=== PATIENT | female | born 1950 | race Caucasian/White ===

== ENCOUNTER 2019-03-16 07:32 | Observation (INO) | payer OTHER ==
--- OUTSIDE RECORDS SUMMARY | 2019-03-16 07:34 | XMS REPORT ---
:1950 [facility] Address [address] [place] [address] Dr. Mcfar[address]. [address] [place] [address] Care Team Providers Name Role Phone Unavailable Unavailable Unavailable Problems This patient has no known problems. Allergies, Adverse Reactions, Alerts This patient has no known allergies or adverse reactions. Medications This patient has no known medications.
[2019-03-16] MEDS ORDERED: NA CHLORIDE 0.9% 1,000 ML ONE (08:27)
[2019-03-16] MEDS ORDERED: FAMOTIDINE 20 MG/2 ML VIAL IV ONE (08:28)
[2019-03-16 09:05] LABS: Absolute Lymphocytes (CBC) 2.4 K/uL (0.7-4.9); Basophils % 0.6 % (0-1.3); Hematocrit 41.4 % (36.0-45.0); Lymphocytes % 20.9 % (15.3-44.8); MPV 8.5 fL (7.6-11.3); RBC Red Blood Cell Count 4.68 M/uL (3.86-4.86)
[2019-03-16 09:06] LABS: Protime INR 1.52
[2019-03-16] MEDS ORDERED: PIPER/TAZO/NS 3.375gm 3.375 GM/100 ML BAG ONE (09:06)
[2019-03-16 09:29] LABS: ALT/SGPT 24 U/L (12-78); AST/SGOT 19 U/L (15-37); Alkaline Phosphatase 97 U/L (45-117); BUN Blood Urea Nitrogen 9 mg/dL (7-18); Bicarbonate 28 mmol/L (21-32); Bilirubin Direct 0.2 mg/dL (0-0.2); Bilirubin Total 0.7 mg/dL (0.2-1.0); Glucose Level 143 mg/dL (74-106); Magnesium 2.1 mg/dL (1.8-2.4); NT PRO-BNP 556 pg/mL (<125); Potassium 3.9 mmol/L (3.5-5.1); Sodium Level 142 mmol/L (136-145); Troponin (Emerg Dept Use Only) < 0.02 ng/mL (0.0-0.045)
[2019-03-16 09:35] LABS: Urine Blood NEGATIVE (NEG); Urine Glucose NEGATIVE (NEG); Urine Protein NEGATIVE (NEG); Urine pH 6.5 (5.0-7.0)
--- NOTE | 2019-03-16 10:12 | RAD REPORT ---
EXAM DESCRIPTION: RAD - Chest Single View - 03/16/2019 8:57 am CLINICAL HISTORY: Cough, dyspnea, recent flu episode COMPARISON: May 2016 TECHNIQUE: AP portable chest image was obtained 0842 hour . FINDINGS: Right perihilar parenchymal opacification is present new from prior imaging. In the acute clinical setting this is most likely pneumonia. Progressive fibrosis is possible. Heart size is upper normal. Vasculature within normal limits. No measurable pleural effusion and no pneumothorax. No acute bony abnormality seen. No acute aortic findings suspected. IMPRESSION: Suspected right perihilar pneumonia. Follow-up imaging is needed to assure complete leslie ring.
--- NOTE | 2019-03-16 10:19 | RAD REPORT ---
EXAM DESCRIPTION: CT - Chest For Pe Angio - 03/16/2019 9:53 am CLINICAL HISTORY: Cough;Dyspnea COMPARISON: Chest Single View dated 03/16/2019 TECHNIQUE: Dynamically enhanced 3 mm thick images of the chest were obtained during administration o f approximately 150mL Isovue 370 IV contrast. Coronal and oblique MIP reconstruction images were gene rated and reviewed. Exam utilizes a protocol to evaluate the pulmonary arterial tree. All CT scans are performed using dose optimization technique as appropriate and may include automated exposure control or mA/KV adjustment according to patient size. FINDINGS: No pulmonary emboli are identified. The aorta as imaged shows no acute or suspicious finding. No pericardial thickening or effusion. Patchy airspace opacification is present in the anterior mid portion right upper lobe. More consolida juliet parenchyma is seen in the right upper lobe abutting the minor fissure. Patchy opacification is pr esent in the right infrahilar region extending into the right lower lobe. Mild bronchial wall thicken ing changes are present. No endobronchial lesion. Patient has granulomatous calcifications in the med iastinal and hilar regions. No pleural effusion or pleural thickening. No mediastinal or hilar suspicious masses. No chest wall masses or abnormal axillary lymphadenopathy. IMPRESSION: No pulmonary emboli identified. Anterior right midlung field pneumonia in the right upper lobe with patchy pneumonia changes in the p osterior inferior right lower lobe.
--- NOTE | 2019-03-16 10:46 | ER ---
Nurse's Notes [facility] Name: Nickolas Grimes Age: 69 yrs Sex: Female : 1950 Arrival Date: 03/16/2019 Time: 07:[address] Private MD: Mk Arango Diagnosis: Hemoptysis;Unspecified bacterial pneumonia;Atrial fibrillation and flutter-on eliquis, aspirin Presentation: 03/16 07:46 Presenting complaint: Patient states: recently got over flu a couple weeks ago, started iw having a cough 4-5 days ago, this morning started coughing up bright red blood and had rattling in her chest. Transition of care: patient was not received from another setting of care. Onset of symptoms was March 11, 2019. Risk Assessment: Do you want to hurt yourself or someone else? Patient reports no desire to harm self or others. Initial Sepsis Screen: Does the patient meet any 2 criteria? No. Patient's initial sepsis screen is negative. Does the patient have a suspected source of infection? Yes: Productive cough/pneumonia. Care prior to arrival: None. 07:46 Method Of Arrival: Ambulatory iw 07:46 Acuity: [place] 3 iw Historical: - Allergies: 07:50 No Known Allergies; iw - Home Meds: 07:50 Eliquis 5 mg oral tab 1 tab daily [Active]; aspirin 81 mg Oral TbEC 1 tab once daily iw [Active]; diltiazem HCl 60 mg Oral tab 1 tab 3 times per day [Active]; sotalol 120 mg Oral tab 1 tab 2 times per day [Active]; Albuterol Nebulizer [Active]; - PMHx: 07:50 Atrial Fib; Hypertension; iw - PSHx: 07:50 Cholecystectomy; Tonsillectomy; Adenoids; cardiac ablation; iw - Immunization history:: Adult Immunizations not up to date. - Social history:: Smoking status: Smoking status: Patient/guardian denies using tobacco. - Ebola Screening: : Patient negative for fever greater than or equal to 101.5 degrees Fahrenheit, and additional compatible Ebola Virus Disease symptoms Patient denies exposure to infectious person Patient denies travel to an Ebola-affected area in the 21 days before illness onset No symptoms or risks identified at this time. - Family history:: not pertinent. Screenin:35 Abuse screen: Denies threats or abuse. Denies injuries from another. Nutritional aj1 screening: No deficits noted. Tuberculosis screening: No symptoms or risk factors identified. 13:35 Fall Risk None identified. aj1 Assessment: 08:30 General: Appears in no apparent distress. uncomfortable, Behavior is calm, cooperative, jl7 appropriate for age. Pain: Denies pain. Neuro: Level of Consciousness is awake, alert, obeys commands, Oriented to person, place, time, situation. Cardiovascular: Heart tones S1 S2 present Patient's skin is warm and dry. Respiratory: Reports cough that is productive, Airway is patent Respiratory effort is even, unlabored, Respiratory pattern is regular, symmetrical, Breath sounds are clear bilaterally. Derm: Skin is pink, warm \T\ dry. 10:13 General: Appears in no apparent distress. uncomfortable, Behavior is calm, cooperative, aj1 appropriate for age. Pain: Denies pain. Neuro: Level of Consciousness is awake, alert, obeys commands, Oriented to person, place, time, situation. Cardiovascular: Heart tones S1 S2 present Patient's skin is warm and dry. Respiratory: Reports cough that is productive, with bloody sputum Airway is patent Respiratory effort is even, unlabored, Respiratory pattern is regular, symmetrical, Breath sounds with rhonchi bilaterally. GI: No signs and/or symptoms were reported involving the gastrointestinal system. : No signs and/or symptoms were reported regarding the genitourinary system. EENT: No signs and/or symptoms were reported regarding the EENT system. Derm: No signs and/or symptoms reported regarding the dermatologic system. Skin is pink, warm \T\ dry. normal. Musculoskeletal: No signs and/or symptoms reported regarding the musculoskeletal system. Circulation, motion, and sensation intact. 11:15 Reassessment: Patient appears in no apparent distress at this time. No changes from aj1 previously documented assessment. Patient and/or family updated on plan of care and expected duration. Pain level reassessed. Patient is alert, oriented x 3, equal unlabored respirations, skin warm/dry/pink. 11:20 Reassessment: Dr. Dalton at bedside. aj1 12:32 Reassessment: Patient and/or family updated on plan of care and expected duration. Pain aj1 level reassessed. General: Appears in no apparent distress. comfortable, Behavior is calm, cooperative, appropriate for age. Pain: Denies pain. Neuro: Level of Consciousness is awake, alert, obeys commands, Oriented to person, place, time, situation. Cardiovascular: Patient's skin is warm and dry. Cardiovascular: Rhythm is sinus rhythm. Respiratory: Airway is patent Respiratory effort is even, unlabored, Respiratory pattern is regular, symmetrical. Derm: Skin is pink, warm \T\ dry. normal. Musculoskeletal: Circulation, motion, and sensation intact. 12:36 Reassessment: Patient developed a rash rash to her right arm above IV site. aj1 Azithromycin was discontinued and Dr. Dalton was notified. Order received to change antibiotic to Levaquin 750 mg IV once daily. Give Benadryl 25 mg PO now. Vital Signs: 07:50 BP 140 / 90; Pulse 64; Resp 18 S; Temp 98.3; Pulse Ox 95% on R/A; Weight 85.28 kg; iw Height 5 ft. 8 in. (172.72 cm); Pain 0/10; 09:02 BP 138 / 64; Pulse 60; Resp 19; Temp 99.0(O); Pulse Ox 97% on R/A; mh5 10:13 BP 158 / 68; Pulse 64; Resp 15; Pulse Ox 98% on R/A; aj1 11:22 BP 153 / 69; Pulse 58; Resp 18; Pulse Ox 99% on R/A; aj1 12:33 BP 140 / 72; Pulse 64; Resp 14; Pulse Ox 98% on R/A; aj1 13:35 BP 149 / 71; Pulse 60; Resp 16; Pulse Ox 99% on R/A; aj1 07:50 Body Mass Index 28.59 (85.28 kg, 172.72 cm) ED Course: 07:35 Patient arrived in ED. as 07:35 Mk Arango MD is Private Physician. as 07:48 Triage completed. iw 07:50 Arm band placed on. iw 07:54 Pool Bowman RN is Primary Nurse. jl7 07:57 Lukas Ferrara MD is Attending Physician. marlee 08:30 Inserted saline lock: 22 gauge in right forearm, using aseptic technique. Blood jl7 collected. 08:30 Initial lab(s) drawn, by sd, sent to lab. First set of blood cultures drawn by sd. jl7 08:33 Radiology exam delayed due to lab results not completed at this time. (BUN/Creatinine). bq 08:57 XRAY Chest (1 view) In Process Unspecified. EDMS 09:04 Patient has correct armband on for positive identification. Placed in gown. Bed in low mh5 position. Call light in reach. Side rails up X 1. Adult w/ patient. photogrammetry airplane pilot on. Pulse ox on. NIBP on. 09:24 Urine collected: clean catch specimen, clear. jl7 09:53 CT completed. Patient tolerated procedure well. Patient moved back from CT. mw3 09:53 CT Chest For PE Angio In Process Unspecified. EDMS 09:54 Patient moved back from [address]. mw3 10:42 Jessie Dalton MD is Hospitalizing Provider. [facility] 13:35 No provider procedures requiring assistance completed. Patient admitted, IV remains in aj1 place. 13:36 Report given to FAWAD Briscoe on 4th floor. aj1 Administered Medications: Discontinued: Zithromax 500 mg IVPB once over 1 hrs; mix in 250 mL NS 08:42 Drug: NS 0.9% 1000 ml Route: IV; Rate: 125 ml/hr; Site: right forearm; jl7 13:37 Follow up: IV Status: Infusion continued upon admission; IV Intake: 725ml aj1 08:43 Drug: Pepcid 20 mg Route: IVP; Site: right forearm; jl7 13:36 Follow up: Response: No adverse reaction aj1 09:23 Drug: Zosyn 3.375 grams Route: IVPB; Infused Over: 60 mins; Site: right forearm; jl7 11:23 Follow up: IV Status: Completed infusion; IV Intake: 100ml aj1 12:16 Drug: Zithromax 500 mg Route: IVPB; Infused Over: 1 hrs; Site: right antecubital; aj1 12:51 Drug: Benadryl 25 mg Route: PO; aj1 13:37 Follow up: Response: No adverse reaction aj1 13:38 Not Given (Admitting nurse states that she will give this medication upstairs so aj1 patient can be monitored ): LevaQUIN 750 mg 150 ml IVPB once over 90 mins Intake: 11:23 IV: 100ml; Total: 100ml. aj1 13:37 IV: 725ml; Total: 825ml. aj1 Outcome: 10:45 Decision to Hospitalize by Provider. marlee 13:38 Admitted to Tele accompanied by tech, via wheelchair, with chart. aj1 13:38 Condition: stable 13:38 Discharge instructions given to patient, Instructed on the need for admit, Demonstrated understanding of instructions. 14:32 Patient left the ED. liliane Signatures: Dispatcher [employer] Zina Coates, FAWAD RN aj1 Lukas Ferrara MD MD cha Quilty, Betty bq Martinez, Amelia as Williams, Irene, RN RN iw Martinez, Maria [facility] Pool Bowman RN RN jl7 Sole Mercer mw3
--- NOTE | 2019-03-16 10:46 | EDPHYS ---
Physician Documentation [facility] Name: Nickolas Grimes Age: 69 yrs Sex: Female : 1950 Arrival Date: 03/16/2019 Time: 07:[address] Private MD: Mk Arango ED Physician Lukas Ferrara HPI: 03/16 08:22 This 69 yrs old Female presents to ER via Ambulatory with complaints of Cough.marlee 08:22 The patient or guardian reports cough. Onset: The symptoms/episode began/occurred 14 marlee day(s) ago. 08:23 Modifying factors: The symptoms are alleviated by nothing. the symptoms are aggravated marlee by nothing. Severity of symptoms: At their worst the symptoms were mild, in the emergency department the symptoms are unchanged. Associated signs and symptoms: The patient has no apparent associated signs or symptoms. Modifying factors: The symptoms are alleviated by nothing, the symptoms are aggravated by cold weather, exertion, talking. Severity of symptoms: At their worst the symptoms were mild moderate in the emergency department the symptoms are unchanged. Historical: - Allergies: 07:50 No Known Allergies; iw - Home Meds: 07:50 Eliquis 5 mg oral tab 1 tab daily [Active]; aspirin 81 mg Oral TbEC 1 tab once daily iw [Active]; diltiazem HCl 60 mg Oral tab 1 tab 3 times per day [Active]; sotalol 120 mg Oral tab 1 tab 2 times per day [Active]; Albuterol Nebulizer [Active]; - PMHx: 07:50 Atrial Fib; Hypertension; iw - PSHx: 07:50 Cholecystectomy; Tonsillectomy; Adenoids; cardiac ablation; iw - Immunization history:: Adult Immunizations not up to date. - Social history:: Smoking status: Smoking status: Patient/guardian denies using tobacco. - Ebola Screening: : Patient negative for fever greater than or equal to 101.5 degrees Fahrenheit, and additional compatible Ebola Virus Disease symptoms Patient denies exposure to infectious person Patient denies travel to an Ebola-affected area in the 21 days before illness onset No symptoms or risks identified at this time. - Family history:: not pertinent. ROS: 08:23 Constitutional: Negative for fever, chills, and weight loss, Eyes: Negative for injury, marlee pain, redness, and discharge, ENT: Negative for injury, pain, and discharge, Neck: Negative for injury, pain, and swelling, Cardiovascular: Negative for chest pain, palpitations, and edema, Abdomen/GI: Negative for abdominal pain, nausea, vomiting, diarrhea, and constipation, Back: Negative for injury and pain, : Negative for injury, bleeding, discharge, and swelling, MS/Extremity: Negative for injury and deformity, Skin: Negative for injury, rash, and discoloration, Neuro: Negative for headache, weakness, numbness, tingling, and seizure, Psych: Negative for depression, anxiety, suicide ideation, homicidal ideation, and hallucinations, Allergy/Immunology: Negative for hives, rash, and allergies, Endocrine: Negative for neck swelling, polydipsia, polyuria, polyphagia, and marked weight changes. 08:23 Respiratory: Positive for cough, bloody, on elquis, asa. Exam: 08:23 Constitutional: This is a well developed, well nourished patient who is awake, alert, marlee and in no acute distress. Head/Face: Normocephalic, atraumatic. Eyes: Pupils equal round and reactive to light, extra-ocular motions intact. Lids and lashes normal. Conjunctiva and sclera are non-icteric and not injected. Cornea within normal limits. Periorbital areas with no swelling, redness, or edema. ENT: Nares patent. No nasal discharge, no septal abnormalities noted. Tympanic membranes are normal and external auditory canals are clear. Oropharynx with no redness, swelling, or masses, exudates, or evidence of obstruction, uvula midline. Mucous membranes moist. Neck: Trachea midline, no thyromegaly or masses palpated, and no cervical lymphadenopathy. Supple, full range of motion without nuchal rigidity, or vertebral point tenderness. No Meningismus. Chest/axilla: Normal chest wall appearance and motion. Nontender with no deformity. No lesions are appreciated. Cardiovascular: Regular rate and rhythm with a normal S1 and S2. No gallops, murmurs, or rubs. Normal PMI, no JVD. No pulse deficits. Abdomen/GI: Soft, non-tender, with normal bowel sounds. No distension or tympany. No guarding or rebound. No evidence of tenderness throughout. Back: No spinal tenderness. No costovertebral tenderness. Full range of motion. Female : Normal external genitalia. Skin: Warm, dry with normal turgor. Normal color with no rashes, no lesions, and no evidence of cellulitis. MS/ Extremity: Pulses equal, no cyanosis. Neurovascular intact. Full, normal range of motion. Neuro: Awake and alert, GCS 15, oriented to person, place, time, and situation. Cranial nerves II-XII grossly intact. Motor strength 5/5 in all extremities. Sensory grossly intact. Cerebellar exam normal. Normal gait. Psych: Awake, alert, with orientation to person, place and time. Behavior, mood, and affect are within normal limits. 08:23 Respiratory: mild respiratory distress is noted, Respirations: normal, Breath sounds: rhonchi, that are mild, are scattered, Respiratory rate: 18 Vital Signs: 07:50 BP 140 / 90; Pulse 64; Resp 18 S; Temp 98.3; Pulse Ox 95% on R/A; Weight 85.28 kg; iw Height 5 ft. 8 in. (172.72 cm); Pain 0/10; 09:02 BP 138 / 64; Pulse 60; Resp 19; Temp 99.0(O); Pulse Ox 97% on R/A; mh5 10:13 BP 158 / 68; Pulse 64; Resp 15; Pulse Ox 98% on R/A; aj1 11:22 BP 153 / 69; Pulse 58; Resp 18; Pulse Ox 99% on R/A; aj1 12:33 BP 140 / 72; Pulse 64; Resp 14; Pulse Ox 98% on R/A; aj1 13:35 BP 149 / 71; Pulse 60; Resp 16; Pulse Ox 99% on R/A; aj1 07:50 Body Mass Index 28.59 (85.28 kg, 172.72 cm) iw MDM: 07:57 Patient medically screened. [facility] 08:25 Data reviewed: vital signs, nurses notes, lab test result(s), EKG, radiologic studies, [facility] CT scan, plain films. 03/16 08:22 Order name: Basic Metabolic Panel; Complete Time: 10:04 marlee 03/16 08:22 Order name: CBC with Diff; Complete Time: 09:23 [facility] 03/16 08:22 Order name: LFT's; Complete Time: 10:04 [facility] 03/16 08:22 Order name: Magnesium; Complete Time: 10:04 [facility] 03/16 08:22 Order name: NT PRO-BNP; Complete Time: 10:04 [facility] 03/16 08:22 Order name: PT-INR; Complete Time: 09:23 [facility] 03/16 08:22 Order name: Troponin (emerg Dept Use Only); Complete Time: 10:04 [facility] 03/16 08:22 Order name: XRAY Chest (1 view) [facility] 03/16 08:22 Order name: CT Chest For PE Angio [facility] 03/16 08:22 Order name: TSH; Complete Time: 10:04 [facility] 03/16 08:22 Order name: Blood Culture Adult (2) [facility] 03/16 09:23 Order name: Urine Culture [facility] 03/16 09:24 Order name: Urine Dipstick--Ancillary (enter results); Complete Time: 10:04 al 03/16 08:22 Order name: EKG; Complete Time: 08:24 [facility] 03/16 08:22 Order name: Cardiac monitoring; Complete Time: 09:02 [facility] 03/16 08:22 Order name: EKG - Nurse/Tech; Complete Time: 09:02 [facility] 03/16 08:22 Order name: IV Saline Lock; Complete Time: 08:42 [facility] 03/16 08:22 Order name: Labs collected and sent; Complete Time: 08:42 [facility] 03/16 08:22 Order name: O2 Per Protocol; Complete Time: 08:42 [facility] 03/16 08:22 Order name: O2 Sat Monitoring; Complete Time: 08:42 [facility] 03/16 08:38 Order name: Urine Dipstick-Ancillary (obtain specimen); Complete Time: 09:23 [facility] Administered Medications: Discontinued: Zithromax 500 mg IVPB once over 1 hrs; mix in 250 mL NS 08:42 Drug: NS 0.9% 1000 ml Route: IV; Rate: 125 ml/hr; Site: right forearm; jl7 13:37 Follow up: IV Status: Infusion continued upon admission; IV Intake: 725ml aj1 08:43 Drug: Pepcid 20 mg Route: IVP; Site: right forearm; jl7 13:36 Follow up: Response: No adverse reaction aj1 09:23 Drug: Zosyn 3.375 grams Route: IVPB; Infused Over: 60 mins; Site: right forearm; jl7 11:23 Follow up: IV Status: Completed infusion; IV Intake: 100ml aj1 12:16 Drug: Zithromax 500 mg Route: IVPB; Infused Over: 1 hrs; Site: right antecubital; aj1 12:51 Drug: Benadryl 25 mg Route: PO; aj1 13:37 Follow up: Response: No adverse reaction aj1 13:38 Not Given (Admitting nurse states that she will give this medication upstairs so aj1 patient can be monitored ): LevaQUIN 750 mg 150 ml IVPB once over 90 mins Disposition: 03/16/19 10:45 Hospitalization ordered by Jessie Dalton for Inpatient Admission. Preliminary diagnosis are Hemoptysis, Unspecified bacterial pneumonia, Atrial fibrillation and flutter - on eliquis, aspirin. - Bed requested for Telemetry/MedSurg (Inpatient). - Status is Inpatient Admission. iw - Condition is Fair. - Problem is new. - Symptoms have improved. UTI on Admission? No Signatures: Dispatcher [employer] EDMS Zina Maharaj RN RN aj1 Abbi Carlson RN RN dw Anderson, Corey, MD MD cha Williams, Irene, RN RN iw Leal, Jahala, RN RN jl7 Corrections: (The following items were deleted from the chart) 13:08 10:45 Hospitalization Ordered by Jessie Dalton MD for Inpatient Admission. Preliminary dw diagnosis is Hemoptysis; Unspecified bacterial pneumonia; Atrial fibrillation and flutter - on eliquis, aspirin. Bed requested for Telemetry/MedSurg (Inpatient). Status is Inpatient Admission. Condition is Fair. Problem is new. Symptoms have improved. UTI on Admission? No. marlee 14:32 13:08 03/16/2019 10:45 Hospitalization Ordered by Jessie Dalton MD for Inpatient iw Admission. Preliminary diagnosis is Hemoptysis; Unspecified bacterial pneumonia; Atrial fibrillation and flutter - on eliquis, aspirin. Bed requested for Telemetry/MedSurg (Inpatient). Status is Inpatient Admission. Condition is Fair. Problem is new. Symptoms have improved. UTI on Admission? No. dw
[2019-03-16] MEDS ORDERED: AZITHROMYCIN IV 500 MG in NA CHLORIDE 0.9% 250 ML IVPB ONE (12:00)
[2019-03-16] MEDS ORDERED: DIPHENHYDRAMINE 25 MG TAB/CAP ONE (12:45)
[2019-03-16] MEDS ORDERED: Levofloxacin 750mg IV 750 MG/150 ML BAG IV ONE (12:45)
[2019-03-16] MEDS ORDERED: ALBUTEROL 2.5 MG/3 ML NEB SOL NEB PRN (13:03)
[2019-03-16] MEDS ORDERED: ONDANSETRON 4 MG/2 ML VIAL IV PRN (13:03)
[2019-03-16] MEDS ORDERED: ACETAMINOPHEN 500 MG TAB PO PRN (13:03)
[2019-03-16] MEDS ORDERED: IPRATROPIUM BROM 0.5MG/2.5ML NEB PRN (13:03)
[2019-03-16 14:57] VITALS: BMI 27.8
[2019-03-16] MEDS: NA CHLORIDE 0.9% 1,000 ML IV SCH (15:22)
[2019-03-16] MEDS ORDERED: Levofloxacin 750mg IV 750 MG/150 ML BAG IV SCH (16:00)
[2019-03-16] MEDS: SOTALOL HCL 120 MG PO SCH (18:35)
[2019-03-16 20:37] VITALS: O2SAT 96
[2019-03-16] MEDS: DILTIAZEM HCL 60 MG PO SCH (21:00)
[2019-03-16] MEDS ORDERED: CEFTRIAXONE/SWI 1gm 1 GM/10 ML SYR IVP SCH (21:00)
[2019-03-16] MEDS ORDERED: POTASSIUM CL SA 10 MEQ TAB PO ONE (21:00)
--- NOTE | 2019-03-17 02:02 | HP ---
Date of Admission: 03/16/2019 Code Status: Full. Chief Complaint: Hemoptysis. Consultants: 1. Dr. Mcgrath with Pulmonology. 2. Dr. Peraza with Cardiology. 3. Primary care physician, Dr. Arango. History Of Present Illness: Patient is a 69-year-old female with past medical history of atrial fibrillation, on Eliquis, essential hypertension, who was in her usual state of health 1 month ago, had onset of flu, was on antiviral steroids, completed the course, but continued to have cough including seasonal allergies, which exacerbated her cough. The patient this morning had episode of yousif hemoptysis there, who came into the ER for further evaluation. She denies any trauma. She has been taking her Eliquis as recommended. She takes 5 mg daily along with an aspirin and in the evening. Patient follows with Dr. Rowland for her cardiology issues, has had an ablation and currently in sinus rhythm. Her symptoms are constant, moderate, progressively worsening. Therefore, came into the ER her workup revealed hemoglobin of 14, white count of 11.6, INR 1.52. Troponin was negative. CT scan of the chest showed no pulmonary emboli. Did show anterior right mid lung field pneumonia in the right upper lobe with patchy pneumonia changes in the posterior inferior right lower lobe. Patient was then referred for admission. When seen in the ER, she was awake, alert, oriented x3, in some mild distress. Past Medical History: Atrial fibrillation, on anticoagulation, hypertension. Past. Past Surgical History: Cholecystectomy, tonsillectomy, adenoidectomy, cardiac ablation. Allergies: NO KNOWN DRUG ALLERGIES. HOWEVER, IN THE ER, RECEIVED AZITHROMYCIN AND BROKE OUT IN THE RASH. INITIALLY, PATIENT DID NOT STATE ANY KNOWN DRUG ALLERGIES. Medications: List reviewed. Social History: Patient denies any tobacco use, alcohol use, or illicit drug use. Patient is . Currently independent in her activities of daily living. Family History: Atrial fibrillation, hypertension, both run in the family. Review of Systems: Ten-point system reviewed, negative except as per HPI. Physical Examination: Vital Signs: Temperature 98.3, heart rate 64, blood pressure 140/90, respirations 18, O2 95% on room air. General: Awake, alert, oriented x3. Elderly female, ill-appearing. HEENT: Normocephalic, atraumatic. PERRLA. EOMI. Moist mucous membranes. Oropharynx is some dry blood without poor dentition. Conjunctivae anicteric. Neck: Supple. No JVD. Trachea midline. CV: S1, S2. Regular rate and rhythm. Peripheral pulses present. Respiratory: Clear to auscultation bilaterally. Some diminished breath sounds at the right lower lobe. No wheezing or stridor. No use of accessory muscles. Gastrointestinal: Abdomen is soft, nontender, nondistended. Positive bowel sounds. No guarding or rigidity. Extremities: No clubbing, cyanosis. Patient has pedal edema. No calf tenderness. Neuro: Cranial nerves 2 through 12 intact grossly. No focal neurological deficit. Speech is normal. Skin: No rashes. Normal skin turgor. Laboratory Data: UA is negative. Sodium 142, potassium 3.9, chloride 107, CO2 of 28, BUN 9, creatinine 0.76, glucose 143, calcium 8.8, magnesium 2.1. Troponin less than 0.02. TSH 2.8. INR 1.52. WBC 11.6, H and H 14 and 41.4, platelets 224. CT angio chest shows anterior right mid lung field pneumonia in the right upper lobe with patchy pneumonia changes in the posterior inferior right lower lobe. No pulmonary emboli identified. Chest x-ray personally reviewed, suspected right perihilar pneumonia. Assessment And Plan: A 69-year-old female with: 1. Hemoptysis, likely secondary to Eliquis and persistent cough and pneumonia. Pulmonology has been consulted. Patient may need bronchoscopy if continues to worsen. We will hold Eliquis for now. 2. Right perihilar pneumonia. We will start on IV antibiotics. Patient had reaction to azithromycin. We will switch to Levaquin. We will obtain blood cultures and sputum cultures. 3. Atrial fibrillation, currently in sinus rhythm. Patient is on sotalol. We will resume home medications as appropriate. 4. Essential hypertension. We will resume home medications, stable. Plan: Admit patient to Med-Surg, place as inpatient. Length of stay greater than 2 midnights. JUAN Voice ID: [id number] MTDD
[2019-03-17] MEDS: NA CHLORIDE 0.9% 1,000 ML IV SCH (05:40)
[2019-03-17 05:54] LABS: Absolute Lymphocytes (CBC) 2.4 K/uL (0.7-4.9); Basophils % 0.6 % (0-1.3); Hematocrit 37.6 % (36.0-45.0); Lymphocytes % 30.3 % (15.3-44.8); MPV 8.1 fL (7.6-11.3); RBC Red Blood Cell Count 4.24 M/uL (3.86-4.86)
[2019-03-17] MEDS ORDERED: LEVOTHYROXINE SOD 0.075 MG TAB PO SCH (06:00)
[2019-03-17 06:13] LABS: Albumin 3.4 g/dL (3.4-5.0); Bilirubin Total 0.8 mg/dL (0.2-1.0); Potassium 4.5 mmol/L (3.5-5.1); Protein, Total 6.2 g/dL (6.4-8.2)
--- NOTE | 2019-03-17 07:44 | EKG ---
Test Date: 2019-03-16 Test Time: 08:54:58 Environmental Director: IZAIAH MEASUREMENT RESULTS: Intervals: Rate: 60 ID: [id number] QRSD: 102 QT: 374 QTc: 374 Bison: P: 35 ID: [id number] QRS: -44 T: 36 INTERPRETIVE STATEMENTS: Normal sinus rhythm Left axis deviation Incomplete right bundle branch block Nonspecific T wave abnormality Abnormal ECG Compared to ECG 05/05/2014 12:47:50 Left-axis deviation now present Incomplete right bundle-branch block now present Atrial flutter no longer present Ventricular premature complex(es) no longer present Right-axis deviation no longer present Prolonged QT interval no longer present T-wave abnormality still present Electronically Signed On 03-17-19 07:43:23 CREDIT AND LOAN COLLECTIONS SUPERVISOR by Silvio Ding
[2019-03-17 08:11] VITALS: TEMP 97
[2019-03-17] MEDS: DILTIAZEM HCL 60 MG PO SCH (08:53)
[2019-03-17] MEDS: MONTELUKAST 10 MG TAB PO SCH ×2 (08:53→08:57)
[2019-03-17] MEDS: SOTALOL HCL 120 MG PO SCH (08:54)
--- NOTE | 2019-03-17 08:57 | CON ---
Chief Complaint: Hemoptysis. History Of Present Illness: Mrs. Grimes has had paroxysmal atrial fib for couple of years. She is tr eated by the physicians at [facility] in [place]. She takes Eliquis 5 mg twice a day, sotalol 120 b.i.d. and diltiazem and aspirin. She had the flu in January and now has developed pneumonia with an infil trate in the right hilar area and she began to have hemoptysis. The hemoptysis is mostly resolved si nce Eliquis has been held about close to 24 hours. Outpatient Medications: Levothyroxine, sotalol, Singulair, fluticasone, diltiazem, apixaban, and asp irin. Allergies: SHE IS ALLERGIC TO AZITHROMYCIN. Social History: Uses no tobacco. Past Medical History: No history of myocardial infarction, stroke, vascular disease. No history of diabetes. Physical Examination: Vital Signs: 5 feet 8, 183 pounds. General: Alert, oriented, pleasant, not in distress. Lungs: Clear. Heart: Regular rate and rhythm. EKG normal. Abdomen: Soft. Extremities: Within normal limits. Distal pulses palpable. Impression: The patient has paroxysmal atrial fibrillation. Under fairly good control in sinus rhyt hm now. We should stop aspirin and Eliquis until her pneumonia is resolved. We will resume it probably after a week. BEULAH Voice ID: [id number] Report ID: [id number]
[2019-03-17] MEDS ORDERED: HOME MED 1 EA UNK (Fluticasone Propionate [Flonase Allergy Relief] 1 SPRAY) IH SCH (09:00)
[2019-03-17] MEDS ORDERED: AZITHROMYCIN IV 500 MG in NA CHLORIDE 0.9% 250 ML IVPB SCH (09:00)
--- NOTE | 2019-03-17 12:14 | P.CNS ---
Date of Consult: 03/17/19 Reason for Consult: Hemoptysis Chief Complaint: Hemoptysis and cough History of Present Illness: Patient is 69 years of age developed a cough in early January evaluated by physician was pretreated with a cough syrup and Keflex admission precipitated by acute onset of hemoptysis no risk factors for lung cancer no history of cancer no prior history of hemoptysis patient is never smoked this found to have a pneumonia in the right upper lobe patient is on Eliquis for atrial fibrillation Allergies azithromycin Allergy (Verified 03/16/19 13:00) Rash Home Medications: Apixaban [Eliquis] 5 mg PO BID 03/16/19 Aspirin 81 mg PO DAILY 03/16/19 Diltiazem HCl [Diltiazem 12Hr ER] 60 mg PO TID 03/16/19 Fluticasone Propionate [Flonase Allergy Relief] 1 spray IH DAILY 03/16/19 Levothyroxine [Synthroid*] 75 mcg PO [id number] 03/16/19 Montelukast Sodium [Singulair] 10 mg PO DAILY 03/16/19 Sotalol HCl [Sotalol] 120 mg PO BID 03/16/19 levoFLOXacin [Levaquin] 750 mg PO DAILY #5 tab 03/17/19 - Past Medical/Surgical History -: Hypertension -: Afib -: Tonisllectomy -: Chlecystectomy -: Adenoidectomy -: Cardiac ablation - Family History Mother Medical History: Heart disease Notes: afib Sister Medical History: Heart disease Notes: afib Father Medical History: Hypertension, Other (see notes) Notes: arthritis - Social History Alcohol use: No Caffeine use: No Place of Residence: Home Review of Systems 10-point ROS is otherwise unremarkable General: Weakness Respiratory: Cough, Hemoptysis Physical Examination Temp Pulse Resp BP Pulse Ox 97.0 F 65 16 162/69 H 97 03/17/19 08:00 03/17/19 08:00 03/17/19 08:00 03/17/19 08:00 03/17/19 08:00 General: Alert, Oriented x3 HEENT: Atraumatic Neck: Supple Respiratory: Clear to auscultation bilaterally, Expiratory wheezes Cardiovascular: No edema, Regular rate/rhythm, Normal S1 S2 Gastrointestinal: Normal bowel sounds, Soft and benign - Problems (1) Hemoptysis Current Visit: Yes Status: Acute Plan: Patient is 69 years of age admitted with acute onset of hemoptysis she had a preceding cough was treated with antibiotics and a cough syrup no prior history of pulmonary complaints he has a history of AFib on Eliquis patient was found to have a right upper lobe infiltrate no evidence of pulmonary emboli no evidence of active ongoing sepsis . CT scan reviewed patient can be discharged home on cefuroxime and doxycycline Levaquin would be relatively contraindicated. This patient is on sotalol the to for 7 days she has already had Keflex before blood cultures are so far negative fold the Eliquis for a week start patient on aspirin and then resume she is not in atrial fibrillation patient to follow with me in 2 weeks
[2019-03-17 12:31] VITALS: BP 144/65
[2019-03-17] MEDS ORDERED: Levofloxacin 750mg IV 750 MG/150 ML BAG IV SCH (14:00)
--- NOTE | 2019-03-18 04:15 | DS ---
Date of Discharge: 03/17/2019 Consultants: Dr. Mcgrath with Pulmonology, Dr. Ding with Cardiology. Procedures: None. Discharge Diagnoses: 1.Acute hemoptysis, likely secondary to pneumonia and Eliquis. 2.Right-sided pneumonia, perihilar. 3.Atrial fibrillation, paroxysmal, currently in sinus rhythm. 4.Essential hypertension, stable. Hospital Course: Patient is a 69-year-old female with past medical history of atrial fibrillation, o n Eliquis; hypertension, comes in with sudden onset of hemoptysis. Patient had been coughing for the past month after getting over the flu, which was treated with antivirals. Patient had a normal hemo globin, did have minimally elevated WBC count. Her INR was 1.52. Patient's Eliquis was held. CT sc an was done to rule out any specific cause of the hemoptysis. There was no PE found. Patient did levine ve anterior right mid lung field pneumonia in the right upper lobe with patchy pneumonia changes in t he posterior-inferior right lower lobe. She was started on IV antibiotics. Patient responded well. Her hemoptysis was slowing down, having minimal episode with teaspoon amount of bright red blood. P aga was seen by Cardiology, Dr. Ding, and recommended continuing to hold the Eliquis and aspirin for a minimum of 1 week. Patient normally follows up with a audio visual design engineer at [facility]. She is to follow up with her primary audio visual design engineer in 1 week and prior to resuming, the anticoagulation therapy. Bron choscopy was not indicated at this time. Dr. Mcgrath recommended outpatient followup in the next co uple of weeks. Patient understands that she needs to return to ER for worsening condition, including hemoptysis. Patient was then cleared for discharge. Her symptoms had improved. She was not short of breath, was not requiring any supplemental oxygen. There were no signs of sepsis. White blood ce ll count was normal. Blood cultures did not show any growth to date. Diet: Patient to continue with heart healthy diet. Activity: As tolerated. Followup: Follow up with primary care physician in 2-3 days. Return to ER for worsening condition. Physical Examination: General: Awake, alert, oriented x3. No acute distress. CV: S1, S2. Regular rate and rhythm. Respiratory: Moving air well bilaterally. Abdomen: Soft, nontender, nondistended. Positive bowel sounds. Extremities: No clubbing, cyanosis, or edema. Neurologic: Nonfocal. SA/MODL Voice ID: [id number] Report ID: [id number]
== END 2019-03-17 13:40 | disposition home or self-care (01) ==
LOC: ER 07:32 → ERHOLD 11:10 → INTOOBSV 11:10 → 4TH 13:34
PROVIDERS: ADMIT Family Medicine; ATTEND Family Medicine
DX: J18.9 Pneumonia, unspecified organism (principal); R04.2 Hemoptysis; I48.0 Paroxysmal atrial fibrillation; Z79.01 Long term (current) use of anticoagulants; I10 Essential (primary) hypertension
CPT/HCPCS: 96365; 96361; 93005; 87040 ×2; 87088; 87070; 85025 ×2; 80048; 36415; 83735; 87205; 85610; 80076; 84443; 81003; 84484; 80053; 83880; 71275; 71045; 94760 ×3; 96375; 99285; 96366; Q9967; J0456; J2543; J7030 ×4; G0378 ×3; 87086

== ENCOUNTER 2020-03-30 16:17 | Emergency (ER) | payer OTHER ==
--- OUTSIDE RECORDS SUMMARY | 2020-03-30 16:21 | XMS REPORT | Clinical Summary ---
:1950 Author Organization [facility] Address [address] [place] [address] Care Team Providers Name Role Phone Asked, Pcp Primary Care Provider Unavailable Allergies Active Allergy Reactions Severity Noted Date Comments Metformin Rash Low 05/19/2017 Medications Medication Sig Dispensed Refills Start Date End Date Status levothyroxine Take 75 mcg by 0 A ctive (SYNTHROID, LEVOXYL) mouth every 75 mcg tablet morning. diltiazem (CardIZEM) Take 60 mg by 0 Active 60 MG tablet mouth 4 (four) times a day. HR >60 sotalol (BETAPACE) 120 Take 120 mg by 0 Active MG tablet mouth 2 (two) times a day. omeprazole (PriLOSEC) Take 20 mg by 0 Active 20 MG capsule mouth daily. apixaban (ELIQUIS) 5 Take 5 mg by mouth 0 Active mg tablet 2 (two) times a day. metFORMIN (GLUCOPHAGE) Take 250 mg by 0 Active 500 mg tablet mouth daily with breakfast. Pt is allergic to generic metformin montelukast Take 10 mg by 0 Acti ve (SINGULAIR) 10 mg mouth nightly. tablet fluticasone (FLONASE) 2 sprays by Each 0 Active 50 mcg/actuation nasal Nare route daily. spray Active Problems Problem Noted Date Atrial fibrillation with RVR 05/19/2017 Surgical History Surgery Date Site/Laterality Comments CHOLECYSTECTOMY 04/02/2008 - 04/01/2009 Medical History Medical History Date Comments Hypertension Arrhythmia atrial fibrilation Anxiety Type 2 diabetes mellitus (HCC) Social History Tobacco Use Types Packs/Day Years Used Date Never Smoker Alcohol Use Drinks/Week oz/Week Comments No Sex Assigned at Date Recorded Not on file Last Filed Vital Signs Not on file Plan of Treatment Health Maintenance Due Date Last Done Comments COVID-19 VACCINE (#1) 1965 BREAST CANCER SCREENING 1999 COLONOSCOPY SCREENING 1999 SHINGLES VACCINES (#1) 1999 65+ PNEUMOCOCCAL VACCINE (1 of 1 - PPSV23) 2014 INFLUENZA VACCINE 11/01/2019 Results Not on fileafter 03/30/2019 Insurance Payer Benefit Plan / Subscriber ID Effective Dates Phone Addre ss Type Group MEDICARE MEDICARE PART A [id number] 2014-Present [place], [place] Medicare AND B COLONIAL [employer] [place] [id number] 2014-Present Commercial Advance Directives For more information, please contact: [phone] Type Date Recorded Patient Manager Pathology Explanati on Advance Directives, Living Will 05/19/2017 2:01 AM and Medical Power of Electromedical Service Engineer
--- OUTSIDE RECORDS SUMMARY | 2020-03-30 16:22 | XMS REPORT | Continuity of Care Document ---
:1950 Author Organization [facility] t Address [address] [place] [address] Care Team Providers Name Role Phone Asked, Pcp Primary Care Physician Unavailable Shelley DAWSON, A Attending Clinician Damir DAWSON Attending Clinician Doctor Unassigned, Name Attending Clinician Unavailable Parveen DAWSON Attending Clinician Problems Condition Condition Condition Status Onset Resolution Last Treating Co mments Source Name Details Category Date Date Treatment Clinician Date Atrial Atrial Disease Active Hydro fibrillati fibrillati 05-19 Wi thodi on with on with 00:00: st RVR RVR 00 Allergies, Adverse Reactions, Alerts Allergy Allergy Status Severity Reaction(s) Onset Inactive Treating Comm ents Source Name Type Date Date Clinician Metformi Propensi Active Rash [place] n n ty to 05-19 Methodi adverse 00:00: st reaction 00 s to drug Social History Social Habit Start Date Stop Date Quantity Comments Source Sex Assigned At [facility] ethodist Alcohol intake 2017-05-19 2017[facility]05-[facility] non-drinker of alcohol (finding) Smoking Status Start Date Stop Date Source Never smoker Hydro Methodis t Medications Ordered Filled Start Stop Current Ordering Indication Dosage Frequency Signature Comments Components Source Medication Medication Date Date Medication? Clinician (SIG) Name Name levothyroxi 2018-0 Yes 75ug QD Take 75 [address] ne 2-19 mcg by Methodi (SYNTHROID, 11:47: mouth st LEVOXYL) 75 51 every mcg tablet morning. diltiazem 2018-0 Yes 60mg Q.25D Take 60 mg [place] (CardIZEM) 2-19 by mouth 4 Met hodi 60 MG 11:47: (four) st tablet 51 times a day. HR >60 sotalol 2018-0 Yes 120mg Q.5D Take 120 [place] (BETAPACE) 2-19 mg by Methodi 120 MG 11:47: mouth 2 st tablet 51 (two) times a day. omeprazole 2018-0 Yes 20mg QD Take 20 mg [place] (PriLOSEC) 2-19 by mouth Metho di 20 MG 11:47: daily. st capsule 51 apixaban 2018-0 Yes 5mg Q.5D Take 5 mg [place] (ELIQUIS) 5 2-19 by mouth 2 Me thodi mg tablet 11:47: (two) st 51 times a day. metFORMIN 2018-0 Yes 250mg QD Take [address] (GLUCOPHAGE 2-19 mg by Methodi ) 500 mg 11:47: mouth st tablet 51 daily with breakfast. Pt is allergic to generic metformin montelukast 2018-0 Yes 10mg QD Take 10 mg Ernandez (SINGULAIR) 2-19 by mouth Meth zoya 10 mg 11:47: nightly. st tablet 51 fluticasone 2018-0 Yes 2{spray QD 2 sprays Awais (FLONASE) 2-19 } by Each Methodi 50 11:47: Nare route st mcg/actuati 51 daily. on nasal spray Procedures This patient has no known procedures. Plan of Care Planned Activity Planned Date Details Comments Source Future Scheduled 2019-11-01 INFLUENZA VACCINE [facility] 00:00:00 [code = INFLUENZA VACCINE] Future Scheduled 2014 65+ PNEUMOCOCCAL [facility] 00:00:00 VACCINE (1 of 1 - PPSV23) [code = 65+ PNEUMOCOCCAL VACCINE (1 of 1 - PPSV23)] Future Scheduled 1999 BREAST CANCER Ernandez [facility] 00:00:00 SCREENING [code = BREAST CANCER SCREENING] Future Scheduled 1999 COLONOSCOPY SCREENING [place] [facility] 00:00:00 [code = COLONOSCOPY SCREENING] Future Scheduled 1999 SHINGLES VACCINES (#1) H meli [facility] 00:00:00 [code = SHINGLES VACCINES (#1)] Future Scheduled 1965 COVID-19 VACCINE (#1) Ho sarika [facility] 00:00:00 [code = COVID-19 VACCINE (#1)] Encounters Start End Encounter Admission Attending Care Care Encounter Source Date/Time Date/Time Type Type Clinicians Facility Department ID 2020-03-17 2020[id number] 00:00:00 00:00:00 Shira Jane [id number] [place] [id number] Professio [phone] [address] 2020-02-16 2020-02-16 Refill Damir [facility] [id number] 00:00:00 00:00:00 Jf Jane [id number] [place] [id number] Professio [phone] nal [address] [place] [address] 2020-02-03 2020-02-03 Telephone Shelley [facility] [id number] 00:00:00 00:00:00 Shira Jane [id number] [place] [id number] Professio [id number] [address] 2020-01-29 2020-01-29 Orders Doctor JOHAN [id number] 00:00:00 00:00:00 Only Unassigned, ANDREA [id number] Benoit [facility] [id number] 2020-01-22 2020-01-22 Telephone Katlyn Saini [id number] 00:00:00 00:00:00 [place] [id number] [facility] [id number] Results This patient has no known results.
--- OUTSIDE RECORDS SUMMARY | 2020-03-30 16:22 | XMS REPORT | Summary of Care ---
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 MD Parveen Unavailable Reason for Visit Reason Comments New Patient Establish Care (Routine) Status Reason Specialty Diagnoses / Procedures Referred By Romain avelar To Contact Contact New Request Cardiology Diagnoses Chronic anticoagulation PAF (paroxysmal atrial fibrillation) Essential hypertension, benign WILKERSON (dyspnea on exertion) NSVT (nonsustained ventricular tachycardia) Rowland, Sendil Procedures Consult Cardiac Electrophysiology MD Makenna [address] [address] Encounter Details Date Type Department Care Team Description 01/13/2020 Office Visit [place] Mateo Saini MD Paroxysmal atrial Cardiology- [address] fibrillation (Primary [address] [place] [address], [address] [address] [place], [place] [phone] [address] [phone] Allergies Active Allergy Reactions Severity Noted Date Comments Azithromycin Itching 06/05/2019 Metformin Rash 04/18/2017 documented as of this encounter (statuses as of 01/13/2020) Medications Medication Sig Dispensed Refills Start Date End Date Status aspirin 81 mg chewable Take 81 mg by 0 Active tablet mouth daily. apixaban (ELIQUIS) 5 mg Take 1 tablet 180 tablet 2 09/11/2019 Active tabletIndications: by mouth 2 atrial arrhythmia (two) times daily. Indications: atrial arrhythmia, a type or abnormal heart beat atorvastatin 40 mg Take 1 tablet 90 tablet 3 09/25/2019 Active tabletIndications: Mixed by mouth at hyperlipidemia bedtime. sotalol 120 mg Take 1 tablet 120 tablet 2 10/14/2019 Active tabletIndications: by mouth 2 Essential hypertension, (two) times benign daily. montelukast 10 mg Take 1 tablet 90 tablet 1 10/14/2019 Active tabletIndications: Nasal by mouth at congestion, Bronchitis bedtime. fluticasone propionate Use 1 [place] in 16 g 2 10/14/2019 Active (FLONASE) 50 each nostril mcg/actuation nasal daily. sprayIndications: Nasal congestion, Bronchitis levothyroxine 75 mcg Take 1 tablet 90 tablet 1 10/20/2019 Active tabletIndications: Other by mouth every specified hypothyroidism morning. fluconazole 150 mg Take 1 tablet 4 tablet 0 01/05/2020 Active tabletIndications: Yeast by mouth every infection 72 (seventy-two) hours. Take 1 pill every 3 days for 2 weeks. omeprazole 20 mg Take 1 capsule 90 capsule 3 01/05/2020 Active capsuleIndications: by mouth daily. Gastroesophageal reflux disease, unspecified whether esophagitis present glipiZIDE 5 mg Take 0.5 90 tablet 3 01/05/2020 Acti ve tabletIndications: Type tablets by 2 diabetes mellitus mouth daily. without complication, without long-term current use of insulin folic Take by mouth. 0 Acti ve acid/multivit-min/lutein (CENTRUM SILVER ORAL) vitamin C with chioma hips Take 1,000 mg 0 Active (VITAMIN C) 1,000 mg by mouth daily. tablet documented as of this encounter (statuses as of 01/13/2020) Active Problems Problem Noted Date Productive cough 06/05/2019 Mold exposure 06/05/2019 Senile osteoporosis 06/05/2019 Essential hypertension, benign 02/08/2017 Chronic atrial fibrillation 02/08/2017 documented as of this encounter (statuses as of 01/13/2020) Resolved Problems Problem Noted Date Resolved Date Bronchitis 06/05/2019 10/23/2019 Need for influenza vaccination 06/05/2019 0 Need for 23-polyvalent pneumococcal polysaccharide vaccine 0 06/05/2019 10/23/2019 Medicare annual wellness visit, subsequent 06/05/2019 10/23/2019 Atrial fibrillation with rapid ventricular response 05/12/19 18 10/23/2019 documented as of this encounter (statuses as of 01/13/2020) Immunizations Name Administration Dates Next Due Influenza High Dose 06/11/2019 (Deferred: Vaccine Unavailable) Influenza High Dose Quad 01/05/2020 Pneumococcal Polysaccharide, PPSV23 06/11/2019 (Deferred: Va ccine (PNEUMOVAX) Unavailable) documented as of this encounter Social History Tobacco Use Types Packs/Day Years Used Date Never Smoker Smokeless Tobacco: Never Used Alcohol Use Drinks/Week oz/Week Comments No Sex Assigned at Date Recorded Not on file COVID-19 Exposure Response Date Recorded In the last month, have you been in contact with No / Unsure 01/13/2020 10:42 AM CDT someone who was confirmed or suspected to have Coronavirus / COVID-19? documented as of this encounter Last Filed Vital Signs Vital Sign Reading Time Taken Comments Blood Pressure 131/76 01/13/2020 10:46 AM CDT Pulse 61 01/13/2020 10:43 AM CDT Temperature - - Respiratory Rate 19 01/13/2020 10:43 AM CDT Oxygen Saturation 95% 01/13/2020 10:43 AM CDT Inhaled Oxygen Concentration - - Weight 83.7 kg (184 lb 8 oz) 01/13/2020 10:43 AM CDT Height 172.7 cm (5' 8") 01/13/2020 10:43 AM CDT Body Mass Index 28.05 01/13/2020 10:43 AM CDT documented in this encounter Progress Notes Mateo Saini MD - 01/13/2020 10:40 AM CDT Cardiac EP [facility] Note Reason for Evaluation / Chief Complaint: Afib Referring Provider: Dr. Rowland HPI: Nickolas Grimes is a 69 year old female with a history of Pafib, HTN, DM, on anti coagulation and rhythm control strategy with Sotalol, having increasing episodes of break through lasting 6 hours to aday, she wore an event monitor confirming recurrent atrial fibrillation with symptoms, no chest painor Syncope, has also had brief PVT on event monitor, last echo showed normal structures, has stress test scheduled this week. She had a atrial fibrillation ablation 5 years ago and had no recurrence for 2 yrs PMH: Past Medical History: Diagnosis Date Atrial fibrillation Atrial fibrillation with rapid ventricular response 05/12/2017 Chronic atrial fibrillation 02/08/2017 Essential hypertension, benign 02/08/2017 Social History: Social History Socioeconomic History Marital status: Spouse name: Not on file Number of children: Not on file Years of education: Not on file Highest education level: Not on file Occupational History Not on file Social Needs Financial resource strain: Not on file Food insecurity Worry: Not on file Inability: Not on file Transportation needs Medical: Not on file Non-medical: Not on file Tobacco Use Smoking status: Never Smoker Smokeless tobacco: Never Used Substance and Sexual Activity Alcohol use: No Drug use: No Sexual activity: Never Lifestyle Physical activity Days per week: Not on file Minutes per session: Not on file Stress: Not on file Relationships Social connections Talks on phone: Not on file Gets together: Not on file Attends druze service: Not on file Active member of club or organization: Not on file Attends meetings of clubs or organizations: Not on file Relationship status: Not on file Intimate partner violence Fear of current or ex partner: Not on file Emotionally abused: Not on file Physically abused: Not on file Forced sexual activity: Not on file Other Topics Concern Not on file Social History Narrative Not on file Family History: Family History Problem Relation Age of Onset Lung Cancer Mother Allergies: Allergies Allergen Reactions Azithromycin Itching Metformin Rash Medications: Current Outpatient Medications Medication Sig Dispense Refill fluconazole 150 mg tablet Take 1 tablet by mouth every 72 (seventy-two) hours. Take 1 pill every3 days for 2 weeks. 4 tablet 0 folic acid/multivit-min/lutein (CENTRUM SILVER ORAL) Take by mouth. glipiZIDE 5 mg tablet Take 0.5 tablets by mouth daily. 90 tablet 3 omeprazole 20 mg capsule Take 1 capsule by mouth daily. 90 capsule 3 vitamin C with chioma hips (VITAMIN C) 1,000 mg tablet Take 1,000 mg by mouth daily. levothyroxine 75 mcg tablet Take 1 tablet by mouth every morning. 90 tablet 1 fluticasone propionate (FLONASE) 50 mcg/actuation nasal spray Use 1 [place] in each nostril daily.16 g 2 montelukast 10 mg tablet Take 1 tablet by mouth at bedtime. 90 tablet 1 sotalol 120 mg tablet Take 1 tablet by mouth 2 (two) times daily. 120 tablet 2 atorvastatin 40 mg tablet Take 1 tablet by mouth at bedtime. 90 tablet 3 apixaban (ELIQUIS) 5 mg tablet Take 1 tablet by mouth 2 (two) times daily. Indications: atrial arrhythmia, a type or abnormal heart beat 180 tablet 2 aspirin 81 mg chewable tablet Take 81 mg by mouth daily. No current facility-administered medications for this visit. Review of Systems: General: fatigue during episodes Eyes: denies complaint Ears/Nose/Mouth/Throat: denies complaint Cardiovascular: as per hpi Respiratory: denies complaint Musculoskeletal: denies complaint Skin: denies complaint Neurologic: denies complaint Psychiatric: denies complaint Endocrine: diabetes Hematologic: denies complaint Allergy/Immunology: denies complaint Physical Exam: Vitals: Vitals: 01/13/20 1043 01/13/20 1046 BP: 138/75 131/76 BP Location: Left arm Patient Position: Sitting BP CUFF SIZE: Adult Large Pulse: 61 Resp: 19 SpO2: 95% Weight: 184 lb 8 oz (83.7 kg) Height: 5' 8" (1.727 m) General: well developed and well nourished female. No acute distress. Eyes: noicterus Ears/Nose/Mouth: Clear Neck: no thyroid megaly or lymphadenopathy Heart: regular rate and regular rhythm; no rubs or gallops, no murmur. Lungs: clear to auscultation Extremities: Normal bilateral Musculoskeletal: full range of motion. Ambulates without limitation. Neurologic: alert and oriented x 4; without gross abnormalities. Psychiatric: pleasant with no SI or HI. LABS / DATA: CBC WBC (10*3/L) Date Value 08/08/2019 7.46 RBC (10*6/L) Date Value 08/08/2019 4.87 PLT (10*3/L) Date Value 08/08/2019 219 HGB (g/dL) Date Value 08/08/2019 14.8 HCT (%) Date Value 08/08/2019 45.6 (H) CMP NA (mmol/L) Date Value 08/08/2019 143 K (mmol/L) Date Value 08/08/2019 4.3 CALCIUM (mg/dL) Date Value 08/08/2019 10.1 CL (mmol/L) Date Value 08/08/2019 103 BUN (mg/dL) Date Value 08/08/2019 16 CREATININE (mg/dL) Date Value 08/08/2019 0.75 GLUCOSE (mg/dL) Date Value 08/08/2019 121 (H) CO2 TOTAL (mmol/L) Date Value 08/08/2019 33 (H) ALBUMIN (g/dL) Date Value 08/08/2019 4.4 T PROTEIN (g/dL) Date Value 08/08/2019 6.5 TOTAL BILI (mg/dL) Date Value 08/08/2019 0.7 BILI UNCON (mg/dL) Date Value 10/03/2016 0.2 BILI CONJ (mg/dL) Date Value 10/03/2016 0.0 ALT(SGPT) (U/L) Date Value 05/18/2017 24 ALTv (U/L) Date Value 08/08/2019 17 AST(SGOT) (U/L) Date Value 08/08/2019 25 ALK PHOS (U/L) Date Value 08/08/2019 66 TSH: There are no current results on file for these tests and/or test for 1 year. BNP NT-proBNP (pg/mL) Date Value 03/08/2018 331 (H) Troponins There are no current results on file for these tests and/or test for 1 year. Impression: 69 year ols female with Pafib, symptomatic despite being on Sotalol Recommendation(s): 1. We went over the options available for rhythm control 2. Would recommend a re do PVI with possible ablation of reconnection and other triggers, keeping inmind the favorable response to first ablation, risks and benefits explained in detail 3. Continue management of DM and HTN 4. Life style changes 5. Er warnings given Thank you for allowing us to participate in the care of your patient. Please feel free to contact us for any questions or if we can be of further assistance. Mateo Saini MD 01/13/2020 11:08 AM documented in this encounter Plan of Treatment Date Type Specialty Care Team Description 01/15/2020 Appointment Echocardiograph Pc, Adc Echo-Vascular Elena m 1 - 01/15/2020 Appointment Radiology Shanelle Rowland MD [address] [facility] [address] [place] [address] [place] [address] [phone] 01/15/2020 Appointment Radiology Shanelle Rowland MD [address] [facility] [address] [place] [address] [place] [phone] 01/15/2020 Appointment Radiology Shanelle Rowland MD [address] [facility] [address] [place] [address] [place] [address] [phone] 01/15/2020 Appointment Radiology Shanelle Rowland MD [address] [facility] [address] [place] [address] [place] [address] [phone] 03/05/2020 Office Visit Cardiology Shanelle Rowland MD [address] [facility] [address] [place] [address] [place] [address] [phone] 03/08/2020 Office Visit Internal Medicine Prudence Rsoa MD [address] [place] [address] 15 [phone] 07/05/2020 Office Visit Internal Medicine Prudence Rosa MD [address] [place] [address] 15 [phone] 07/05/2020 Office Visit Internal Medicine Prudence Rosa MD [address] [place] [address] 15 [phone] Health Maintenance Due Date Last Done Comments HEPATITIS C (HCV) SCREEN 1950 EYE EXAM 1960 URINE MICROALBUMIN 1959 DTaP,Tdap,and Td Vaccines (1 - 02/22/1968 Tdap) Breast Cancer Screening 1989 (MAMMOGRAM) COLON CANCER SCREENING ANNUAL 1999 FIT/FOBT COLON CANCER SCREENING FIT DNA 1999 EVERY 3 YEARS COLON CANCER SCREENING 1999 SIGMOIDOSCOPY EVERY 5 YEARS COLONOSCOPY 1999 Colorectal Cancer Screening 1999 Zoster Recombinant Vaccine 1999 (SHINGRIX) (1 of 2) Medicare Wellness Visit 2014 Osteoporosis Screening 2014 PNEUMOCOCCAL VACCINES 65+ (1 of 1 2014 - PPSV23) HgA1C 02/08/2020 08/08/2019 Depression Screening 06/04/2020 06/05/2019 CREATININE (SERUM) 08/07/2020 08/08/2019, 03/08/2018, 05/18/2017, Additional history exists LDL-C 08/07/2020 08/08/2019 FOOT EXAM 01/04/2021 01/05/2020, 01/05/2020 INFLUENZA VACCINE Completed 01/05/2020 documented as of this encounter Results Not on filedocumented in this encounter Visit Diagnoses Diagnosis Paroxysmal atrial fibrillation - Primary Atrial fibrillation documented in this encounter Insurance Payer Benefit Plan / Subscriber ID Effective Dates Phone Addre ss Type Group [employer] [place] [employer] [place] [id number] 2019-Prese Medicare Adv PLUS PLUS CHOICE nt HMO/POS (Work) [id number] documented as of this encounter
--- OUTSIDE RECORDS SUMMARY | 2020-03-30 16:22 | XMS REPORT | Summary of Care ---
:1950 Author Organization [facility] - Health Address [address] [place] [address] Care Team Providers Name Role Phone Jf Reich MD Primary Care Provider Shira Rosa MD Insurance Hmo [phone] Lorenzo Rosa MD Primary Care Provider Encounter Details Date Type Department Care Team Description 09/16/2019 Orders Only [facility] Doctor Unassigned, No [address] [facility] [place] [address] [place] [address] Allergies Active Allergy Reactions Severity Noted Date Comments Azithromycin Itching 06/05/2019 Metformin Rash 04/18/2017 documented as of this encounter (statuses as of 01/01/2020) Medications Medication Sig Dispensed Refills Start Date End Date Status aspirin 81 mg Take 81 mg by 0 Ac tive chewable tablet mouth daily. apixaban (ELIQUIS) 5 Take 1 tablet by 180 tablet 2 09/11/2019 Active mg tabletIndications: mouth 2 (two) atrial arrhythmia times daily. Indications: atrial arrhythmia, a type or abnormal heart beat documented as of this encounter (statuses as of 01/01/2020) Active Problems Problem Noted Date Productive cough 06/05/2019 Mold exposure 06/05/2019 Senile osteoporosis 06/05/2019 Essential hypertension, benign 02/08/2017 Chronic atrial fibrillation 02/08/2017 documented as of this encounter (statuses as of 01/01/2020) Resolved Problems Problem Noted Date Resolved Date Bronchitis 06/05/2019 10/23/2019 Need for influenza vaccination 06/05/2019 0 Need for 23-polyvalent pneumococcal polysaccharide vaccine 0 06/05/2019 10/23/2019 Medicare annual wellness visit, subsequent 06/05/2019 10/23/2019 Atrial fibrillation with rapid ventricular response 05/12/19 18 10/23/2019 documented as of this encounter (statuses as of 01/01/2020) Immunizations Name Administration Dates Next Due Influenza High Dose 06/11/2019 (Deferred: Vaccine Unavailable) Pneumococcal Polysaccharide, PPSV23 06/11/2019 (Deferred: Va ccine (PNEUMOVAX) Unavailable) documented as of this encounter Social History Tobacco Use Types Packs/Day Years Used Date Never Smoker Smokeless Tobacco: Never Used Alcohol Use Drinks/Week oz/Week Comments No Sex Assigned at Date Recorded Not on file COVID-19 Exposure Response Date Recorded In the last month, have you been in contact with No / Unsure 10/21/2019 2:10 PM CDT someone who was confirmed or suspected to have Coronavirus / COVID-19? documented as of this encounter Last Filed Vital Signs Not on filedocumented in this encounter Plan of Treatment Date Type Specialty Care Team Description 01/05/2020 Office Visit Internal Medicine Prudence Rosa MD [address] [place] [address] 15 01/13/2020 Office Visit Cardiology Mateo Saini MD [address] [place] [address] [phone] 01/15/2020 Appointment Echocardiograph Pc, Adc Echo-Vascular Elena m 1 - 01/15/2020 Appointment Radiology Shanelle Rowland MD [facility] [address] [facility] [address] [place] [address] [place] [address] [phone] 01/15/2020 Appointment Radiology Shanelle Rowland MD [address] [facility] [address] [place] [address] [place] [address] [phone] 01/15/2020 Appointment Radiology Shanelle Rowland MD [address] [place], [place] [phone] 01/15/2020 Appointment Radiology Shanelle Rowland MD [address] [facility] [address] [place] [place], [place] [phone] 03/05/2020 Office Visit Cardiology Shanelle Rowland MD [address] [facility] [address] [place] [address] [place] [phone] 03/08/2020 Office Visit Internal Medicine Prudence Rosa MD [address] [phone] Health Maintenance Due Date Last Done Comments HEPATITIS C (HCV) SCREEN 1950 EYE EXAM 1959 URINE MICROALBUMIN 1959 FOOT EXAM 1967 DTaP,Tdap,and Td Vaccines (1 - 02/22/1968 Tdap) [...] 65+ (1 of 1 2014 - PPSV23) INFLUENZA VACCINE (#1) 2019 HgA1C 02/08/2020 08/08/2019 Depression Screening 06/04/2020 06/05/2019 CREATININE (SERUM) 08/07/2020 08/08/2019, 03/08/2018, 05/18/2017, Additional history exists LDL-C 08/07/2020 08/08/2019 documented as of this encounter Procedures Procedure Name Priority Date/Time Associated Diagnosis Comme nts EXTERNAL PROVIDER - ADC Routine 09/16/2019 12:01 AM CARDIOLOGY CDT documented in this encounter Results Not on filedocumented in this encounter Insurance Payer Benefit Plan / Subscriber ID Effective Dates Phone Addre ss Type Group NICOLE GRIFFITH [id number] 2019-Prese Medicare Adv PLUS PLUS CHOICE nt HMO/POS documented as of this encounter
--- OUTSIDE RECORDS SUMMARY | 2020-03-30 16:22 | XMS REPORT | Summary of Care ---
:1950 Author Organization [facility] Address [address] [place] [address] Care Team Providers Name Role Phone Shira Rosa MD Insurance Hmo [phone] Lorenzo Rosa MD Primary Care Provider Makenna Rowland MD Psychiatry Adult Physician MD Parveen Unavailable Reason for Visit Reason Comments New Patient Establish Care (Routine) Status Reason Specialty Diagnoses / Procedures Referred By Romain avelar To Contact Contact New Request Cardiology Diagnoses Chronic anticoagulation PAF (paroxysmal atrial fibrillation) Essential hypertension, benign WILKERSON (dyspnea on exertion) NSVT (nonsustained ventricular tachycardia) Rowland, Sendil Procedures Consult Cardiac Electrophysiology MD Makenna [address] [address] Encounter Details Date Type Department Care Team Description 01/13/2020 Office Visit [facility] Mateo Saini MD Paroxysmal atrial Cardiology- [address] fibrillation (Primary [address] [place] [address], [address] [address] [place], [place] [phone] [address] [phone] Allergies Active Allergy Reactions Severity Noted Date [...] congestion, Bronchitis bedtime. fluticasone propionate Use 1 [place] in 16 g 2 10/14/2019 Active (FLONASE) [...] file Gets together: Not on file Attends uatsdin service: Not on file Active member of [...] (FLONASE) 50 mcg/actuation nasal spray Use 1 [place] in each nostril daily.16 g 2 montelukast [...] Appointment Radiology Shanelle Rowland MD [address] [facility] [address] [place] [address] [place] [address] [phone] 01/15/2020 Appointment Radiology Shanelle Rowland MD [address] [facility] [address] [place] [address] [place] [address] [phone] 01/15/2020 Appointment Radiology Shanelle Rowland MD [address] [facility] [address] [place] [address] [place] [address] [phone] 01/15/2020 Appointment Radiology Shanelle Rowland MD [address] [facility] [address] [place] [address] [place] [address] [phone] 03/05/2020 Office Visit Cardiology Shanelle Rowland MD [address] [facility] [address] [place] [address] [place] [address] [phone] 03/08/2020 Office Visit Internal Medicine Prudence Rosa MD [address] [place] [address] 15 [phone] 07/05/2020 Office Visit Internal Medicine Prudence Rosa MD [address] [place] [address] 15 [phone] 07/05/2020 Office Visit Internal Medicine Prudence Rosa MD [address] [place] [address] 15 [phone] Health Maintenance Due Date Last Done Comments [...] ss Type Group [employer] [place] [place] [id number] 2019-Prese Medicare Adv PLUS PLUS CHOICE nt HMO/POS (Work) [id number] documented as of this encounter
--- OUTSIDE RECORDS SUMMARY | 2020-03-30 16:23 | XMS REPORT | Summary of Care ---
:1950 Author Organization [address] [address] Care Team Providers Name Role Phone Shira Rosa MD Insurance Hmo [phone] Lorenzo Rosa MD Primary Care Provider Makenna Rowland MD Battery Assembler Plastic MD Parveen Unavailable Reason for Visit Reason Comments Procedure EPS+/-ablation Encounter Details Date Type Department Care Team Description 01/22/2020 Telephone [facility] Mateo Saini MD Procedure Electrophysiology [address] (EPS+/-ablation) [facility]. [facility] [address] [place] [address], [address] [place] [address] [phone] Allergies Active Allergy Reactions Severity Noted Date Comments Azithromycin Itching 06/05/2019 Metformin Rash 04/18/2017 documented as of this encounter (statuses as of 01/22/2020) Medications Medication Sig Dispensed Refills Start Date [...] congestion, Bronchitis bedtime. fluticasone propionate Use 1 [place] in 16 g 2 10/14/2019 Active (FLONASE) [...] as of this encounter (statuses as of 01/22/2020) Active Problems Problem Noted Date Productive cough 06/05/2019 Mold exposure 06/05/2019 Senile osteoporosis 06/05/2019 Essential hypertension, benign 02/08/2017 Chronic atrial fibrillation 02/08/2017 documented as of this encounter (statuses as of 01/22/2020) Resolved Problems Problem Noted Date Resolved Date Bronchitis 06/05/2019 10/23/2019 Need for influenza vaccination 06/05/2019 0 Need for 23-polyvalent pneumococcal polysaccharide vaccine 0 06/05/2019 10/23/2019 Medicare annual wellness visit, subsequent 06/05/2019 10/23/2019 Atrial fibrillation with rapid ventricular response 05/12/19 18 10/23/2019 documented as of this encounter (statuses as of 01/22/2020) Immunizations Name Administration Dates Next Due Influenza High Dose 06/11/2019 (Deferred: Vaccine Unavailable) Influenza High Dose Quad 01/05/2020 Pneumococcal Polysaccharide, PPSV23 06/11/2019 (Deferred: [facility] (PNEUMOVAX) Unavailable) documented as of this encounter Social History Tobacco Use Types Packs/Day Years Used Date Never Smoker Smokeless Tobacco: Never Used Alcohol Use Drinks/Week oz/Week Comments No Sex Assigned at Date Recorded Not on file COVID-19 Exposure Response Date Recorded In the last month, have you been in contact with No / Unsure 01/15/2020 8:36 AM CDT someone who was confirmed or suspected to have Coronavirus / COVID-19? documented as of this encounter Last Filed Vital Signs Not on filedocumented in this encounter Miscellaneous Notes Telephone Encounter - Chiquita Locke - 01/22/2020 10:16 AM CDTA call was placed to schedule an EPS+/-ablation with Dr. Saini for 03/03/20. Patient stated that she's still undecided regarding having the procedure. documented in this encounter Plan of Treatment Date Type Specialty Care Team Description 03/05/2020 Office Visit Cardiology Shanelle Rowland MD [facility] [address] [place] [address] [phone] 03/08/2020 Office Visit Internal Medicine Prudence Rosa MD [address] [address] [phone] 07/05/2020 Office Visit Internal Medicine Prudence Rosa MD [address] [address] 15 [phone] 07/05/2020 Office Visit Internal Medicine Prudence Rosa MD [address] [place] [address] 15 [phone] Health Maintenance Due Date Last Done Comments [...] Phone Addre ss Type Group NICOLE GRIFFITH [id number] 2019-Prese Medicare Adv PLUS PLUS CHOICE nt HMO/POS documented as of this encounter
--- OUTSIDE RECORDS SUMMARY | 2020-03-30 16:23 | XMS REPORT | Summary of Care ---
:1950 Author Organization [facility] Address [address] [place] [address] Care Team Providers Name Role Phone Shira Rosa MD Insurance Hmo [phone] Lorenzo Rosa MD Primary Care Provider Makenna Rowland MD Material Stress Tester MD Parveen Unavailable Reason for Referral (Routine) Status Reason Specialty Diagnoses / Referred By Referred To Procedures Contact Contact New Request Cardiology Diagnoses Paroxysmal atrial fibrillation Alee Cruz MD Procedures TRANSESOPHAGEAL ECHO [address] [place] [address] MRI/CAT Scan (Routine) Status Reason Specialty Diagnoses / Referred By Referred To Procedures Contact Contact New Request Diagnostic Diagnoses Paroxysmal atrial fibrillation Alee Cruz MD Radiology Procedures CT HEART W CONTRAST STRUCTURES ONLY (NON CORONARY) [address] [place] [address] (Routine) Status Reason Specialty Diagnoses / Referred By Contact Refe rred To Procedures Contact New Request Diagnoses Paroxysmal atrial fibrillation Alee Cruz MD Procedures Electrophysiology Lab Request for Service (Electrophysiology Use Only) [address] [place] [address] Phone: Reason for Visit Reason Comments New Patient Establish Care (Routine) Status Reason Specialty Diagnoses / Procedures Referred By Romain avelar To Contact Contact New Request Cardiology Diagnoses Chronic anticoagulation PAF (paroxysmal atrial fibrillation) Essential hypertension, benign WILKERSON (dyspnea on exertion) NSVT (nonsustained ventricular tachycardia) Rowland, Sendil Procedures Consult Cardiac Electrophysiology MD Makenna [address] [place] [address] Encounter Details Date Type Department Care Team Description 01/13/2020 Office Visit [facility] Alee Cruz MD Paroxysmal atrial Cardiology- [address] (Primary [address] [facility], [address] [address] [place], [place] [phone] [address] [phone] Allergies Active Allergy Reactions Severity Noted Date [...] congestion, Bronchitis bedtime. fluticasone propionate Use 1 [place] in 16 g 2 10/14/2019 Active (FLONASE) [...] CDT documented in this encounter Progress Notes Alee Cruz MD - 01/13/2020 10:40 AM CDT Cardiac [...] file Gets together: Not on file Attends alevism service: Not on file Active member of [...] (FLONASE) 50 mcg/actuation nasal spray Use 1 [place] in each nostril daily.16 g 2 montelukast [...] if we can be of further assistance. Alee Cruz MD 01/13/2020 11:08 AM documented in this encounter Miscellaneous Notes Addendum Note - Alee Cruz MD - 01/13/2020 10:40 AM CDT Addended by: ALEE CRUZ MD on: 01/13/2020 11:23 AM Modules accepted: Orders documented in this encounter Plan of Treatment Date Type Specialty Care Team Description 01/15/2020 Appointment Echocardiograph Pc, [facility] Echo-Vascular Elena m 1 - 01/15/2020 Appointment Radiology Shanelle Rowland MD [address] [facility] [place] [address] [place] [phone] 01/15/2020 Appointment Radiology Shanelle Rowland MD [address] [facility] [phone] 01/15/2020 Appointment Shanelle Rausch MD [address] [facility] [place] [phone] 01/15/2020 Appointment Shanelle Rausch., MD [address] [facility] [address] [address] [place] [address] [place] [phone] 03/05/2020 Office Visit Cardiology Shanelle Rowland MD [address] [facility] [address] [place] [address] [place] [phone] 03/08/2020 Office Visit Internal Medicine Prudence Rosa MD [address] [place] [phone] 07/05/2020 Office Visit Internal Medicine Prudence Rosa MD [address] [place] [phone] 07/05/2020 Office Visit Internal Medicine Prudence Rosa MD [address] [place] [phone] Name Type Priority Associated Diagnoses Order S chedule CT HEART W CONTRAST IMAGING Routine Paroxysmal atrial Exp ected: STRUCTURES ONLY (NON fibrillation 020, Expires: CORONARY) 01/12/2021 Health Maintenance Due Date Last Done Comments [...] Dates Phone Addre ss Type Group [employer] numberFireTEJ GRIFFITH [id number] 2019-Prese Medicare Adv PLUS PLUS CHOICE nt HMO/POS (Work) [id number] documented as of this encounter
--- OUTSIDE RECORDS SUMMARY | 2020-03-30 16:23 | XMS REPORT | Summary of Care ---
:1950 Author Organization [facility] Address [address] [place] [address] Care Team Providers Name Role Phone Shira Rosa MD Insurance Hmo [phone] Lorenzo Rosa MD Primary Care Provider Makenna Rowland MD Trash Hauler MD Parveen Unavailable Reason for Visit Auth/Cert Status Reason Specialty Diagnoses / Procedures Referred By Devin guardado Referred To Contact Radiology [facility] Nuclear Medicine [address] [place] [phone] Phone: Fax: Encounter Details Date Type Department Care Team Description 01/15/2020 Hospital Encounter [facility] Shanelle Rowland, Vidhi Costa Nuclear MD Medicine [address] [facility] [address] facundo [place] [address] [place] [address] [place], [place] [phone] [address] Allergies Active Allergy Reactions Severity Noted Date Comments Azithromycin Itching 06/05/2019 Metformin Rash 04/18/2017 documented as of this encounter (statuses as of 01/16/2020) Medications Medication Sig Dispensed Refills Start Date [...] congestion, Bronchitis bedtime. fluticasone propionate Use 1 [place] in 16 g 2 10/14/2019 Active (FLONASE) [...] as of this encounter (statuses as of 01/16/2020) Active Problems Problem Noted Date Productive cough 06/05/2019 Mold exposure 06/05/2019 Senile osteoporosis 06/05/2019 Essential hypertension, benign 02/08/2017 Chronic atrial fibrillation 02/08/2017 documented as of this encounter (statuses as of 01/16/2020) Resolved Problems Problem Noted Date Resolved Date Bronchitis 06/05/2019 10/23/2019 Need for influenza vaccination 06/05/2019 0 Need for 23-polyvalent pneumococcal polysaccharide vaccine 0 06/05/2019 10/23/2019 Medicare annual wellness visit, subsequent 06/05/2019 10/23/2019 Atrial fibrillation with rapid ventricular response 05/12/19 18 10/23/2019 documented as of this encounter (statuses as of 01/16/2020) Immunizations Name Administration Dates Next Due Influenza High Dose 06/11/2019 (Deferred: Vaccine Unavailable) Influenza High Dose Quad 01/05/2020 Pneumococcal Polysaccharide, PPSV23 06/11/2019 ([facility]) documented as of this encounter [...] 03/05/2020 Office Visit Cardiology Shanelle Rowland MD [address] [place] [address] [phone] 03/08/2020 Office Visit Internal Medicine Prudence Rosa MD [address] [place] [phone] 07/05/2020 Office Visit Internal Medicine Prudence Rosa MD [address] [place] [phone] 07/05/2020 Office Visit Internal Medicine Prudence Rosa MD [address] [place] [address] 15 [phone] Health Maintenance Due Date Last Done Comments [...] Completed 01/05/2020 documented as of this encounter Procedures Procedure Name Priority Date/Time Associated Diagnosis Comme nts NM MYOCARDIUM Routine 01/15/2020 12:17 Chronic Results fo r this PERFUSION STRESS AND PM CDT anticoagula tion procedure are in REST PAF (paroxysmal the results atrial fibrillat ion) section. Essential hypertension, be nign WILKERSON (dyspnea on exertion) NSVT (nonsustained ventricular tachycardia) documented in this encounter Results Not on filedocumented in this encounter Administered Medications Medication Order MAR Action Action Date Dose Rate Site tc 99m-tetrofosmin Given 01/15/2020 8:57 AM 16.1 millicuries (MYOVIEW) injection 16.1 CDT millicurie 16.1 millicurie, Intravenous, ONCE, 1 dose, Maida 01/15/20 at 0900, Routine documented in this encounter Insurance Payer Benefit Plan / Subscriber ID Effective Dates Phone Addre ss Type Group [employer]IS GRIFFITH [id number] 2019-Prese Medicare Adv PLUS PLUS CHOICE nt HMO/POS documented as of this encounter
--- OUTSIDE RECORDS SUMMARY | 2020-03-30 16:23 | XMS REPORT | Summary of Care ---
:1950 Author Organization [facility] Address [address] [place] [address] Care Team Providers Name Role Phone Shira Rosa MD Insurance Hmo [phone] Lorenzo Rosa MD Primary Care Provider Makenna Rowland MD Curriculum Development Coordinator MD Parveen Unavailable Reason for Referral (STANISLAW) Status Reason Specialty Diagnoses / Referred By Referred To Procedures Contact Contact Authorized Patient is Ophthalmology Diagnoses Red eye Geri Rosa Esther Established with Procedures CONSULT/REFERRAL OPHTHALMOLOGY [address] Provider [address] [place] [address] [address] Phone: [place], [place] [phone] Fax: Reason for Visit Reason Comments Follow-up Encounter Details Date Type Department Care Team Description 01/05/2020 Office Visit [facility] Shelley Yeast infection (Primary Dx); Pediatric and Adult Shira Ventura MD Red eye; Primary Care- [address] [place] [address] D r Gastroesophageal reflux disease, unspeci fied whether esophagitis present; [place] [address] Type 2 diabetes mellitus without complic ation, without long-term current use of insulin; [address] [place] [address] 7 [address] Chronic atrial fibrillation; Drive, [address] SOB (shortness of breath); [place], [place] Chest bethany n, unspecified type; [address] Anxiety; [phone] Change in nail appearance; Healthcare main tenance; Routine adult h lt maintenance Allergies Active Allergy Reactions Severity Noted Date Comments Azithromycin Itching 06/05/2019 Metformin Rash 04/18/2017 documented as of this encounter (statuses as of 01/25/2020) Medications Medication Sig Dispensed Refills Start End Date Status Date aspirin 81 mg Take 81 mg 0 Activ e chewable tablet by mouth daily. apixaban (ELIQUIS) 5 Take 1 180 tablet 2 Active mg tabletIndications: tablet by 0 atrial arrhythmia mouth 2 (two) times daily. Indications: atrial arrhythmia, a type or abnormal heart beat atorvastatin 40 mg Take 1 90 tablet 3 A ctive tabletIndications: tablet by 0 Mixed hyperlipidemia mouth at bedtime. sotalol 120 mg Take 1 120 tablet 2 Acti ve tabletIndications: tablet by 0 Essential mouth 2 hypertension, benign (two) times daily. montelukast 10 mg Take 1 90 tablet 1 Ac tive tabletIndications: tablet by 0 Nasal congestion, mouth at Bronchitis bedtime. fluticasone Use 1 [place] 16 g 2 Active propionate (FLONASE) in each 0 50 mcg/actuation nostril nasal daily. sprayIndications: Nasal congestion, Bronchitis levothyroxine 75 mcg Take 1 90 tablet 1 Active tabletIndications: tablet by 0 Other specified mouth every hypothyroidism morning. fluconazole 150 mg Take 1 4 tablet 0 A ctive tabletIndications: tablet by 0 Yeast infection mouth every 72 (seventy-two ) hours. Take 1 pill every 3 days for 2 weeks. omeprazole 20 mg Take 1 90 capsule 3 Ac tive capsuleIndications: capsule by 0 Gastroesophageal mouth daily. reflux disease, unspecified whether esophagitis present glipiZIDE 5 mg Take 0.5 90 tablet 3 Activ e tabletIndications: tablets by 0 Type 2 diabetes mouth daily. mellitus without complication, without long-term current use of insulin folic Take by 0 Active acid/multivit-min/lut mouth. ein (CENTRUM SILVER ORAL) vitamin C with chioma Take 1,000 0 Active hips (VITAMIN C) mg by mouth 1,000 mg tablet daily. glipiZIDE 5 mg Take 0.5 30 tablet 3 01/05/20 Disco ntinued tabletIndications: tablets by 0 20 (Reorder) Type 2 diabetes mouth daily. mellitus without complication, without long-term current use of insulin documented as of this encounter (statuses as of 01/25/2020) Active Problems Problem Noted Date Productive cough 06/05/2019 Mold exposure 06/05/2019 Senile osteoporosis 06/05/2019 Essential hypertension, benign 02/08/2017 Chronic atrial fibrillation 02/08/2017 documented as of this encounter (statuses as of 01/25/2020) Resolved Problems Problem Noted Date Resolved Date Bronchitis 06/05/2019 10/23/2019 Need for influenza vaccination 06/05/2019 0 Need for 23-polyvalent pneumococcal polysaccharide vaccine 0 06/05/2019 10/23/2019 Medicare annual wellness visit, subsequent 06/05/2019 10/23/2019 Atrial fibrillation with rapid ventricular response 05/12/19 18 10/23/2019 documented as of this encounter (statuses as of 01/25/2020) Immunizations Name Administration Dates Next Due Influenza [...] Sign Reading Time Taken Comments Blood Pressure 134/82 01/05/2020 2:11 PM CDT Pulse 67 01/05/2020 1:01 PM CDT Temperature 36.7 C (98.1 F) 01/05/2020 1:01 PM CDT Respiratory Rate 18 01/05/2020 1:01 PM CDT Oxygen Saturation 95% 01/05/2020 1:01 PM CDT Inhaled Oxygen Concentration - - Weight 84.3 kg (185 lb 12.8 oz) 01/05/2020 1:01 PM CDT Height - - Body Mass Index 28.25 10/21/2019 2:25 PM CDT documented in this encounter Patient Instructions Patient InstructionsAnika Jones - 01/05/2020 1:00 PM CDTAdd in more vegetables and fruits. Limit starchy vegetables to 1 serving a day total. Take in no more than 4 servings a fruit a day and at least 5 servings of vegetables a day. stevia and inulin are ok to eat. https://www.heart.org/en/healthy-living/healthy-eating/add-color/vblyve-swo-bmjf ddqkoo-kidmtoq-apgzz Plant based diet/Anti-inflammatory diet information/plant based recipes https://www.Weave/ http://[facility]/ Search Google or [employer] and multiple articles/sites will pop up -Common pitfalls of a plant based diet -Plant based on a budget documented in this encounter Progress Notes Shira Rosa MD - 01/05/2020 1:00 PM CDT DOS: 01/05/2020 CC: Follow up of chronic conditions HPI: Nickolas Grimes is a 69 year old female with history including has a past medical history of Atrial fibrillation, Atrial fibrillation with rapid ventricular response (05/12/2017), Chronic atrial fibrillation (02/08/2017), and Essential hypertension, benign (02/08/2017). who is being seen today for follow up of chronic conditions. Patient states she's still having issues with yeast infections. She reports white discharge, itching, and burning. Denies bleeding or spotting. She states she didn't have issues with yeast infections until after she was taken off the Glucophage. Patient has diabetes. Fasting sugars run 120s-130s and evening sugars run under 200. She does not check sugars every day. Patient reports eye matting and redness. She would like referral to eye doctor. Patient states she gets a lot of anxiety. Patient states she has shortness of breath and chest pain only when she has atrial fibrillation. She follows with cardiology. Health Maintenance Patient is due for foot exam, will do today in clinic. Patient is due for medicare wellness visit, will get this scheduled. Medications reviewed in EPIC, past medical history and social history and allergies reviewed. Review of Systems Eyes: + eye problem Respiratory: Positive for shortness of breath. Cardiovascular: Positive for chest pain. Genitourinary: Positive for vaginal discharge. Negative for vaginal bleeding. PE: Blood pressure 134/82, pulse 67, temperature 36.7 C (98.1 F), temperature source Oral, resp. rate 18, weight 185 lb 12.8 oz (84.3 kg), SpO2 95 %. Physical Exam Vitals signs reviewed. Constitutional: Appearance: Normal appearance. She is well-developed. HENT: Head: Normocephalic and atraumatic. Nose: Nose normal. Eyes: General: Lids are normal. No scleral icterus. Right eye: No discharge. Left eye: No discharge. Comments: Eyelids normal. Cardiovascular: Rate and Rhythm: Normal rate and regular rhythm. Heart sounds: Normal heart sounds. No murmur. No friction rub. No gallop. Pulmonary: Effort: Pulmonary effort is normal. No respiratory distress. Breath sounds: Normal breath sounds. No wheezing or rales. Abdominal: Comments: GI system: Soft. No distension, bowel sounds are normal. There is no tenderness. Musculoskeletal: Feet: Feet: Left foot: Skin integrity: Callus present. Skin: General: Skin is warm and dry. Findings: No rash. Comments: She has pale nail beds Neurological: Mental Status: She is alert and oriented to person, place, and time. Psychiatric: Speech: Speech normal. Behavior: Behavior normal. Sensory exam of the foot is normal. Monofilament exam with sensation Right: 5/5, Left: 5/5. Lesions absent Ulcers Absent Peripheral pulses present 2+. Results: No new labs Education & Visit Time: this visit involved counseling and coordination of care that comprised more than 50% of the visit time. I spent at least 25 mintues total time with the patient. Of that time, at least 1 minute was spent on exam, and at least 24 minutes was spent obtaining history and counseling the patient regarding risks and benefits of treatment, treatment options and prevention. A/P: Breva Grimes is a 69 year old female with history including has a past medical history of Atrial fibrillation, Atrial fibrillation with rapid ventricular response (05/12/2017), Chronic atrial fibrillation (02/08/2017), and Essential hypertension, benign (02/08/2017). who is being seen today for chronic medical conditions. Yeast infection (primary encounter diagnosis) Comment: still having issues. Plan: START fluconazole 150 mg tablet. Work on diet. Red eye Comment: referral sent. Plan: CONSULT/REFERRAL OPHTHALMOLOGY Gastroesophageal reflux disease, unspecified whether esophagitis present Comment: patient requesting omeprazole. Plan: omeprazole 20 mg capsule. Discussed with patient to work on diet. Type 2 diabetes mellitus without complication, without long-term current use of insulin Comment: Fasting sugars run 120s-130s and evening sugars run under 200. Needs refill. Plan: glipiZIDE 5 mg tablet, GLYCOSYLATED HEMOGLOBIN (A1C). Work on diet. Chronic atrial fibrillation SOB (shortness of breath) Chest pain, unspecified type Comment: patient reports symptoms only when she has atrial fibrillation. Plan: monitor. Continue following with cardiology. Anxiety Comment: patient reports anxiety. Plan: Work on diet, will address at next visit. Change in nail appearance Comment: on exam she has pale nail beds. Plan: patient will work on diet as discussed in clinic. Healthcare maintenance Comment: patient is due for flu vaccine. Plan: FLU VACC([id number]),65+ YRS,IM,HIGH DOSE QUAD Routine adult health maintenance Comment: patient is due for routine labs. Plan: THYROID STIMULATING HORMONE, FREE T4, FREE T3 Return in about 6 months (around 07/05/2020) for Chronic medical conditions, Medicare wellness exam. Plan of care, desired health behaviors, goals,& medication discussed with patient and educational resources and self management tools provided as appropriate. Patient/family/guardian voices understanding. Patient verbalized understanding & agrees to plan of care. Barriers to care: none Ability to manage care: good Scribe's Attestation Anika Fleming , am scribing for, and in the presence of, Shira Rosa MD who performed the services described here-in. Anika Jones, January 05, 2020, 1:18 PM Physician's Attestation Shira Fleming MD, personally performed the services described in this documentation , asscribed by, Anika Jones in my presence and it is both accurate and complete. Shira Rosa MD January 25, 2020, 1:24 PM documented in this encounter Plan of Treatment Date Type Specialty Care Team Description 03/05/2020 Office Visit Cardiology Shanelle Rowland MD [address] [place] [address] [phone] 03/08/2020 Office Visit Internal Medicine Prudence Rosa MD [address] [place] [address] 15 07/05/2020 Office Visit Internal Medicine Prudence Rosa MD [address] [place] [address] 15 07/05/2020 Office Visit Internal Medicine Prudence Rosa MD [address] [place] [address] 15 [phone] Name Type Priority Associated Diagnoses Order S chedule THYROID STIMULATING LAB Routine Routine adult health Ordered: 01/05/2020 HORMONE maintenance FREE T4 LAB Routine Routine adult health Ordered : 01/05/2020 maintenance FREE T3 LAB Routine Routine adult health Ordered : 01/05/2020 maintenance GLYCOSYLATED HEMOGLOBIN LAB Routine Type 2 diabetes m ellitus Ordered: 01/05/2020 (A1C) without complication, without long-term current use of insulin Health Maintenance Due Date Last Done Comments [...] Name Priority Date/Time Associated Diagnosis Comme nts FLU Routine 01/05/2020 1:14 PM Healthcare maintenanc e VACC(),65+ CDT YRS,IM,HIGH DOSE QUAD documented in this encounter Results Not on filedocumented in this encounter Visit Diagnoses Diagnosis Yeast infection - Primary Other and unspecified mycoses Red eye Redness or discharge of eye Gastroesophageal reflux disease, unspeci fied whether esophagitis present Type 2 diabetes mellitus without complic ation, without long-term current use of insulin Chronic atrial fibrillation Atrial fibrillation SOB (shortness of breath) Shortness of breath Chest pain, unspecified type Anxiety Anxiety state, unspecified Change in nail appearance Healthcare maintenance Routine general medical examination at a health care facility Routine adult health maintenance Routine general medical examination at a health care facility documented in this encounter Insurance Payer Benefit Plan / Subscriber ID Effective Dates Phone Addre ss Type Group [employer] [place] [employer] [place] [id number] 2019-Prese Medicare Adv PLUS PLUS CHOICE nt HMO/POS (Work) [id number] documented as of this encounter
--- OUTSIDE RECORDS SUMMARY | 2020-03-30 16:23 | XMS REPORT | Summary of Care ---
:1950 Author Organization [facility] Address [address] [place] [address] Care Team Providers Name Role Phone Shira Rosa MD Insurance Hmo [phone] Lorenzo Rosa MD Primary Care Provider Makenna Rowland MD Sheet Manager MD Parveen Unavailable Reason for Visit Auth/Cert Status Reason Specialty Diagnoses / Procedures Referred By Devin guardado Referred To Contact Radiology [facility] Nuclear Medicine [address] [place] [phone] Phone: Fax: Encounter Details Date Type Department Care Team Description 01/15/2020 Hospital Encounter [facility] Shanelle Rowland, Vidhi Costa Nuclear MD Medicine [address] [facility] [address] [place] [address] [place], [place] [phone] Allergies Active Allergy Reactions Severity Noted [...] congestion, Bronchitis bedtime. fluticasone propionate Use 1 [place] in 16 g 2 10/14/2019 Active (FLONASE) [...] Signs Not on filedocumented in this encounter Procedure Notes Vamsi Us RN - 01/15/2020 9:00 AM WANGrico Grimes is a 69 year old female received to Nuclear Medicine for Stress Test. Pt is AAOx3 and isin NAD. Pt identified using Name & . Pt endorses being NPO since 01/14/2020. Indication for this Stress Test is AFIB. Last caffeine intake @ 01/14/2020 0800 NM Tech monitoring is Jonelle/Ivanna Supervising physician Kashif obtained consent at 1049 Time out completed 1049 Lexiscan 0.4mg/5mL injected at 1051, followed by 5mL NS flush. Pre Stress Test vitals are: BP 170/86 HR 62 Resp 18 O2 sat 95. Injection vitals are: BP 157/70 HR 77 Resp 18 O2 sat 100 Recovery vitals are: BP 163/72 HR 74 Resp 18 O2 sat 99 Patient tolerated procedure without difficulty. No apparent distress. documented in this encounter Plan of Treatment Date Type Specialty Care Team Description 03/05/2020 Office Visit Cardiology Shanelle Rowland MD [address] [place] [address] [phone] 03/08/2020 Office Visit Internal Medicine Prudence Rosa MD [address] [place] [address] 15 [phone] 07/05/2020 Office Visit Internal Medicine Prudence Rosa MD [address] [place] [address] 15 [phone] 07/05/2020 Office Visit Internal Medicine Prudence Rosa MD [address] [place] [address] 15 [phone] Health Maintenance Due Date Last Done Comments [...] MAR Action Action Date Dose Rate Site Regadenoson (LEXISCAN) injection Given 01/15/2020 10:51 AM CDT 0.4 mg PRN, Starting Maida 01/15/20 at 1051, Until Maida 01/15/20 at 1051, Routine tc 99m-tetrofosmin (MYOVIEW) Given 01/15/2020 10:53 AM CDT 45 mi llicuries injection 45 millicurie 45 millicurie, Intravenous, ONCE, 1 dose, Maida 01/15/20 at 1100, Routine documented in this encounter Insurance Payer Benefit Plan / Subscriber ID Effective Dates Phone Addre ss Type Group [facility] [id number] 2019-Prese Medicare Adv PLUS PLUS CHOICE nt HMO/POS documented as of this encounter
--- OUTSIDE RECORDS SUMMARY | 2020-03-30 16:23 | XMS REPORT | Summary of Care ---
:1950 Author Organization [facility] Address [address] [place] [address] Care Team Providers Name Role Phone Shira Rosa MD Insurance Hmo [phone] Lorenzo Rosa MD Primary Care Provider Makenna Rowland MD Exhaust Equipment Operator MD Parveen Unavailable Reason for Referral Radiology Services (Routine) Status Reason Specialty Diagnoses / Procedures Referred By Romain kahnerred To Contact Contact Closed Diagnostic Diagnoses Chronic anticoagulation PAF (paroxysmal atrial fibrillation) Essential hypertension, benign WILKERSON (dyspnea on exertion) NSVT (nonsustained ventricular tachycardia) CHRONIC ANTICOAGUALTION Shanelle Rowland Radiology Procedures NM MYOCARDIUM PERFUSION STRESS AND REST CHG MYOCARDIAL SPECT MULTIPLE STUDIES MD Makenna [address] [place] [phone] Reason for Visit Auth/Cert Status Reason Specialty Diagnoses / Procedures Referred By Devin guardado Referred To Contact Radiology [facility] Nuclear Medicine [address] [place] [phone] Phone: Fax: Encounter Details Date Type Department Care Team Description 01/15/2020 Hospital Encounter [facility] Shanelle Rowland Arrived [place] Nuclear MD Medicine [address] [place] [address] Dr [address] [place] [address] [place], [place] [phone] Allergies Active Allergy Reactions Severity Noted [...] congestion, Bronchitis bedtime. fluticasone propionate Use 1 [place] in 16 g 2 10/14/2019 Active (FLONASE) [...] Cardiology Shanelle Rowland MD [address] [place] [phone] 03/08/2020 Office Visit Internal Medicine Prudence Rosa MD [address] 77 15 07/05/2020 Office Visit Internal Medicine Prudence Rosa MD [address] 77 15 [phone] 07/05/2020 Office Visit Internal Medicine Prudence Rosa MD 146 [facility] [address] [place], [place] [address] [phone] Health Maintenance Due Date Last Done Comments [...] ventricular tachycardia) documented in this encounter Results NM MYOCARDIUM PERFUSION STRESS AND REST (01/15/2020 12:17 PM CDT) Specimen Impressions Performed At 1. The patient's electrocardiogram is nonischemic. PACS/VR/DOSE 2. The patient's clinical response is asymptomatic for angina. 3. Overall left ventricular systolic f unction is normal. 4. SPECT imaging reveals small size, mild degree fix ed defect in apical wall segments. 5. No reversible defect noted. I was present for the stress portion of the study. Narrative Performed At [facility] PACS/VR/DOSE Nuclear Lexiscan Stress Test Report PROCEDURE: After obtaining witnessed informed consent, patient un derwent a Regadenoson nuclear stress test using a one-day protocol. The rosmery ent was administered 0.4 mg. Regadenoson over 10 seconds intr avenously. Myocardial perfusion SPECT imaging was performed at rest after the intraven ous injection of 16.1 mCi of Technetium 99m Tetrofosmin. Durin g the stress portion of the test 45.0 mCi of Technetium 99m Tetrofosmin w as injected intravenously at 10 seconds after the Regadenoson infusion a t peak pharmacologic effect. The stress gated SPECT study was acquired. B oth stress and rest images were acquired with patient being supine. Images were proces sed according to ASNC guidelines. Short, horizontal long, long axis slices, raw data cines, polar plot, and wall motion analysis were revi ewed. FINDINGS: * During the Regadenoson administratio n, no symptoms were noted. * Please refer ECG report for full det ails. * The overall technical quality of the study is good. * Raw cine data reveals no significant abnormality. * SPECT imaging reveals small size, mi ld degree reduced uptake of radiopharmaceutical agents apical wall segments in bot h stress images and rest images. * Rest of the SPECT imaging reveals normal uptake of radiopharmaceutical agents in all of wall segments in both s tress and rest images. * Post-stress LV end-diastolic volume is 81 ml and L V end-systolic volume is 23 ml. * The left ventricle ejection fraction is calculated to be 72 % at stress and 66% at rest. * Regional wall motion analysis of the left ventricl e reveals is normal. * TID: 0.92 Procedure Note [facility], Radiant Results Inft User - 2019 8:24 PM CDT [facility] Nuclear Lexiscan Stress Test Report PROCEDURE: After obtaining witnessed informed conse nt, patient underwent a Regadenoson nuclear stress test using a one-day prot ocol. The patient was administered 0.4 mg. Regadenoson over 10 seconds intr avenously. Myocardial perfusion SPECT imaging was performed at rest afte r the intravenous injection of 16.1 mCi of Technetium 99m Tetrofosmin. Durin g the stress portion of the test 45.0 mCi of Technetium 99m Tetrofosmin w as injected intravenously at 10 seconds after the Regadenoson infusion a t peak pharmacologic effect. The stress gated SPECT study was acquired. B oth stress and rest images were acquired with patient being supine. Imag es were processed according to ASNC guidelines. Short, horizontal long, long axis slices, raw data cines, polar plot, and wall motion analysis were revi ewed. FINDINGS: * During the Regadenoson administration , no symptoms were noted. * Please refer ECG report for full deta ils. * The overall technical quality of the study is good. * Raw cine data reveals no significant abnormality. * SPECT imaging reveals small size, mil d degree reduced uptake of radiopharmaceutical agents apical wall s egments in both stress images and rest images. * Rest of the SPECT imaging reveals nor mal uptake of radiopharmaceutical agents in all of wall segments in both s tress and rest images. * Post-stress LV end-diastolic volume i s 81 ml and LV end-systolic volume is 23 ml. * The left ventricle ejection fraction is calculated to be 72 % at stress and 66% at rest. * Regional wall motion analysis of the left ventricle reveals is normal. * TID: 0.92 IMPRESSION 1. The patient's electrocardiogram is n onischemic. 2. The patient's clinical response is a symptomatic for angina. 3. Overall left ventricular systolic fu nction is normal. 4. SPECT imaging reveals small size, mi ld degree fixed defect in apical wall segments. 5. No reversible defect noted. I was present for the stress portion of the study. Performing Organization Address City/State/Zipcode Phone Number PACS/VR/DOSE documented in this encounter Visit Diagnoses Diagnosis Chronic anticoagulation Encounter for long-term (current) use of anticoagulants PAF (paroxysmal atrial fibrillation) Atrial fibrillation Essential hypertension, benign WILKERSON (dyspnea on exertion) Other dyspnea and respiratory abnormalit y NSVT (nonsustained ventricular tachycard ia) Paroxysmal ventricular tachycardia documented in this encounter Insurance Payer Benefit Plan / Subscriber ID Effective Dates Phone Addre ss Type Group NICOLE GRIFFITH [employer]FFITH [id number] 2019-Prese Medicare Adv PLUS PLUS CHOICE nt HMO/POS (Work) [id number] documented as of this encounter
--- OUTSIDE RECORDS SUMMARY | 2020-03-30 16:23 | XMS REPORT | Summary of Care ---
:1950 Author Organization [facility] - [facility] Address [address] [place] [address] Care Team Providers Name Role Phone Shira Rosa MD Insurance Hmo [phone] Lorenzo Rosa MD Primary Care Provider Makenna Rowland MD Brewmaster MD Parveen Unavailable Reason for Visit Auth/Cert Status Reason Specialty Diagnoses / Procedures Referred By Devin guardado Referred To Contact Radiology [facility] Nuclear Medicine [address] [place] [address] Phone: Fax: Encounter Details Date Type Department Care Team Description 01/15/2020 Hospital Encounter [facility] Shanelle Rowland, Vidhi Costa Nuclear MD Medicine [address] [facility] [address] facundo [place] [address] [place] [address] [place], [place] [phone] [address] Allergies Active Allergy Reactions Severity Noted [...] congestion, Bronchitis bedtime. fluticasone propionate Use 1 [place] in 16 g 2 10/14/2019 Active (FLONASE) [...] 01/05/2020 Pneumococcal Polysaccharide, PPSV23 06/11/2019 (Def[facility]: [facility] ([facility] Unavailable) documented as of this [...] Team Description 03/05/2020 Office Visit Cardiology Shanelle Rolwand MD [address] [place] [address] [phone] 03/08/2020 Office Visit Internal Medicine Prudence Rosa MD [address] [place] [address] 77 15 [phone] 07/05/2020 Office Visit Internal Medicine Prudence Rosa MD [address] [place] [address] 77 15 [phone] 07/05/2020 Office Visit Internal Medicine Prudence Rosa MD [address] [place] [address] 15 [phone] Health Maintenance Due Date Last Done Comments [...] portion of the study. Narrative Performed At [facility]DOSE Nuclear Lexiscan Stress Test Report PROCEDURE: [...] is normal. * TID: 0.92 Procedure Note [facility], Radiant Results Inft User - 2019 8:[address] [facility] [facility] PROCEDURE: After obtaining witnessed [...] Phone Number PACS/VR/DOSE documented in this encounter Insurance Payer Benefit Plan / Subscriber ID Effective Dates Phone Addre ss Type Group WELLC[employer] GLADIS WELLTEJ GRIFFITH [id number] 2019-Prese Medicare Adv PLUS PLUS CHOICE nt HMO/POS (Work) [id number] documented as of this encounter
--- OUTSIDE RECORDS SUMMARY | 2020-03-30 16:24 | XMS REPORT | Summary of Care ---
:1950 Author Organization [facility] - Health Address [address] [place] [address] Care Team Providers Name Role Phone Shira Rosa MD Insurance Hmo [phone] Lorenzo Rosa MD Primary Care Provider Makenna Rowland MD Automotive Refinisher MD Parveen Unavailable Encounter Details Date Type Department Care Team Description 01/08/2020 Orders Only [facility] Doctor Unassigned, No 301 [facility] [place] [facility] [place] [address] 301 [place] [address] Allergies Active Allergy Reactions Severity Noted Date Comments Azithromycin Itching 06/05/2019 Metformin Rash 04/18/2017 documented as of this encounter (statuses as of 01/29/2020) Medications Medication Sig Dispensed Refills Start Date [...] congestion, Bronchitis bedtime. fluticasone propionate Use 1 [place] in 16 g 2 10/14/2019 Active (FLONASE) [...] as of this encounter (statuses as of 01/29/2020) Active Problems Problem Noted Date Productive cough 06/05/2019 Mold exposure 06/05/2019 Senile osteoporosis 06/05/2019 Essential hypertension, benign 02/08/2017 Chronic atrial fibrillation 02/08/2017 documented as of this encounter (statuses as of 01/29/2020) Resolved Problems Problem Noted Date Resolved Date Bronchitis 06/05/2019 10/23/2019 Need for influenza vaccination 06/05/2019 0 Need for 23-polyvalent pneumococcal polysaccharide vaccine 0 06/05/2019 10/23/2019 Medicare annual wellness visit, subsequent 06/05/2019 10/23/2019 Atrial fibrillation with rapid ventricular response 05/12/19 18 10/23/2019 documented as of this encounter (statuses as of 01/29/2020) Immunizations Name Administration Dates Next Due Influenza [...] Cardiology Shanelle Rowland MD [address] 77 [phone] 03/08/2020 Office Visit Internal Medicine Prudence Rosa MD [address] 77 15 07/05/2020 Office Visit Internal Medicine Prudence Rosa MD [address] 77 15 07/05/2020 Office Visit Internal Medicine Prudence Rosa MD [address] 77 15 Health Maintenance Due Date Last Done [...] Name Priority Date/Time Associated Diagnosis Comme nts INSURANCE CORRESPONDENCE Routine 01/08/2020 12:01 AM CDT documented in this encounter Results Not on filedocumented in this encounter Insurance Payer Benefit Plan / Subscriber ID Effective Dates Phone Addre ss Type Group [employer] GLADIS GRIFFITH [id number] 2019-Prese Medicare Adv PLUS PLUS CHOICE nt HMO/POS documented as of this encounter
--- OUTSIDE RECORDS SUMMARY | 2020-03-30 16:24 | XMS REPORT | Summary of Care ---
:1950 Author Organization [facility] - Health Address [address] [place] [address] Care Team Providers Name Role Phone Shira Rosa MD Insurance Hmo [phone] Lorenzo Rosa MD Primary Care Provider Makenna Rowland MD Quality Assurance Technician MD Parveen Unavailable Encounter Details Date Type Department Care Team Description 01/29/2020 Orders Only [facility] Doctor Unassigned, No 301 [facility] [place] [address] 301 [place] [address] Allergies Active Allergy Reactions Severity Noted Date Comments Azithromycin Itching 06/05/2019 Metformin Rash 04/18/2017 documented as of this encounter (statuses as of 02/12/2020) Medications Medication Sig Dispensed Refills Start Date [...] congestion, Bronchitis bedtime. fluticasone propionate Use 1 [place] in 16 g 2 10/14/2019 Active (FLONASE) [...] as of this encounter (statuses as of 02/12/2020) Active Problems Problem Noted Date Productive cough 06/05/2019 Mold exposure 06/05/2019 Senile osteoporosis 06/05/2019 Essential hypertension, benign 02/08/2017 Chronic atrial fibrillation 02/08/2017 documented as of this encounter (statuses as of 02/12/2020) Resolved Problems Problem Noted Date Resolved Date Bronchitis 06/05/2019 10/23/2019 Need for influenza vaccination 06/05/2019 0 Need for 23-polyvalent pneumococcal polysaccharide vaccine 0 06/05/2019 10/23/2019 Medicare annual wellness visit, subsequent 06/05/2019 10/23/2019 Atrial fibrillation with rapid ventricular response 05/12/19 18 10/23/2019 documented as of this encounter (statuses as of 02/12/2020) Immunizations Name Administration Dates Next Due Influenza [...] Cardiology Shanelle Rowland MD [address] 77 [phone] 03/08/2020 Office Visit Internal Medicine Prudence Rosa MD [address] 77 15 07/05/2020 Office Visit Internal Medicine Prudence Rosa MD [address] 77 15 07/05/2020 Office Visit Internal Medicine Prudence Rosa MD [address] 77 15 Health Maintenance Due Date [...] Name Priority Date/Time Associated Diagnosis Comme nts AUTHORIZATION FOR RELEASE Routine 01/29/2020 12:01 AM OF PHI CDT documented in this encounter Results Not on filedocumented in this encounter Insurance Payer Benefit Plan / Subscriber ID Effective Dates Phone Addre ss Type Group NICOLE GRIFFITH [id number] 2019-Prese Medicare Adv PLUS PLUS CHOICE nt HMO/POS documented as of this encounter
--- OUTSIDE RECORDS SUMMARY | 2020-03-30 16:24 | XMS REPORT | Summary of Care ---
:1950 Author Organization [facility] - Health Address [address] [place] [address] Care Team Providers Name Role Phone Shira Rosa MD Insurance Hmo [phone] Lorenzo Rosa MD Primary Care Provider Makenna Rowland MD Auto Painter MD Parveen Unavailable Reason for Visit Reason Comments Medical Records Encounter Details Date Type Department Care Team Description 02/03/2020 Telephone [facility] Pediatric and Lily Rosa, Medical Records Adult Primary Care- MD Jane [address] [facility] [address] [place] [address] [address] [place] [address] [place] [address] [phone] Allergies Active Allergy Reactions Severity Noted Date Comments Azithromycin Itching 06/05/2019 Metformin Rash 04/18/2017 documented as of this encounter (statuses as of 02/03/2020) Medications Medication Sig Dispensed Refills Start Date End Date Status aspirin 81 mg chewable Take 81 mg by 0 Active tablet mouth daily. apixaban (ELIQUIS) 5 mg Take 1 tablet 180 tablet 2 09/11/2019 Active tabletIndications: atrial by mouth 2 arrhythmia (two) times daily. Indications: atrial arrhythmia, [...] congestion, Bronchitis bedtime. fluticasone propionate Use 1 [place] 16 g 2 10/14/2019 Active (FLONASE) 50 mcg/actuation in each nasal sprayIndications: nostril Nasal congestion, daily. Bronchitis levothyroxine 75 mcg Take 1 tablet 90 tablet 1 10/20/2019 Active tabletIndications: Other by mouth specified hypothyroidism every morning. fluconazole 150 mg Take 1 tablet 4 tablet 0 01/05/2020 Active tabletIndications: Yeast by mouth infection every 72 (seventy-two) hours. Take 1 pill every 3 days for 2 weeks. omeprazole 20 mg Take 1 90 capsule 3 01/05/2020 A ctive capsuleIndications: capsule by Gastroesophageal reflux mouth daily. disease, unspecified whether esophagitis present glipiZIDE 5 mg Take 0.5 90 tablet 3 01/05/2020 Acti ve tabletIndications: Type 2 tablets by diabetes mellitus without mouth daily. complication, without long-term current use of insulin folic Take by 0 Active acid/multivit-min/lutein mouth. (CENTRUM SILVER ORAL) vitamin C with chioma hips Take 1,000 mg 0 Active (VITAMIN C) 1,000 mg tablet by mouth daily. diltiazem 60 mg tablet Take 60 mg by 0 Active mouth 3 (three) times daily. carboxymethylcellulose Patient takes 0 02/03/2020 Active sodium ophthalmic per pharmacy dropsIndications: Red eye documented as of this encounter (statuses as of 02/03/2020) Active Problems Problem Noted Date Productive cough 06/05/2019 Mold exposure 06/05/2019 Senile osteoporosis 06/05/2019 Essential hypertension, benign 02/08/2017 Chronic atrial fibrillation 02/08/2017 documented as of this encounter (statuses as of 02/03/2020) Resolved Problems Problem Noted Date Resolved Date Bronchitis 06/05/2019 10/23/2019 Need for influenza vaccination 06/05/2019 0 Need for 23-polyvalent pneumococcal polysaccharide vaccine 0 06/05/2019 10/23/2019 Medicare annual wellness visit, subsequent 06/05/2019 10/23/2019 Atrial fibrillation with rapid ventricular response 05/12/19 18 10/23/2019 documented as of this encounter (statuses as of 02/03/2020) Immunizations Name Administration Dates Next Due Influenza High Dose 06/11/2019 (Deferred: Vaccine Unavailable) Influenza High Dose Quad 01/05/2020 Pneumococcal Polysaccharide, PPSV23 06/11/2019 ([facility]: [facility] Unavailable) documented as of this [...] this encounter Miscellaneous Notes Telephone Encounter - Shira Rosa MD - 02/03/2020 12:53 PM MODELING DIRECTOR Received paperwork from pharmacy. Updated medication list in EPIC. documented in this encounter Plan of Treatment Date Type Specialty Care Team Description 03/05/2020 Office Visit Cardiology Shanelle Rowland MD [address] [place] [address] [phone] 03/08/2020 Office Visit Internal Medicine Prudence Rosa MD [address] 77 15 [phone] 07/05/2020 Office Visit Internal Medicine Prudence Rosa MD [address] 77 15 [phone] 07/05/2020 Office Visit Internal Medicine Prudence Rosa MD [address] 77 15 [phone] Health Maintenance Due Date Last Done Comments [...] filedocumented in this encounter Visit Diagnoses Diagnosis Red eye - Primary Redness or discharge of eye documented in this encounter Insurance Payer Benefit Plan / Subscriber ID Effective Dates Phone Addre ss Type Group WELL[employer] GLADIS BALTAZARTEJ GLADIS [id number] 2019-Prese Medicare Adv PLUS PLUS CHOICE nt HMO/POS documented as of this encounter
--- OUTSIDE RECORDS SUMMARY | 2020-03-30 16:24 | XMS REPORT | Summary of Care ---
:1950 Author Organization [address] [address] Care Team Providers Name Role Phone Shira Rosa MD Insurance Hmo [phone] Lorenzo Rosa MD Primary Care Provider Makenna Rowland MD Reel Tender MD Parveen Unavailable Reason for Visit Reason Comments Procedure EPS+/-ablation Encounter Details Date Type Department Care Team Description 01/22/2020 Telephone [facility] Mateo Saini MD Procedure Electrophysiology [address] (EPS+/-ablation) [facility] [address] [place] [address], [address] [place] [address] [phone] Allergies Active Allergy Reactions Severity Noted Date [...] congestion, Bronchitis bedtime. fluticasone propionate Use 1 [place] in 16 g 2 10/14/2019 Active (FLONASE) [...] Quad 01/05/2020 Pneumococcal Polysaccharide, PPSV23 06/11/2019 (Deferred: [facility] (PNEUMOVAX) Unavailable) documented as of this [...] 03/05/2020 Office Visit Cardiology Shanelle Rowland MD [facility] [address] [place] [address] 15-[address] [phone] 03/08/2020 Office Visit Internal Medicine Prudence Rosa MD [address] 77 15 [phone] 07/05/2020 Office Visit Internal Medicine Prudence Rosa MD [address] 77 15 [phone] 07/05/2020 Office Visit Internal Medicine Prudence Rosa MD [address] [place] [address] 15 [phone] Health Maintenance Due Date Last Done Comments [...] Phone Addre ss Type Group NICOLE GRIFFITH [id number] 2019-Prese Medicare Adv PLUS PLUS CHOICE nt HMO/POS documented as of this encounter
--- OUTSIDE RECORDS SUMMARY | 2020-03-30 16:24 | XMS REPORT | Summary of Care ---
:1950 Author Organization [facility] Address [address] [place] [address] Care Team Providers Name Role Phone Shira Rosa MD Insurance Hmo [phone] Lorenzo Rosa MD Primary Care Provider Makenna Rowland MD Judo Instructor MD Parveen Unavailable Reason for Referral (STANISLAW) Status Reason Specialty Diagnoses / Referred By Referred To Procedures Contact Contact Authorized Patient is Ophthalmology Diagnoses Red eye Geri Rosa Esther Established with Procedures CONSULT/REFERRAL OPHTHALMOLOGY [address] Provider [address] [place] [address] [address] Phone: [place], [place] [phone] [address] Fax: Reason for Visit Reason Comments Follow-up Encounter Details Date Type Department Care Team Description 01/05/2020 Office Visit [facility] Shelley Yeast infection (Primary Dx); Pediatric and Adult Shira Ventura MD Red eye; Primary Care- [address] [place] [address] D r Gastroesophageal reflux disease, unspeci fied whether esophagitis present; [place] [address] Type 2 diabetes mellitus without complic ation, without long-term current use of insulin; [address] [place] [address] Chronic atrial fibrillation; Drive, [address] SOB (shortness of breath); [place], [place] Chest bethany n, unspecified type; [address] Anxiety; [phone] Change in nail appearance; Healthcare main tenance; [...] mouth at Bronchitis bedtime. fluticasone Use 1 [place] 16 g 2 Active propionate (FLONASE) in [...] stevia and inulin are ok to eat. https://www.heart.org/en/healthy-living/healthy-eating/add-color/sdqioq-zhs-kzai prsbxf-fuydzvy-bbyey Plant based diet/Anti-inflammatory diet information/plant based recipes https://www.Perkle/ http://Profyle/ Search Google or Trustribe and multiple articles/sites will pop up -Common [...] is due for flu vaccine. Plan: FLU VACC(3397-0792),65+ YRS,IM,HIGH DOSE QUAD Routine adult health maintenance [...] 03/05/2020 Office Visit Cardiology Shanelle Rowland MD [address] [place] [phone] 03/08/2020 Office Visit Internal Medicine Prudence Rosa MD [address] [place] [address] 15 07/05/2020 Office Visit Internal Medicine Prudence Rosa MD [address] [place] [address] 15 07/05/2020 Office Visit Internal Medicine Prudence Rosa MD [address] [place] [address] 15 [phone] Name Type Priority Associated Diagnoses Order S [...] ss Type Group [employer] [place] WE[employer]ARE [place] [id number] 2019-Prese Medicare Adv PLUS PLUS CHOICE nt HMO/POS (Work) [id number] documented as of this encounter
--- OUTSIDE RECORDS SUMMARY | 2020-03-30 16:25 | XMS REPORT | Summary of Care ---
:1950 Author Organization [facility] - [facility] Address [address] [place] [address] Care Team Providers Name Role Phone Shira Toney MD Insurance Hmo [phone] Lorenzo Toney MD Primary Care Provider Makenna Rowland MD Refractory Repairer MD Parveen Unavailable Reason for Visit Reason Comments Refill Request Encounter Details Date Type Department Care Team Description 02/16/2020 Refill [facility] Pediatric and Edkjk Jf hood MD Refill Request Adult Primary Care- [address] [facility] [address] Jane [facility] 205 146 [place] [address] [address] [place] [address] [phone] Allergies Active Allergy Reactions Severity Noted Date Comments Azithromycin Itching 06/05/2019 Metformin Rash 04/18/2017 documented as of this encounter (statuses as of 02/16/2020) Medications Medication Sig Dispensed Refills Start End Status Date Date aspirin 81 mg chewable Take 81 mg 0 Active tablet by mouth daily. apixaban (ELIQUIS) 5 mg Take 1 180 tablet 2 09/11/19 Active tabletIndications: atrial tablet by 20 arrhythmia mouth 2 (two) times daily. Indications : atrial arrhythmia, a type or abnormal heart beat atorvastatin 40 mg Take 1 90 tablet 3 09/25/19 A ctive tabletIndications: Mixed tablet by 20 hyperlipidemia mouth at bedtime. montelukast 10 mg Take 1 90 tablet 1 10/14/19 Ac tive tabletIndications: Nasal tablet by 20 congestion, Bronchitis mouth at bedtime. fluticasone propionate Use 1 [place] 16 g 2 10/14/19 Active (FLONASE) 50 in each 20 mcg/actuation nasal nostril sprayIndications: Nasal daily. congestion, Bronchitis levothyroxine 75 mcg Take 1 90 tablet 1 10/20/19 Active tabletIndications: Other tablet by 20 specified hypothyroidism mouth every morning. fluconazole 150 mg Take 1 4 tablet 0 01/05/20 A ctive tabletIndications: Yeast tablet by 20 infection mouth every 72 (seventy-tw o) hours. Take 1 pill every 3 days for 2 weeks. omeprazole 20 mg Take 1 90 capsule 3 01/05/20 Ac tive capsuleIndications: capsule by 20 Gastroesophageal reflux mouth disease, unspecified daily. 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 long-term current use of insulin folic Take by 0 Active acid/multivit-min/lutein mouth. (CENTRUM SILVER ORAL) vitamin C with chioma hips Take 1,000 0 Active (VITAMIN C) 1,000 mg mg by mouth tablet daily. diltiazem 60 mg tablet Take 60 mg 0 Active by mouth 3 (three) times daily. carboxymethylcellulose Patient 0 02/03/20 Active sodium ophthalmic takes per 20 dropsIndications: Red eye pharmacy sotaloL 120 mg Take 1 180 tablet 0 02/16/20 Acti ve tabletIndications: tablet by 20 Essential hypertension, mouth 2 benign (two) times daily. sotalol 120 mg Take 1 120 tablet 2 10/14/19 Disc ontinued tabletIndications: tablet by 20 020 ( Reorder) Essential hypertension, mouth 2 benign (two) times daily. documented as of this encounter (statuses as of 02/16/2020) Active Problems Problem Noted Date Productive cough 06/05/2019 Mold exposure 06/05/2019 Senile osteoporosis 06/05/2019 Essential hypertension, benign 02/08/2017 Chronic atrial fibrillation 02/08/2017 documented as of this encounter (statuses as of 02/16/2020) Resolved Problems Problem Noted Date Resolved Date Bronchitis 06/05/2019 10/23/2019 Need for influenza vaccination 06/05/2019 0 Need for 23-polyvalent pneumococcal polysaccharide vaccine 0 06/05/2019 10/23/2019 Medicare annual wellness visit, subsequent 06/05/2019 10/23/2019 Atrial fibrillation with rapid ventricular response 05/12/19 18 10/23/2019 documented as of this encounter (statuses as of 02/16/2020) Immunizations Name Administration Dates Next Due Influenza High Dose 06/11/2019 (Deferred: Vaccine Unavailable) Influenza High Dose Quad 01/05/2020 Pneumococcal Polysaccharide, PPSV23 06/11/2019 (Deferred: [facility] (PNEUMOVAX) Unavailable) documented as of this encounter Social History Tobacco Use Types Packs/Day Years Used Date Never Smoker Smokeless Tobacco: Never Used Alcohol Use Drinks/Week oz/Week Comments No Sex Assigned at Date Recorded Not on file documented as of this encounter Last Filed Vital Signs Not on filedocumented in this encounter Miscellaneous Notes Telephone Encounter - Oumou Bender LVN - 02/16/2020 2:23 PM CST Requested Prescriptions Signed Prescriptions Disp Refills sotaloL 120 mg tablet 180 tablet 0 Sig: Take 1 tablet by mouth 2 (two) times daily. Authorizing Provider: SHIRA TONEY Ordering User: OUMOU BENDER Refills sent to the pharmacy. Oumou Bender LVN 02/16/2020 2:25 PM ESALE BUYER documented in this encounter Plan of Treatment Date Type Specialty Care Team Description 03/05/2020 Office Visit Cardiology Shanelle Rowland MD [address] [place] [address] [place] [address] 07/05/2020 Office Visit Internal Medicine Prudence Toney MD [address] [facility] [address] [place] [address] [place] [address] 15 [phone] 07/05/2020 Office Visit Internal Medicine Prudence Toney MD [address] [facility] 103 [place], [place] [address] [phone] Health Maintenance Due Date Last Done Comments [...] filedocumented in this encounter Visit Diagnoses Diagnosis Essential hypertension, benign documented in this encounter Insurance Payer Benefit Plan / Subscriber ID Effective Dates Phone Addre ss Type Group [employer] [place] [employer] [place] [id number] 2019-Prese Medicare Adv PLUS PLUS CHOICE nt HMO/POS documented as of this encounter
--- OUTSIDE RECORDS SUMMARY | 2020-03-30 16:25 | XMS REPORT | Summary of Care ---
:1950 Author Organization [facility] - Health Address [address] [place] [id number] Care Team Providers Name Role Phone Shira Rosa MD Insurance Hmo [phone] Lorenzo Rosa MD Primary Care Provider Makenna Rowland MD [employer] Examiner MD Parveen Unavailable Reason for Visit Reason Comments Refill Request Encounter Details Date Type Department Care Team Description 03/17/2020 Refill [facility] Pediatric and Lily Rosa, Refill Request Adult Primary Care- MD Jane [address] [facility] [address] [address] [address] [place] [address] [place] [address] [phone] Allergies Active Allergy Reactions Severity Noted Date Comments Azithromycin Itching 06/05/2019 Metformin Rash 04/18/2017 documented as of this encounter (statuses as of 03/21/2020) Medications Medication Sig Dispensed Refills Start End [...] by 20 congestion, Bronchitis mouth at bedtime. levothyroxine 75 mcg Take 1 90 tablet [...] hypertension, mouth 2 benign (two) times daily. fluticasone propionate Use 1 [place] 16 g 2 03/21/20 Active (FLONASE) 50 in each 20 mcg/actuation nasal nostril sprayIndications: Nasal daily. congestion, Bronchitis fluticasone propionate Use 1 [place] 16 g 2 10/14/19 Discontinued (FLONASE) 50 in each 20 (Reorde r) mcg/actuation nasal nostril sprayIndications: Nasal daily. congestion, Bronchitis documented as of this encounter (statuses as of 03/21/2020) Active Problems Problem Noted Date Productive cough 06/05/2019 Mold exposure 06/05/2019 Senile osteoporosis 06/05/2019 Essential hypertension, benign 02/08/2017 Chronic atrial fibrillation 02/08/2017 documented as of this encounter (statuses as of 03/21/2020) Resolved Problems Problem Noted Date Resolved Date Bronchitis 06/05/2019 10/23/2019 Need for influenza vaccination 06/05/2019 0 Need for 23-polyvalent pneumococcal polysaccharide vaccine 0 06/05/2019 10/23/2019 Medicare annual wellness visit, subsequent 06/05/2019 10/23/2019 Atrial fibrillation with rapid ventricular response 05/12/19 18 10/23/2019 documented as of this encounter (statuses as of 03/21/2020) Immunizations Name Administration Dates Next Due Influenza [...] Treatment Date Type Specialty Care Team Description 03/30/2020 Laboratory Only Cardiology Pc, Adc Echo Room 1 - 07/05/2020 Office Visit Internal Medicine Prudence Rosa MD [address] [place] [address] 15 [phone] 07/05/2020 Office Visit Internal Medicine Prudence Rosa MD [address] [place] [address] 77 [phone] Health Maintenance Due Date Last Done Comments [...] filedocumented in this encounter Visit Diagnoses Diagnosis Nasal congestion Other diseases of nasal cavity and sinus es Bronchitis Bronchitis, not specified as acute or ch ronic documented in this encounter Insurance Payer Benefit Plan / Subscriber ID Effective Dates Phone Addre ss Type Group [facility] [id number] 2019-Prese Medicare Adv PLUS PLUS CHOICE nt HMO/POS documented as of this encounter
--- NOTE | 2020-03-30 17:33 | RAD REPORT ---
EXAM DESCRIPTION: Nena Single View03/30/2020 4:50 pm CLINICAL HISTORY: Cough COMPARISON: 2019 FINDINGS: The lungs appear clear of acute infiltrate. The heart is mildly to moderately enlarged IMPRESSION: No acute abnormalities displayed
--- NOTE | 2020-03-30 17:57 | ER ---
Nurse's Notes [facility] Name: Nickolas Grimes Age: 70 yrs Sex: Female : 1950 Arrival Date: 03/30/2020 Time: 16:20 Bed 8 Private MD: Diagnosis: Acute pharyngitis;Acute bronchitis Presentation: 03/30 16:26 Chief complaint: Patient states: Awoke today with hoarse voice and slight cough. No ll1 fever. Coronavirus screen: Client denies travel out of the [place] in the last 14 days. cough unrelated to allergies, sore throat, Client presents with at least one sign or symptom that may indicate coronavirus-19. Standard/surgical mask placed on the client. Ebola Screen: Patient denies travel to an Ebola-affected area in the 21 days before illness onset. Initial Sepsis Screen: Does the patient meet any 2 criteria? No. Patient's initial sepsis screen is negative. Does the patient have a suspected source of infection? Yes: Productive cough/pneumonia. Risk Assessment: Do you want to hurt yourself or someone else? Patient reports no desire to harm self or others. Onset of symptoms was March 30, 2020. 16:26 Method Of Arrival: Ambulatory ll1 16:26 Acuity: [place] 4 ll1 Historical: - Allergies: 16:27 Azithromycin; ll1 - PMHx: 16:27 Atrial Fib; Hypertension; ll1 - PSHx: 16:27 Cholecystectomy; Tonsillectomy; Adenoids; cardiac ablation; ll1 - Immunization history:: Flu vaccine is up to date. - Social history:: Smoking status: Patient denies any tobacco usage or history of. Screenin:10 Abuse screen: Denies threats or abuse. Denies injuries from another. Nutritional ss screening: No deficits noted. Tuberculosis screening: Never had TB. Fall Risk None identified. Assessment: 17:00 General: Appears in no apparent distress. comfortable, Behavior is calm, cooperative, ss Denies fever. Pain: Denies pain. Neuro: Level of Consciousness is awake, alert, Oriented to person, place, time, situation. Neuro: Gait is steady. Respiratory: Airway is patent Respiratory effort is even, unlabored, Respiratory pattern is regular, symmetrical, Breath sounds are clear bilaterally. Respiratory: Reports slight cough Denies shortness of breath. GI: Abdomen is non-distended, Patient currently denies abdominal pain, diarrhea, nausea, vomiting. EENT: Throat is clear Reports sore throat since this morning. . Derm: Skin is intact, is healthy with good turgor, Skin is dry, Skin is pink, warm \T\ dry. normal. Vital Signs: 16:26 BP 170 / 78; Pulse 71; Resp 17; Temp 98.7; Pulse Ox 98% on R/A; Weight 83.46 kg; Height ll1 5 ft. 8 in. (172.72 cm); Pain 0/10; 16:26 Body Mass Index 27.98 (83.46 kg, 172.72 cm) ll1 ED Course: 16:20 Patient arrived in ED. ag5 16:27 Triage completed. 1 16:27 Fitz Bacon PA is PHCP. [facility] 16:27 Arm band placed on Patient placed in an exam room, on a stretcher. 1 16:28 Jay Sanchez MD is Attending Physician. [facility] 16:50 Chest Single View XRAY In Process Unspecified. EDKS 17:10 Marilynn Baxter, FAWAD is Primary Nurse. 17:10 Patient has correct armband on for positive identification. Bed in low position. Call ss light in reach. 18:28 No provider procedures requiring assistance completed. Patient did not have IV access ss during this emergency room visit. Administered Medications: No medications were administered Outcome: 17:57 Discharge ordered by . [facility] 18:28 Discharged to home ambulatory. 18:28 Condition: good 18:28 Discharge instructions given to patient, Instructed on discharge instructions, follow up and referral plans. medication usage, Demonstrated understanding of instructions, follow-up care, medications, Prescriptions given X 2. 18:28 Patient left the ED. Addendum: 04/01/2020 17:12 Addendum: COVID-19 Result: Negative result given to RN to notify pt. Notified pt of i w negative COVID 19 swab results. Pt advised that even with a negative test result they should remain in isolation until symptom free for 3 days without medication. Pt also advised to return to the ED for worsening symptoms. Signatures: Dispatcher [employer] EDMS Fitz Bacon PA PA jmm Williams, Irene, RN RN Marilynn Baxter RN RN Jaleel Varner ag5 Corine Holden, RN RN ll1
--- NOTE | 2020-03-30 17:57 | EDPHYS ---
Physician Documentation [facility] Name: Nickolas Grimes Age: 70 yrs Sex: Female : 1950 Arrival Date: 03/30/2020 Time: 16:20 Bed 8 Private MD: ED Physician Jay Sanchez HPI: 03/30 16:53 This 70 yrs old Female presents to ER via Ambulatory with complaints of Sore jmm Throat, Cough. 16:53 The patient presents with sore throat. Onset: The symptoms/episode began/occurred jmm gradually. Modifying factors: The symptoms are alleviated by nothing, the symptoms are aggravated by nothing. Associated signs and symptoms: Pertinent positives: cough, Pertinent negatives chest pain, diarrhea, earache, shortness of breath. This is a 70 year old female with a history of atrial fibrillation, htn that presents to the ED with complaints of sore throat and productive cough beginning this morning. Denies fever, vomiting. diarrhea. . Historical: - Allergies: 16:27 Azithromycin; ll1 - PMHx: 16:27 Atrial Fib; Hypertension; ll1 - PSHx: 16:27 Cholecystectomy; Tonsillectomy; Adenoids; cardiac ablation; ll1 - Immunization history:: Flu vaccine is up to date. - Social history:: Smoking status: Patient denies any tobacco usage or history of. ROS: 16:53 Constitutional: Negative for fever, chills, and weight loss. jmm 16:53 ENT: Positive for sore throat. 16:53 Respiratory: Positive for cough. 16:53 All other systems are negative. Exam: 16:53 Constitutional: This is a well developed, well nourished patient who is awake, alert, jmm and in no acute distress. Head/Face: atraumatic. Eyes: EOMI, no conjunctival erythema appreciated 16:53 Neck: Trachea midline, Supple Chest/axilla: Normal chest wall appearance and motion. Cardiovascular: Regular rate and rhythm. No edema appreciated Abdomen/GI: Non distended, soft Back: Normal ROM 16:53 Skin: General appearance color normal MS/ Extremity: Moves all extremities, no obvious deformities appreciated, no edema noted to the lower extremities Neuro: Awake and alert, normal gait Psych: Behavior is normal, Mood is normal, Patient is cooperative and pleasant 16:53 ENT: Posterior pharynx: erythema, that is mild. 16:53 Respiratory: the patient does not display signs of respiratory distress, Respirations: normal, Breath sounds: wheezing: is scattered. Vital Signs: 16:26 BP 170 / 78; Pulse 71; Resp 17; Temp 98.7; Pulse Ox 98% on R/A; Weight 83.46 kg; Height ll1 5 ft. 8 in. (172.72 cm); Pain 0/10; 16:26 Body Mass Index 27.98 (83.46 kg, 172.72 cm) ll1 MDM: 16:35 Patient medically screened. [facility] 17:54 Data reviewed: vital signs, nurses notes. Counseling: I had a detailed discussion with [facility] the patient and/or guardian regarding: the historical points, exam findings, and any diagnostic results supporting the discharge/admit diagnosis, lab results, radiology results, the need for outpatient follow up, to return to the emergency department if symptoms worsen or persist or if there are any questions or concerns that arise at home. ED course: Patient is alert and non toxic in appearance in the ED. No signs of resp distress appreciated. Patient is advised to follow up with pcp and otherwise given strict return precautions. Patient understood and agrees with the plan of care. . 03/30 16:33 Order name: Flu [facility] 03/30 16:33 Order name: Strep [facility] 03/30 16:33 Order name: Chest Single View XRAY; Complete Time: 17:42 [facility] 03/30 16:33 Order name: COVID-19 [facility] Administered Medications: No medications were administered Disposition: 03/30/20 17:57 Discharged to Home. Impression: Acute pharyngitis, Acute bronchitis. - Condition is Stable. - Discharge Instructions: Acute Bronchitis, Adult, Pharyngitis. - Prescriptions for cefdinir 300 mg Oral capsule - take 1 capsule by ORAL route every 12 hours for 10 days; 20 capsule. Albuterol Sulfate 90 mcg/actuation - inhale 1-2 puff by INHALATION route every 4-6 hours; 1 Inhaler. - Medication Reconciliation Form, Thank You Letter, Antibiotic Education, Prescription Opioid Use form. - Follow up: Private Physician; When: 2 - 3 days; Reason: Recheck today's complaints, Continuance of care, Re-evaluation by your physician. Addendum: 04/05/2020 19:43 Co-signature as Attending Physician, Jay Sanchez MD. r n Signatures: Dispatcher [employer] EDMS Fitz Bacon PA PA jmm Nieto, Roman, MD MD rn Smirch, Shelby, RN RN Corine Gayle RN RN ll1 Corrections: (The following items were deleted from the chart) 03/30 18:28 17:57 03/30/2020 17:57 Discharged to Home. Impression: Acute pharyngitis; Acute ss bronchitis. Condition is Stable. Forms are Medication Reconciliation Form, Thank You Letter, Antibiotic Education, Prescription Opioid Use. Follow up: Private Physician; When: 2 - 3 days; Reason: Recheck today's complaints, Continuance of care, Re-evaluation by your physician. renato
[2020-03-30 18:37] VITALS: BP 170/78; TEMP 98.7; O2SAT 98
== END 2020-03-30 18:28 | disposition home or self-care (01) ==
LOC: ER 16:17
DX: J20.9 Acute bronchitis, unspecified (principal); Z20.828 Contact with and (suspected) exposure to other viral communicable diseases; I10 Essential (primary) hypertension; I48.91 Unspecified atrial fibrillation; Z88.1 Allergy status to other antibiotic agents
CPT/HCPCS: 71045; 87070; 87081; 87804; 99283; U0002

== ENCOUNTER 2021-05-27 11:15 | Emergency (ER) | payer MEDICARE, OTHER ==
--- OUTSIDE RECORDS SUMMARY | 2021-05-27 11:26 | XMS REPORT | Continuity of Care Document ---
:1950 Author Organization [facility] t Address [address] [place] [place] [address] Care Team Providers Name Role Phone Kolton Avina Primary Care Physician Lorenzo Rosa MD Attending Clinician Opal DAWSON, K.H. Attending Clinician Amanda REESE Attending Clinician Juno DAWSON, S Attending Clinician Lorenzo ROSA Attending Clinician Unavailable Singer MENDEZ Attending Clinician Doctor Unassigned, Name Attending Clinician Unavailable NANCY Attending Clinician Unavailable Maverick DAWSON Attending Clinician OPAL, K.H. Attending Clinician Unavailable Nancy DAWSON Attending Clinician Javier DAWSON Attending Clinician Heidi DAWSON R Attending Clinician MAVERICK Attending Clinician Unavailable SEE ARMAS Attending Clinician Unavailable 2, Lab Attending Clinician Unavailable See Armas MD Attending Clinician [id number]_AH Attending Clinician Unavailable Ige-[place]_J_AH Admitting Clinician Unavailable Payers Payer Name Policy Type Policy Number Effective Date Expiration Date S [facility] [place]IC[place] [id number] 2020 HMO GENERIC 00:00:00 [employer] [place] [id number] 2019 PLUS CHOICE 00:00:00 MEDICARE PART A [id number] 2014 \\T\\ B 00:00:00 DANIELLE LANGFORD [id number] 2014 00:00:00 [place] - [id number] 2019 [place] 00:00:00 (MEDICARE REPLACEMENT/ADVANT AGE - HMO) Problems Condition Condition Condition Status Onset Resolution Last Treating Co mments Source Name Details Category Date Date Treatment Clinician Date Bronchitis Bronchitis Disease Active 2020-0 U nivers 3-05 ity of 00:00: [place] 00 Medical Branch 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 cough 3-05 ity of 00:00: [place] 00 Medical Branch Mold Mold Disease Active 2019- Univers exposure exposure 3-05 ity of 00:00: [place] 00 Medical Branch Need for Need for Disease Active 2019- Unive rs influenza influenza 3-05 [place] Need for Need for Disease Active 2019- Unive rs 23-polyval 23-polyval 3-05 it y of ent ent 00:00: [place] pneumococc pneumococc 00 Me dical al al Branch polysaccha polysaccha ride ride vaccine vaccine Senile Senile Disease Active 2020-0 Univers osteoporos osteoporos 3-05 it y of is is 00:00: [place] 00 Medical Branch Medicare Medicare Disease Active 2020-0 Unive rs annual annual 3-05 ity of wellness wellness 00:00: [place] visit, visit, 00 Medical subsequent subsequent Br anch Atrial Atrial Disease Active Univers fibrillati fibrillati 2-10 it y of on with on with 00:00: [place] rapid rapid 00 Medical ventricula ventricula Br anch r response r response Essential Essential Disease Active 2016-04 Uni vers hypertensi hypertensi 1-09 it y of on, benign [place], benign [place] Chronic Chronic Disease Active 2016-04 [facility] atrial atrial 1-09 ity of fibrillati fibrillati [place] 00 [facility] Allergies, Adverse Reactions, Alerts Allergy Allergy Status Severity Reaction(s) Onset Inactive Treating Comm ents Source Name Type Date Date Clinician AZITHROM DRUG Active ITCHING 2019-0 Univers YCIN INGREDI 3-05 ity of 00:00: [place] 00 Medical Branch Azithrom Propensi Active Itching 2019-0 Unive rs ycin ty to 3-05 ity of adverse 00:00: [place] reaction 00 Medical s Branch METFORMI DRUG Active Rash 2017-0 Univers N INGREDI 1-17 ity of 00:00: [place] 00 Medical Branch Metformi Propensi Active Rash 2017-0 Univer s n ty to 17 ity of adverse 00:00: [place] reaction 00 Medical s Branch Social History Social Habit Start Date Stop Date Quantity Comments Source Exposure to Not sure [facility] SARS-CoV-2 [facility] (event) [place] Alcohol intake 2020-07-20 2020-07-20 Current University of 00:00:00 00:00:00 non-drinker of [facility] alcohol [place] (finding) Tobacco use and 2017-01-09 2017-01-09 Never used Universit y of exposure 00:00:00 00:00:00 [facility] Sex [birth year] Universit y of 00:00:00 00:00:00 [facility] Smoking Status Start Date Stop Date Source Never smoker [facility] Medications Ordered Filled Start Stop Current Ordering Indication Dosage Frequency Signature Comments Components Source Medication Medication Date Date Medication? Clinician (SIG) Name Name diltiazem 2020-04- No 60mg Take 60 mg U nivers 60 mg 2-06 12-06 by mouth 3 ity of tablet 08:32: 00:00 (three) [place] 05 :00 times Medical daily. Branch DILTIAZEM 2020-04 Yes TAKE 1 Univer s 60 mg 2-06 TABLET BY ity of tablet 00:00: MOUTH [place] 00 EVERY 8 Medical HOURS FOR Branch 90 DAYS DILTIAZEM 2020-04 Yes TAKE 1 Univer s 60 mg 2-06 TABLET BY ity of tablet 00:00: MOUTH [place] 00 EVERY 8 Medical HOURS FOR Branch 90 DAYS DILTIAZEM 2020-04 Yes TAKE 1 Univer s 60 mg 2-06 TABLET BY ity of tablet 00:00: MOUTH [place] 00 EVERY 8 Medical HOURS FOR Branch 90 DAYS DILTIAZEM 2020-04 Yes TAKE 1 Univer s 60 mg 2-06 TABLET BY ity of tablet 00:00: MOUTH [place] [id number] EVERY 8 Medical HOURS FOR Branch 90 DAYS GLIPIZIDE 5 2020-04 Yes [id number] Take 1/2 Univers mg tablet -26 (one-half) ity of 00:00: tablet by [place] 00 mouth once Medical daily Branch GLIPIZIDE 5 2020-04 Yes [id number] Take 1/2 Univers mg tablet -26 (one-half) ity of 00:00: tablet by [place] 00 mouth once Medical daily Branch GLIPIZIDE 5 2020-04 Yes [id number] Take 1/2 Univers mg tablet -26 (one-half) ity of 00:00: tablet by [place] 00 mouth once Medical daily Branch GLIPIZIDE 5 2020-04 Yes [id number] Take 1/2 Univers mg tablet -26 (one-half) ity of 00:00: tablet by [place] 00 mouth once Medical daily Branch GLIPIZIDE 5 2020-04 Yes [id number] Take 1/2 Univers mg tablet -26 (one-half) ity of 00:00: tablet by [place] 00 mouth once Medical daily Branch OMEPRAZOLE 2020-04 Yes [id number] Take 1 Univers 20 mg 1-09 capsule by ity of capsule 00:00: [place] 00 daily [place] OMEPRAZOLE 2020-04 Yes [id number] Take 1 [facility] 20 mg 1-09 capsule by ity of capsule 00:00: mouth [place] 00 daily [place] OMEPRAZOLE 2020-04 Yes [id number] Take 1 [facility] 20 mg 1-09 capsule by ity of capsule 00:00: mouth [place] 00 daily [place] [facility] OMEPRAZOLE 2020-04 Yes [id number] Take 1 [facility] 20 mg 1-09 capsule by ity of capsule 00:00: mouth [place] 00 daily [place] [facility] OMEPRAZOLE 2020-04 Yes [id number] Take 1 [facility] 20 mg 1-09 capsule by ity of capsule 00:00: mouth [place] 00 daily [place] OMEPRAZOLE 2020-04 Yes [id number] Take 1 [facility] 20 mg 1-09 capsule by [place]y of capsule 00:00: mouth [place] 00 daily [place] [facility] OMEPRAZOLE 2020-04 Yes [id number] Take 1 [facility] 20 mg 1-09 capsule by [place]y of capsule 00:00: mouth [place] 00 daily [place] OMEPRAZOLE 2020-04 Yes [id number] Take 1 [facility] 20 mg 1-09 capsule by ity of capsule 00:00: mouth [place] 00 daily [place] Branch GLIPIZIDE 5 2020-04 Yes [id number] Take 1/2 Univers mg tablet 0-07 (one-half) ity of 00:00: tablet by [place] 00 mouth once Medical daily Branch GLIPIZIDE 5 2020-04 Yes [id number] Take 1/2 Univers mg tablet 0-07 (one-half) ity of 00:00: tablet by [place] 00 mouth once Medical daily Branch GLIPIZIDE 5 2020-04 Yes [id number] Take 1/2 Univers mg tablet 0-07 (one-half) ity of 00:00: tablet by [place] 00 mouth once Medical daily Branch GLIPIZIDE 5 2020-04 Yes [id number] Take 1/2 Univers mg tablet 0-07 (one-half) ity of 00:00: tablet by [place] 00 mouth once Medical daily Branch GLIPIZIDE 5 2020-04- No [id number] Take 1/2 Univers mg tablet 0-07 - (one-half) ity of 00:00: 00:00 tablet by [place] 00 :00 mouth once Medical daily Branch fluconazole 2020-0 2020- No 150mg Take 150 Univers 150 mg 8-06 08-06 mg by ity of tablet 17:37: 00:00 mouth [place] :[place] now. Medical Branch fluconazole 0 2020- No 150mg Take 150 Univers 150 mg 8- 08-06 mg by ity of tablet 17:37: 00:00 mouth [place] :00 now. Medical Branch SOTALOL 120 2020-0 Yes [id number] Take 1 U nivers mg tablet 8-06 tablet by ity o f 00:00: mouth twice Medical daily Branch SOTALOL 120 2020-0 Yes [id number] Take 1 U nivers mg tablet 8-06 tablet by ity o f 00:00: mouth twice Medical daily Branch SOTALOL 120 2020-0 Yes [id number] Take 1 U nivers mg tablet 8-06 tablet by ity o f 00:00: mouth twice Medical daily Branch SOTALOL 120 2020-0 Yes [id number] Take 1 U nivers mg tablet 8-06 tablet by ity o f 00:00: mouth [place] 00 twice Medical daily Branch SOTALOL 120 2020-0 Yes [id number] Take 1 U nivers mg tablet 8-06 tablet by ity o f 00:00: mouth [place] 00 twice Medical daily Branch SOTALOL 120 2020-0 Yes [id number] Take 1 U nivers mg tablet 8-06 tablet by ity o f 00:00: mouth [place] 00 twice Medical daily Branch SOTALOL 120 2020-0 Yes [id number] Take 1 U nivers mg tablet 8-06 tablet by ity o f 00:00: mouth [place] 00 twice Medical daily Branch SOTALOL 120 2020-0 Yes [id number] Take 1 U nivers mg tablet 8-06 tablet by ity o f 00:00: mouth [place] 00 twice Medical daily Branch SOTALOL 120 2020-0 Yes [id number] Take 1 U nivers mg tablet 8-06 tablet by ity o f 00:00: mouth [place] 00 twice Medical daily Branch SOTALOL 120 2020-0 Yes [id number] Take 1 U nivers mg tablet 8-06 tablet by ity o f 00:00: mouth [place] 00 twice Medical daily Branch SOTALOL 120 2020-0 Yes [id number] Take 1 U nivers mg tablet 8-06 tablet by ity o f 00:00: mouth [place] 00 twice Medical daily Branch EUTHYROX 75 2020-0 Yes [id number] TAKE 1 Univers mcg tablet 7-22 TABLET BY ity of 00:00: MOUTH ONCE 00 DAILY IN [facility] THE [place] MORNING MONTELUKAST 2020-0 Yes [id number] 10mg TAKE 1 Univers 10 mg 7-22 TABLET BY ity of tablet 00:00: MOUTH AT [place] BEDTIME Medical Branch EUTHYROX 75 2020-0 Yes [id number] TAKE 1 Univers mcg tablet 7-22 TABLET BY ity of 00:00: MOUTH ONCE 00 DAILY IN Medical THE [place] MORNING MONTELUKAST 2020-0 Yes [id number] 10mg TAKE 1 Univers 10 mg 7-22 TABLET BY ity of tablet 00:00: MOUTH AT [place] 00 BEDTIME Medical Branch EUTHYROX 75 2020-0 Yes [id number] TAKE 1 Univers mcg tablet 7-22 TABLET BY ity of 00:00: MOUTH ONCE [place] 00 DAILY IN [facility] MORNING MONTELUKAST 0 Yes [id number] 10mg TAKE 1 Univers 10 mg 7-22 TABLET BY ity of tablet 00:00: [facility]TH AT [place] [facility] Branch EUTHYROX 75 2020-0 Yes [id number] TAKE 1 Univers mcg tablet 7-22 TABLET BY ity of 00:00: MOUTH ONCE [place] 00 DAILY IN [facility] MORNING MONTELUKAST 0 Yes [id number] 10mg TAKE 1 Univers 10 mg 7-22 TABLET BY ity of tablet 00:00: MOUTH AT [place] [facility] Branch EUTHYROX 75 2020-0 Yes [id number] TAKE 1 Univers mcg tablet 7-22 TABLET BY ity of 00:00: MOUTH ONCE DAILY IN [facility] MORNING MONTELUKAST Yes [id number] 10mg TAKE 1 Univers 10 mg 7-22 TABLET BY ity of tablet 00:00: MOUTH AT [place] [facility] Branch EUTHYROX 75 0 Yes [id number] TAKE 1 Univers mcg tablet 7-22 TABLET BY ity of 00:00: MOUTH ONCE DAILY IN [facility] MORNING MONTELUKAST Yes [id number] 10mg TAKE 1 Univers 10 mg 7-22 TABLET BY ity of tablet 00:00: MOUTH AT [place] [facility] EUTHYROX 75 2020-0 Yes [id number] TAKE 1 Univers mcg tablet 7-22 TABLET BY ity of 00:00: MOUTH ONCE 00 DAILY IN [facility] MORNING MONTELUKAST 2020-0 Yes [id number] 10mg TAKE 1 Univers 10 mg 7-22 TABLET BY ity of tablet 00:00: MOUTH AT [place] [facility] Branch EUTHYROX 75 2020-0 Yes [id number] TAKE 1 Univers mcg tablet 7-22 TABLET BY ity of 00:00: MOUTH ONCE [place] 00 DAILY IN [facility] MORNING MONTELUKAST 2020-0 Yes [id number] 10mg TAKE 1 Univers 10 mg 7-22 TABLET BY ity of tablet 00:00: MOUTH AT [place] [facility] Branch EUTHYROX 75 2020-0 Yes [id number] TAKE 1 Univers mcg tablet 7-22 TABLET BY ity of 00:00: MOUTH ONCE [place] 00 DAILY IN [facility] MORNING MONTELUKAST 2020- Yes [id number] 10mg TAKE 1 Univers 10 mg 7-22 TABLET BY ity of tablet 00:00: MOUTH AT [place] [facility] EUTHYROX 75 2020-0 Yes [id number] TAKE 1 Univers mcg tablet 7-22 TABLET BY ity of 00:00: MOUTH ONCE DAILY IN [facility] THE [place] MORNING MONTELUKAST 0 Yes [id number] 10mg TAKE 1 Univers 10 mg 7-22 TABLET BY ity of tablet 00:00: MOUTH AT [place] [facility] Branch EUTHYROX 75 2020-0 Yes [id number] TAKE 1 Univers mcg tablet 7-22 TABLET BY ity of 00:00: MOUTH ONCE DAILY IN [facility] MORNING MONTELUKAST Yes [id number] 10mg TAKE 1 Univers 10 mg 7-22 TABLET BY ity of tablet 00:00: MOUTH AT [place] [facility] EUTHYROX 75 2020-0 Yes [id number] TAKE 1 Univers mcg tablet 7-22 TABLET BY ity of 00:00: MOUTH ONCE DAILY IN [facility] MORNING MONTELUKAST Yes [id number] 10mg TAKE 1 Univers 10 mg 7-22 TABLET BY ity of tablet 00:00: MOUTH AT [place] [facility] EUTHYROX 75 0 Yes [id number] TAKE 1 Univers mcg tablet 7-22 TABLET BY ity of 00:00: MOUTH ONCE DAILY IN [facility] MORNING MONTELUKAST Yes [id number] 10mg TAKE 1 Univers 10 mg 7-22 TABLET BY ity of tablet 00:00: MOUTH AT [place] [facility] Branch ELIQUIS 5 2020-0 Yes Take 1 Univer s mg tablet 7-06 tablet by ity o f 00:00: mouth twice Medical daily Branch ELIQUIS 5 2020-0 Yes Take 1 Univer s mg tablet 7-06 tablet by ity o f 00:00: mouth twice Medical daily Branch ELIQUIS 5 2020-0 Yes Take 1 Univer s mg tablet 7-06 tablet by ity o f 00:00: mouth twice Medical daily Branch ELIQUIS 5 2020-0 Yes Take 1 Univer s mg tablet 7-06 tablet by ity o f 00:00: mouth twice Medical daily Branch ELIQUIS 5 2020-0 Yes Take 1 Univer s mg tablet 7-06 tablet by ity o f 00:00: mouth [place] 00 twice Medical daily Branch ELIQUIS 5 0 Yes Take 1 Univer s mg tablet 7-06 tablet by ity o f 00:00: mouth [place] 00 twice Medical daily Branch ELIQUIS 5 0 Yes Take 1 Univer s mg tablet 7-06 tablet by ity o f 00:00: mouth [place] 00 twice Medical daily Branch ELIQUIS 5 Yes Take 1 Univer s mg tablet 7-06 tablet by ity o f 00:00: mouth [place] 00 twice Medical daily Branch ELIQUIS 5 0 Yes Take 1 Univer s mg tablet 7-06 tablet by ity o f 00:00: mouth [place] 00 twice Medical daily Branch ELIQUIS 5 Yes Take 1 Univer s mg tablet 7-06 tablet by ity o f 00:00: mouth [place] 00 twice Medical daily Branch ELIQUIS 5 Yes Take 1 Univer s mg tablet 7-06 tablet by ity o f 00:00: mouth [place] 00 twice Medical daily Branch ELIQUIS 5 Yes Take 1 Univer s mg tablet 7-06 tablet by ity o f 00:00: mouth [place] 00 twice Medical daily Branch ELIQUIS 5 0 Yes Take 1 Univer s mg tablet 7-06 tablet by ity o f 00:00: mouth [place] 00 twice Medical daily Branch ELIQUIS 5 2020-0 Yes Take 1 Univer s mg tablet 7-06 tablet by ity o f 00:00: mouth [place] 00 twice Medical daily Branch ELIQUIS 5 0 Yes Take 1 Univer s mg tablet 7-06 tablet by ity o f 00:00: mouth [place] 00 twice Medical daily Branch ELIQUIS 5 0 Yes Take 1 Univer s mg tablet 7-06 tablet by ity o f 00:00: mouth [place] 00 twice Medical daily Branch apixaban Yes [id number] 5mg Take 1 Univers (ELIQUIS) 5 5-21 tablet by ity of mg tablet 00:00: mouth 2 [place] 00 (two) Medical times Branch daily. Appointmen t needed for further refills. Please contact office. Indication s: atrial fibrillati on apixaban 2020-0 2020- No 1358 5mg Take 1 Univer s (ELIQUIS) 5 5-21 07-06 tablet by it y of mg tablet 00:00: 00:00 mouth 2 [place] :[place] (two) Medical times Branch daily. Appointmen t needed for further refills. Please contact office. Indication s: atrial fibrillati on diltiazem 2020-0 Yes 60mg Take 60 mg Un lali 60 mg 4-19 by mouth 3 ity of tablet 07:20: (three) [place] 22 times Medical daily. Branch fluconazole 1-0 Yes 150mg Take 150 U nivers 150 mg 4-19 mg by ity of tablet 07:20: mouth once [place] 22 now. Medical Branch diltiazem 1-0 Yes 60mg Take 60 mg Un lali 60 mg 4-19 by mouth 3 ity of tablet 07:20: (three) [place] 22 times Medical daily. Branch fluconazole 1-0 Yes 150mg Take 150 U nivers 150 mg 4-19 mg by ity of tablet 07:20: mouth once [place] 22 now. Medical Branch diltiazem 1-0 Yes 60mg Take 60 mg Un lali 60 mg 4-19 by mouth 3 ity of tablet 07:20: (three) [place] 22 times Medical daily. Branch fluconazole 1-0 Yes 150mg Take 150 U nivers 150 mg 4-19 mg by ity of tablet 07:20: mouth once [place] 22 now. Medical Branch diltiazem 1-0 Yes 60mg Take 60 mg Un lali 60 mg 4-19 by mouth 3 ity of tablet 07:20: (three) [place] 22 times Medical daily. Branch fluconazole 1-0 Yes 150mg Take 150 U nivers 150 mg 4-19 mg by ity of tablet 07:20: mouth once [place] 22 now. Medical Branch diltiazem 1-0 Yes 60mg Take 60 mg Un lali 60 mg 4-19 by mouth 3 ity of tablet 07:20: (three) [place] 22 times Medical daily. Branch diltiazem 2021-0 Yes 60mg Take 60 mg Un lali 60 mg 4-19 by mouth 3 ity of tablet 07:20: (three) [place] 22 times Medical daily. Branch fluconazole 2021-0 Yes 150mg Take 150 U nivers 150 mg 4-19 mg by ity of tablet 07:20: mouth once [place] 22 now. Medical Branch diltiazem 2021-0 Yes 60mg Take 60 mg Un lali 60 mg 4-19 by mouth 3 ity of tablet 07:20: (three) [place] 22 times Medical daily. Branch fluconazole 2021-0 Yes 150mg Take 150 U nivers 150 mg 4-19 mg by ity of tablet 07:20: mouth once [place] 22 now. Medical Branch diltiazem 2021-0 Yes 60mg Take 60 mg Un lali 60 mg 4-19 by mouth 3 ity of tablet 07:20: (three) [place] 22 times Medical daily. Branch fluconazole 2021-0 Yes 150mg Take 150 U nivers 150 mg 4-19 mg by ity of tablet 07:20: mouth once [place] 22 now. Medical Branch diltiazem 2021-0 Yes 60mg Take 60 mg Un lali 60 mg 4-19 by mouth 3 ity of tablet 07:20: (three) [place] 22 times Medical daily. Branch diltiazem 2021-0 Yes 60mg Take 60 mg Un lali 60 mg 4-19 by mouth 3 ity of tablet 07:20: (three) [place] 22 times Medical daily. Branch aspirin 81 1-0 1- No 81mg Take 81 mg Univers mg chewable 4-19 04-19 by mouth ity of tablet 07:18: 00:00 daily. [place] 12 :00 Medical Branch diltiazem 2021-0 Yes 60mg Take 60 mg Un lali 60 mg 4-19 by mouth 3 ity of tablet 02:20: (three) [place] 22 times Medical daily. Branch diltiazem 2021-0 Yes 60mg Take 60 mg Un lali 60 mg 4-19 by mouth 3 ity of tablet 02:20: (three) [place] 22 times Medical daily. Branch diltiazem 2021-0 Yes 60mg Take 60 mg Un lali 60 mg 4-19 by mouth 3 ity of tablet 02:20: (three) [place] 22 times Medical daily. Branch diltiazem 2021-0 Yes 60mg Take 60 mg Un lali 60 mg 4-19 by mouth 3 ity of tablet 02:20: (three) [place] 22 times Medical daily. Branch diltiazem 2021-0 Yes 60mg Take 60 mg Un lali 60 mg 4-19 by mouth 3 ity of tablet 02:20: (three) [place] 22 times Medical daily. Branch MONTELUKAST Yes [id number] 10mg TAKE 1 Univers 10 mg 4-07 TABLET BY ity of tablet 00:00: MOUTH AT [place] 00 BEDTIME Medical Branch SOTALOL 120 Yes [id number] Take 1 U nivers mg tablet 4-07 tablet by ity o f 00:00: mouth [place] 00 twice Medical daily Branch LEVOTHYROXI Yes [id number] TAKE 1 Univers NE 75 mcg 4-07 TABLET BY ity o f tablet 00:00: MOUTH ONCE [place] 00 DAILY IN Medical THE [place] MORNING MONTELUKAST Yes [id number] 10mg TAKE 1 Univers 10 mg 4-07 TABLET BY ity of tablet 00:00: MOUTH AT [place] 00 BEDTIME Medical Branch SOTALOL 120 Yes [id number] Take 1 U nivers mg tablet 4-07 tablet by ity o f 00:00: mouth [place] 00 twice Medical daily Branch LEVOTHYROXI Yes [id number] TAKE 1 Univers NE 75 mcg 4-07 TABLET BY ity o f tablet 00:00: MOUTH ONCE [place] 00 DAILY IN [facility] THE [place] MORNING MONTELUKAST Yes [id number] 10mg TAKE 1 Univers 10 mg 4-07 TABLET BY ity of tablet 00:00: MOUTH AT [place] 00 BEDTIME Medical Branch SOTALOL 120 Yes [id number] Take 1 U nivers mg tablet 4-07 tablet by ity o f 00:00: mouth [place] 00 twice Medical daily Branch LEVOTHYROXI Yes [id number] TAKE 1 Univers NE 75 mcg 4-07 TABLET BY ity o f tablet 00:00: MOUTH ONCE [place] 00 DAILY IN [facility] THE [place] MORNING MONTELUKAST Yes [id number] 10mg TAKE 1 Univers 10 mg 4-07 TABLET BY ity of tablet 00:00: MOUTH AT [place] 00 BEDTIME Medical Branch SOTALOL 120 Yes [id number] Take 1 U nivers mg tablet 4-07 tablet by ity o f 00:00: mouth [place] 00 twice Medical daily Branch LEVOTHYROXI Yes [id number] TAKE 1 Univers NE 75 mcg 4-07 TABLET BY ity o f tablet 00:00: MOUTH ONCE [place] 00 DAILY IN Medical THE [place] MORNING MONTELUKAST Yes [id number] 10mg TAKE 1 [facility] 10 mg 4-07 TABLET BY ity of tablet 00:00: MOUTH AT [place] 00 BEDTIME Medical Branch SOTALOL 120 0 Yes [id number] Take 1 U nivers mg tablet 4-07 tablet by ity o f 00:00: mouth [place] 00 twice Medical daily Branch LEVOTHYROXI Yes [id number] TAKE 1 Univers NE 75 mcg 4-07 TABLET BY ity o f tablet 00:00: MOUTH ONCE [place] 00 DAILY IN Medical THE [place] MORNING MONTELUKAST Yes [id number] 10mg TAKE 1 [facility] 10 mg 4-07 TABLET BY ity of tablet 00:00: MOUTH AT [place] 00 BEDTIME Medical Branch SOTALOL 120 0 Yes [id number] Take 1 U nivers mg tablet 4-07 tablet by ity o f 00:00: mouth [place] 00 twice Medical daily Branch LEVOTHYROXI Yes [id number] TAKE 1 Univers NE 75 mcg 4-07 TABLET BY ity o f tablet 00:00: MOUTH ONCE [place] 00 DAILY IN [facility] MORNING SOTALOL 120 2020-0 Yes [id number] Take 1 U nivers mg tablet 4-07 tablet by ity o f 00:00: mouth [place] 00 twice Medical daily Branch SOTALOL 120 0 Yes [id number] Take 1 U nivers mg tablet 4-07 tablet by ity o f 00:00: mouth [place] 00 twice Medical daily Branch SOTALOL 120 2020-0 2020- No [id number] Take 1 Univers mg tablet 07-07- tablet by ity of 00:00: 00:00 mouth [place] 00 :00 twice Medical daily Branch SOTALOL 120 2020-0 2020- No [id number] Take 1 Univers mg tablet -10 07- tablet by ity of 00:00: 00:00 mouth [place] 00 :00 twice Medical daily Branch MONTELUKAST 2020-0 2020- No [id number] 10mg TAKE 1 Univers 10 mg 4-10 06- TABLET BY ity of tablet 00:00: 00:00 MOUTH AT [place] 00 :00 BEDTIME Medical [place] LEVOTHYROXI 2020-0 2021- No [id number] TAKE 1 Univers NE 75 mcg -10 06- TABLET BY ity of tablet 00:00: 00:00 MOUTH ONCE [place] 00 :00 DAILY IN [facility] MORNING MONTELUKAST 2020-0 2020- No [id number] 10mg TAKE 1 Univers 10 mg 07-07 TABLET BY ity of tablet 00:00: 00:00 MOUTH AT [place] 00 :00 BEDTIME [facility] Branch LEVOTHYROXI 2020-0 1- No [id number] TAKE 1 Univers NE 75 mcg 07-07 TABLET BY ity of tablet 00:00: 00:00 MOUTH ONCE [place] 00 :00 DAILY IN [facility] MORNING ELIQUIS 5 2020-0 Yes Take 1 Univer s mg tablet 2-22 tablet by ity o f 00:00: mouth [place] 00 twice Medical daily Branch ELIQUIS 5 2020-0 Yes Take 1 Univer s mg tablet 2-22 tablet by ity o f 00:00: mouth [place] 00 twice Medical daily Branch ELIQUIS 5 2020-0 Yes Take 1 Univer s mg tablet 2-22 tablet by ity o f 00:00: mouth 00 twice Medical daily Branch ELIQUIS 5 2020-0 Yes Take 1 Univer s mg tablet 2-22 tablet by ity o f 00:00: mouth [place] 00 twice Medical daily Branch ELIQUIS 5 2020-0 2020- No Take 1 Unive rs mg tablet 2-21 08-21 tablet by ity of 00:00: 00:00 mouth [place] 00 :00 twice Medical daily Branch LEVOTHYROXI 2020-0 Yes [id number] TAKE 1 Univers NE 75 mcg 1-15 TABLET BY ity o f tablet 00:00: MOUTH ONCE 00 DAILY IN [facility] MORNING MONTELUKAST 2020-0 Yes [id number] 10mg TAKE 1 Univers 10 mg 1-15 TABLET BY ity of tablet 00:00: MOUTH AT [place] 00 BEDTIME Medical Branch LEVOTHYROXI 2020-0 Yes [id number] TAKE 1 [facility] [place] 75 mcg 1-15 TABLET BY ity o f tablet 00:00: MOUTH ONCE 00 DAILY IN [facility] MORNING MONTELUKAST 2020-0 Yes [id number] 10mg TAKE 1 Univers 10 mg 1-15 TABLET BY ity of tablet 00:00: MOUTH AT [place] 00 BEDTIME [facility] Branch LEVOTHYROXI 2020-0 Yes [id number] TAKE 1 [facility] [place] 75 mcg 1-15 TABLET BY ity o f tablet 00:00: MOUTH ONCE [place] 00 DAILY IN [facility] MORNING MONTELUKAST Yes [id number] 10mg TAKE 1 Univers 10 mg 1-15 TABLET BY ity of tablet 00:00: MOUTH AT [place] 00 BEDTIME [facility] Branch LEVOTHYROXI 0 Yes [id number] TAKE 1 [facility] [place] 75 mcg 1-15 TABLET BY ity o f tablet 00:00: MOUTH ONCE [place] 00 DAILY IN [facility] [facility] MORNING MONTELUKAST 0 Yes [id number] 10mg TAKE 1 [facility] 10 mg 1-15 TABLET BY ity of tablet 00:00: MOUTH AT [place] 00 BEDTIME [facility] Branch MONTELUKAST 0 2020- No [id number] 10mg TAKE 1 Univers 10 mg 1-15 04-07 TABLET BY ity of tablet 00:00: 00:00 MOUTH AT [place] 00 :00 BEDTIME [facility] Branch LEVOTHYROXI 2020- No [id number] TAKE 1 Univers [place] 75 mcg 1-15 04-07 TABLET BY ity of tablet 00:00: 00:[place] M[place]TH [place] 00 :[place] DAILY IN [facility] THE [place] MORNING fluticasone 2020- Yes [id number] 1{spray Use 1 Univers propionate 2-20 } [place] in ity o f (FLONASE) 00:00: each [place] 50 00 nostril Medical mcg/actuati daily. Branch on nasal spray fluticasone 2020- Yes [id number] 1{spray Use 1 [facility] propionate 2-20 } [place] in ity o f (FLONASE) 00:00: each [place] 50 00 nostril Medical mcg/actuati daily. Branch on nasal spray fluticasone 2020- Yes [id number] 1{spray Use 1 [facility] propionate 2-20 } [place] in ity o f (FLONASE) 00:00: each [place] 50 00 nostril Medical mcg/actuati daily. Branch on nasal spray fluticasone 2020- Yes [id number] 1{spray Use 1 [facility] propionate 2-20 } [place] in ity o f (FLONASE) 00:00: each [place] 50 00 nostril Medical mcg/actuati daily. Branch on nasal spray fluticasone 2020- Yes [id number] 1{spray Use 1 [facility] propionate 2-20 } [place] in ity o f (FLONASE) 00:00: each [place] 50 00 nostril Medical mcg/actuati daily. Branch on nasal spray fluticasone 2020- Yes [id number] 1{spray Use 1 [facility] propionate 2-20 } [place] in ity o f (FLONASE) 00:00: each [place] 50 00 nostril Medical mcg/actuati daily. Branch on nasal spray fluticasone 2020- Yes [id number] 1{spray Use 1 [facility] propionate 2-20 } [place] in ity o f (FLONASE) 00:00: each [place] 50 00 nostril Medical mcg/actuati daily. Branch on nasal spray fluticasone 2020- Yes [id number] 1{spray Use 1 [facility] propionate 2-20 } [place] in ity o f (FLONASE) 00:00: each [place] 50 00 nostril Medical mcg/actuati daily. Branch on nasal spray fluticasone 2020- Yes [id number] 1{spray Use 1 [facility] propionate 2-20 } [place] in ity o f (FLONASE) 00:00: each [place] 50 00 nostril Medical mcg/actuati daily. Branch on nasal spray fluticasone 2020- Yes [id number] 1{spray Use 1 [facility] propionate 2-20 } [place] in ity o f (FLONASE) 00:00: each [place] 50 00 nostril Medical mcg/actuati daily. Branch on nasal spray fluticasone 2020- Yes [id number] 1{spray Use 1 [facility] propionate 2-20 } [place] in ity o f (FLONASE) 00:00: each [place] 50 00 nostril Medical mcg/actuati daily. Branch on nasal spray fluticasone 2020- Yes [id number] 1{spray Use 1 [facility] propionate 2-20 } [place] in ity o f (FLONASE) 00:00: each [place] 50 00 nostril Medical mcg/actuati daily. Branch on nasal spray fluticasone 2020- Yes [id number] 1{spray Use 1 [facility] propionate 2-20 } [place] in ity o f (FLONASE) 00:00: each [place] 50 00 nostril Medical mcg/actuati daily. Branch on nasal spray fluticasone 2020- Yes [id number] 1{spray Use 1 [facility] propionate 2-20 } [place] in ity o f (FLONASE) 00:00: each [place] 50 00 nostril Medical mcg/actuati daily. Branch on nasal spray fluticasone 2020- Yes [id number] 1{spray Use 1 [facility] propionate 2-20 } [place] in ity o f (FLONASE) 00:00: each [place] 50 00 nostril Medical mcg/actuati daily. Branch on nasal spray fluticasone 2020- Yes [id number] 1{spray Use 1 [facility] propionate 2-20 } [place] in ity o f (FLONASE) 00:00: each [place] 50 00 nostril Medical mcg/actuati daily. Branch on nasal spray fluticasone 2020- Yes [id number] 1{spray Use 1 [facility] propionate 2-20 } [place] in ity o f (FLONASE) 00:00: each [place] 50 00 nostril Medical mcg/actuati daily. Branch on nasal spray fluticasone 2020- Yes [id number] 1{spray Use 1 [facility] propionate 2-20 } [place] in ity o f (FLONASE) 00:00: each [place] 50 00 nostril Medical mcg/actuati daily. Branch on nasal spray fluticasone 2020- Yes [id number] 1{spray Use 1 [facility] propionate 2-20 } [place] in ity o f (FLONASE) 00:00: each [place] 50 00 nostril Medical mcg/actuati daily. Branch on nasal spray fluticasone 2020- Yes [id number] 1{spray Use 1 [facility] propionate 2-20 } [place] in ity o f (FLONASE) 00:00: each [place] 50 00 nostril Medical mcg/actuati daily. Branch on nasal spray fluticasone 2020- Yes [id number] 1{spray Use 1 [facility] propionate 2-20 } [place] in ity o f (FLONASE) 00:00: each [place] 50 00 nostril Medical mcg/actuati daily. Branch on nasal spray fluticasone 2020- Yes [id number] 1{spray Use 1 [facility] propionate 2-20 } [place] in ity o f (FLONASE) 00:00: each [place] 50 00 nostril Medical mcg/actuati daily. Branch on nasal spray fluticasone 2020- Yes [id number] 1{spray Use 1 [facility] propionate 2-20 } [place] in ity o f (FLONASE) 00:00: each [place] 50 00 nostril Medical mcg/actuati daily. Branch on nasal spray fluticasone 2020-1 Yes [id number] 1{spray Use 1 [facility] propionate 2-20 } [place] in ity o f (FLONASE) 00:00: each [place] 50 00 nostril Medical mcg/actuati daily. Branch on nasal spray fluticasone 2019-04 Yes [id number] 1{spray Use 1 [facility] propionate 2-20 } [place] in ity o f (FLONASE) 00:00: each [place] 50 00 nostril Medical mcg/actuati daily. Branch on nasal spray sotaloL 120 2019-04 Yes [id number] 120mg Take 1 Univers mg tablet 1-16 tablet by ity o f 00:00: mouth 2 00 (two) Medical times Branch daily. sotaloL 120 2019-04 Yes [id number] 120mg Take 1 Univers mg tablet 1-16 tablet by ity o f 00:00: mouth 2 [place] (two) Medical times Branch daily. sotaloL 120 2019-04 Yes [id number] 120mg Take 1 Univers mg tablet 1-16 tablet by ity o f 00:00: mouth 2 [place] (two) Medical times Branch daily. sotaloL 120 2019-04 Yes [id number] 120mg Take 1 [facility] mg tablet 1-16 tablet by ity o f 00:00: mouth 2 [place] (two) Medical times Branch daily. sotaloL 120 2019-04 Yes [id number] 120mg Take 1 Univers mg tablet 1-16 tablet by ity o f 00:00: mouth 2 [place] (two) Medical times Branch daily. sotaloL 120 2019-04 Yes [id number] 120mg Take 1 [facility] mg tablet 1-16 tablet by ity o f 00:00: mouth 2 [place] (two) Medical times Branch daily. sotaloL 120 2019-04- No [id number] 120mg Take 1 Univers mg tablet 1-16 04-07 tablet by ity of 00:00: 00:00 mouth 2 [place] 00 :00 (two) Medical times Branch daily. diltiazem 2019-04 Yes 60mg Take 60 mg Un lali 60 mg 1-03 by mouth 3 ity of tablet 18:54: (three) [place] 55 times Medical daily. Branch diltiazem 2019-04 Yes 60mg Take 60 mg Un [place] 60 mg -03 by mouth 3 ity of tablet 18:54: (three) [place] 55 times Medical daily. Branch diltiazem 2020-1 Yes 60mg Take 60 mg Un [place] 60 mg 1-03 by mouth 3 ity of tablet 18:54: (three) [place] 55 times Medical daily. Branch diltiazem 2020-1 Yes 60mg Take 60 mg Un [place] 60 mg 1-03 by mouth 3 ity of tablet 18:54: (three) [place] 55 times Medical daily. Branch diltiazem 2020-1 Yes 60mg Take 60 mg Un [place] 60 mg 1-03 by mouth 3 ity of tablet 18:54: (three) [place] 55 times Medical daily. Branch diltiazem 2020-1 Yes 60mg Take 60 mg Un [place] 60 mg 1-03 by mouth 3 ity of tablet 18:54: (three) [place] 55 times Medical daily. Branch diltiazem 2020-1 Yes 60mg Take 60 mg Un [place] 60 mg 1-03 by mouth 3 ity of tablet 18:54: (three) [place] 55 times Medical daily. Branch diltiazem 2020-1 Yes 60mg Take 60 mg Un lali 60 mg 1-03 by mouth 3 ity of tablet 18:54: (three) [place] 55 times Medical daily. Branch carboxymeth 2020-1 Yes [id number] Patient Univers ylcellulose 1-03 takes per ity of sodium 00:00: pharmacy [place] ophthalmic Medical drops Branch carboxymeth 2020-1 Yes [id number] Patient Univers ylcellulose 1-03 takes per ity of sodium 00:00: pharmacy [place] ophthalmic Medical drops Branch carboxymeth 2020-1 Yes [id number] Patient Univers ylcellulose 1-03 takes per ity of sodium 00:00: pharmacy [place] ophthalmic 00 Medical drops Branch carboxymeth 2020-1 Yes [id number] Patient Univers ylcellulose 1-03 takes per ity of sodium 00:00: pharmacy [place] ophthalmic Medical drops Branch carboxymeth 2020-1 Yes [id number] Patient Univers ylcellulose 1-03 takes per ity of sodium 00:00: pharmacy [place] ophthalmic Medical drops Branch carboxymeth 2020-1 Yes [id number] Patient Univers ylcellulose 1-03 takes per ity of sodium 00:00: pharmacy [place] ophthalmic Medical drops Branch carboxymeth 2020-1 Yes [id number] Patient Univers ylcellulose 1-03 takes per ity of sodium 00:00: pharmacy [place] ophthalmic Medical drops Branch carboxymeth 2020-1 Yes [id number] Patient Univers ylcellulose 1-03 takes per ity of sodium 00:00: pharmacy [place] ophthalmic 00 Medical drops Branch carboxymeth 2019-04- No [id number] Patient Univers ylcellulose 1-03 04-19 takes per it y of sodium 00:00: 00:00 pharmacy [place] ophthalmic 00 :00 Medical drops Branch tc 2019-04- No 45mCi 45 Univers 99m-tetrofo 0-15 10-15 [facility] 16:00: 15:53 , [place] ([facility]) 00 :00 Intravenou Medi judah injection s, ONCE, 1 Bran ch 45 dose, [place] millicurie 01/15/20 at 1100, Routine Regadenoson 2019-04- No PRN, Unive rs (LEXISCAN) 0-15 10-15 Starting ity of injection 15:51: 15:51 [place] 51 :51 01/15/20 Medical at 1051, Branch Until [place] 01/15/20 at 1051, Routine tc 2019-04- No 16.1mCi 16.1 Univers 99m-tetrofo 0-15 10-15 millicurie i ty of smin 14:00: 13:57 , [place] ([facility]) 00 :00 Intravenou Medi judah injection s, ONCE, 1 Bran ch 16.1 dose, [place] millicurie 01/15/20 at 0900, Routine aspirin 81 2019-04 Yes 81mg Take 81 mg U nivers mg chewable 0-13 by mouth ity of tablet 15:43: daily. [address] folic 2019-04 Yes Take by Univers acid/multiv 0-13 mouth. ity of it-min/lute 15:43: [place] in ([address] ORAL) vitamin C 2019-04 Yes 1000mg Take 1,000 Univers with chioma 0-13 mg by ity of hips 15:43: mouth [place] (VITAMIN C) 54 daily. Medica l 1,000 mg Branch tablet aspirin 81 2019-04 Yes 81mg Take 81 mg U nivers mg chewable 0-13 by mouth ity of tablet 15:43: daily. [address] folic 2019-04 Yes Take by Univers acid/multiv 0-13 mouth. ity of it-min/lute 15:43: [place] in ([address] ORAL) vitamin C 2020-1 Yes 1000mg Take 1,000 Univers with chioma 0-13 mg by ity of hips 15:43: mouth [place] (VITAMIN C) 54 daily. Medica l 1,000 mg Branch tablet aspirin 81 2020-1 Yes 81mg Take 81 mg U nivers mg chewable 0-13 by mouth ity of tablet 15:43: daily. [place] [address] Medical Branch folic 2020- Yes Take by Univers acid/multiv 0-13 mouth. ity of it-min/lute 15:43: [place] in ([place] [address] Medical DEXTER Branch ORAL) vitamin C 2020- Yes 1000mg Take 1,000 Univers with chioma 0-13 mg by ity of hips 15:43: mouth [place] (VITAMIN C) 54 daily. Medica l 1,000 mg Branch tablet aspirin 81 2020-1 Yes 81mg Take 81 mg U nivers mg chewable 0-13 by mouth ity of tablet 15:43: daily. [place] [address] Medical Branch folic 2020- Yes Take by Univers acid/multiv 0-13 mouth. ity of it-min/lute 15:43: [place] in ([place] [address] Medical DEXTER Branch ORAL) vitamin C 2020- Yes 1000mg Take 1,000 Univers with chioma 0-13 mg by ity of hips 15:43: mouth [place] (VITAMIN C) 54 daily. Medica l 1,000 mg Branch tablet folic 2020- Yes Take by Univers acid/multiv 0-13 mouth. ity of it-min/lute 15:43: [place] in ([address] Branch ORAL) vitamin C 2020- Yes 1000mg Take 1,000 Univers with chioma 0-13 mg by ity of hips 15:43: mouth [place] (VITAMIN C) 54 daily. Medica l 1,000 mg Branch tablet folic 2020- Yes Take by Univers acid/multiv 0-13 mouth. ity of it-min/lute 15:43: [place] in ([address] Branch ORAL) vitamin C 2020- Yes 1000mg Take 1,000 Univers with chioma 0-13 mg by ity of hips 15:43: mouth [place] (VITAMIN C) 54 daily. Medica l 1,000 mg Branch tablet folic 2020-1 Yes Take by Univers acid/multiv 0-13 mouth. ity of it-min/lute 15:43: [place] in ([address] Branch ORAL) vitamin C 2020- Yes 1000mg Take 1,000 Univers with chioma 0-13 mg by ity of hips 15:43: mouth [place] (VITAMIN C) 54 daily. Medica l 1,000 mg Branch tablet folic 2020-1 Yes Take by Univers acid/multiv 0-13 mouth. ity of it-min/lute 15:43: [place] in ([facility] 54 Medical SILVER Branch ORAL) vitamin C 2020-1 Yes 1000mg Take 1,000 Univers with chioma 0-13 mg by ity of hips 15:43: mouth [place] (VITAMIN C) 54 daily. Medica l 1,000 mg Branch tablet folic 2020-1 Yes Take by Univers acid/multiv 0-13 mouth. ity of it-min/lute 15:43: [place] in ([facility] 54 Medical SILVER Branch ORAL) vitamin C 2020-1 Yes 1000mg Take 1,000 Univers with chioma 0-13 mg by ity of hips 15:43: mouth [place] (VITAMIN C) 54 daily. Medica l 1,000 mg Branch tablet folic 2020-1 Yes Take by Univers acid/multiv 0-13 mouth. ity of it-min/lute 15:43: [place] in ([facility] 54 Medical SILVER Branch ORAL) vitamin C 2020-1 Yes 1000mg Take 1,000 Univers with chioma 0-13 mg by ity of hips 15:43: mouth [place] (VITAMIN C) 54 daily. Medica l 1,000 mg Branch tablet folic 2020-1 Yes Take by Univers acid/multiv 0-13 mouth. ity of it-min/lute 15:43: [place] in ([facility] 54 Medical SILVER Branch ORAL) vitamin C 2020-1 Yes 1000mg Take 1,000 Univers with chioma 0-13 mg by ity of hips 15:43: mouth [place] (VITAMIN C) 54 daily. Medica l 1,000 mg Branch tablet folic 2020-1 Yes Take by Univers acid/multiv 0-13 mouth. ity of it-min/lute 15:43: [place] in ([facility] 54 Medical SILVER Branch ORAL) vitamin C 2020-1 Yes 1000mg Take 1,000 Univers with chioma 0-13 mg by ity of hips 15:43: mouth [place] (VITAMIN C) 54 daily. Medica l 1,000 mg Branch tablet folic 2020-1 Yes Take by Univers acid/multiv 0-13 mouth. ity of it-min/lute 15:43: [place] in ([facility] 54 Medical SILVER Branch ORAL) vitamin C 2020-1 Yes 1000mg Take 1,000 Univers with chioma 0-13 mg by ity of hips 15:43: mouth [place] (VITAMIN C) 54 daily. Medica l 1,000 mg Branch tablet folic 2019- Yes Take by Univers acid/multiv 0-13 mouth. ity of it-min/lute 15:43: [place] in ([place] [address] Medical SILVER Branch ORAL) vitamin C 2020- Yes 1000mg Take 1,000 Univers with chioma 0-13 mg by ity of hips 15:43: mouth [place] (VITAMIN C) 54 daily. Medica l 1,000 mg Branch tablet aspirin 81 2020- Yes 81mg Take 81 mg U nivers mg chewable 0-13 by mouth ity of tablet 15:43: daily. [place] [address] Medical Branch folic 2019- Yes Take by Univers acid/multiv 0-13 mouth. ity of it-min/lute 15:43: [place] in ([place] [address] Medical SILVER Branch ORAL) vitamin C 2019- Yes 1000mg Take 1,000 Univers with chioma 0-13 mg by ity of hips 15:43: mouth [place] (VITAMIN C) 54 daily. Medica l 1,000 mg Branch tablet aspirin 81 2019- Yes 81mg Take 81 mg U nivers mg chewable 0-13 by mouth ity of tablet 15:43: daily. [place] [address] Medical Branch folic 2019- Yes Take by Univers acid/multiv 0-13 mouth. ity of it-min/lute 15:43: [place] in ([place] [address] Medical SILVER Branch ORAL) vitamin C 2020- Yes 1000mg Take 1,000 Univers with chioma 0-13 mg by ity of hips 15:43: mouth [place] (VITAMIN C) 54 daily. Medica l 1,000 mg Branch tablet aspirin 81 2020- Yes 81mg Take 81 mg U nivers mg chewable 0-13 by mouth ity of tablet 15:43: daily. [place] [address] Medical Branch folic 2020- Yes Take by Univers acid/multiv 0-13 mouth. ity of it-min/lute 15:43: [place] in ([facility] 54 Medical SILVER Branch ORAL) vitamin C 2020- Yes 1000mg Take 1,000 Univers with chioma 0-13 mg by ity of hips 15:43: mouth [place] (VITAMIN C) 54 daily. Medica l 1,000 mg Branch tablet aspirin 81 2020-1 Yes 81mg Take 81 mg U nivers mg chewable 0-13 by mouth ity of tablet 15:43: daily. [place] [address] Medical Branch folic 2019- Yes Take by Univers acid/multiv 0-13 mouth. ity of it-min/lute 15:43: [place] in ([place] [address] Medical SILVER Branch ORAL) vitamin C 2020 Yes 1000mg Take 1,000 Univers with chioma 0-13 mg by ity of hips 15:43: mouth [place] (VITAMIN C) 54 daily. Medica l 1,000 mg Branch tablet aspirin 81 2019-04 Yes 81mg Take 81 mg U nivers mg chewable 0-13 by mouth ity of tablet 15:43: daily. [place] [address] Medical Branch folic 2019- Yes Take by Univers acid/multiv 0-13 mouth. ity of it-min/lute 15:43: [place] in ([place] [address] Medical SILVER Branch ORAL) vitamin C 2019-04 Yes 1000mg Take 1,000 Univers with chioma 0-13 mg by ity of hips 15:43: mouth [place] (VITAMIN C) 54 daily. Medica l 1,000 mg Branch tablet aspirin 81 2019-04 Yes 81mg Take 81 mg U nivers mg chewable 0-13 by mouth ity of tablet 15:43: daily. [place] [address] Medical Branch folic 2019- Yes Take by Univers acid/multiv 0-13 mouth. ity of it-min/lute 15:43: [place] in ([place] [address] Medical SILVER Branch ORAL) vitamin C 2019- Yes 1000mg Take 1,000 Univers with chioma 0-13 mg by ity of hips 15:43: mouth [place] (VITAMIN C) 54 daily. Medica l 1,000 mg Branch tablet aspirin 81 2019- Yes 81mg Take 81 mg U nivers mg chewable 0-13 by mouth ity of tablet 15:43: daily. [place] [address] Medical Branch folic 2020- Yes Take by Univers acid/multiv 0-13 mouth. ity of it-min/lute 15:43: [place] in ([place] [address] Medical SILVER Branch ORAL) vitamin C 2020- Yes 1000mg Take 1,000 Univers with chioma 0-13 mg by ity of hips 15:43: mouth [place] (VITAMIN C) 54 daily. Medica l 1,000 mg Branch tablet aspirin 81 2020- Yes 81mg Take 81 mg U nivers mg chewable 0-13 by mouth ity of tablet 15:43: daily. [place] [address] Medical Branch folic 2020- Yes Take by Univers acid/multiv 0-13 mouth. ity of it-min/lute 15:43: [place] in ([place] [address] Medical SILVER Branch ORAL) vitamin C 2020- Yes 1000mg Take 1,000 Univers with chioma 0-13 mg by ity of hips 15:43: mouth [place] (VITAMIN C) 54 daily. Medica l 1,000 mg Branch tablet aspirin 81 2020- Yes 81mg Take 81 mg U nivers mg chewable 0-13 by mouth ity of tablet 15:43: daily. [place] [address] Medical Branch folic 2019- Yes Take by Univers acid/multiv 0-13 mouth. ity of it-min/lute 15:43: [place] in ([place] [address] Medical DEXTER Branch ORAL) vitamin C 2020- Yes 1000mg Take 1,000 Univers with chioma 0-13 mg by ity of hips 15:43: mouth [place] (VITAMIN C) 54 daily. Medica l 1,000 mg Branch tablet aspirin 81 2019- Yes 81mg Take 81 mg U nivers mg chewable 0-13 by mouth ity of tablet 15:43: daily. [place] [address] Medical Branch folic 2019- Yes Take by Univers acid/multiv 0-13 mouth. ity of it-min/lute 15:43: [place] in ([place] [address] Medical DEXTER Branch ORAL) vitamin C 2020- Yes 1000mg Take 1,000 Univers with chioma 0-13 mg by ity of hips 15:43: mouth [place] (VITAMIN C) 54 daily. Medica l 1,000 mg Branch tablet aspirin 81 2020- Yes 81mg Take 81 mg U nivers mg chewable 0-13 by mouth ity of tablet 15:43: daily. [place] [address] Medical Branch folic 2020- Yes Take by Univers acid/multiv 0-13 mouth. ity of it-min/lute 15:43: [place] in ([place] [address] Medical DEXTER Branch ORAL) vitamin C 2020- Yes 1000mg Take 1,000 Univers with chioma 0-13 mg by ity of hips 15:43: mouth [place] (VITAMIN C) 54 daily. Medica l 1,000 mg Branch tablet aspirin 81 2020- Yes 81mg Take 81 mg U nivers mg chewable 0-13 by mouth ity of tablet 15:43: daily. [place] [address] Medical Branch folic 2020- Yes Take by Univers acid/multiv 0-13 mouth. ity of it-min/lute 15:43: [place] in ([place] [address] Medical SILVER Branch ORAL) vitamin C 2020- Yes 1000mg Take 1,000 Univers with chioma 0-13 mg by ity of hips 15:43: mouth [place] (VITAMIN C) 54 daily. Medica l 1,000 mg Branch tablet aspirin 81 2020- Yes 81mg Take 81 mg U nivers mg chewable 0-13 by mouth ity of tablet 15:43: daily. [place] [address] Medical Branch folic 2019- Yes Take by Univers acid/multiv 0-13 mouth. ity of it-min/lute 15:43: [place] in ([place] [address] Medical SILVER Branch ORAL) vitamin C 2020- Yes 1000mg Take 1,000 Univers with chioma 0-13 mg by ity of hips 15:43: mouth [place] (VITAMIN C) 54 daily. Medica l 1,000 mg Branch tablet aspirin 81 2019- Yes 81mg Take 81 mg U nivers mg chewable 0-13 by mouth ity of tablet 15:43: daily. [place] [address] Medical Branch folic 2019- Yes Take by Univers acid/multiv 0-13 mouth. ity of it-min/lute 15:43: [place] in ([place] [address] Medical SILVER Branch ORAL) vitamin C 2020- Yes 1000mg Take 1,000 Univers with chioma 0-13 mg by ity of hips 15:43: mouth [place] (VITAMIN C) 54 daily. Medica l 1,000 mg Branch tablet aspirin 81 2020- Yes 81mg Take 81 mg U nivers mg chewable 0-13 by mouth ity of tablet 15:43: daily. [place] [address] Medical Branch folic 2020- Yes Take by Univers acid/multiv 0-13 mouth. ity of it-min/lute 15:43: [place] in ([place] [address] Medical SILVER Branch ORAL) vitamin C 2020- Yes 1000mg Take 1,000 Univers with chioma 0-13 mg by ity of hips 15:43: mouth [place] (VITAMIN C) 54 daily. Medica l 1,000 mg Branch tablet aspirin 81 2020- Yes 81mg Take 81 mg U nivers mg chewable 0-13 by mouth ity of tablet 15:43: daily. [place] [address] Medical Branch folic 2020- Yes Take by Univers acid/multiv 0-13 mouth. ity of it-min/lute 15:43: [place] in ([place] [address] Medical SILVER Branch ORAL) vitamin C 2020- Yes 1000mg Take 1,000 Univers with chioma 0-13 mg by ity of hips 15:43: mouth [place] (VITAMIN C) 54 daily. Medica l 1,000 mg Branch tablet aspirin 81 2020-1 Yes 81mg Take 81 mg U nivers mg chewable 0-13 by mouth ity of tablet 15:43: daily. [place] [address] Medical Branch folic 2020- Yes Take by Univers acid/multiv 0-13 mouth. ity of it-min/lute 15:43: [place] in ([place] [address] Medical SILVER Branch ORAL) vitamin C 2020- Yes 1000mg Take 1,000 Univers with chioma 0-13 mg by ity of hips 15:43: mouth [place] (VITAMIN C) 54 daily. Medica l 1,000 mg Branch tablet folic 2020- Yes Take by Univers acid/multiv 0-13 mouth. ity of it-min/lute 10:43: [place] in ([place] [address] Medical SILVER Branch ORAL) vitamin C 2020- Yes 1000mg Take 1,000 Univers with chioma 0-13 mg by ity of hips 10:43: mouth [place] (VITAMIN C) 54 daily. Medica l 1,000 mg Branch tablet folic 2020- Yes Take by Univers acid/multiv 0-13 mouth. ity of it-min/lute 10:43: [place] in ([place] [address] Medical SILVER Branch ORAL) vitamin C 2020- Yes 1000mg Take 1,000 Univers with chioma 0-13 mg by ity of hips 10:43: mouth [place] (VITAMIN C) 54 daily. Medica l 1,000 mg Branch tablet folic 2020- Yes Take by Univers acid/multiv 0-13 mouth. ity of it-min/lute 10:43: [place] in ([place] [address] Medical SILVER Branch ORAL) vitamin C 2020- Yes 1000mg Take 1,000 Univers with chioma 0-13 mg by ity of hips 10:43: mouth [place] (VITAMIN C) 54 daily. Medica l 1,000 mg Branch tablet folic 2020-1 Yes Take by Univers acid/multiv 0-13 mouth. ity of it-min/lute 10:43: [place] in ([place] [address] Medical SILVER Branch ORAL) vitamin C 2020- Yes 1000mg Take 1,000 Univers with chioma 0-13 mg by ity of hips 10:43: mouth [place] (VITAMIN C) 54 daily. Medica l 1,000 mg Branch tablet folic 2020- Yes Take by Univers acid/multiv 0-13 mouth. ity of it-min/lute 10:43: [place] in ([address] ORAL) vitamin C 2020- Yes 1000mg Take 1,000 Univers with chioma 0-13 mg by ity of hips 10:43: mouth [place] (VITAMIN C) 54 daily. Medica l 1,000 mg Branch tablet folic 2020- Yes Take by Univers acid/multiv 0-13 mouth. ity of it-min/lute 10:43: [place] in ([facility] 54 [facility] ORAL) vitamin C 2020- Yes 1000mg Take 1,000 Univers with chioma 0-13 mg by ity of hips 10:43: mouth [place] (VITAMIN C) 54 daily. Medica l 1,000 mg Branch tablet folic 2020- Yes Take by Univers acid/multiv 0-13 mouth. ity of it-min/lute 10:43: [place] in ([address] Branch ORAL) vitamin C 2020- Yes 1000mg Take 1,000 Univers with chioma 0-13 mg by ity of hips 10:43: mouth [place] (VITAMIN C) 54 daily. Medica l 1,000 mg Branch tablet folic 2020- Yes Take by Univers acid/multiv 0-13 mouth. ity of it-min/lute 10:43: [place] in ([address] ORAL) vitamin C 2020- Yes 1000mg Take 1,000 Univers with chioma 0-13 mg by ity of hips 10:43: mouth [place] (VITAMIN C) 54 daily. Medica l 1,000 mg Branch tablet folic 2020- Yes Take by Univers acid/multiv 0-13 mouth. ity of it-min/lute 10:43: [place] in ([facility] 54 [facility] Branch ORAL) vitamin C 2020- Yes 1000mg Take 1,000 [facility] with chioma 0-13 mg by ity of hips 10:43: mouth [place] (VITAMIN C) 54 daily. Medica l 1,000 mg Branch tablet fluconazole 2020-1 Yes [id number] 150mg Take 1 [facility] 150 mg 0-05 tablet by ity of tablet 00:00: mouth [place] 00 every 72 Medical ([facility] Branch wo) hours. Take 1 pill every 3 days for 2 weeks. omeprazole 2020- Yes [id number] 20mg Take 1 [facility] 20 mg 0-05 capsule by ity of capsule 00:00: mouth [place] 00 daily. Medical Branch glipiZIDE 5 2019-04 Yes [id number] 2.5mg Take 0.5 [facility] mg tablet 0-05 tablets by ity of 00:00: mouth [place] 00 daily. Medical Branch fluconazole 2020- Yes [id number] 150mg Take 1 [facility] 150 mg 0-05 tablet by ity of tablet 00:00: mouth [place] 00 every 72 Medical ([facility] wo) hours. Take 1 pill every 3 days for 2 weeks. omeprazole 2019-04 Yes [id number] 20mg Take 1 [facility] 20 mg 0-05 capsule by ity of capsule 00:00: mouth [place] 00 daily. Medical Branch glipiZIDE 5 2019-04 Yes [id number] 2.5mg Take 0.5 [facility] mg tablet 0-05 tablets by ity of 00:00: mouth [place] 00 daily. Medical Branch fluconazole 2019- Yes [id number] 150mg Take 1 [facility] 150 mg 0-05 tablet by ity of tablet 00:00: mouth [place] 00 every 72 Medical ([facility] wo) hours. Take 1 pill every 3 days for 2 weeks. omeprazole 2019-04 Yes [id number] 20mg Take 1 [facility] 20 mg 0-05 capsule by ity of capsule 00:00: mouth [place] 00 daily. Medical Branch glipiZIDE 5 2019-04 Yes [id number] 2.5mg Take 0.5 [facility] mg tablet 0-05 tablets by ity of 00:00: mouth [place] 00 daily. Medical Branch omeprazole 2019- Yes [id number] 20mg Take 1 [facility] 20 mg 0-05 capsule by ity of capsule 00:00: mouth [place] 00 daily. Medical Branch glipiZIDE 5 2019-04 Yes [id number] 2.5mg Take 0.5 [facility] mg tablet 0-05 tablets by ity of 00:00: mouth [place] 00 daily. Medical Branch omeprazole 2019-04 Yes [id number] 20mg Take 1 [facility] 20 mg 0-05 capsule by ity of capsule 00:00: mouth [place] 00 daily. Medical Branch glipiZIDE 5 2019-04 Yes [id number] 2.5mg Take 0.5 [facility] mg tablet 0-05 tablets by ity of 00:00: mouth [place] 00 daily. Medical Branch omeprazole 2020- Yes [id number] 20mg Take 1 [facility] 20 mg 0-05 capsule by ity of capsule 00:00: mouth [place] 00 daily. Medical Branch glipiZIDE 5 2019- Yes [id number] 2.5mg Take 0.5 [facility] mg tablet 0-05 tablets by ity of 00:00: mouth [place] 00 daily. Medical Branch omeprazole 2019-04 Yes [id number] 20mg Take 1 [facility] 20 mg 0-05 capsule by ity of capsule 00:00: mouth [place] 00 daily. Medical Branch glipiZIDE 5 2019-04 Yes [id number] 2.5mg Take 0.5 [facility] mg tablet 0-05 tablets by ity of 00:00: mouth [place] 00 daily. Medical Branch omeprazole 2019-04 Yes [id number] 20mg Take 1 [facility] 20 mg 0-05 capsule by ity of capsule 00:00: mouth [place] 00 daily. Medical Branch glipiZIDE 5 2019-04 Yes [id number] 2.5mg Take 0.5 [facility] mg tablet 0-05 tablets by ity of 00:00: mouth [place] 00 daily. Medical Branch omeprazole 2019-04 Yes [id number] 20mg Take 1 [facility] 20 mg 0-05 capsule by ity of capsule 00:00: mouth [place] 00 daily. Medical Branch glipiZIDE 5 2019-04 Yes [id number] 2.5mg Take 0.5 [facility] mg tablet 0-05 tablets by ity of 00:00: mouth [place] 00 daily. Medical Branch omeprazole 2020- Yes [id number] 20mg Take 1 [facility] 20 mg 0-05 capsule by ity of capsule 00:00: mouth [place] 00 daily. Medical Branch glipiZIDE 5 2019-04 Yes [id number] 2.5mg Take 0.5 [facility] mg tablet 0-05 tablets by ity of 00:00: mouth [place] 00 daily. Medical Branch omeprazole 2020- Yes [id number] 20mg Take 1 [facility] 20 mg 0-05 capsule by ity of capsule 00:00: mouth [place] 00 daily. Medical Branch glipiZIDE 5 2019-04 Yes [id number] 2.5mg Take 0.5 [facility] mg tablet 0-05 tablets by ity of 00:00: mouth [place] 00 daily. Medical Branch omeprazole 2020- Yes [id number] 20mg Take 1 [facility] 20 mg 0-05 capsule by ity of capsule 00:00: mouth [place] 00 daily. Medical Branch glipiZIDE 5 2019-04 Yes [id number] 2.5mg Take 0.5 [facility] mg tablet 0-05 tablets by ity of 00:00: mouth [place] 00 daily. Medical Branch omeprazole 2019- Yes [id number] 20mg Take 1 [facility] 20 mg 0-05 capsule by ity of capsule 00:00: mouth [place] 00 daily. Medical Branch glipiZIDE 5 2019-04 Yes [id number] 2.5mg Take 0.5 [facility] mg tablet 0-05 tablets by ity of 00:00: mouth [place] 00 daily. Medical Branch omeprazole 2019-04 Yes [id number] 20mg Take 1 [facility] 20 mg 0-05 capsule by ity of capsule 00:00: mouth [place] 00 daily. Medical Branch glipiZIDE 5 2019-04 Yes [id number] 2.5mg Take 0.5 [facility] mg tablet 0-05 tablets by ity of 00:00: mouth [place] 00 daily. Medical Branch omeprazole 2019-04 Yes [id number] 20mg Take 1 [facility] 20 mg 0-05 capsule by ity of capsule 00:00: mouth [place] 00 daily. Medical Branch fluconazole 2019- Yes [id number] 150mg Take 1 [facility] 150 mg 0-05 tablet by ity of tablet 00:00: mouth [place] 00 every 72 Medical ([facility] Branch wo) hours. Take 1 pill every 3 days for 2 weeks. omeprazole 2019- Yes [id number] 20mg Take 1 [facility] 20 mg 0-05 capsule by ity of capsule 00:00: mouth [place] 00 daily. Medical Branch glipiZIDE 5 2019-04 Yes [id number] 2.5mg Take 0.5 [facility] mg tablet 0-05 tablets by ity of 00:00: mouth [place] 00 daily. Medical Branch fluconazole 2020- Yes [id number] 150mg Take 1 [facility] 150 mg 0-05 tablet by ity of tablet 00:00: mouth [place] 00 every 72 Medical ([facility] Branch wo) hours. Take 1 pill every 3 days for 2 weeks. omeprazole 2019- Yes [id number] 20mg Take 1 [facility] 20 mg 0-05 capsule by ity of capsule 00:00: mouth [place] 00 daily. Medical Branch glipiZIDE 5 2019-04 Yes [id number] 2.5mg Take 0.5 [facility] mg tablet 0-05 tablets by ity of 00:00: mouth [place] 00 daily. Medical Branch fluconazole 2020- Yes [id number] 150mg Take 1 [facility] 150 mg 0-05 tablet by ity of tablet 00:00: mouth [place] 00 every 72 Medical ([facility] wo) hours. Take 1 pill every 3 days for 2 weeks. omeprazole 2019- Yes [id number] 20mg Take 1 [facility] 20 mg 0-05 capsule by ity of capsule 00:00: mouth [place] 00 daily. Medical Branch glipiZIDE 5 2019-04 Yes [id number] 2.5mg Take 0.5 [facility] mg tablet 0-05 tablets by ity of 00:00: mouth [place] 00 daily. Medical Branch fluconazole 2019- Yes [id number] 150mg Take 1 [facility] 150 mg 0-05 tablet by ity of tablet 00:00: mouth [place] 00 every 72 Medical ([facility] wo) hours. Take 1 pill every 3 days for 2 weeks. omeprazole 2019-04 Yes [id number] 20mg Take 1 [facility] 20 mg 0-05 capsule by ity of capsule 00:00: mouth [place] 00 daily. Medical Branch glipiZIDE 5 2019-04 Yes [id number] 2.5mg Take 0.5 [facility] mg tablet 0-05 tablets by ity of 00:00: mouth [place] 00 daily. Medical Branch fluconazole 2019- Yes [id number] 150mg Take 1 [facility] 150 mg 0-05 tablet by ity of tablet 00:00: mouth [place] 00 every 72 Medical ([facility] wo) hours. Take 1 pill every 3 days for 2 weeks. omeprazole 2019- Yes [id number] 20mg Take 1 [facility] 20 mg 0-05 capsule by ity of capsule 00:00: mouth [place] 00 daily. Medical Branch glipiZIDE 5 2019- Yes [id number] 2.5mg Take 0.5 [facility] mg tablet 0-05 tablets by ity of 00:00: mouth [place] 00 daily. Medical Branch fluconazole 2019- Yes [id number] 150mg Take 1 [facility] 150 mg 0-05 tablet by ity of tablet 00:00: mouth [place] 00 every 72 Medical ([facility] wo) hours. Take 1 pill every 3 days for 2 weeks. omeprazole 2019- Yes [id number] 20mg Take 1 [facility] 20 mg 0-05 capsule by ity of capsule 00:00: mouth [place] 00 daily. Medical Branch glipiZIDE 5 2019- Yes [id number] 2.5mg Take 0.5 [facility] mg tablet 0-05 tablets by ity of 00:00: mouth [place] 00 daily. Medical Branch fluconazole 2020- Yes [id number] 150mg Take 1 [facility] 150 mg 0-05 tablet by ity of tablet 00:00: mouth [place] 00 every 72 Medical ([facility]) hours. Take 1 pill every 3 days for 2 weeks. omeprazole 2020- Yes [id number] 20mg Take 1 [facility] 20 mg 0-05 capsule by ity of capsule 00:00: mouth [place] 00 daily. Medical Branch glipiZIDE 5 2019-04 Yes [id number] 2.5mg Take 0.5 [facility] mg tablet 0-05 tablets by ity of 00:00: mouth [place] 00 daily. Medical Branch fluconazole 2019- Yes [id number] 150mg Take 1 [facility] 150 mg 0-05 tablet by ity of tablet 00:00: mouth [place] 00 every 72 Medical ([facility] wo) hours. Take 1 pill every 3 days for 2 weeks. omeprazole 2019- Yes [id number] 20mg Take 1 [facility] 20 mg 0-05 capsule by ity of capsule 00:00: mouth [place] 00 daily. Medical Branch glipiZIDE 5 2019-04 Yes [id number] 2.5mg Take 0.5 [facility] mg tablet 0-05 tablets by ity of 00:00: mouth [place] 00 daily. Medical Branch fluconazole 2019- Yes [id number] 150mg Take 1 [facility] 150 mg 0-05 tablet by ity of tablet 00:00: mouth [place] 00 every 72 Medical ([facility] wo) hours. Take 1 pill every 3 days for 2 weeks. omeprazole 2020- Yes [id number] 20mg Take 1 [facility] 20 mg 0-05 capsule by ity of capsule 00:00: mouth [place] 00 daily. Medical Branch glipiZIDE 5 2019- Yes [id number] 2.5mg Take 0.5 [facility] mg tablet 0-05 tablets by ity of 00:00: mouth [place] 00 daily. Medical Branch fluconazole 2019- Yes [id number] 150mg Take 1 [facility] 150 mg 0-05 tablet by ity of tablet 00:00: mouth [place] 00 every 72 Medical ([facility] Branch wo) hours. Take 1 pill every 3 days for 2 weeks. omeprazole 2020- Yes [id number] 20mg Take 1 [facility] 20 mg 0-05 capsule by ity of capsule 00:00: mouth [place] 00 daily. Medical Branch glipiZIDE 5 2019- Yes [id number] 2.5mg Take 0.5 [facility] mg tablet 0-05 tablets by ity of 00:00: mouth [place] 00 daily. Medical Branch fluconazole 2019- Yes [id number] 150mg Take 1 [facility] 150 mg 0-05 tablet by ity of tablet 00:00: mouth [place] 00 every 72 Medical ([facility] wo) hours. Take 1 pill every 3 days for 2 weeks. omeprazole 2019- Yes [id number] 20mg Take 1 [facility] 20 mg 0-05 capsule by ity of capsule 00:00: mouth [place] 00 daily. Medical Branch glipiZIDE 5 2019-04 Yes [id number] 2.5mg Take 0.5 [facility] mg tablet 0-05 tablets by ity of 00:00: mouth [place] 00 daily. Medical Branch fluconazole 2019- Yes [id number] 150mg Take 1 [facility] 150 mg 0-05 tablet by ity of tablet 00:00: mouth [place] 00 every 72 Medical ([facility] wo) hours. Take 1 pill every 3 days for 2 weeks. omeprazole 2019- Yes [id number] 20mg Take 1 [facility] 20 mg 0-05 capsule by ity of capsule 00:00: mouth [place] 00 daily. Medical Branch glipiZIDE 5 2019- Yes [id number] 2.5mg Take 0.5 [facility] mg tablet 0-05 tablets by ity of 00:00: mouth [place] 00 daily. Medical Branch fluconazole 2020- Yes [id number] 150mg Take 1 [facility] 150 mg 0-05 tablet by ity of tablet 00:00: mouth [place] 00 every 72 Medical ([facility] wo) hours. Take 1 pill every 3 days for 2 weeks. omeprazole 2019- Yes [id number] 20mg Take 1 [facility] 20 mg 0-05 capsule by ity of capsule 00:00: mouth [place] 00 daily. Medical Branch glipiZIDE 5 2019- Yes [id number] 2.5mg Take 0.5 [facility] mg tablet 0-05 tablets by ity of 00:00: mouth [place] 00 daily. Medical Branch fluconazole 2020- Yes [id number] 150mg Take 1 [facility] 150 mg 0-05 tablet by ity of tablet 00:00: mouth [place] 00 every 72 Medical ([facility] wo) hours. Take 1 pill every 3 days for 2 weeks. omeprazole 2019- Yes [id number] 20mg Take 1 [facility] 20 mg 0-05 capsule by ity of capsule 00:00: mouth [place] 00 daily. Medical Branch glipiZIDE 5 2019-04 Yes [id number] 2.5mg Take 0.5 [facility] mg tablet 0-05 tablets by ity of 00:00: mouth [place] 00 daily. Medical Branch fluconazole 2019- Yes [id number] 150mg Take 1 [facility] 150 mg 0-05 tablet by ity of tablet 00:00: mouth [place] 00 every 72 Medical ([facility] wo) hours. Take 1 pill every 3 days for 2 weeks. omeprazole 2019- Yes [id number] 20mg Take 1 [facility] 20 mg 0-05 capsule by ity of capsule 00:00: mouth [place] 00 daily. Medical Branch glipiZIDE 5 2019-04 Yes [id number] 2.5mg Take 0.5 [facility] mg tablet 0-05 tablets by ity of 00:00: mouth [place] 00 daily. Medical Branch fluconazole 2019- Yes [id number] 150mg Take 1 [facility] 150 mg 0-05 tablet by ity of tablet 00:00: mouth [place] 00 every 72 Medical ([facility] wo) hours. Take 1 pill every 3 days for 2 weeks. omeprazole 2019- Yes [id number] 20mg Take 1 [facility] 20 mg 0-05 capsule by ity of capsule 00:00: mouth [place] 00 daily. Medical Branch glipiZIDE 5 2019-04 Yes [id number] 2.5mg Take 0.5 [facility] mg tablet 0-05 tablets by ity of 00:00: mouth [place] 00 daily. Medical Branch fluconazole 2020- Yes [id number] 150mg Take 1 [facility] 150 mg 0-05 tablet by ity of tablet 00:00: mouth [place] 00 every 72 Medical ([facility] wo) hours. Take 1 pill every 3 days for 2 weeks. omeprazole 2019- Yes [id number] 20mg Take 1 [facility] 20 mg 0-05 capsule by ity of capsule 00:00: mouth [place] 00 daily. Medical Branch glipiZIDE 5 2019- Yes [id number] 2.5mg Take 0.5 [facility] mg tablet 0-05 tablets by ity of 00:00: mouth [place] 00 daily. [facility] Branch omeprazole 2019-04- No [id number] 20mg Take 1 Univers 20 mg 0-05 11-09 capsule by ity of capsule 00:00: 00:00 mouth [place] 00 :[address] [facility] glipiZIDE 5 2019-04- No [id number] 2.5mg Take 0.5 Univers mg tablet 0-05 10-07 tablets by ity of 00:00: 00:00 mouth [place] 00 :00 daily. [facility] Branch fluconazole 2019-04- No [id number] 150mg Take 1 [facility] 150 mg 0-05 04-07 tablet by ity of tablet 00:00: 00:00 mouth [place] 00 :00 every 72 Medical ([facility] Branch wo) hours. Take 1 pill every 3 days for 2 weeks. aspirin 81 2020-0 Yes 81mg Take 81 mg U nivers mg chewable 7-21 by mouth ity of tablet 19:14: daily. [address] aspirin 81 2020-0 Yes 81mg Take 81 mg U nivers mg chewable 7-21 by mouth ity of tablet 19:14: daily. [address] aspirin 81 2020-0 Yes 81mg Take 81 mg U nivers mg chewable 7-21 by mouth ity of tablet 19:14: daily. [address] aspirin 81 2020-0 Yes 81mg Take 81 mg U nivers mg chewable 7-21 by mouth ity of tablet 19:14: daily. [address] aspirin 81 2020-0 Yes 81mg Take 81 mg U nivers mg chewable 7-21 by mouth ity of tablet 19:14: daily. [address] aspirin 81 2020-0 Yes 81mg Take 81 mg U nivers mg chewable 7-21 by mouth ity of tablet 19:14: daily. [address] aspirin 81 2020-0 Yes 81mg Take 81 mg U nivers mg chewable 7-21 by mouth ity of tablet 19:14: daily. [address] aspirin 81 2020-0 Yes 81mg Take 81 mg U nivers mg chewable 7-21 by mouth ity of tablet 19:14: daily. [address] aspirin 81 2020-0 Yes 81mg Take 81 mg U nivers mg chewable 7-21 by mouth ity of tablet 19:14: daily. [place] [address] Medical Branch aspirin 81 2020-0 Yes 81mg Take 81 mg U nivers mg chewable 7-21 by mouth ity of tablet 19:14: daily. [place] [address] Medical Branch aspirin 81 2020-0 Yes 81mg Take 81 mg U nivers mg chewable 7-21 by mouth ity of tablet 19:14: daily. [place] [address] Medical Branch aspirin 81 2020-0 Yes 81mg Take 81 mg U nivers mg chewable 7-21 by mouth ity of tablet 19:14: daily. [place] [address] Medical Branch glipiZIDE 5 2020-0 Yes [id number] 2.5mg Take 0.5 [facility] mg tablet 7-21 tablets by ity of 00:00: mouth [place] 00 daily. Medical Branch glipiZIDE 5 2020-0 Yes [id number] 2.5mg Take 0.5 [facility] mg tablet 7-21 tablets by ity of 00:00: mouth [place] 00 daily. Medical Branch glipiZIDE 5 2020-0 Yes [id number] 2.5mg Take 0.5 [facility] mg tablet 7-21 tablets by ity of 00:00: mouth [place] 00 daily. Medical Branch glipiZIDE 5 2020-0 Yes [id number] 2.5mg Take 0.5 [facility] mg tablet 7-21 tablets by ity of 00:00: mouth [place] 00 daily. Medical Branch glipiZIDE 5 2020-0 Yes [id number] 2.5mg Take 0.5 [facility] mg tablet 7-21 tablets by ity of 00:00: mouth [place] 00 daily. Medical Branch glipiZIDE 5 2020-0 Yes [id number] 2.5mg Take 0.5 [facility] mg tablet 7-21 tablets by ity of 00:00: mouth [place] 00 daily. Medical Branch glipiZIDE 5 2020-0 Yes [id number] 2.5mg Take 0.5 [facility] mg tablet 7-21 tablets by ity of 00:00: mouth [place] 00 daily. Medical Branch glipiZIDE 5 2020-0 Yes [id number] 2.5mg Take 0.5 [facility] mg tablet 7-21 tablets by ity of 00:00: mouth [place] 00 daily. Medical Branch glipiZIDE 5 2020-0 Yes [id number] 2.5mg Take 0.5 [facility] mg tablet 7-21 tablets by ity of 00:00: mouth [place] 00 daily. Medical Branch glipiZIDE 5 2019-0 2020- No [id number] 2.5mg Take 0.5 [facility] mg tablet -20 01-05 tablets by ity of 00:00: 00:00 mouth [place] 00 :00 daily. Medical Branch glipiZIDE 5 2019-0 2020- No [id number] 2.5mg Take 0.5 [facility] mg tablet - 10-05 tablets by ity of 00:00: 00:00 mouth [place] 00 :00 daily. Medical Branch fluconazole 2019-0 2020- No [id number] 150mg Take 1 [facility] 150 mg 7-20 10-22 tablet by ity of tablet 00:00: 04:59 mouth [place] 00 :00 now for 1 Medical dose. Then Branch take a 2nd dose if needed 72 hours later for yeast infection. fluconazole 2019-0 2019- No [id number] 150mg Take 1 [facility] 150 mg -20 10-22 tablet by ity of tablet 00:00: 04:59 mouth [place] 00 :00 now for 1 Medical dose. Then Branch take a 2nd dose if needed 72 hours later for yeast infection. levothyroxi 2020-0 2020- No 75ug Take 75 Un lali ne 75 mcg 7-20 07-20 mcg by ity of tablet 13:38: 00:00 mouth [place] 13 :00 every Medical morning. Branch levothyroxi 2020-0 2020- No 75ug Take 75 Un [place]ali ne 75 mcg 7-20 07-20 mcg by ity of tablet 13:38: 00:00 mouth [place] 13 :00 every Medical morning. Branch levothyroxi 2020-0 Yes [id number] 75ug Take 1 [facility] ne 75 mcg 7-20 tablet by ity o f tablet 00:00: mouth [place] 00 every Medical morning. Branch levothyroxi 2020-0 Yes [id number] 75ug Take 1 [facility] ne 75 mcg 7-20 tablet by ity o f tablet 00:00: mouth [place] 00 every Medical morning. Branch levothyroxi 2020-0 Yes [id number] 75ug Take 1 [facility] ne 75 mcg 7-20 tablet by ity o f tablet 00:00: mouth [place] 00 every Medical morning. Branch levothyroxi 2020-0 Yes [id number] 75ug Take 1 [facility] ne 75 mcg 7-20 tablet by ity o f tablet 00:00: mouth [place] 00 every Medical morning. Branch levothyroxi 2020-0 Yes [id number] 75ug Take 1 [facility] ne 75 mcg 7-20 tablet by ity o f tablet 00:00: mouth [place] 00 every Medical morning. Branch levothyroxi 2020-0 Yes [id number] 75ug Take 1 [facility] ne 75 mcg 7-20 tablet by ity o f tablet 00:00: mouth [place] 00 every Medical morning. Branch levothyroxi 2020-0 Yes [id number] 75ug Take 1 [facility] ne 75 mcg 7-20 tablet by ity o f tablet 00:00: mouth [place] 00 every Medical morning. Branch levothyroxi 2020-0 Yes [id number] 75ug Take 1 [facility] ne 75 mcg 7-20 tablet by ity o f tablet 00:00: mouth [place] 00 every Medical morning. Branch levothyroxi 2020-0 Yes [id number] 75ug Take 1 [facility] ne 75 mcg 7-20 tablet by ity o f tablet 00:00: mouth [place] 00 every Medical morning. Branch levothyroxi 2020-0 Yes [id number] 75ug Take 1 [facility] ne 75 mcg 7-20 tablet by ity o f tablet 00:00: mouth [place] 00 every Medical morning. Branch levothyroxi 2020-0 Yes [id number] 75ug Take 1 [facility] ne 75 mcg 7-20 tablet by ity o f tablet 00:00: mouth [place] 00 every Medical morning. Branch levothyroxi 2020-0 Yes [id number] 75ug Take 1 [facility] ne 75 mcg 7-20 tablet by ity o f tablet 00:00: mouth [place] 00 every Medical morning. Branch levothyroxi 2020-0 Yes [id number] 75ug Take 1 [facility] ne 75 mcg 7-20 tablet by ity o f tablet 00:00: mouth [place] 00 every Medical morning. Branch levothyroxi 2020-0 Yes [id number] 75ug Take 1 [facility] ne 75 mcg 7-20 tablet by ity o f tablet 00:00: mouth [place] 00 every Medical morning. Branch levothyroxi 2020-0 Yes [id number] 75ug Take 1 [facility] ne 75 mcg 7-20 tablet by ity o f tablet 00:00: mouth [place] 00 every Medical morning. Branch levothyroxi 2020-0 Yes [id number] 75ug Take 1 [facility] ne 75 mcg 7-20 tablet by ity o f tablet 00:00: mouth [place] 00 every Medical morning. Branch levothyroxi 2020-0 Yes [id number] 75ug Take 1 [facility] ne 75 mcg 7-20 tablet by ity o f tablet 00:00: mouth [place] 00 every Medical morning. Branch levothyroxi 2020-0 Yes [id number] 75ug Take 1 [facility] ne 75 mcg 7-20 tablet by ity o f tablet 00:00: mouth [place] 00 every Medical morning. Branch levothyroxi 2020-0 Yes [id number] 75ug Take 1 [facility] ne 75 mcg 7-20 tablet by ity o f tablet 00:00: mouth [place] 00 every Medical morning. Branch levothyroxi 2020-0 Yes [id number] 75ug Take 1 [facility] ne 75 mcg 7-20 tablet by ity o f tablet 00:00: mouth [place] 00 every Medical morning. Branch levothyroxi 2020-0 Yes [id number] 75ug Take 1 [facility] ne 75 mcg 7-20 tablet by ity o f tablet 00:00: mouth [place] 00 every Medical morning. Branch levothyroxi 2020-0 Yes [id number] 75ug Take 1 [facility] ne 75 mcg 7-20 tablet by ity o f tablet 00:00: mouth [place] 00 every Medical morning. Branch levothyroxi 2020-0 Yes [id number] 75ug Take 1 [facility] ne 75 mcg 7-20 tablet by ity o f tablet 00:00: mouth [place] 00 every Medical morning. Branch levothyroxi 2020-0 Yes [id number] 75ug Take 1 [facility] ne 75 mcg 7-20 tablet by ity o f tablet 00:00: mouth [place] 00 every Medical morning. Branch levothyroxi 2020-0 Yes [id number] 75ug Take 1 [facility] ne 75 mcg 7-20 tablet by ity o f tablet 00:00: mouth [place] 00 every Medical morning. Branch levothyroxi 2020-0 Yes [id number] 75ug Take 1 [facility] ne 75 mcg 7-20 tablet by ity o f tablet 00:00: mouth [place] 00 every Medical morning. Branch levothyroxi 2020-0 2020- No [id number] 75ug Take 1 [facility] ne 75 mcg 7-20 01-15 tablet by ity of tablet 00:00: 00:00 mouth [place] 00 :00 every Medical morning. [place] sotalol 120 2019-0 2019- No [id number] 120mg Take 120 Univers mg tablet 714 07-14 mg by ity of 13:42: 00:00 mouth 2 [place] 34 :00 (two) Medical times Branch daily. sotalol 120 2020-0 2020- No [id number] 120mg Take 120 Univers mg tablet 7-14 07-14 mg by ity of 13:42: 00:00 mouth 2 [place] 34 :00 (two) Medical times Branch daily. fluticasone 2020-0 2020- No 1{spray Use 1 U nivers (FLONASE) - 07-08 } [place] in ity o f 50 13:42: 00:00 each [place] mcg/actuati 34 :00 nostril Medic al on nasal daily. Branch spray fluticasone 2020-0 2020- No 1{spray Use 1 U nivers (FLONASE) - 07-08 } [place] in ity o f 50 13:42: 00:00 each [place] mcg/actuati 34 :00 nostril Medic al on nasal daily. Branch spray montelukast 2020-0 Yes [id number] 10mg Take 1 [facility] 10 mg 7-14 tablet by ity of tablet 00:00: mouth at [place] 00 bedtime. Medical Branch fluticasone 2020-0 Yes [id number] 1{spray Use 1 [facility] propionate 7-14 } [place] in ity o f (FLONASE) 00:00: each [place] 50 00 nostril Medical mcg/actuati daily. Branch on nasal spray sotalol 120 2020-0 Yes [id number] 120mg Take 1 [facility] mg tablet 7-14 tablet by ity o f 00:00: mouth 2 [place] 00 (two) Medical times Branch daily. montelukast 2020-0 Yes [id number] 10mg Take 1 [facility] 10 mg 7-14 tablet by ity of tablet 00:00: mouth at [place] 00 bedtime. Medical Branch fluticasone 2020-0 Yes [id number] 1{spray Use 1 [facility] propionate 7-14 } [place] in ity o f (FLONASE) 00:00: each [place] 50 00 nostril Medical mcg/actuati daily. Branch on nasal spray sotalol 120 2020-0 Yes [id number] 120mg Take 1 [facility] mg tablet 7-14 tablet by ity o f 00:00: mouth 2 [place] 00 (two) Medical times Branch daily. montelukast 2020-0 Yes [id number] 10mg Take 1 [facility] 10 mg 7-14 tablet by ity of tablet 00:00: mouth at [place] 00 bedtime. Medical Branch fluticasone 2020-0 Yes [id number] 1{spray Use 1 [facility] propionate 7-14 } [place] in ity o f (FLONASE) 00:00: each [place] 50 00 nostril Medical mcg/actuati daily. Branch on nasal spray sotalol 120 2020-0 Yes [id number] 120mg Take 1 [facility] mg tablet 7-14 tablet by ity o f 00:00: mouth 2 [place] [address] (two) Medical times Branch daily. montelukast 2020-0 Yes [id number] 10mg Take 1 [facility] 10 mg 7-14 tablet by ity of tablet 00:00: mouth at [place] 00 bedtime. Medical Branch fluticasone 2020-0 Yes [id number] 1{spray Use 1 [facility] propionate 7-14 } [place] in ity o f (FLONASE) 00:00: each [place] 50 00 nostril Medical mcg/actuati daily. Branch on nasal spray sotalol 120 2020-0 Yes [id number] 120mg Take 1 [facility] mg tablet 7-14 tablet by ity o f 00:00: mouth 2 [place] [address] (two) Medical times Branch daily. montelukast 2020-0 Yes [id number] 10mg Take 1 [facility] 10 mg 7-14 tablet by [facility] tablet 00:00: mouth at [place] [address] bedtime. [facility] fluticasone 2020-0 Yes [id number] 1{spray Use 1 [facility] propionate 7-14 } [place] in ity o f (FLONASE) 00:00: each [place] 50 00 nostril Medical mcg/actuati daily. Branch on nasal spray sotalol 120 2020-0 Yes [id number] 120mg Take 1 [facility] mg tablet 7-14 tablet by ity o f 00:00: mouth 2 [place] [address] (two) Medical times Branch daily. montelukast 2020-0 Yes [id number] 10mg Take 1 [facility] 10 mg 7-14 tablet by [facility] of tablet 00:00: mouth at [place] 00 bedtime. [facility] fluticasone 2020-0 Yes [id number] 1{spray Use 1 [facility] propionate 7-14 } [place] in [facility]y o f (FLONASE) 00:00: each [place] 50 00 nostril Medical mcg/actuati daily. Branch on nasal spray sotalol 120 2020-0 Yes [id number] 120mg Take 1 [facility] mg tablet 7-14 tablet by it[facility] o f 00:00: mouth 2 [place] (two) Medical times Branch daily. montelukast 2020-0 Yes [id number] 10mg Take 1 [facility] 10 mg 7-14 tablet by [facility] of tablet 00:00: mouth at [place] 00 bedtime. [facility] fluticasone 2020-0 Yes [id number] 1{spray Use 1 [facility] propionate 7-14 } [place] in [facility]y o f (FLONASE) 00:00: each [place] [address] 00 nostril Medical mcg/actuati daily. Branch on nasal spray sotalol 120 2020-0 Yes [id number] 120mg Take 1 [facility] mg tablet 7-14 tablet by ity o f 00:00: mouth 2 [place] (two) Medical times Branch daily. montelukast 2020-0 Yes [id number] 10mg Take 1 [facility] 10 mg 7-14 tablet by [facility] of tablet 00:00: mouth at [place] [address] bedtime. [facility] fluticasone 2020-0 Yes [id number] 1{spray Use 1 [facility] propionate 7-14 } [place] in ity o f (FLONASE) 00:00: each [place] [address] 00 nostril Medical mcg/actuati daily. Branch on nasal spray sotalol 120 2020-0 Yes [id number] 120mg Take 1 [facility] mg tablet 7-14 tablet by ity o f 00:00: mouth 2 [place] [address] (two) Medical times Branch daily. montelukast 2020-0 Yes [id number] 10mg Take 1 [facility] 10 mg 7-14 tablet by [facility] of tablet 00:00: mouth at [place] 00 bedtime. [facility] fluticasone 2020-0 Yes [id number] 1{spray Use 1 [facility] propionate 7-14 } [place] in ity o f (FLONASE) 00:00: each [place] 50 00 nostril Medical mcg/actuati daily. Branch on nasal spray sotalol 120 2020-0 Yes [id number] 120mg Take 1 [facility] mg tablet 7-14 tablet by ity o f 00:00: mouth 2 [place] [address] (two) Medical times Branch daily. montelukast 2020-0 Yes [id number] 10mg Take 1 [facility] 10 mg 7-14 tablet by [facility] of tablet 00:00: mouth at [place] [address] bedtime. Medical [facility] fluticasone 2020-0 Yes [id number] 1{spray Use 1 [facility] propionate 7-14 } [place] in [facility]y o f (FLONASE) 00:00: each [place] 50 00 nostril Medical mcg/actuati daily. Branch on nasal spray sotalol 120 2020-0 Yes [id number] 120mg Take 1 [facility] mg tablet 7-14 tablet by it[facility] o f 00:00: mouth 2 [place] (two) Medical times Branch daily. montelukast 2020-0 Yes [id number] 10mg Take 1 [facility] 10 mg 7-14 tablet by [facility] of tablet 00:00: mouth at [place] 00 bedtime. [facility] fluticasone 2020-0 Yes [id number] 1{spray Use 1 [facility] propionate 7-14 } [place] in [facility]y o f (FLONASE) 00:00: each [place] 50 00 nostril Medical mcg/actuati daily. Branch on nasal spray sotalol 120 2020-0 Yes [id number] 120mg Take 1 [facility] mg tablet 7-14 tablet by ity o f 00:00: mouth 2 [place] (two) Medical times Branch daily. montelukast 2020-0 Yes [id number] 10mg Take 1 [facility] 10 mg 7-14 tablet by [facility] of tablet 00:00: mouth at [place] 00 bedtime. [facility] fluticasone 2020-0 Yes [id number] 1{spray Use 1 [facility] propionate 7-14 } [place] in [facility]y o f (FLONASE) 00:00: each [place] 50 00 nostril Medical mcg/actuati daily. Branch on nasal spray sotalol 120 2020-0 Yes [id number] 120mg Take 1 [facility] mg tablet 7-14 tablet by ity o f 00:00: mouth 2 [place] (two) Medical times Branch daily. montelukast 2020-0 Yes [id number] 10mg Take 1 [facility] 10 mg 7-14 tablet by [facility] of tablet 00:00: mouth at [place] 00 bedtime. [facility] fluticasone 2020-0 Yes [id number] 1{spray Use 1 [facility] propionate 7-14 } [place] in [facility]y o f (FLONASE) 00:00: each [place] 50 00 nostril Medical mcg/actuati daily. Branch on nasal spray sotalol 120 2020-0 Yes [id number] 120mg Take 1 [facility] mg tablet 7-14 tablet by ity o f 00:00: mouth 2 [place] [address] (two) Medical times Branch daily. montelukast 2020-0 Yes [id number] 10mg Take 1 [facility] 10 mg 7-14 tablet by [facility] of tablet 00:00: mouth at [place] 00 bedtime. [facility] fluticasone 2020-0 Yes [id number] 1{spray Use 1 [facility] propionate 7-14 } [place] in [facility]y o f (FLONASE) 00:00: each [place] 50 00 nostril Medical mcg/actuati daily. Branch on nasal spray sotalol 120 2020-0 Yes [id number] 120mg Take 1 [facility] mg tablet 7-14 tablet by ity o f 00:00: mouth 2 [place] (two) Medical times Branch daily. montelukast 2020-0 Yes [id number] 10mg Take 1 [facility] 10 mg 7-14 tablet by [facility] of tablet 00:00: mouth at [place] 00 bedtime. [facility] fluticasone 2020-0 Yes [id number] 1{spray Use 1 [facility] propionate 7-14 } [place] in ity o f (FLONASE) 00:00: each [place] [address] 00 nostril Medical mcg/actuati daily. Branch on nasal spray sotalol 120 2020-0 Yes [id number] 120mg Take 1 [facility] mg tablet 7-14 tablet by ity o f 00:00: mouth 2 [place] [address] (two) Medical times Branch daily. montelukast 2020-0 Yes [id number] 10mg Take 1 [facility] 10 mg 7-14 tablet by [facility] of tablet 00:00: mouth at [place] 00 bedtime. [facility] fluticasone 2020-0 Yes [id number] 1{spray Use 1 [facility] propionate 7-14 } [place] in [facility]y o f (FLONASE) 00:00: each [place] [address] 00 nostril Medical mcg/actuati daily. Branch on nasal spray sotalol 120 2020-0 Yes [id number] 120mg Take 1 [facility] mg tablet 7-14 tablet by ity o f 00:00: mouth 2 [place] [address] (two) Medical times Branch daily. montelukast 2020-0 Yes [id number] 10mg Take 1 [facility] 10 mg 7-14 tablet by [facility] of tablet 00:00: mouth at [place] 00 bedtime. [facility] fluticasone 2020-0 Yes [id number] 1{spray Use 1 [facility] propionate 7-14 } [place] in [facility]y o f (FLONASE) 00:00: each [place] 50 00 nostril Medical mcg/actuati daily. Branch on nasal spray sotalol 120 2020-0 Yes [id number] 120mg Take 1 [facility] mg tablet 7-14 tablet by ity o f 00:00: mouth 2 [place] (two) Medical times Branch daily. montelukast 2020-0 Yes [id number] 10mg Take 1 [facility] 10 mg 7-14 tablet by [facility] of tablet 00:00: mouth at [place] 00 bedtime. [facility] fluticasone 2020-0 Yes [id number] 1{spray Use 1 [facility] propionate 7-14 } [place] in [facility]y o f (FLONASE) 00:00: each [place] 50 00 nostril Medical mcg/actuati daily. Branch on nasal spray sotalol 120 2020-0 Yes [id number] 120mg Take 1 [facility] mg tablet 7-14 tablet by ity o f 00:00: mouth 2 [place] (two) Medical times Branch daily. montelukast 2020-0 Yes [id number] 10mg Take 1 [facility] 10 mg 7-14 tablet by [facility] of tablet 00:00: mouth at [place] 00 bedtime. [facility] fluticasone 2020-0 Yes [id number] 1{spray Use 1 [facility] propionate 7-14 } [place] in [facility]y o f (FLONASE) 00:00: each [place] 50 00 nostril Medical mcg/actuati daily. Branch on nasal spray sotalol 120 2020-0 Yes [id number] 120mg Take 1 [facility] mg tablet 7-14 tablet by ity o f 00:00: mouth 2 [place] (two) Medical times Branch daily. montelukast 2020-0 Yes [id number] 10mg Take 1 [facility] 10 mg 7-14 tablet by [facility] of tablet 00:00: mouth at [place] 00 bedtime. [facility] fluticasone 2020-0 Yes [id number] 1{spray Use 1 [facility] propionate 7-14 } [place] in [facility]y o f (FLONASE) 00:00: each [place] 50 00 nostril Medical mcg/actuati daily. Branch on nasal spray sotalol 120 2020-0 Yes [id number] 120mg Take 1 [facility] mg tablet 7-14 tablet by ity o f 00:00: mouth 2 [place] [address] (two) Medical times Branch daily. montelukast 2020-0 Yes [id number] 10mg Take 1 [facility] 10 mg 7-14 tablet by [facility] of tablet 00:00: mouth at [place] 00 bedtime. [facility] fluticasone 2020-0 Yes [id number] 1{spray Use 1 [facility] propionate 7-14 } [place] in ity o f (FLONASE) 00:00: each [place] 50 00 nostril Medical mcg/actuati daily. Branch on nasal spray sotalol 120 2020-0 Yes [id number] 120mg Take 1 [facility] mg tablet 7-14 tablet by ity o f 00:00: mouth 2 [place] [address] (two) Medical times Branch daily. montelukast 2020-0 Yes [id number] 10mg Take 1 [facility] 10 mg 7-14 tablet by [facility] of tablet 00:00: mouth at [place] 00 bedtime. [facility] fluticasone 2020-0 Yes [id number] 1{spray Use 1 [facility] propionate 7-14 } [place] in [facility]y o f (FLONASE) 00:00: each [place] 50 00 nostril Medical mcg/actuati daily. Branch on nasal spray montelukast 2020-0 Yes [id number] 10mg Take 1 [facility] 10 mg 7-14 tablet by [facility] of tablet 00:00: mouth at [place] 00 bedtime. [facility] fluticasone 2020-0 Yes [id number] 1{spray Use 1 [facility] propionate 7-14 } [place] in ity o f (FLONASE) 00:00: each [place] 50 00 nostril Medical mcg/actuati daily. Branch on nasal spray montelukast 2020-0 Yes [id number] 10mg Take 1 [facility] 10 mg 7-14 tablet by [facility] of tablet 00:00: mouth at [place] 00 bedtime. [facility] fluticasone 2020-0 No [id number] 1{spray Use 1 [facility] propionate 7-14 } [place] in ity o f (FLONASE) 00:00: each [place] 50 00 nostril Medical mcg/actuati daily. Branch on nasal spray sotalol 120 2020-0 Yes [id number] 120mg Take 1 [facility] mg tablet 7-14 tablet by ity o f 00:00: mouth 2 [place] [address] (two) Medical times Branch daily. montelukast 2020-0 Yes [id number] 10mg Take 1 [facility] 10 mg 7-14 tablet by [facility] of tablet 00:00: mouth at [place] 00 bedtime. [facility] fluticasone 2020-0 Yes [id number] 1{spray Use 1 [facility] propionate 7-14 } [place] in ity o f (FLONASE) 00:00: each [place] 50 00 nostril Medical mcg/actuati daily. Branch on nasal spray sotalol 120 2020-0 Yes [id number] 120mg Take 1 [facility] mg tablet 7-14 tablet by ity o f 00:00: mouth 2 [place] (two) Medical times Branch daily. montelukast 2020-0 Yes [id number] 10mg Take 1 [facility] 10 mg 7-14 tablet by ity of tablet 00:00: mouth at [place] [address] bedtime. Medical [facility] fluticasone 2020-0 Yes [id number] 1{spray Use 1 [facility] propionate 7-14 } [place] in ity o f (FLONASE) 00:00: each [place] 50 00 nostril Medical mcg/actuati daily. Branch on nasal spray sotalol 120 2020-0 Yes [id number] 120mg Take 1 [facility] mg tablet 7-14 tablet by ity o f 00:00: mouth 2 [place] [address] (two) Medical times Branch daily. montelukast 2020-0 Yes [id number] 10mg Take 1 [facility] 10 mg 7-14 tablet by it[facility] of tablet 00:00: mouth at [place] [address] bedtime. Medical Branch fluticasone 2020-0 Yes [id number] 1{spray Use 1 [facility] propionate 7-14 } [place] in ity o f (FLONASE) 00:00: each [place] [address] 00 nostril Medical mcg/actuati daily. Branch on nasal spray sotalol 120 2020-0 Yes [id number] 120mg Take 1 [facility] mg tablet 7-14 tablet by ity o f 00:00: mouth 2 [place] [address] (two) Medical times Branch daily. montelukast 2020-0 Yes [id number] 10mg Take 1 [facility] 10 mg 7-14 tablet by [facility] of tablet 00:00: mouth at [place] [address] bedtime. Medical [facility] fluticasone 2020-0 Yes [id number] 1{spray Use 1 [facility] propionate 7-14 } [place] in ity o f (FLONASE) 00:00: each [place] 50 00 nostril Medical mcg/actuati daily. Branch on nasal spray sotalol 120 2020-0 Yes [id number] 120mg Take 1 [facility] mg tablet 7-14 tablet by ity o f 00:00: mouth 2 [place] [address] (two) Medical times Branch daily. montelukast 2020-0 Yes [id number] 10mg Take 1 [facility] 10 mg 7-14 tablet by it[facility] of tablet 00:00: mouth at [place] 00 bedtime. [facility] fluticasone 2019- Yes [id number] 1{spray Use 1 [facility] propionate 7-14 } [place] in ity o f (FLONASE) 00:00: each [place] 50 00 nostril Medical mcg/actuati daily. Branch on nasal spray sotalol 120 Yes [id number] 120mg Take 1 [facility] mg tablet 7-14 tablet by ity o f 00:00: mouth 2 [place] 00 (two) Medical times Branch daily. montelukast 2020- No [id number] 10mg Take 1 [facility] 10 mg 7-14 01-15 tablet by it[facility] of tablet 00:00: 00:00 mouth at [place] 00 :00 bedtime. [facility] sotalol 120 2019- No [id number] 120mg Take 1 [facility] mg tablet 7-14 11-16 tablet by ity of 00:00: 00:00 mouth 2 [place] 00 :00 (two) Medical times Branch daily. atorvastati Yes [id number] 40mg Take 1 [facility] n 40 mg 6-25 tablet by ity of tablet 00:00: mouth at [place] 00 bedtime. [facility] atorvastati Yes [id number] 40mg Take 1 [facility] n 40 mg 6-25 tablet by ity of tablet 00:00: mouth at [place] [address] bedtime. Medical [facility] atorvastati 2019- Yes [id number] 40mg Take 1 [facility] n 40 mg 6-25 tablet by ity of tablet 00:00: mouth at [place] 00 bedtime. [facility] atorvastati 2019-0 Yes [id number] 40mg Take 1 [facility] n 40 mg 6-25 tablet by ity of tablet 00:00: mouth at [place] 00 bedtime. [facility] atorvastati 2019-0 Yes [id number] 40mg Take 1 [facility] n 40 mg 6-25 tablet by ity of tablet 00:00: mouth at [place] 00 bedtime. [facility] atorvastati 2019- Yes [id number] 40mg Take 1 [facility] n 40 mg 6-25 tablet by ity of tablet 00:00: mouth at [place] 00 bedtime. [facility] atorvastati 2019- Yes [id number] 40mg Take 1 [facility] n 40 mg 6-25 tablet by ity of tablet 00:00: mouth at [place] 00 bedtime. [facility] atorvastati 2020-0 Yes [id number] 40mg Take 1 [facility] n 40 mg 6-25 tablet by ity of tablet 00:00: mouth at [place] bedtime. [facility] atorvastati 2020-0 Yes [id number] 40mg Take 1 [facility] n 40 mg 6-25 tablet by ity of tablet 00:00: mouth at [place] bedtime. [facility] atorvastati 2020-0 Yes [id number] 40mg Take 1 [facility] n 40 mg 6-25 tablet by ity of tablet 00:00: mouth at [place] bedtime. [facility] atorvastati 2020-0 Yes [id number] 40mg Take 1 [facility] n 40 mg 6-25 tablet by ity of tablet 00:00: mouth at [place] bedtime. [facility] atorvastati 2019-0 Yes [id number] 40mg Take 1 [facility] n 40 mg 6-25 tablet by ity of tablet 00:00: mouth at [place] bedtime. [facility] atorvastati 2020-0 Yes [id number] 40mg Take 1 [facility] n 40 mg 6-25 tablet by ity of tablet 00:00: mouth at [place] bedtime. [facility] atorvastati 2020-0 Yes [id number] 40mg Take 1 [facility] n 40 mg 6-25 tablet by ity of tablet 00:00: mouth at [place] bedtime. [facility] atorvastati 2019-0 Yes [id number] 40mg Take 1 [facility] n 40 mg 6-25 tablet by ity of tablet 00:00: mouth at [place] [address] bedtime. Medical Branch atorvastati 2020-0 Yes [id number] 40mg Take 1 [facility] n 40 mg 6-25 tablet by ity of tablet 00:00: mouth at [place] [address] bedtime. Medical [facility] atorvastati 2020-0 Yes [id number] 40mg Take 1 [facility] n 40 mg 6-25 tablet by ity of tablet 00:00: mouth at [place] [address] bedtime. Medical Branch atorvastati 2020-0 Yes [id number] 40mg Take 1 [facility] n 40 mg 6-25 tablet by ity of tablet 00:00: mouth at [place] [address] bedtime. Medical Branch atorvastati 2020-0 Yes [id number] 40mg Take 1 [facility] n 40 mg 6-25 tablet by ity of tablet 00:00: mouth at [place] [address] bedtime. Medical Branch atorvastati 2020-0 Yes [id number] 40mg Take 1 [facility] n 40 mg 6-25 tablet by ity of tablet 00:00: mouth at [place] [address] bedtime. Medical Branch atorvastati 2020-0 Yes [id number] 40mg Take 1 [facility] n 40 mg 6-25 tablet by ity of tablet 00:00: mouth at [place] [address] bedtime. Medical Branch atorvastati 2020-0 Yes [id number] 40mg Take 1 [facility] n 40 mg 6-25 tablet by ity of tablet 00:00: mouth at [place] [address] bedtime. Medical [facility] atorvastati 2020-0 Yes [id number] 40mg Take 1 [facility] n 40 mg 6-25 tablet by ity of tablet 00:00: mouth at [place] [address] bedtime. Medical Branch atorvastati 2019-0 Yes [id number] 40mg Take 1 [facility] n 40 mg 6-25 tablet by ity of tablet 00:00: mouth at [place] [address] bedtime. Medical Branch atorvastati 2019-0 Yes [id number] 40mg Take 1 [facility] n 40 mg 6-25 tablet by ity of tablet 00:00: mouth at [place] [address] bedtime. Medical Branch atorvastati 2019-0 Yes [id number] 40mg Take 1 [facility] n 40 mg 6-25 tablet by ity of tablet 00:00: mouth at [place] [address] bedtime. Medical Branch atorvastati 2019-0 Yes [id number] 40mg Take 1 [facility] n 40 mg 6-25 tablet by ity of tablet 00:00: mouth at [place] [address] bedtime. Medical Branch atorvastati 2020-0 Yes [id number] 40mg Take 1 [facility] n 40 mg 6-25 tablet by ity of tablet 00:00: mouth at [place] [address] bedtime. Medical Branch atorvastati 2020-0 Yes [id number] 40mg Take 1 [facility] n 40 mg 6-25 tablet by ity of tablet 00:00: mouth at [place] [address] bedtime. Medical Branch atorvastati 2020-0 Yes [id number] 40mg Take 1 [facility] n 40 mg 6-25 tablet by ity of tablet 00:00: mouth at [place] [address] bedtime. Medical Branch atorvastati 2020-0 Yes [id number] 40mg Take 1 [facility] n 40 mg 6-25 tablet by ity of tablet 00:00: mouth at [place] [address] bedtime. Medical [facility] atorvastati 2020-0 Yes [id number] 40mg Take 1 [facility] n 40 mg 6-25 tablet by ity of tablet 00:00: mouth at [place] [address] bedtime. Medical Branch atorvastati 2019-0 Yes [id number] 40mg Take 1 [facility] n 40 mg 6-25 tablet by ity of tablet 00:00: mouth at [place] [address] bedtime. Medical Branch atorvastati 2019-0 Yes [id number] 40mg Take 1 [facility] n 40 mg 6-25 tablet by ity of tablet 00:00: mouth at [place] [address] bedtime. Medical Branch atorvastati 2019-0 Yes [id number] 40mg Take 1 [facility] n 40 mg 6-25 tablet by ity of tablet 00:00: mouth at [place] [address] bedtime. Medical Branch atorvastati 2019-0 Yes [id number] 40mg Take 1 [facility] n 40 mg 6-25 tablet by ity of tablet 00:00: mouth at [place] [address] bedtime. Medical Branch atorvastati 2019-0 Yes [id number] 40mg Take 1 [facility] n 40 mg 6-25 tablet by ity of tablet 00:00: mouth at [place] [address] bedtime. Medical Branch atorvastati 2019-0 Yes [id number] 40mg Take 1 [facility] n 40 mg 6-25 tablet by ity of tablet 00:00: mouth at [place] [address] bedtime. Medical Branch atorvastati 2019-0 Yes [id number] 40mg Take 1 [facility] n 40 mg 6-25 tablet by ity of tablet 00:00: mouth at [place] [address] bedtime. Medical Branch atorvastati 2019-0 Yes [id number] 40mg Take 1 [facility] n 40 mg 6-25 tablet by ity of tablet 00:00: mouth at [place] [address] bedtime. Medical Branch atorvastati 2020-0 Yes [id number] 40mg Take 1 [facility] n 40 mg 6-25 tablet by ity of tablet 00:00: mouth at [place] [address] bedtime. Medical Branch atorvastati 2019-0 2020- No [id number] 40mg Take 1 [facility] n 40 mg 6-25 04-19 tablet by [facility] of tablet 00:00: 00:00 mouth at [place] 00 :00 bedtime. [facility] apixaban 2019-0 2020- No 5mg Take 5 mg [facility] (ELIQUIS) 09-10 by mouth 2 [facility]y of 2.5 mg 15:46: 00:00 (two) [place] tablet 23 :00 times Medical daily. Branch apixaban 2020-0 2020- No 5mg Take 5 mg [facility] (ELIQUIS) 09-10 by mouth 2 [facility] of 2.5 mg 15:46: 00:00 (two) [place] tablet 23 :00 times Medical daily. Branch apixaban 2020-0 2020- No 5mg Take 5 mg [facility] (ELIQUIS) 09-10 by mouth 2 [facility] of 2.5 mg 15:46: 00:00 (two) [place] tablet 23 :00 times Medical daily. Branch apixaban 2020-0 2020- No 5mg Take 5 mg [facility] (ELIQUIS) 09-10 by mouth 2 ity of 2.5 mg 15:46: 00:00 (two) [place] tablet 23 :00 times Medical daily. Branch apixaban 2020-0 Yes [id number] 5mg Take 1 [facility] (ELIQUIS) 5 6-11 tablet by ity of mg tablet 00:00: mouth 2 (two) Medical times Branch daily. Indication s: atrial arrhythmia , a type or abnormal heart beat apixaban 2020-0 Yes [id number] 5mg Take 1 [facility] (ELIQUIS) 5 6-11 tablet by ity of mg tablet 00:00: mouth 2 (two) Medical times Branch daily. Indication s: atrial arrhythmia , a type or abnormal heart beat apixaban 2020-0 Yes [id number] 5mg Take 1 [facility] (ELIQUIS) 5 6-11 tablet by ity of mg tablet 00:00: mouth 2 (two) Medical times Branch daily. Indication s: atrial arrhythmia , a type or abnormal heart beat apixaban 2020-0 Yes [id number] 5mg Take 1 [facility] (ELIQUIS) 5 6-11 tablet by ity of mg tablet 00:00: mouth 2 (two) Medical times Branch daily. Indication s: atrial arrhythmia , a type or abnormal heart beat apixaban 2020-0 Yes [id number] 5mg Take 1 [facility] (ELIQUIS) 5 6-11 tablet by ity of mg tablet 00:00: mouth 2 (two) Medical times Branch daily. Indication s: atrial arrhythmia , a type or abnormal heart beat apixaban 2020-0 Yes [id number] 5mg Take 1 [facility] (ELIQUIS) 5 6-11 tablet by ity of mg tablet 00:00: mouth (two) Medical times Branch daily. Indication s: atrial arrhythmia , a type or abnormal heart beat apixaban 2020-0 Yes [id number] 5mg Take 1 [facility] (ELIQUIS) 5 6-11 tablet by ity of mg tablet 00:00: mouth (two) Medical times Branch daily. Indication s: atrial arrhythmia , a type or abnormal heart beat apixaban 2020-0 Yes [id number] 5mg Take 1 [facility] (ELIQUIS) 5 6-11 tablet by ity of mg tablet 00:00: mouth (two) Medical times Branch daily. Indication s: atrial arrhythmia , a type or abnormal heart beat apixaban 2020-0 Yes [id number] 5mg Take 1 [facility] (ELIQUIS) 5 6-11 tablet by ity of mg tablet 00:00: mouth (two) Medical times Branch daily. Indication s: atrial arrhythmia , a type or abnormal heart beat apixaban 2020-0 Yes [id number] 5mg Take 1 [facility] (ELIQUIS) 5 6-11 tablet by ity of mg tablet 00:00: mouth (two) Medical times Branch daily. Indication s: atrial arrhythmia , a type or abnormal heart beat apixaban 2020-0 Yes [id number] 5mg Take 1 [facility] (ELIQUIS) 5 6-11 tablet by ity of mg tablet 00:00: mouth (two) Medical times Branch daily. Indication s: atrial arrhythmia , a type or abnormal heart beat apixaban 2020-0 Yes [id number] 5mg Take 1 [facility] (ELIQUIS) 5 6-11 tablet by ity of mg tablet 00:00: mouth (two) Medical times Branch daily. Indication s: atrial arrhythmia , a type or abnormal heart beat apixaban 2020-0 Yes [id number] 5mg Take 1 [facility] (ELIQUIS) 5 6-11 tablet by ity of mg tablet 00:00: mouth 2 (two) Medical times Branch daily. Indication s: atrial arrhythmia , a type or abnormal heart beat apixaban 2020-0 Yes [id number] 5mg Take 1 [facility] (ELIQUIS) 5 6-11 tablet by ity of mg tablet 00:00: mouth (two) Medical times Branch daily. Indication s: atrial arrhythmia , a type or abnormal heart beat apixaban 2020-0 Yes [id number] 5mg Take 1 [facility] (ELIQUIS) 5 6-11 tablet by ity of mg tablet 00:00: mouth (two) Medical times Branch daily. Indication s: atrial arrhythmia , a type or abnormal heart beat apixaban 2020-0 Yes [id number] 5mg Take 1 [facility] (ELIQUIS) 5 6-11 tablet by ity of mg tablet 00:00: mouth (two) Medical times Branch daily. Indication s: atrial arrhythmia , a type or abnormal heart beat apixaban 2020-0 Yes [id number] 5mg Take 1 [facility] (ELIQUIS) 5 6-11 tablet by ity of mg tablet 00:00: mouth (two) Medical times Branch daily. Indication s: atrial arrhythmia , a type or abnormal heart beat apixaban 2020-0 Yes [id number] 5mg Take 1 [facility] (ELIQUIS) 5 6-11 tablet by ity of mg tablet 00:00: mouth () Medical times Branch daily. Indication s: atrial arrhythmia , a type or abnormal heart beat apixaban 2020-0 Yes [id number] 5mg Take 1 [facility] (ELIQUIS) 5 6-11 tablet by ity of mg tablet 00:00: mouth () Medical times Branch daily. Indication s: atrial arrhythmia , a type or abnormal heart beat apixaban 2020-0 Yes [id number] 5mg Take 1 [facility] (ELIQUIS) 5 6-11 tablet by ity of mg tablet 00:00: mouth () Medical times Branch daily. Indication s: atrial arrhythmia , a type or abnormal heart beat apixaban 2020-0 Yes [id number] 5mg Take 1 [facility] (ELIQUIS) 5 6-11 tablet by ity of mg tablet 00:00: mouth (two) Medical times Branch daily. Indication s: atrial arrhythmia , a type or abnormal heart beat apixaban 2020-0 Yes [id number] 5mg Take 1 [facility] (ELIQUIS) 5 6-11 tablet by ity of mg tablet 00:00: mouth (two) Medical times Branch daily. Indication s: atrial arrhythmia , a type or abnormal heart beat apixaban 2020-0 Yes [id number] 5mg Take 1 [facility] (ELIQUIS) 5 6-11 tablet by ity of mg tablet 00:00: mouth 2 (two) Medical times Branch daily. Indication s: atrial arrhythmia , a type or abnormal heart beat apixaban 2020-0 Yes [id number] 5mg Take 1 [facility] (ELIQUIS) 5 6-11 tablet by ity of mg tablet 00:00: mouth 2 (two) Medical times Branch daily. Indication s: atrial arrhythmia , a type or abnormal heart beat apixaban 2020-0 Yes [id number] 5mg Take 1 [facility] (ELIQUIS) 5 6-11 tablet by ity of mg tablet 00:00: mouth (two) Medical times Branch daily. Indication s: atrial arrhythmia , a type or abnormal heart beat apixaban 2020-0 Yes [id number] 5mg Take 1 [facility] (ELIQUIS) 5 6-11 tablet by [facility] of mg tablet 00:00: mouth (two) Medical times Branch daily. Indication s: atrial arrhythmia , a type or abnormal heart beat apixaban 2020-0 Yes 4206 5mg Take 1 [facility] (ELIQUIS) 5 6-11 tablet by it[facility] of mg tablet 00:00: mouth (two) Medical times Branch daily. Indication s: atrial arrhythmia , a type or abnormal heart beat apixaban 2020-0 Yes 4206 5mg Take 1 [facility] (ELIQUIS) 5 6-11 tablet by ity of mg tablet 00:00: mouth (two) Medical times Branch daily. Indication s: atrial arrhythmia , a type or abnormal heart beat apixaban 2020-0 Yes 4206 5mg Take 1 [facility] (ELIQUIS) 5 6-11 tablet by it[facility] of mg tablet 00:00: mouth (two) Medical times Branch daily. Indication s: atrial arrhythmia , a type or abnormal heart beat apixaban 2020-0 Yes 4206 5mg Take 1 [facility] (ELIQUIS) 5 6-11 tablet by ity of mg tablet 00:00: mouth 2 (two) Medical times Branch daily. Indication s: atrial arrhythmia , a type or abnormal heart beat apixaban 2020-0 Yes 4206 5mg Take 1 [facility] (ELIQUIS) 5 6-11 tablet by ity of mg tablet 00:00: mouth 2 (two) Medical times Branch daily. Indication s: atrial arrhythmia , a type or abnormal heart beat apixaban 2020-0 Yes 4206 5mg Take 1 [facility] (ELIQUIS) 5 6-11 tablet by ity of mg tablet 00:00: mouth () Medical times Branch daily. Indication s: atrial arrhythmia , a type or abnormal heart beat apixaban 2020-0 Yes 4206 5mg Take 1 [facility] (ELIQUIS) 5 6-11 tablet by ity of mg tablet 00:00: mouth (two) Medical times Branch daily. Indication s: atrial arrhythmia , a type or abnormal heart beat apixaban 2020-0 Yes 4206 5mg Take 1 [facility] (ELIQUIS) 5 6-11 tablet by ity of mg tablet 00:00: mouth () Medical times Branch daily. Indication s: atrial arrhythmia , a type or abnormal heart beat apixaban 2020-0 Yes 4206 5mg Take 1 [facility] (ELIQUIS) 5 6-11 tablet by ity of mg tablet 00:00: mouth (two) Medical times Branch daily. Indication s: atrial arrhythmia , a type or abnormal heart beat apixaban 2020-0 Yes 4206 5mg Take 1 [facility] (ELIQUIS) 5 6-11 tablet by ity of mg tablet 00:00: mouth () Medical times Branch daily. Indication s: atrial arrhythmia , a type or abnormal heart beat apixaban 2020-0 Yes 4206 5mg Take 1 [facility] (ELIQUIS) 5 6-11 tablet by ity of mg tablet 00:00: mouth () Medical times Branch daily. Indication s: atrial arrhythmia , a type or abnormal heart beat apixaban 2020-0 Yes 4206 5mg Take 1 [facility] (ELIQUIS) 5 6-11 tablet by ity of mg tablet 00:00: mouth (two) Medical times Branch daily. Indication s: atrial arrhythmia , a type or abnormal heart beat apixaban 2020-0 Yes 4206 5mg Take 1 [facility] (ELIQUIS) 5 6-11 tablet by ity of mg tablet 00:00: mouth (two) Medical times Branch daily. Indication s: atrial arrhythmia , a type or abnormal heart beat apixaban 2020-0 Yes 4206 5mg Take 1 [facility] (ELIQUIS) 5 6-11 tablet by ity of mg tablet 00:00: mouth 2 (two) Medical times Branch daily. Indication s: atrial arrhythmia , a type or abnormal heart beat apixaban 2020-0 Yes 4206 5mg Take 1 [facility] (ELIQUIS) 5 6-11 tablet by ity of mg tablet 00:00: mouth 2 [place] 00 (two) Medical times Branch daily. Indication s: atrial arrhythmia , a type or abnormal heart beat apixaban 2020-0 1- No 4206 5mg Take 1 [facility] (ELIQUIS) 5 6-11 -22 tablet by it y [facility] mg tablet 00:00: 00:[place] mouth 2 [place] :[place] (two) Medical times Branch daily. Indication s: atrial arrhythmia , a type or abnormal heart beat aspirin 81 2020-0 Yes 81mg Take 81 mg [facility] mg chewable 6-04 by mouth ity of tablet 14:17: daily. [address] aspirin 81 2020-0 Yes 81mg Take 81 mg [facility] mg chewable 6-04 by mouth ity of tablet 14:17: daily. [address] Branch aspirin 81 2020-0 Yes 81mg Take 81 mg [facility] mg chewable 6-04 by mouth ity of tablet 14:17: daily. [address] aspirin 81 2020-0 Yes 81mg Take 81 mg [facility] mg chewable 6-04 by mouth ity of tablet 14:17: daily. [address] aspirin 81 2020-0 Yes 81mg Take 81 mg [facility] mg chewable 6-04 by mouth ity of tablet 14:17: daily. [address] aspirin 81 2020-0 Yes 81mg Take 81 mg [facility] mg chewable 6-04 by mouth ity of tablet 14:17: daily. [address] aspirin 81 2020-0 Yes 81mg Take 81 mg [facility] mg chewable 6-04 by mouth ity of tablet 14:17: daily. [address] Branch aspirin 81 2020-0 Yes 81mg Take 81 mg [facility] mg chewable 6-04 by mouth ity of tablet 14:17: daily. [address] aspirin 81 2020-0 Yes 81mg Take 81 mg [facility] mg chewable 6-04 by mouth ity of tablet 14:17: daily. [address] aspirin 81 2020-0 Yes 81mg Take 81 mg [facility] mg chewable 6-04 by mouth ity of tablet 14:17: daily. [address] Branch aspirin 81 2020-0 Yes 81mg Take 81 mg [facility] mg chewable 6-04 by mouth ity of tablet 14:17: daily. [address] Branch aspirin 81 2020-0 Yes 81mg Take 81 mg [facility] mg chewable 6-04 by mouth ity of tablet 14:17: daily. [address] Branch aspirin 81 2020-0 Yes 81mg Take 81 mg [facility] mg chewable 6-04 by mouth ity of tablet 14:17: daily. [address] Branch aspirin 81 2020-0 Yes 81mg Take 81 mg [facility] mg chewable 6-04 by mouth ity of tablet 14:17: daily. [address] Branch aspirin 81 2020-0 Yes 81mg Take 81 mg [facility] mg chewable 6-04 by mouth ity of tablet 14:17: daily. [address] aspirin 81 2020-0 Yes 81mg Take 81 mg [facility] mg chewable 6-04 by mouth ity of tablet 14:17: daily. [address] Branch aspirin 81 2020-0 Yes 81mg Take 81 mg [facility] mg chewable 6-04 by mouth ity of tablet 14:17: daily. [address] Branch apixaban 2020-0 Yes 5mg Take 5 mg [facility] (ELIQUIS) 6-04 by mouth 2 ity of 2.5 mg 14:17: (two) [place] tablet 28 times Medical daily. Branch apixaban 2020-0 Yes 5mg Take 5 mg [facility] (ELIQUIS) 6-04 by mouth 2 ity of 2.5 mg 14:17: (two) [place] tablet 28 times Medical daily. Branch apixaban 2020-0 Yes 5mg Take 5 mg [facility] (ELIQUIS) 6-04 by mouth 2 ity of 2.5 mg 14:17: (two) [place] tablet 28 times Medical daily. Branch sotalol 120 2020-0 Yes [id number] 120mg Take 120 [facility] mg tablet 6-04 mg by ity of 14:17: mouth 2 [place] (two) Medical times [place] daily. sotalol 120 2020-0 Yes [id number] 120mg Take 120 [facility] mg tablet 6-04 mg by ity of 14:17: mouth 2 [place] 27 (two) Medical times Branch daily. sotalol 120 2020-0 Yes [id number] 120mg Take 120 [facility] mg tablet 6-04 mg by ity of 14:17: mouth 2 [place] [address] ([facility]) Medical times Branch daily. sotalol 120 2020-0 Yes [id number] 120mg Take 120 [facility] mg tablet 6-04 mg by ity of 14:17: mouth 2 [place] [address] ([facility]) Medical times Branch daily. sotalol 120 2020-0 Yes [id number] 120mg Take 120 [facility] mg tablet 6-04 mg by ity of 14:17: mouth 2 [place] [address] ([facility]) Medical times Branch daily. sotalol 120 2020-0 Yes [id number] 120mg Take 120 [facility] mg tablet 6-04 mg by ity of 14:17: mouth 2 [place] [address] ([facility]) Medical times Branch daily. sotalol 120 2020-0 Yes [id number] 120mg Take 120 [facility] mg tablet 6-04 mg by ity of 14:17: mouth [address] [place] [address] ([facility]) Medical times Branch daily. sotalol 120 2020-0 Yes [id number] 120mg Take 120 [facility] mg tablet 6-04 mg by ity of 14:17: mouth [address] [place] [address] ([facility]) Medical times Branch daily. sotalol 120 2020-0 Yes [id number] 120mg Take 120 [facility] mg tablet 6-04 mg by ity of 14:17: mouth [address] [place] [address] ([facility]) Medical times Branch daily. sotalol 120 2020-0 Yes [id number] 120mg Take 120 [facility] mg tablet 6-04 mg by ity of 14:17: mouth [address] [place] [address] ([facility]) Medical times Branch daily. sotalol 120 2020-0 Yes [id number] 120mg Take 120 [facility] mg tablet 6-04 mg by ity of 14:17: mouth [address] [place] [address] ([facility]) Medical times Branch daily. sotalol 120 2020-0 Yes [id number] 120mg Take 120 [facility] mg tablet 6-04 mg by ity of 14:17: mouth 2 [place] [address] ([facility]) Medical times Branch daily. sotalol 120 2020-0 Yes [id number] 120mg Take 120 [facility] mg tablet 6-04 mg by ity of 14:17: mouth 2 [place] [address] ([facility]) Medical times Branch daily. diltiazem 2019-0 2020- No [id number] 60mg Take 1 [facility] 60 mg 6-04 09-03 tablet by ity of tablet 00:00: 04:59 mouth [place] 00 :00 every 8 Medical (eight) Branch hours for 90 days. diltiazem 2020-0 2020- No [id number] 60mg Take 1 [facility] 60 mg 6-04 09-03 tablet by ity of tablet 00:00: 04:59 mouth [place] 00 :00 every 8 Medical (eight) Branch hours for 90 days. diltiazem 2020-0 2020- No [id number] 60mg Take 1 [facility] 60 mg 6- 09-03 tablet by ity of tablet 00:00: 04:59 mouth [place] 00 :00 every 8 Medical (eight) Branch hours for 90 days. diltiazem 2020-0 2020- No [id number] 60mg Take 1 [facility] 60 mg 6-07 09-03 tablet by ity of tablet 00:00: 04:59 mouth [place] 00 :00 every 8 Medical (eight) Branch hours for 90 days. diltiazem 2020-0 2020- No [id number] 60mg Take 1 [facility] 60 mg 6-07 09-03 tablet by ity of tablet 00:00: 04:59 mouth [place] 00 :00 every 8 Medical (eight) Branch hours for 90 days. diltiazem 2020-0 2020- No [id number] 60mg Take 1 [facility] 60 mg 6- 09-03 tablet by ity of tablet 00:00: 04:59 mouth [place] 00 :00 every 8 Medical (eight) Branch hours for 90 days. diltiazem 2020-0 2020- No [id number] 60mg Take 1 [facility] 60 mg 6- 09-03 tablet by ity of tablet 00:00: 04:59 mouth [place] 00 :00 every 8 Medical (eight) Branch hours for 90 days. diltiazem 2020-0 2020- No [id number] 60mg Take 1 [facility] 60 mg 6-04 09-03 tablet by ity of tablet 00:00: 04:59 mouth [place] 00 :00 every 8 Medical (eight) Branch hours for 90 days. diltiazem 2020-0 2020- No [id number] 60mg Take 1 [facility] 60 mg 6-04 09-03 tablet by ity of tablet 00:00: 04:59 mouth [place] 00 :00 every 8 Medical (eight) Branch hours for 90 days. diltiazem 2020-0 2020- No [id number] 60mg Take 1 [facility] 60 mg 6-04 09-03 tablet by ity of tablet 00:00: 04:59 mouth [place] 00 :00 every 8 Medical (eight) Branch hours for 90 days. diltiazem 2020-0 2020- No [id number] 60mg Take 1 [facility] 60 mg 6-04 09-03 tablet by ity of tablet 00:00: 04:59 mouth [place] 00 :00 every 8 Medical (eight) Branch hours for 90 days. diltiazem 2020-0 2020- No [id number] 60mg Take 1 [facility] 60 mg 6-04 09-03 tablet by ity of tablet 00:00: 04:59 mouth [place] 00 :00 every 8 Medical (eight) Branch hours for 90 days. diltiazem 2020-0 2020- No [id number] 60mg Take 1 [facility] 60 mg 6-04 -03 tablet by ity of tablet 00:00: 04:59 mouth [place] 00 :00 every 8 Medical (eight) Branch hours for 90 days. diltiazem 2020-0 2020- No [id number] 60mg Take 1 [facility] 60 mg 6-04 09-03 tablet by ity of tablet 00:00: 04:59 mouth [place] 00 :00 every 8 Medical (eight) Branch hours for 90 days. diltiazem 2020-0 2020- No [id number] 60mg Take 1 [facility] 60 mg 6-04 09-03 tablet by ity of tablet 00:00: 04:59 mouth [place] 00 :00 every 8 Medical (eight) Branch hours for 90 days. diltiazem 2020-0 2020- No [id number] 60mg Take 1 [facility] 60 mg 6-04 09-03 tablet by ity of tablet 00:00: 04:59 mouth [place] 00 :00 every 8 Medical (eight) Branch hours for 90 days. diltiazem 2020-0 2020- No [id number] 60mg Take 1 [facility] 60 mg 6-04 09-03 tablet by ity of tablet 00:00: 04:59 mouth [place] 00 :00 every 8 Medical (eight) Branch hours for 90 days. diltiazem 2020-0 2020- No [id number] 60mg Take 1 [facility] 60 mg 6-04 09-03 tablet by ity of tablet 00:00: 04:59 mouth [place] 00 :00 every 8 Medical (eight) Branch hours for 90 days. diltiazem 2020-0 2020- No [id number] 60mg Take 1 [facility] 60 mg 6-07 09-03 tablet by ity of tablet 00:00: 04:59 mouth [place] 00 :00 every 8 Medical (eight) Branch hours for 90 days. diltiazem 2020-0 2020- No [id number] 60mg Take 1 [facility] 60 mg 6-07 09-03 tablet by ity of tablet 00:00: 04:59 mouth [place] 00 :00 every 8 Medical (eight) Branch hours for 90 days. diltiazem 2020-0 2020- No [id number] 60mg Take 1 [facility] 60 mg 6-07 09-03 tablet by ity of tablet 00:00: 04:59 mouth [place] 00 :00 every 8 Medical (eight) Branch hours for 90 days. diltiazem 2019-0 2020- No [id number] 60mg Take 1 [facility] 60 mg 6-07 09-03 tablet by ity of tablet 00:00: 04:59 mouth [place] 00 :00 every 8 Medical (eight) Branch hours for 90 days. diltiazem 2019-0 2020- No [id number] 60mg Take 1 [facility] 60 mg 6-07 09-03 tablet by ity of tablet 00:00: 04:59 mouth [place] 00 :00 every 8 Medical (eight) Branch hours for 90 days. diltiazem 2019-0 2020- No [id number] 60mg Take 1 [facility] 60 mg 6-07 09-03 tablet by ity of tablet 00:00: 04:59 mouth [place] 00 :00 every 8 Medical (eight) Branch hours for 90 days. diltiazem 2020-0 2020- No [id number] 60mg Take 1 [facility] 60 mg 6-07 09-03 tablet by ity of tablet 00:00: 04:59 mouth [place] 00 :00 every 8 Medical (eight) Branch hours for 90 days. fluconazole 2020-0 2020- No [id number] 150mg Take 1 [facility] (DIFLUCAN) 5-20 05-21 tablet by ity of 150 mg 00:00: 04:59 mouth [place] tablet 00 :00 now for 1 Medical dose. Branch diltiazem 2020-0 Yes [id number] 60mg Take 1 [facility] vers 60 mg 5-19 tablet by ity of tablet 00:00: mouth [place] 00 every 8 Medical (eight) Branch hours. diltiazem 2020-0 Yes [id number] 60mg Take 1 [facility] vers 60 mg 5-19 tablet by ity of tablet 00:00: mouth [place] 00 every 8 Medical (eight) Branch hours. diltiazem 2020-0 2020- No [id number] 60mg Take 1 [facility] 60 mg 5-19 06-04 tablet by ity of tablet 00:00: 00:00 mouth [place] 00 :00 every 8 Medical (eight) Branch hours. diltiazem 2020-0 2020- No [id number] 60mg Take 1 [facility] 60 mg 5-19 06-04 tablet by ity of tablet 00:00: 00:00 mouth [place] 00 :00 every 8 Medical (eight) Branch hours. diltiazem 2020-0 2020- No [id number] 60mg Take 1 [facility] 60 mg 5-19 06-04 tablet by ity of tablet 00:00: 00:00 mouth [place] 00 :00 every 8 Medical (eight) Branch hours. diltiazem 2020-0 2020- No [id number] 60mg Take 1 [facility] 60 mg 5-19 06-04 tablet by ity of tablet 00:00: 00:00 mouth [place] 00 :00 every 8 Medical (eight) Branch hours. apixaban 2020-0 Yes 5mg Take 5 mg [facility] ers (ELIQUIS) 5-04 by mouth 2 ity of 2.5 mg 15:51: (two) [place] tablet 06 times Medical daily. Branch apixaban 2020-0 Yes 5mg Take 5 mg [facility] (ELIQUIS) 5-04 by mouth 2 ity of 2.5 mg 15:51: (two) [place] tablet 06 times Medical daily. Branch apixaban 2020-0 Yes 5mg Take 5 mg [facility] (ELIQUIS) 5-04 by mouth 2 ity of 2.5 mg 15:51: (two) [place] tablet 06 times Medical daily. Branch apixaban 2020-0 Yes 5mg Take 5 mg [facility] (ELIQUIS) 5-04 by mouth 2 ity of 2.5 mg 15:51: (two) [place] tablet 06 times Medical daily. Branch apixaban 2020-0 Yes 5mg Take 5 mg [facility] (ELIQUIS) 5-04 by mouth 2 ity of 2.5 mg 15:51: (two) [place] tablet 06 times Medical daily. Branch apixaban 2020-0 Yes 5mg Take 5 mg [facility] (ELIQUIS) 5-04 by mouth 2 ity of 2.5 mg 15:51: (two) [place] tablet 06 times Medical daily. Branch fluconazole 2020-0 2020- No [id number] 150mg Take 1 [facility] (DIFLUCAN) 4-13 04-14 tablet by ity of 150 mg 00:00: 04:59 mouth once [place] tablet 00 :00 now for 1 Medical dose. Branch levothyroxi 2020-0 Yes 75ug Take 75 [facility] vers ne 75 mcg 3-05 mcg by ity of tablet 17:40: mouth [place] 47 every Medical morning. Branch apixaban 2020-0 Yes 5mg Take 5 mg [facility] ers (ELIQUIS) 3-05 by mouth 2 ity of 2.5 mg 17:40: (two) [place] tablet 47 times Medical daily. Branch fluticasone 2020-0 Yes 1{spray Use 1 Un [facility] (FLONASE) 3-05 } [place] in ity of 50 17:40: each [place] mcg/actuati 47 nostril Medic al on nasal daily. Branch spray sotalol 120 2020-0 Yes [id number] 120mg Take 120 [facility] mg tablet 3-05 mg by ity of 17:40: mouth 2 [place] 47 (two) Medical times Branch daily. levothyroxi 2020-0 Yes 75ug Take 75 [facility] vers ne 75 mcg 3-05 mcg by ity of tablet 17:40: mouth [place] 47 every Medical morning. Branch apixaban 2020-0 Yes 5mg Take 5 mg [facility] ers (ELIQUIS) 3-05 by mouth 2 ity of 2.5 mg 17:40: (two) [place] tablet 47 times Medical daily. Branch fluticasone 2020-0 Yes 1{spray Use 1 [facility] (FLONASE) 3-05 } [place] in ity of 50 17:40: each [place] mcg/actuati 47 nostril Medic al on nasal daily. Branch spray sotalol 120 2020-0 Yes [id number] 120mg Take 120 [facility] mg tablet 3-05 mg by ity of 17:40: mouth 2 [place] 47 (two) Medical times Branch daily. levothyroxi 2020-0 Yes 75ug Take 75 [facility] vers ne 75 mcg 3-05 mcg by ity of tablet 17:40: mouth [place] 47 every Medical morning. Branch apixaban 2020-0 Yes 5mg Take 5 mg [facility] ers (ELIQUIS) 3-05 by mouth 2 ity of 2.5 mg 17:40: (two) [place] tablet 47 times Medical daily. Branch fluticasone 2020-0 Yes 1{spray Use 1 [facility] (FLONASE) 3-05 } [place] in ity of 50 17:40: each [place] mcg/actuati 47 nostril Medic al on nasal daily. Branch spray sotalol 120 2020-0 Yes [id number] 120mg Take 120 [facility] mg tablet 3-05 mg by ity of 17:40: mouth 2 [place] 47 (two) Medical times Branch daily. levothyroxi 2020-0 Yes 75ug Take 75 [facility] vers ne 75 mcg 3-05 mcg by ity of tablet 17:40: mouth [place] 47 every Medical morning. Branch fluticasone 2020-0 Yes 1{spray Use 1 [facility] (FLONASE) 3-05 } [place] in ity of 50 17:40: each [place] mcg/actuati 47 nostril Medic al on nasal daily. Branch spray sotalol 120 2020-0 Yes [id number] 120mg Take 120 [facility] mg tablet 3-05 mg by ity of 17:40: mouth 2 [place] 47 (two) Medical times Branch daily. levothyroxi 2020-0 Yes 75ug Take 75 [facility] vers ne 75 mcg 3-05 mcg by ity of tablet 17:40: mouth [place] 47 every Medical morning. Branch fluticasone 2020-0 Yes 1{spray Use 1 [facility] (FLONASE) 3-05 } [place] in ity of 50 17:40: each [place] mcg/actuati 47 nostril Medic al on nasal daily. Branch spray sotalol 120 2020-0 Yes [id number] 120mg Take 120 [facility] mg tablet 3-05 mg by ity of 17:40: mouth 2 [place] 47 (two) Medical times Branch daily. levothyroxi 2020-0 Yes 75ug Take 75 [facility] vers ne 75 mcg 3-05 mcg by ity of tablet 17:40: mouth [place] 47 every Medical morning. Branch fluticasone 2020-0 Yes 1{spray Use 1 [facility] (FLONASE) 3-05 } [place] in ity of 50 17:40: each [place] mcg/actuati 47 nostril Medic al on nasal daily. Branch spray sotalol 120 2020-0 Yes [id number] 120mg Take 120 [facility] mg tablet 3-05 mg by ity of 17:40: mouth 2 [place] 47 (two) Medical times Branch daily. levothyroxi 2020-0 Yes 75ug Take 75 [facility] vers ne 75 mcg 3-05 mcg by ity of tablet 17:40: mouth [place] [address] every Medical morning. Branch fluticasone 2020-0 Yes 1{spray Use 1 [facility] (FLONASE) 3-05 } [place] in ity of 50 17:40: each [place] mcg/actuati 47 nostril Medic al on nasal daily. Branch spray sotalol 120 2020-0 Yes [id number] 120mg Take 120 [facility] mg tablet 3-05 mg by ity of 17:40: mouth 2 [place] [address] (two) Medical times Branch daily. levothyroxi 2020-0 Yes 75ug Take 75 [facility] vers ne 75 mcg 3-05 mcg by ity of tablet 17:40: mouth [place] [address] every Medical morning. Branch fluticasone 2020-0 Yes 1{spray Use 1 [facility] (FLONASE) 3-05 } [place] in ity of 50 17:40: each [place] mcg/actuati 47 nostril Medic al on nasal daily. Branch spray sotalol 120 2020-0 Yes [id number] 120mg Take 120 [facility] mg tablet 3-05 mg by ity of 17:40: mouth 2 [place] [address] (two) Medical times Branch daily. levothyroxi 2020-0 Yes 75ug Take 75 [facility] vers ne 75 mcg 3-05 mcg by ity of tablet 17:40: mouth [place] [address] every Medical morning. Branch fluticasone 2020-0 Yes 1{spray Use 1 [facility] (FLONASE) 3-05 } [place] in ity of 50 17:40: each [place] mcg/actuati 47 nostril Medic al on nasal daily. Branch spray sotalol 120 2020-0 Yes [id number] 120mg Take 120 [facility] mg tablet 3-05 mg by ity of 17:40: mouth 2 [place] 47 (two) Medical times Branch daily. levothyroxi 2020-0 Yes 75ug Take 75 [facility] vers ne 75 mcg 3-05 mcg by ity of tablet 17:40: mouth [place] [address] every Medical morning. Branch fluticasone 2020-0 Yes 1{spray Use 1 [facility] (FLONASE) 3-05 } [place] in ity of 50 17:40: each [place] mcg/actuati 47 nostril Medic al on nasal daily. Branch spray levothyroxi 2020-0 Yes 75ug Take 75 [facility] vers ne 75 mcg 3-05 mcg by ity of tablet 17:40: mouth [place] 47 every Medical morning. Branch fluticasone 2020-0 Yes 1{spray Use 1 [facility] (FLONASE) 3-05 } [place] in ity of 50 17:40: each [place] mcg/actuati 47 nostril Medic al on nasal daily. Branch spray levothyroxi 2020-0 Yes 75ug Take 75 [facility] vers ne 75 mcg 3-05 mcg by ity of tablet 17:40: mouth [place] 47 every Medical morning. Branch fluticasone 2020-0 Yes 1{spray Use 1 [facility] (FLONASE) 3-05 } [place] in ity of 50 17:40: each [place] mcg/actuati 47 nostril Medic al on nasal daily. Branch spray levothyroxi 2020-0 Yes 75ug Take 75 [facility] vers ne 75 mcg 3-05 mcg by ity of tablet 17:40: mouth [place] 47 every Medical morning. Branch fluticasone 2020-0 Yes 1{spray Use 1 [facility] (FLONASE) 3-05 } [place] in ity of 50 17:40: each [place] mcg/actuati 47 nostril Medic al on nasal daily. Branch spray levothyroxi 2020-0 Yes 75ug Take 75 [facility] vers ne 75 mcg 3-05 mcg by ity of tablet 17:40: mouth [place] 47 every Medical morning. Branch fluticasone 2020-0 Yes 1{spray Use 1 [facility] (FLONASE) 3-05 } [place] in ity of 50 17:40: each [place] mcg/actuati 47 nostril Medic al on nasal daily. Branch spray levothyroxi 2020-0 Yes 75ug Take 75 [facility] vers ne 75 mcg 3-05 mcg by ity of tablet 17:40: mouth [place] 47 every Medical morning. Branch fluticasone 2020-0 Yes 1{spray Use 1 [facility] (FLONASE) 3-05 } [place] in ity of 50 17:40: each [place] mcg/actuati 47 nostril Medic al on nasal daily. Branch spray levothyroxi 2020-0 Yes 75ug Take 75 [facility] vers ne 75 mcg 3-05 mcg by ity of tablet 17:40: mouth [place] 47 every Medical morning. Branch fluticasone 2020-0 Yes 1{spray Use 1 [facility] (FLONASE) 3-05 } [place] in ity of 50 17:40: each [place] mcg/actuati 47 nostril Medic al on nasal daily. Branch spray levothyroxi 2020-0 Yes 75ug Take 75 [facility] vers ne 75 mcg 3-05 mcg by ity of tablet 17:40: mouth [place] 47 every Medical morning. Branch fluticasone 2020-0 Yes 1{spray Use 1 [facility] (FLONASE) 3-05 } [place] in ity of 50 17:40: each [place] mcg/actuati 47 nostril Medic al on nasal daily. Branch spray levothyroxi 2020-0 Yes 75ug Take 75 [facility] vers ne 75 mcg 3-05 mcg by ity of tablet 17:40: mouth [place] 47 every Medical morning. Branch fluticasone 2020-0 Yes 1{spray Use 1 [facility] (FLONASE) 3-05 } [place] in ity of 50 17:40: each [place] mcg/actuati 47 nostril Medic al on nasal daily. Branch spray levothyroxi 2020-0 Yes 75ug Take 75 [facility] vers ne 75 mcg 3-05 mcg by ity of tablet 17:40: mouth [place] 47 every Medical morning. Branch fluticasone 2020-0 Yes 1{spray Use 1 [facility] (FLONASE) 3-05 } [place] in ity of 50 17:40: each [place] mcg/actuati 47 nostril Medic al on nasal daily. Branch spray levothyroxi 2020-0 Yes 75ug Take 75 [facility] vers ne 75 mcg 3-05 mcg by ity of tablet 17:40: mouth [place] 47 every Medical morning. Branch fluticasone 2020-0 Yes 1{spray Use 1 [facility] (FLONASE) 3-05 } [place] in ity of 50 17:40: each [place] mcg/actuati 47 nostril Medic al on nasal daily. Branch spray levothyroxi 2020-0 Yes 75ug Take 75 [facility] vers ne 75 mcg 3-05 mcg by ity of tablet 17:40: mouth [place] 47 every Medical morning. Branch fluticasone 2020-0 Yes 1{spray Use 1 [facility] (FLONASE) 3-05 } [place] in ity of 50 17:40: each [place] mcg/actuati 47 nostril Medic al on nasal daily. Branch spray levothyroxi 2020-0 Yes 75ug Take 75 [facility] vers ne 75 mcg 3-05 mcg by ity of tablet 17:40: mouth [place] 47 every Medical morning. Branch fluticasone 2020-0 Yes 1{spray Use 1 [facility] (FLONASE) 3-05 } [place] in ity of 50 17:40: each [place] mcg/actuati 47 nostril Medic al on nasal daily. Branch spray levothyroxi 2020-0 Yes 75ug Take 75 [facility] vers ne 75 mcg 3-05 mcg by ity of tablet 17:40: mouth [place] 47 every Medical morning. Branch levothyroxi 2020-0 Yes 75ug Take 75 [facility] vers ne 75 mcg 3-05 mcg by ity of tablet 17:40: mouth [place] 47 every Medical morning. Branch levothyroxi 2020-0 Yes 75ug Take 75 [facility] vers ne 75 mcg 3-05 mcg by ity of tablet 17:40: mouth [place] 47 every Medical morning. Branch levothyroxi 2020-0 Yes 75ug Take 75 [facility] vers ne 75 mcg 3-05 mcg by ity of tablet 17:40: mouth [place] 47 every Medical morning. Branch apixaban 2020-0 Yes 5mg Take 5 mg [facility] ers (ELIQUIS) 3-05 by mouth 2 ity of 2.5 mg 17:40: (two) [place] tablet 47 times Medical daily. Branch fluticasone 2020-0 Yes 1{spray Use 1 [facility] (FLONASE) 3-05 } [place] in ity of 50 17:40: each [place] mcg/actuati 47 nostril Medic al on nasal daily. Branch spray sotalol 120 2020-0 Yes [id number] 120mg Take 120 [facility] mg tablet 3-05 mg by ity of 17:40: mouth 2 [place] 47 (two) Medical times Branch daily. levothyroxi 2020-0 Yes 75ug Take 75 Uni vers ne 75 mcg 3-05 mcg by ity of tablet 17:40: mouth [place] 47 every Medical morning. Branch apixaban 2020-0 Yes 5mg Take 5 mg Univ ers (ELIQUIS) 3-05 by mouth 2 ity of 2.5 mg 17:40: (two) [place] tablet 47 times Medical daily. Branch fluticasone 2020-0 Yes 1{spray Use 1 Un lail (FLONASE) 3-05 } [place] in ity of 50 17:40: each [place] mcg/actuati 47 nostril Medic al on nasal daily. Branch spray sotalol 120 2020-0 Yes [id number] 120mg Take 120 [facility] mg tablet 3-05 mg by ity of 17:40: mouth 2 [place] [id number] (two) Medical times [place] daily. levothyroxi 2020-0 Yes 75ug Take 75 Uni vers ne 75 mcg 3-05 mcg by ity of tablet 17:40: mouth [place] [id number] every Medical morning. Branch apixaban 2020-0 Yes 5mg Take 5 mg Univ ers (ELIQUIS) 3-05 by mouth 2 ity of 2.5 mg 17:40: (two) [place] tablet 47 times Medical daily. Branch fluticasone 2020-0 Yes 1{spray Use 1 Un lali (FLONASE) 3-05 } [place] in ity of 50 17:40: each [place] mcg/actuati 47 nostril Medic al on nasal daily. Branch spray sotalol 120 2020-0 Yes [id number] 120mg Take 120 [facility] mg tablet 3-05 mg by ity of 17:40: mouth 2 [place] [id number] (two) Medical times [place] daily. aspirin 81 2020-0 Yes 81mg Take 81 mg U nivers mg chewable 3-05 by mouth ity of tablet 17:40: daily. [address] aspirin 81 2020-0 Yes 81mg Take 81 mg U nivers mg chewable 3-05 by mouth ity of tablet 17:40: daily. [address] aspirin 81 2020-0 Yes 81mg Take 81 mg U nivers mg chewable 3-05 by mouth ity of tablet 17:40: daily. [address] aspirin 81 2020-0 Yes 81mg Take 81 mg U nivers mg chewable 3-05 by mouth ity of tablet 17:40: daily. [address] aspirin 81 2020-0 Yes 81mg Take 81 mg U nivers mg chewable 3-05 by mouth ity of tablet 17:40: daily. [address] aspirin 81 2020-0 Yes 81mg Take 81 mg U nivers mg chewable 3-05 by mouth ity of tablet 17:40: daily. [address] Branch aspirin 81 2020-0 Yes 81mg Take 81 mg U nivers mg chewable 3-05 by mouth ity of tablet 17:40: daily. [address] Branch aspirin 81 2020-0 Yes 81mg Take 81 mg U nivers mg chewable 3-05 by mouth ity of tablet 17:40: daily. [address] Branch aspirin 81 2020-0 Yes 81mg Take 81 mg U nivers mg chewable 3-05 by mouth ity of tablet 17:40: daily. [address] Branch aspirin 81 2020-0 Yes 81mg Take 81 mg U nivers mg chewable 3-05 by mouth ity of tablet 17:40: daily. [address] aspirin 81 2020-0 Yes 81mg Take 81 mg U nivers mg chewable 3-05 by mouth ity of tablet 17:40: daily. [address] aspirin 81 2020-0 Yes 81mg Take 81 mg U nivers mg chewable 3-05 by mouth ity of tablet 17:40: daily. [address] doxycycline 2020-0 Yes [id number] 100mg Take 1 [facility] hyclate 100 3-05 tablet by ity of mg tablet 00:00: mouth 2 [place] (two) Medical times Branch daily. bromphenira 2020-0 Yes [id number] 10mL Take 10 mL [facility] mine-pseudo 3-05 by mouth 4 it y of ephedrine-D 00:00: (four[place] (BROMFED 00 times Medical DM) 2-30-10 daily as Bran ch mg/5 mL needed syrup (Bronchiti s). ipratropium 2020-0 Yes [id number] .5mg Inhale 2.5 Univers 0.02 % 3-05 mL every 4 ity of nebulizer 00:00: (four) [place] solution 00 hours as Medical needed for Branch Wheezing or Shortness of Breath. albuterol 2020-0 Yes [id number] 2.5mg Inhale 3 Univers 2.5 mg /3 3-05 mL every 4 ity of mL (0.083 00:00: (four) [place] %) 00 hours as Medical nebulizer needed for Bran ch solution Wheezing or Shortness of Breath. albuterol 2020-0 Yes [id number] 2{puff} Inhale 2 [facility] (VENTOLIN 3-05 Puffs ity of HFA) 90 00:00: every 6 [place] mcg/actuati 00 (six) Medical on inhaler hours as Branc h needed for Wheezing or Shortness of Breath. doxycycline 2020-0 Yes [id number] 100mg Take 1 [facility] hyclate 100 3-05 tablet by ity of mg tablet 00:00: mouth 2 [place] 00 (two) Medical times Branch daily. bromphenira 2020-0 Yes [id number] 10mL Take 10 mL [facility] mine-pseudo 3-05 by mouth 4 it y of ephedrine-D 00:00: (four[place] (BROMFED 00 times Medical DM) 2-30-10 daily as Bran ch mg/5 mL needed syrup (Bronchiti s). ipratropium 2020-0 Yes [id number] .5mg Inhale 2.5 Univers 0.02 % 3-05 mL every 4 ity of nebulizer 00:00: (four) [place] solution 00 hours as Medical needed for Branch Wheezing or Shortness of Breath. albuterol 2020-0 Yes [id number] 2.5mg Inhale 3 Univers 2.5 mg /3 3-05 mL every 4 ity of mL (0.083 00:00: (four) [place] %) 00 hours as Medical nebulizer needed for Bran ch solution Wheezing or Shortness of Breath. albuterol 2020-0 Yes [id number] 2{puff} Inhale 2 [facility] (VENTOLIN 3-05 Puffs ity of HFA) 90 00:00: every 6 [place] mcg/actuati 00 (six) Medical on inhaler hours as Branc h needed for Wheezing or Shortness of Breath. doxycycline 2020-0 Yes [id number] 100mg Take 1 [facility] hyclate 100 3-05 tablet by ity of mg tablet 00:00: mouth 2 [place] 00 (two) Medical times Branch daily. bromphenira 2020-0 Yes [id number] 10mL Take 10 mL [facility] mine-pseudo 3-05 by mouth 4 it y of ephedrine-D 00:00: (four[place] (BROMFED 00 times Medical DM) 2-30-10 daily as Bran ch mg/5 mL needed syrup (Bronchiti s). ipratropium 2020-0 Yes [id number] .5mg Inhale 2.5 [facility] 0.02 % 3-05 mL every 4 ity of nebulizer 00:00: (four) [place] solution 00 hours as Medical needed for Branch Wheezing or Shortness of Breath. albuterol 2020-0 Yes [id number] 2.5mg Inhale 3 Univers 2.5 mg /3 3-05 mL every 4 ity of mL (0.083 00:00: (four) [place] %) 00 hours as Medical nebulizer needed for Bran ch solution Wheezing or Shortness of Breath. albuterol 2020-0 Yes [id number] 2{puff} Inhale 2 [facility] (VENTOLIN 3-05 Puffs ity of HFA) 90 00:00: every 6 [place] mcg/actuati 00 (six) Medical on inhaler hours as Branc h needed for Wheezing or Shortness of Breath. doxycycline 2020-0 Yes [id number] 100mg Take 1 [facility] hyclate 100 3-05 tablet by ity of mg tablet 00:00: mouth 2 [place] (two) Medical times Branch daily. bromphenira 2020-0 Yes [id number] 10mL Take 10 mL [facility] mine-pseudo 3-05 by mouth 4 it y of ephedrine-D 00:00: (four[place] (BROMFED 00 times Medical DM) 2-30-10 daily as Bran ch mg/5 mL needed syrup (Bronchiti s). ipratropium 2020-0 Yes [id number] .5mg Inhale 2.5 [facility] 0.02 % 3-05 mL every 4 ity of nebulizer 00:00: (four) [place] solution 00 hours as Medical needed for Branch Wheezing or Shortness of Breath. albuterol 2020-0 Yes [id number] 2.5mg Inhale 3 [facility] 2.5 mg /3 3-05 mL every 4 ity of mL (0.083 00:00: (four) [place] %) 00 hours as Medical nebulizer needed for Bran ch solution Wheezing or Shortness of Breath. albuterol 2020-0 Yes [id number] 2{puff} Inhale 2 [facility] (VENTOLIN 3-05 Puffs ity of HFA) 90 00:00: every 6 [place] mcg/actuati 00 (six) Medical on inhaler hours as Branc h needed for Wheezing or Shortness of Breath. doxycycline 2020-0 Yes [id number] 100mg Take 1 [facility] hyclate 100 3-05 tablet by ity of mg tablet 00:00: mouth 2 [place] 00 (two) Medical times Branch daily. bromphenira 2020-0 Yes [id number] 10mL Take 10 mL [facility] mine-pseudo 3-05 by mouth 4 it y of ephedrine-D 00:00: (four[place] (BROMFED 00 times Medical DM) 2-30-10 daily as Bran ch mg/5 mL needed syrup (Bronchiti s). ipratropium 2020-0 Yes [id number] .5mg Inhale 2.5 [facility] 0.02 % 3-05 mL every 4 ity of nebulizer 00:00: (four) [place] solution 00 hours as Medical needed for Branch Wheezing or Shortness of Breath. albuterol 2020-0 Yes [id number] 2.5mg Inhale 3 [facility] 2.5 mg /3 3-05 mL every 4 ity of mL (0.083 00:00: (four) [place] %) 00 hours as Medical nebulizer needed for Bran ch solution Wheezing or Shortness of Breath. albuterol 2020-0 Yes [id number] 2{puff} Inhale 2 [facility] (VENTOLIN 3-05 Puffs ity of HFA) 90 00:00: every 6 [place] mcg/actuati 00 (six) Medical on inhaler hours as Branc h needed for Wheezing or Shortness of Breath. doxycycline 2020-0 Yes [id number] 100mg Take 1 [facility] hyclate 100 3-05 tablet by ity of mg tablet 00:00: mouth 2 [place] 00 (two) Medical times Branch daily. bromphenira 2020-0 Yes [id number] 10mL Take 10 mL [facility] mine-pseudo 3-05 by mouth 4 it y of ephedrine-D 00:00: (four[place] (BROMFED 00 times Medical DM) 2-30-10 daily as Bran ch mg/5 mL needed syrup (Bronchiti s). ipratropium 2020-0 Yes [id number] .5mg Inhale 2.5 [facility] 0.02 % 3-05 mL every 4 ity of nebulizer 00:00: (four) [place] solution 00 hours as Medical needed for Branch Wheezing or Shortness of Breath. albuterol 2020-0 Yes [id number] 2.5mg Inhale 3 [facility] 2.5 mg /3 3-05 mL every 4 ity of mL (0.083 00:00: (four) [place] %) 00 hours as Medical nebulizer needed for Bran ch solution Wheezing or Shortness of Breath. albuterol Yes [id number] 2{puff} Inhale 2 [facility] (VENTOLIN 3-05 Puffs ity of HFA) 90 00:00: every 6 [place] mcg/actuati 00 (six) Medical on inhaler hours as Branc h needed for Wheezing or Shortness of Breath. doxycycline 2019- 2020- No [id number] 100mg Take 1 [facility] hyclate 100 3-05 05-04 tablet by it y of mg tablet 00:00: 00:00 mouth 2 [place] :[place] (two) Medical times Branch daily. bromphenira 2020- No [id number] 10mL Take 10 mL [facility] mine-pseudo 3-05 05-04 by mouth 4 i ty of ephedrine-D 00:00: 00:00 (four) [place] as M (BROMFED 00 :00 times Medical DM) 2-30-10 daily as Bran ch mg/5 mL needed syrup (Bronchiti s). ipratropium 2020- No [id number] .5mg Inhale 2.5 [facility] 0.02 % 3-05 05-04 mL every 4 ity of nebulizer 00:00: 00:00 (four) [place] solution 00 :00 hours as Medical needed for Branch Wheezing or Shortness of Breath. albuterol 2020- No [id number] 2.5mg Inhale 3 Univers 2.5 mg /3 3-05 05-04 mL every 4 ity of mL (0.083 00:00: 00:00 (four) [place] %) 00 :00 hours as Medical nebulizer needed for Bran ch solution Wheezing or Shortness of Breath. albuterol 2020- No [id number] 2{puff} Inhale 2 [facility] (VENTOLIN 3-05 05-04 Puffs ity of HFA) 90 00:00: 00:00 every 6 [place] mcg/actuati 00 :00 (six) Medical on inhaler hours as Branc h needed for Wheezing or Shortness of Breath. acetaminoph Yes [id number] 1/2 - 1 [facility] en-codeine 3-10 tab Every ity of 300-30 mg 00:00: 4hrs as [place] tablet 00 needed for Medical pain or Branch cough requiring narcotic acetaminoph Yes [id number] 04/03 - [facility] en-codeine 3-10 tab Every ity of 300-30 mg 00:00: 4hrs as [place] tablet 00 needed for Medical pain or Branch cough requiring narcotic acetaminoph 2019-0 Yes [id number] 2 - [facility] en-codeine 3-10 tab Every ity of 300-30 mg 00:00: 4hrs as [place] tablet 00 needed for Medical pain or Branch cough requiring narcotic acetaminoph 2019-0 Yes [id number] 04/03 - [facility] en-codeine 3-10 tab Every ity of 300-30 mg 00:00: 4hrs as [place] tablet 00 needed for Medical pain or Branch cough requiring narcotic acetaminoph 2018- Yes [id number] 04/03 [facility] en-codeine 3-10 tab Every ity of 300-30 mg 00:00: 4hrs as [place] tablet 00 needed for Medical pain or Branch cough requiring narcotic acetaminoph 2018- Yes [id number] 04/03 [facility] en-codeine 3-10 tab Every ity of 300-30 mg 00:00: 4hrs as [place] tablet 00 needed for Medical pain or Branch cough requiring narcotic acetaminoph 2018- 2020- No [id number] 04/03 [facility] en-codeine 3-10 05-04 tab Every ity of 300-30 mg 00:00: 00:00 4hrs [place] tablet 00 :00 needed for Medical pain or Branch cough requiring narcotic furosemide 2019- Yes [id number] 40mg Take 1 [facility] (LASIX) 40 2-12 tablet by ity of mg tablet 00:00: mouth [place] 00 daily. Medical Branch KCL 20 mEq 2019- Yes [id number] 20meq Take 1 [facility] tablet 2-12 tablet by ity of 00:00: mouth [place] 00 daily. Medical Branch furosemide 2019- Yes [id number] 40mg Take 1 [facility] (LASIX) 40 2-12 tablet by ity of mg tablet 00:00: mouth [place] 00 daily. Medical Branch KCL 20 mEq 2019- Yes [id number] 20meq Take 1 [facility] tablet 2-12 tablet by ity of 00:00: mouth [place] 00 daily. Medical Branch furosemide 2019- Yes [id number] 40mg Take 1 [facility] (LASIX) 40 2-12 tablet by ity of mg tablet 00:00: mouth [place] 00 daily. Medical Branch KCL 20 mEq 0 Yes [id number] 20meq Take 1 [facility] tablet 2-12 tablet by ity of 00:00: mouth [place] 00 daily. Medical Branch furosemide 0 Yes [id number] 40mg Take 1 [facility] (LASIX) 40 2-12 tablet by ity of mg tablet 00:00: mouth [place] 00 daily. Medical Branch KCL 20 mEq Yes [id number] 20meq Take 1 [facility] tablet 2-12 tablet by ity of 00:00: mouth [place] 00 daily. Medical Branch furosemide Yes [id number] 40mg Take 1 [facility] (LASIX) 40 2-12 tablet by ity of mg tablet 00:00: mouth [place] 00 daily. Medical Branch KCL 20 mEq Yes [id number] 20meq Take 1 [facility] tablet 2-12 tablet by ity of 00:00: mouth [place] 00 daily. Medical Branch furosemide Yes [id number] 40mg Take 1 [facility] (LASIX) 40 2-12 tablet by ity of mg tablet 00:00: mouth [place] 00 daily. Medical Branch KCL 20 mEq Yes [id number] 20meq Take 1 [facility] tablet 2-12 tablet by ity of 00:00: mouth [place] 00 daily. Medical Branch furosemide 0 2020- No [id number] 40mg Take 1 [facility] (LASIX) 40 2-12 05-04 tablet by ity of mg tablet 00:00: 00:00 mouth [place] 00 :00 daily. Medical Branch KCL 20 mEq 0 2020- No [id number] 20meq Take 1 [facility] tablet 2-12 05-04 tablet by ity of 00:00: 00:00 mouth [place] 00 :00 daily. Medical Branch diltiazem Yes [id number] 60mg Take 1 Uni vers 60 mg 1-11 tablet by ity of tablet 00:00: mouth [place] 00 every 8 Medical (eight) Branch hours. diltiazem 0 Yes [id number] 60mg Take 1 Uni vers 60 mg 1-11 tablet by ity of tablet 00:00: mouth [place] 00 every 8 Medical (eight) Branch hours. diltiazem Yes [id number] 60mg Take 1 Uni vers 60 mg 1-11 tablet by ity of tablet 00:00: mouth [place] 00 every 8 Medical (eight) Branch hours. diltiazem 2019-0 Yes [id number] 60mg Take 1 Uni vers 60 mg 1-11 tablet by ity of tablet 00:00: mouth [place] 00 every 8 Medical (eight) Branch hours. diltiazem 2019-0 Yes [id number] 60mg Take 1 Uni vers 60 mg 1-11 tablet by ity of tablet 00:00: mouth [place] 00 every 8 Medical (eight) Branch hours. diltiazem 2019-0 Yes [id number] 60mg Take 1 Uni vers 60 mg 1-11 tablet by ity of tablet 00:00: mouth [place] 00 every 8 Medical (eight) Branch hours. diltiazem 2018-0 Yes [id number] 60mg Take 1 Uni vers 60 mg 1-11 tablet by ity of tablet 00:00: mouth [place] 00 every 8 Medical (eight) Branch hours. diltiazem 2018-0 Yes [id number] 60mg Take 1 Uni vers 60 mg 1-11 tablet by ity of tablet 00:00: mouth [place] 00 every 8 Medical (eight) Branch hours. diltiazem 2019-0 Yes [id number] 60mg Take 1 Uni vers 60 mg 1-11 tablet by ity of tablet 00:00: mouth [place] 00 every 8 Medical (eight) Branch hours. diltiazem 2019-0 2020- No [id number] 60mg Take 1 Un lali 60 mg 1-11 05-18 tablet by ity of tablet 00:00: 00:00 mouth [place] 00 :00 every 8 Medical (eight) Branch hours. diltiazem 2018-0 2020- No [id number] 60mg Take 1 Un lali 60 mg 1-11 05-18 tablet by ity of tablet 00:00: 00:00 mouth [place] 00 :00 every 8 Medical (eight) Branch hours. VENTOLIN 2016-04 2020- No Univers HFA 90 0-07 03-05 ity of mcg/actuati 00:00: 00:00 [place] on inhaler 00 :00 Medical Branch VENTOLIN 2017- 2020- No Univers HFA 90 0-07 03-05 ity of mcg/actuati 00:00: 00:00 [place] on inhaler 00 :00 Medical Branch montelukast 2017-0 Yes Univer s 10 mg 9-03 ity of tablet 00:00: [place] 00 Medical Branch montelukast 2017-0 Yes Univer s 10 mg 9-03 ity of tablet 00:00: [place] [address] [facility] montelukast 2017-0 Yes Univer s 10 mg 9-03 ity of tablet 00:00: [place] [facility] montelukast 2017-0 Yes Univer s 10 mg 9-03 ity of tablet 00:00: [place] [facility] montelukast 2017-0 Yes Univer s 10 mg 9-03 ity of tablet 00:00: [place] [facility] montelukast 2017-0 Yes Univer s 10 mg 9-03 ity of tablet 00:00: [place] [facility] montelukast 2017-0 Yes Univer s 10 mg 9-03 ity of tablet 00:00: [place] [facility] montelukast 2017-0 Yes Univer s 10 mg 9-03 ity of tablet 00:00: [address] montelukast 2017-0 Yes Univer s 10 mg 9-03 ity of tablet 00:00: [address] montelukast 2017-0 Yes Univer s 10 mg 9-03 ity of tablet 00:00: [place] [facility] montelukast 2017-0 Yes Univer s 10 mg 9-03 ity of tablet 00:00: [address] montelukast 2017-0 Yes Univer s 10 mg 9-03 ity of tablet 00:00: [place] [facility] montelukast 2017-0 Yes Univer s 10 mg 9-03 ity of tablet 00:00: [address] montelukast 2017-0 Yes Univer s 10 mg 9-03 ity of tablet 00:00: [place] [facility] montelukast 2017-0 Yes Univer s 10 mg 9-03 ity of tablet 00:00: [place] [address] [facility] montelukast 2017-0 Yes Univer s 10 mg 9-03 ity of tablet 00:00: [place] [facility] montelukast 2017-0 Yes Univer s 10 mg 9-03 ity of tablet 00:00: [place] [facility] montelukast 2017-0 Yes Univer s 10 mg 9-03 ity of tablet 00:00: [place] [facility] montelukast 2017-0 Yes Univer s 10 mg 9-03 ity of tablet 00:00: [place] 00 Medical Branch montelukast 2017-0 Yes Univer s 10 mg 9-03 ity of tablet 00:00: [place] 00 Medical Branch montelukast 2017-0 Yes Univer s 10 mg 9-03 ity of tablet 00:00: [place] 00 Medical Branch montelukast 2017-0 Yes Univer s 10 mg 9-03 ity of tablet 00:00: [place] 00 Medical Branch montelukast 2017-0 Yes Univer s 10 mg 9-03 ity of tablet 00:00: [place] 00 Medical Branch montelukast 2017-0 Yes Univer s 10 mg 9-03 ity of tablet 00:00: [place] 00 Medical Branch montelukast 2017-0 Yes Univer s 10 mg 9-03 ity of tablet 00:00: [place] 00 Medical Branch montelukast 2017-0 2020- No Unive rs 10 mg 9-03 07-08 ity of tablet 00:00: 00:00 [place] 00 :00 Medical Branch montelukast 2017-0 2020- No Unive rs 10 mg 9-03 07-08 ity of tablet 00:00: 00:00 [place] 00 :00 Medical Branch Immunizations Ordered Filled Immunization Date Status Comments [facility] e Immunization Name Name Influenza High Dose 2020-01-05 Completed Unive rsity of [place] 00:00:00 [place] [facility] Branch Influenza High Dose 2020-01-05 Completed Unive rsity of [place] 00:00:00 [facility] Branch Influenza High Dose 2020-01-05 Completed Unive rsity of [place] 00:00:00 [facility] Branch Influenza High Dose 2020-01-05 Completed Unive rsity of [place] 00:00:00 [facility] Branch Influenza High Dose 2020-01-05 Completed Unive rsity of [place] 00:00:00 [facility] Branch Influenza High Dose 2020-01-05 Completed Unive rsity of [place] 00:00:00 [facility] Branch Influenza High Dose 2020-01-05 Completed Unive rsity of [place] 00:00:00 [facility] Branch Influenza High Dose 2020-01-05 Completed Unive rsity of [place] 00:00:00 [facility] Branch Influenza High Dose 2020-01-05 Completed Unive rsity of [place] 00:00:00 [facility] Branch Influenza High Dose 2020-01-05 Completed Unive rsity of [place] 00:00:00 [facility] Influenza High Dose 2020-01-05 Completed Unive rsity of [place] 00:00:00 [place] [facility] Branch Influenza High Dose 2020-01-05 Completed Unive rsity of [place] 00:00:00 [place] [facility] Influenza High Dose 2020-01-05 Completed Unive rsity of [place] 00:00:00 [place] [facility] Influenza High Dose 2020-01-05 Completed Unive rsity of [place] 00:00:00 [facility] Branch Influenza High Dose 2020-01-05 Completed Unive rsity of [place] 00:00:00 [facility] Branch Influenza High Dose 2020-01-05 Completed Unive rsity of Quad 00:00:00 [place] [facility] Influenza High Dose 2020-01-05 Completed Unive rsity of [place] 00:00:00 [facility] Branch Influenza High Dose 2020-01-05 Completed Unive rsity of [place] 00:00:00 [facility] Branch Influenza High Dose 2020-01-05 Completed Unive rsity of [place] 00:00:00 [facility] Branch Influenza High Dose 2020-01-05 Completed Unive rsity of [place] 00:00:00 [facility] Branch Influenza High Dose 2020-01-05 Completed Unive rsity of [place] 00:00:00 [facility] Branch Influenza High Dose 2020-01-05 Completed Unive rsity of [place] 00:00:00 [facility] Branch Influenza High Dose 2020-01-05 Completed Unive rsity of [place] 00:00:00 [facility] Branch Influenza High Dose 2020-01-05 Completed Unive rsity of [place] 00:00:00 [facility] Branch Influenza High Dose 2020-01-05 Completed Unive rsity of [place] 00:00:00 [facility] Branch Influenza High Dose 2020-01-05 Completed Unive rsity of [place] 00:00:00 [facility] Branch Influenza High Dose 2020-01-05 Completed Unive rsity of [place] 00:00:00 [facility] Branch Influenza High Dose 2020-01-05 Completed Unive rsity of [place] 00:00:00 [facility] Branch Influenza High Dose 2020-01-05 Completed Unive rsity of Quad 00:00:00 [place] [facility] Influenza High Dose 2020-01-05 Completed Unive rsity of Quad 00:00:00 [facility] Branch Influenza High Dose 2020-01-05 Completed Unive rsity of Quad 00:00:00 [facility] Branch Influenza High Dose 2020-01-05 Completed Unive rsity of [place] 00:00:00 [facility] Branch Influenza High Dose 2020-01-05 Completed Unive rsity of [place] 00:00:00 [facility] Influenza High Dose 2020-01-05 Completed Unive rsity of [place] 00:00:00 [facility] Influenza High Dose 2020-01-05 Completed Unive rsity of [place] 00:00:00 [facility] Influenza High Dose 2020-01-05 Completed Unive rsity of [place] 00:00:00 [facility] Influenza High Dose 2020-01-05 Completed Unive rsity of [place] 00:00:00 [facility] Influenza High Dose 2020-01-05 Completed Unive rsity of [place] 00:00:00 [facility] Influenza High Dose 2020-01-05 Completed Unive rsity of [place] 00:00:00 [facility] Influenza High Dose 2020-01-05 Completed Unive rsity of [place] 00:00:00 [facility] Vital Signs Vital Name Observation Time Observation Value Comments Source Systolic blood 2020-07-19 09:45:00 147 mm[Hg] Univer sity of pressure [facility] Diastolic blood 2020-07-19 09:45:00 100 mm[Hg] Unive rsity of pressure [facility] Respiratory rate 2020-07-19 09:45:00 15 /min [facility] O[facility] saturation in 2020-07-19 09:45:00 97 /min [facility] Arterial blood by [facility] Pulse oximetry Branch Heart rate 2020-07-19 09:30:00 64 /min [facility] Body temperature 2020-07-19 07:14:00 36.44 [facility] [place] ersity of [facility] Body height 2020-07-19 07:14:00 172.7 cm [facility] Body weight 2020-07-19 07:14:00 86.183 kg [facility] BMI 2020-07-19 07:14:00 28.89 kg/m2 Univers ty [facility] [place] [facility] Systolic blood 2020-06-10 15:00:00 140 mm[Hg] Univer sity of pressure [facility] Diastolic blood 2020-06-10 15:00:00 74 mm[Hg] Unive rsity of pressure [facility] Heart rate 2020-06-10 15:00:00 57 /min Universi ty [facility] [place] [facility] Respiratory rate 2020-06-10 15:00:00 18 /min Univ ersity of [place] [facility] Oxygen saturation in 2020-06-10 15:00:00 97 /min [facility] of Arterial blood by [place] [facility] Pulse oximetry Branch Body temperature 2020-06-10 13:07:00 36.5 Swati [facility] Body weight 2020-06-10 13:07:00 83.915 kg [facility] BMI 2020-06-10 13:07:00 28.13 kg/m2 [facility] Systolic blood 2020-01-13 15:46:00 131 mm[Hg] [facility] Diastolic blood 2020-01-13 15:46:00 76 mm[Hg] [facility] Heart rate 2020-01-13 15:43:00 61 /min [facility] Respiratory rate 2020-01-13 15:43:00 19 /min [facility] Body height 2020-01-13 15:43:00 172.7 cm [facility] Body weight 2020-01-13 15:43:00 83.689 kg [facility] BMI 2020-01-13 15:43:00 28.05 kg/m2 [facility] Oxygen saturation in 2020-01-13 15:43:00 95 /min [facility] of Arterial blood by [facility] Pulse oximetry Branch Systolic blood 2020-01-05 19:11:00 134 mm[Hg] [facility] Diastolic blood 2020-01-05 19:11:00 82 mm[Hg] [facility] Heart rate 2020-01-05 18:01:00 67 /min [facility] Body temperature 2020-01-05 18:01:00 36.72 Swati [facility] Respiratory rate 2020-01-05 18:01:00 18 /min [facility] Body weight 2020-01-05 18:01:00 84.278 kg [facility] BMI 2020-01-05 18:01:00 28.25 kg/m2 [facility] Oxygen saturation in 2020-01-05 18:01:00 95 /min [facility] [place] [facility] Pulse oximetry Branch Systolic blood 2019-10-21 19:25:00 148 mm[Hg] [facility] Diastolic blood 2019-10-21 19:25:00 80 mm[Hg] [facility] Heart rate 2019-10-21 19:25:00 71 /min [facility] Body temperature 2019-10-21 19:25:00 36.06 Swati [facility] Respiratory rate 2019-10-21 19:25:00 20 /min [facility] Body height 2019-10-21 19:25:00 172.7 cm [facility] Body weight 2019-10-21 19:25:00 85.186 kg [facility] BMI 2019-10-21 19:25:00 28.55 kg/m2 [facility] Oxygen saturation in 2019-10-21 19:25:00 94 /min [facility] Arterial blood by [facility] Pulse oximetry Branch Systolic blood 2019-09-04 13:58:00 146 mm[Hg] [facility] Diastolic blood 2019-09-04 13:58:00 80 mm[Hg] [facility] Heart rate 2019-09-04 13:55:00 66 /min [facility] Respiratory rate 2019-09-04 13:55:00 19 /min [facility] Body height 2019-09-04 13:55:00 172.7 cm [facility] Body weight 2019-09-04 13:55:00 84.142 kg [facility] BMI 2019-09-04 13:55:00 28.21 kg/m2 [facility] Oxygen saturation in 2019-09-04 13:55:00 96 /min [facility] Arterial blood by [facility] Pulse oximetry Branch Systolic blood 2019-06-05 17:41:00 148 mm[Hg] [facility] Diastolic blood 2019-06-05 17:41:00 85 mm[Hg] [facility] Heart rate 2019-06-05 17:41:00 59 /min [facility] Body temperature 2019-06-05 17:41:00 36.11 Swati [facility] Respiratory rate 2019-06-05 17:41:00 18 /min [facility] Body weight 2019-06-05 17:41:00 84.188 kg [facility] BMI 2019-06-05 17:41:00 29.96 kg/m2 [facility] Oxygen saturation in 2019-06-05 17:41:00 93 /min [facility] blood by [facility] Pulse oximetry Branch Procedures Procedure Date / Time Performing Clinician Source Performed XR CHEST 1 VW 2020-07-19 07:30:00 Chirag [facility] MAGNESIUM 2020-07-19 07:24:00 Tracy Fraire [facility] TROPONIN I 2020-07-19 07:24:[facility] 2020-07-19 07:24:00 [facility] ([id number]) (ALB,T.PRO,BILI [facility] T,BU/BC,ALT,AST,ALK PHOS) BASIC METABOLIC PANEL 2020-07-19 07:24:00 [facility] (NA, K, CL, CO2, GLUCOSE, Medica l Branch BUN, CREATININE, CA) CBC WITH DIFF 2020-07-19 07:24[facility] / INR 2020-07-19 07:24:00 [facility] N-TERMINAL PRO-BNP 2020-07-19 07:24:00 [facility] 2020-07-19 07:23:00 [facility] X[facility] CHEST 1 VW 2020-06-10 14:08:40 [facility] COVID-19 (ID NOW RAPID 2020-06-10 13:27:00 Franky [facility] TESTING) Medical Branch LIPASE 2020-06-10 13:25:00 Singer [facility] MAGNESIUM 2020-06-10 13:25:00 [facility] TROPONIN I 2020-06-10 13:25:00 [facility] COMP. METABOLIC PANEL 2020-06-10 13:25:00 [id number] CBC WITH DIFF 2020-06-10 13:25:00 [facility] N-TERMINAL PRO-BNP 2020-06-10 13:25:00 Singer [facility] Medical [place] HB ECG ROUTINE & RHYTHM 2020-06-10 13:19:30 Singer [facility] STRIP Medical Branch MEDICATION CORRESPONDENCE 2020-05-23 06:01:00 Doctor Unasswilber, [facility] MEDICATION CORRESPONDENCE 2020-04-19 06:01:00 Doctor Gilberto, [facility] AUTHORIZATION FOR RELEASE 2020-01-29 05:01:00 Doctor Gilberto, [facility] NM MYOCARDIUM PERFUSION 2020-01-15 17:17:00 Shanelle Rowland [facility] STRESS AND REST [facility] MYOCARDIUM PERFUSION 2020-01-15 17:17:00 Shanelle Rowland. [facility] STRESS AND REST [facility] MYOCARDIUM PERFUSION 2020-01-15 17:17:00 Shanelle Rowland. [facility] STRESS AND REST Medical [facility] MYOCARDIUM PERFUSION 2020-01-15 17:17:00 Shanelle Rowland [facility] STRESS AND REST [facility] INSURANCE CORRESPONDENCE 2020-01-08 05:01:00 Doctor Unassigned, [facility] FLU VACC(),65+ 2020-01-05 18:14:03 Shira Rosa [facility] YRS,IM,HIGH DOSE QUAD A Medical Br anch CARDIOLOGY EVENT MONITOR 2019-10-23 05:01:00 Doctor Unassigned, [facility] INSURANCE CORRESPONDENCE 2019-10-13 05:01:00 Doctor Unamatt, [facility] AUTHORIZATION FOR RELEASE 2019-09-29 05:01:00 Doctor Unamatt, [facility] EXTERNAL PROVIDER - ADC 2019-09-16 05:01:00 Doctor UnaRonald gutierrez [facility] CARDIOLOGY [facility] EKG-12 LEAD 2019-09-04 14:01:00 [facility] AUTHOR[facility] TO RELEASE 2019-09-04 05:01:00 Doctor Gilberto [facility] PHI TO [facility] AGREEMENTS AUTHORIZATIONS 2019-08-08 05:01:00 Doctor Gilberto, [facility] AND IRREVOCABLE [facility] ASSIGNMENTS (FORM 2001) AGREEMENTS AUTHORIZATIONS 2019-06-05 06:01:00 Doctor Hilarysswilber, [facility] AND IRREVOCABLE [facility] ASSIGNMENTS (FORM 2001) Encounters Start End Encounter Admission Attending Care Care Encounter Source Date/Time Date/Time Type Type Clinicians Facility Department ID 2021-01-30 Emergency [facility] [id number] Univers 13:40:28 ity [facility] 2021-01-30 Emergency [facility] [id number] Univers 05:07[facility] 2021-05-10 2021-05-10 [facility] 1.2.840.114 [id number] Univers 00:00:00 00:00:00 Shira CERDA [id number] [place] [phone] [facility] 231 Branch [facility] 2021-04-04 2021-04-04 [facility] 1.2.840.114 [id number] Univers 00:00:00 00:00:00 Shanelle CERDA [id number] [facility] [place] [phone] Dc dical NAL 044 [facility] 2021-04-01 2021-04-01 [facility] 1.2.840.114 [id number] Univers 00:00:00 00:00:00 Shanelle CERDA [id number] [facility] 4.[place] [phone] Dc dical NAL 044 Branch [facility] 2021-02-28 2021-02-28 [facility] 1.2.840.114 [id number] Univers 00:00:00 00:00:00 Sendgiancarlo SAAVEDRATON 350.1.13.[address] [facility] 4.2.[place] [phone] Dc dical NAL 059 [facility] 2021-02-25 2021-02-25 [facility] 1.2.840.114 [id number] [facility] 00:00:00 00:00:00 Shira CERDA 350.1.13.[address] [facility] 4.[place] [phone] Dc dical NAL 231 [facility] 2021-02-14 2021-02-14 [facility] 1.2.840.114 [id number] Univers 00:00:00 00:00:00 Shanelle SAAVEDRATON [id number] [facility] 4.2.[place] [phone] Dc dical NAL 044 [facility] 2021-02-07 2021-02-07 [facility] 1.2.840.114 [id number] [facility] 00:00:00 00:00:00 Shira CERDA 350.1.13.[address] [facility] 4.[place] [phone] Dc dical NAL 231 [facility] 2021-02-07 2021-02-07 [facility] 1.2.840.114 [id number] Univers 00:00:00 00:00:00 Shanelle PazHTammi ASAVEDRATON [id number] [facility] 4.2.[place] [phone] Dc dical NAL 044 [facility] 2021-01-05 2021-01-05 [facility] Rosa, [facility] 1.2.840.114 [id number] Univers 00:00:00 00:00:00 Shira Saavedraton 350.1.13.10 [place] [phone] Dc dical nal 231 [facility] 2020-11-04 2020-11-04 Refill [facility], [facility] 1.2.840.114 [id number] Univers 00:00:00 00:00:00 Rhonda [place] [id number] it[place] [phone] Dc dical nal 044 [facility] 2020-10-20 2020-10-20 Refill [facility], [facility] 1.2.840.114 [id number] Univers 00:00:00 00:00:00 Rhonda [place] [id number] [place] [phone] Dc dical nal 044 [facility] 2020-10-13 2020-10-13 Refill [facility], [facility] 1.2.840.114 [id number] Univers 00:00:00 00:00:00 Rhonda [place] [id number] [place] [phone] Dc dical nal 044 [facility] 2020-10-05 2020-10-05 Refill [facility], [facility] 1.2.840.114 [id number] Univers 00:00:00 00:00:00 Shanelle PazHTammi [place] 350.1.13.10 [place] [phone] Dc dical nal 044 [facility] 2020-10-05 2020-10-05 Refill [facility], [facility] 1.2.840.114 [id number] Univers 00:00:00 00:00:00 Rhonda [place] 350.1.13.10 [place] [phone] Dc dical nal 044 [facility] 2020-08-19 2020-08-19 Refill [facility] 1.2.840.114 [id number] Univers 00:00:00 00:00:00 Shanelle Cerda 350.1.13.10 [place] [phone] Dc dicmd nal 044 [facility] 2020-07-19 2020-07-19 Emergency [facility] 1.2.074.897 [id number] Univers 02:15:00 04:56:00 Tracy Cerda 350.1.13.10 ity of [place] 4.2.7.2.686 [place] [facility] [phone] [address] 2020-07-05 2020-07-05 Outpatient [facility] [id number] Univers 08:00:00 08:00:00 SHIRA [id number] ity of [facility] 2020-07-05 2020-07-05 Anne [facility] 1.2.840.114 [id number] Univers 00:00:00 00:00:00 Shira Cerda 350.1.13.10 it[place] [phone] [address] 2020-06-10 2020-06-10 Emergency [facility] 1.2.725.651 [id number] Univers 07:09:00 10:13:00 Franky Cerda 350.1.13.10 i ty of [place].2.[place] [phone] [place] 658234 [place] 2020-05-23 2020-05-23 Orders Doctor JOHAN 1.2.840.114 [id number] Univers 00:00:00 00:00:00 Only Unassigned, ANDREA 350.1.13.10 [facility] 4.2.7.2.686 Roel as [phone] [address] 2020-05-22 2020-05-22 Anne [facility] 1.2.840.114 [id number] Univers 00:00:00 00:00:00 Shanelle Cerda 350.1.13.10 [place] [phone] Dc kai sanon 044 [facility] 2020-04-27 2020-04-27 Outpatient R NANCY [facility] [id number] Univers 11:00:00 11:00:00 MATEO [id number] ity [facility] 2020-04-27 2020-04-27 [facility] [id number] Univers 11:00:00 11:00:00 MATEO ity [facility] 2020-04-19 2020-04-19 Orders Doctor JOHAN 1.2.840.114 [id number] Univers 00:00:00 00:00:00 Only Unassigned, ANDREA 350.1.13.10 [facility] 4.2.7.2.686 [place] [phone] [address] 2020-04-16 2020-04-16 Anne Reich [facility] 1.2.840.114 [id number] Univers 00:00:00 00:00:00 Mark Cerda 350.1.13.10 i ty [place] [phone] Dc devyn[address] 2020-03-31 2020-03-31 Outpatient R [facility] [id number] -[id number] Univers 15:20:00 15:20:00 [id number] ity of [facility] 2020-03-30 2020-03-30 Outpatient R [facility] [id number] -[id number] Univers 14:00:00 14:00:00 [id number] ity of [facility] 2020-03-30 2020-03-30 Outpatient R [facility] [id number] Univers 14:00:00 14:00:00 ity [facility] 2020-03-17 2020-03-17 Anne [facility] 1.2.840.114 [id number] Univers 00:00:00 00:00:00 Shira Cerda 350.1.13.10 [place] [phone] [address] 2020-03-17 2020-03-17 Refill Rosa, [facility] 1.2.840.114 [id number] 00:00:00 00:00:00 Shira Cerda 350.1.13.10 [place] 4.2.7.2.686 Professio [phone] [address] 2020-03-08 2020-03-08 Outpatient R SHELLEY [facility] [id number] Univers 13:40:00 13:40:00 SHIRA [facility] 2020-03-05 2020-03-05 [facility]patient [facility] [id number] -[id number] Univers 09:30:00 09:30:00 SENDIL [id number] [facility] 2020-03-05 2020-03-05 Outpatient R OPAL [facility] [id number] Univers 09:30:00 09:30:00 SENDIL [facility] 2020-02-16 2020-02-16 [facility] 1.2.840.114 [id number] Univers 00:00:00 00:00:00 Mark Cerda 350.1.13.10 i ty [facility] [place]2.7.2.[place] [phone] [address] 2020-02-16 2020-02-16 [facility] 1.2.840.114 [id number] 00:00:00 00:00:00 Mark Cerda 350.1.13.10 [place] 4.2.7.2.686 Professio [phone] [address] 2020-02-03 2020-02-03 Telephone [facility] 1.2.840.114 [id number] Univers 00:00:00 00:00:00 Shira Cerda 350.1.13.10 ity [facility] 4[place]2.7.2.[place] [phone] [address] 2020-02-03 2020-02-03 Telephone [facility] 1.2.840.114 [id number] 00:00:00 00:00:00 Shira Cerda 350.1.13.10 [place] 4.2.7.2.686 [facility] [phone] [address] 2020-01-29 2020-01-29 Orders Doctor JOHAN 1.2.840.114 [id number] Univers 00:00:00 00:00:00 Only Unassigned, ANDREA 350.1.13.10 [facility]y [facility] 4.2.7.2.686 [place] [phone] [facility] 009 [place] 2020-01-29 2020-01-29 Orders Doctor JOHAN 1.2.840.114 [id number] 00:00:00 00:00:00 Only Unassigned, ANDREA 350.1.13.10 [facility] [phone] 009 2020-01-22 2020-01-22 Telephone Katlyn Saini 1.2.387.180 [id number] 00:00:00 00:00:00 Mate[place] 350.1.13.10 [facility] 4.2.7.2.686 [id number] [id number] 2020-01-22 2020-01-22 Telephone Katlyn Saini 1.2.412.780 [id number] Univers 00:00:00 00:00:00 Mateo [place] 350.1.13.10 it y of Hospital 4.2.7.2.686 Roel as [phone] [facility] 039 [place] 2020-01-15 2020-01-15 [facility] 1.2.840.114 [id number] Univers 08:39:03 23:59:00 Encounter Shanelle Cerda 350.1.13.10 ity [place] [phone] [facility] 805 [place] 2020-01-15 2020-01-15 Outpatient R [facility] [id number] Univers 09:00:00 09:00:00 SENDIL ity of [facility] 2020-01-15 2020-01-15 [facility] 1.2.840.114 [id number] Univers 08:38:48 08:38:48 Encounter Shanelle Cerda 350.1.13.10 ity of [place] [phone] [address] 2020-01-15 2020-01-15 [facility] 1.2.840.114 [id number] Univers 08:38:01 08:38:01 Encounter Shanelle PazYonnyTammi Cerda 350.1.13.10 ity of [place].2.[place] [phone] [address] 2020-01-15 2020-01-15 [facility] 1.2.840.114 [id number] Univers 08:37:44 08:37:44 Encounter Shanelle Cerda 350.1.13.10 ity of [place].2.[place] [phone] [address] 2020-01-15 2020-01-15 Outpatient R [facility] [id number] Univers 08:15:00 08:15:00 [id number] ity [facility] 2020-01-13 2020-01-13 Office [facility] 1.2.840.114 [id number] Univers 10:32:07 11:23:40 Visit Mateo Cerda 350.1.13.10 i ty of [place].2.[place] [phone] Dc dical nal 059 [facility] 2020-01-13 2020-01-13 [facility] [id number] Univers 10:40:00 10:40:00 MATEO [id number] ity [facility] 2020-01-13 2020-01-13 [facility] [id number] Univers 10:40:00 10:40:00 MATEO ity [facility] 2020-01-08 2020-01-08 Orders Doctor PRADO 1.2.840.114 [id number] Univers 00:00:00 00:00:00 Only Unassigned, ANDREA 350.1.13.10 ity of [facility] 4.2.7.2.686 Ro[place] as [phone] [address] 2020-01-05 2020-01-05 [facility] 1.2.840.114 [id number] Univers 12:52:24 14:19:44 Visit Shira Cerda 350.1.13.10 ity of [place]2.[place] [phone] [address] 2020-01-05 2020-01-05 Outpatient [facility] [id number] Univers 12:00:00 12:00:00 SHIRA [id number] [facility] 2020-01-05 2020-01-05 Outpatient [facility] [id number] Univers 12:00:00 12:00:00 SHIRA [facility] 2019-12-12 2019-12-12 [facility] 1.2.521.713 [id number] Univers 00:00:00 00:00:00 Roz Cerda 350.1.13.10 ity of [place].2.[place] [phone] [address] 2019-12-10 2019-12-10 Telephone [facility] 1.2.840.114 [id number] Univers 00:00:00 00:00:00 Shira Cerda 350.1.13.10 ity of [place].2.[place] [phone] Dc dic[address] 2019-10-13 2019-12-01 Office [facility] 1.2.840.114 [id number] [facility] 16:40:00 08:52:10 Visit Shanelle Cerda 350.1.13.10 ity of [place].2.[place] [phone] Dc dic[address] 2019-12-01 2019-12-01 Telephone [facility] 1.2.180.667 [id number] Univers 00:00:00 00:00:00 Shanelle Cerda 350.1.13.10 ity of [place] [phone] [facility] 059 [facility] 2019-11-02 2019-11-02 Telephone Heidi [facility] 1.2.840.114 [id number] Univers 00:00:00 00:00:00 [facility] 350.1.13.10 i ty of [place] 4[place]2.7.2.[place] [phone] [address] Office Building 2019-11-02 2019-11-02 Telephone [facility] 1.2.611.191 [id number] Univers 00:00:00 00:00:00 Shanelle Cerda 350.1.13.10 [place]y of [place].2.[place] [phone] [address] 2019-10-23 2019-10-23 Orders Doctor JOHAN 1.2.840.114 [id number] Univers 00:00:00 00:00:00 Only Unassigned, ANDREA 350.1.13.10 ity of [facility] 4.2.7.2.686 Ro[place] as [phone] [address] 2019-10-21 2019-10-21 Office [facility] 1.2.840.114 [id number] Univers 14:12:16 15:40:10 Visit Shira Cerda 350.1.13.10 ity of [place].2.[place] [phone] [facility] 231 [facility] 2019-10-21 2019-10-21 Outpatient Romain ROSA [facility] [id number] Univers 14:20:00 14:20:00 SHIRA [id number] yessica [facility] 2019-10-21 2019-10-21 Outpatient Romain ROSA [facility] [id number] Univers 14:20:00 14:20:00 SHIRA juan [facility] 2019-10-16 2019-10-16 Refjefe Reich [facility] 1.2.840.114 [id number] Univers 00:00:00 00:00:00 Mark Cerda 350.1.13.10 i ty [place] [phone] Dc dical nal 044 [facility] 2019-10-14 2019-10-14 Refill [facility] 1.2.840.114 [id number] Univers 00:00:00 00:00:00 Mark Cerda 350.1.13.10 i ty of [place] 4[place]2.[place].2.[place] [phone] Dc dical nal 044 [facility] 2019-10-13 2019-10-13 Outpatient R OPAL [facility] [id number] Univers 09:00:00 09:00:00 SENDIL [id number] ity [facility] 2019-10-13 2019-10-13 Outpatient R OPAL [facility] [id number] Univers 09:00:00 09:00:00 SENDIL ity [facility] 2019-10-13 2019-10-13 Orders Doctor JOHAN 1.2.840.114 [id number] Univers 00:00:00 00:00:00 Only Unassigned, ANDREA 350.1.13.10 ity of [facility] 4.2.7.2.686 Roel as [phone] [address] 2019-10-13 2019-10-13 Telephone [facility] 1.2.840.114 [id number] Univers 00:00:00 00:00:00 Mark Cerda 350.1.13.10 i ty [place]2.[place] [phone] Dc dical nal 044 [facility] 2019-10-08 2019-10-08 Telephone [facility] 1.2.229.697 [id number] Univers 00:00:00 00:00:00 Sendil Makenna Cerda 350.1.13.10 ity of [place].2.[place] [phone] Dc dical nal 059 [facility] 2019-10-08 2019-10-08 Refill [facility] 1.2.840.114 [id number] [employer] 00:00:00 00:00:00 Mark Cerda [id number] [id number] [phone] [facility]44 [facility] 2019-09-04 2019-09-30 Office [facility] [id number] [employer] 09:36:41 16:18:59 Visit Shanelle Cerda [id number] [place] [phone] [facility] 059 [facility] 2019-09-29 2019-09-29 Orders Doctor JOHAN [id number] [employer] 00:00:00 00:00:00 Only Unassigned, ANDREA [id number] [facility] [id number] Roel as [phone] [address] 2019-09-23 2019-09-23 Outpatient R [facility] 7110 15N-20 Univers 09:20:00 09:20:00 MARK [id number] [facility] 2019-09-22 2019-09-22 Telephone [facility] 1.2.840.114 [id number] Univers 00:00:00 00:00:00 Mark Cerda 350.1.13.10 [place] [phone] [address] 2019-09-16 2019-09-16 Orders Doctor JOHAN 1.2.840.114 [id number] Univers 00:00:00 00:00:00 Only Unassigned, ANDREA 350.1.13.10 [facility]y [facility] [place] [facility] 4.2.7.2.686 Roel as [phone] [address] 2019-09-05 2019-09-05 Outpatient R [facility] [id number] 15N-20 Univers 10:00:00 10:00:00 MARK ity [facility] 2019-09-05 2019-09-05 Refill [facility] 1.2.840.114 [id number] Univers 00:00:00 00:00:00 Mark Cerda 350.1.13.10 [place] [phone] [facility] 2019-09-05 2019-09-05 [facility]phone [facility] [id number] Univers 00:00:00 00:00:00 Sendil Makenna Cerda 350.1.13.10 [place] [phone] [facility] 059 [facility] 2019-09-04 2019-09-04 [facility] [id number] -[id number] Univers 09:00:00 09:00:00 SENDIL [id number] ity [facility] 2019-09-04 2019-09-04 [facility] [id number] Univers 09:00:00 09:00:00 [facility] 2019-09-04 2019-09-04 Orders Doctor JOHAN 1.2.840.114 [id number] Univers 00:00:00 00:00:00 Only Unassigned, ANDREA 350.1.13.10 ity of [place] [facility] 4.2.7.2.686 Roel as [phone] [address] 2019-08-18 2019-08-18 [facility] 12.840.114 [id number] Univers 00:00:00 00:00:00 Mark Cerda 350.1.13.10 [place] [phone] [facility] 044 [facility] 2019-08-14 2019-08-14 Telephone [facility] 1.2.840.114 [id number] Univers 00:00:00 00:00:00 Mark Cerda 350.1.13.10 [place] [phone] [facility] 044 [facility] 2019-08-08 2019-08-08 Outpatient R [facility] [id number] Univers 08:30:00 08:30:00 [id number] ity [facility] 2019-08-08 2019-08-08 Outpatient R CHANDA [facility] [id number] Univers 08:30:00 08:30:00 BERENICE itruel [facility] 2019-08-08 2019-08-08 Developmental Therapist 2, Adc Lab [facility] 1.2.840.114 [id number] Univers 08:07:56 08:22:56 Visit Berenice Armas Buck 350.1.1 3.10 [place] [phone] Dc dical nal 353 [facility] 2019-08-08 2019-08-08 Orders Doctor JOHAN 1.2.840.114 [id number] Univers 00:00:00 00:00:00 Only Unassigned, ANDREA 350.1.13.10 [facility] 4.2.7.2.686 [place] as [phone] [address] 2019-08-04 2019-08-04 Outpatient R CHANDA [facility] [id number]-20 Univers 11:00:00 11:00:00 BERENICE [id number] ity [facility] 2019-08-04 2019-08-04 Outpatient R CHANDA [facility] [id number] Univers 11:00:00 11:00:00 BERENICE itruel [facility] 2019-08-04 2019-08-04 [facility]medici [facility] 1.2.840.114 [id number] Univers 08:02:41 08:32:41 ne Visit Berenice Saavedraton 350.1.13.10 it[place] [phone] Dc dical nal 044 [facility] 2019-08-01 2019-08-01 Outpatient R MAVERICK [facility] [id number] 15N-20 Univers 13:00:00 13:00:00 MARK ity [facility] 2019-07-14 2019-07-14 Telephone [facility] 1..840.114 [id number] Univers 00:00:00 00:00:00 Mark Cerda 350.1.13.10 i [place] [phone] Dc dicalaina nal 044 [facility] 2019-07-01 2019-07-01 [facility] 7110 15N-20 Univers 10:40:00 10:40:00 MARK [id number] ity [facility] 2019-06-06 2019-06-06 Pre [facility] 1.2.840.114 [id number] Univers 00:00:00 00:00:00 Outreach Mark Cerda 350.1.13.10 [place] [phone] [address] 2019-06-05 2019-06-05 Developmental Therapist 2, Adc Lab [facility] 1.2.840.114 [id number] Univers 15:29:26 15:44:26 Visit Mark Reich 350.1.13.10 [place] [phone] [facility] 2019-06-05 2019-06-05 Outpatient R [facility] [id number] -[id number] Univers 15:00:00 15:00:00 ity [facility] 2019-06-05 2019-06-05 Office [facility] 1.2.840.114 [id number] Univers 11:17:15 14:06:41 Visit Mark Cerda 350.1.13.10 [place] [phone] Dc dic[address] 2019-06-05 2019-06-05 [facility] [id number] Univers 10:40:00 10:40:00 MARK itruel [facility] 2019-06-05 2019-06-05 Orders Doctor PRADO 1.2.840.114 [id number] Univers 00:00:00 00:00:00 Only Unassigned, ANDREA 350.1.13.10 ity of [place] [facility] 4.2.7.2.686 Ro[place] as [phone] [facility] judah [address] 2019-05-21 2019-05-21 Outpatient Ige-Sabiha [facility] [id number] [place] 07:12:00 07:12:00 _J_ [id number] [facility] 2019-05-21 2019-05-21 Outpatient Ige-Sabiha [facility] [id number] [facility] 07:12:00 07:12:00 _J_ [id number] Family Practic e Results Test Description Test Time Test Comments Results Result Sourc e Comments Chest 1 View 2020-07-01 Cardiomegaly Universit y of 9 without pulmonary [place] [facility] 08:48:14 edema. RL: 135 [facility]: [facility] [address] ORDERING PHYSICIAN: Roosevelt HANDLEY HISTORY: palpitations ? COMPARISON: none FINDINGS: Single frontal view of the chest. Heart is enlarged. ?There is no pulmonary edema. There are no focal areasof consolidation. There is no pneumothorax. ?There are no pleuraleffusions. Osseous structures are unremarkable. ? Please note that chest radiography is not a sensitive modality for thedetection of masses. [facility], Radiant Results Inft User - 07/19/2020 3:49 AM CDTORDERING PHYSICIAN: ED DEJESUS HISTORY: palpitations COMPARISON: noneFINDINGS:Single frontal view of the chest.Heart is enlarged. There is no pulmonary edema. There are no focal areasof consolidation. There is no pneumothorax. There are no pleuraleffusions. Osseous structures are unremarkable. Please note that chest radiography is not a sensitive modality for thedetection of masses.IMPRESSIONCa rdiomegaly without pulmonary edema.RL: 135AHC: [id number] signed by Jose Enrique Gerardo MD at 07/19/2020 3:48 AM MAGNESIUM 2020-07-19 08:32:01 Test Item Value Reference Range Interpretation Comme nts MAGNESIUM (test code = 6888919679) 2.0 mg/dL 1.7-2.4 Lab Interpretation (test code = 74938-1) Normal [facility] [id number] 08:17:52 Test Item Value Reference Range Interpretation Comments TROPONIN I (test 0.004 ng/mL See_Comment [Automated code = 0319233479) message] The system which generated this result transmitted reference range : <=0.034. The reference range was not used to interpret this result as normal/abnormal . SHUN (test code = Equal or Less than SHUN) 0.034 ng/ml---Normal ?Note: Cardiac troponin begins to rise 3-4 hours after the onset of ischemia. Repeat in 4-6 hours if the sample was drawn within 3-4 hours of the onset of the symptom and found normal. Between 0.035 and 0.120 ng/mL--- Borderline. Questionable myocardial injury or necrosis ? ?Note: Serial measurement may be necessary to confirm or exclude the diagnosis of myocardial injury or necrosis; Clinical correlation (symptoms, EKGs, imaging studies, and others) required; Repeat in 4-6 hours if clinically indicated. ? Equal or Higher than 0.121 ng/mL---Abnormal. Myocardial Injury or Necrosis Likely ? Biotin has been reported to cause a negative bias, interpret results relative to patient's use of biotin. ? Lab Interpretation Normal (test code = 27063-8) [facility] Center[facility]MINAL [id number] 07:56:58 Test Item Value Reference Range Interpretation Comments NT-proBNP (test code 367 pg/mL See_Comment H [Autom ated = 1270080130) message] The system which generated this result transmitted reference range : <=125. The reference range was not used to interpret this result as normal/abnormal . SHUN (test code = SHUN) Biotin has been reported to cause a negative bias, interpret results relative to patient's use of biotin. Lab Interpretation Abnormal (test code = 75904-9) [facility] Center[facility]asi Metabolic Panel (NA, K, CL, CO2, GLUCOSE, BUN, CREATININE, CA)2020-07-19 07:49:01 Test Item Value Reference Range Interpretation Comments NA (test code = 145 mmol/L 135-145 7417657369) K (test code = 3.8 mmol/L 3.5-5.0 7106635832) CL (test code = 105 mmol/L 98-108 0307183308) CO2 TOTAL (test code = 32 mmol/L 23-31 H 2855162206) AGAP (test code = 2-16 2094234565) BUN (test code = 13 mg/dL 7-23 4847816606) GLUCOSE (test code = 128 mg/dL 70-110 H 0794004117) CREATININE (test code = 0.86 mg/dL 0.50-1.04 9046841322) CALCIUM (test code = 9.6 mg/dL 8.6-10.6 9299776917) eGFR (test code = mL/min/1.73m2 3979995627) SHUN (test code = SHUN) Association of Glomerular Filtration Rate (GFR) and Staging of Kidney Disease* + --+ --+ ------+| GFR (mL/min/1.73 m2) ?| With Kidney Damage ?| ?Without Kidney Damage+ --------+ --------+ +| ?>90 ?| ?Stage one ?| ? Normal ?+ ---+ ---+ -------+| ?60-89 ?| ?Stage two ?| ? Decreased GFR ? + --+ --+ ------+| ?30-59 ?| ?Stage three ?| ? Stage three ? + --+ --+ ------+| ?15-29 ?| ?Stage four ? | ? Stage four ?+ ---+ ---+ -------+| ?<15 (or dialysis) ? ?| ?Stage five ? | ? Stage five ?+ ---+ ---+ -------+ *Each stage assumes the associated GFR level has been in effect for at least three months. ?Stages 1 to 5, with or without kidney disease, indicate chronic kidney disease. Notes: Determination of stages one and two (with eGFR >59mL/min/1.73 m2) requires estimation of kidney damage for at least three months as defined by structural or functional abnormalities of the kidney, manifested by either:Pathological abnormalities or Markers of kidney damage (including abnormalities in the composition of the blood or urine or abnormalities in imaging tests). Lab Interpretation Abnormal (test code = 31273-9) [facility] [place] [facility] (ALB, T.PRO, BILI T, BU/BC, ALT, AST, ALK PHOS)2020-07-19 07:49:01 Test Item Value Reference Range Interpretation Comments TOTAL BILI (test code = 8288889410) 0.9 mg/dL 0.1-1.1 BILI UNCON (test code = 2409042827) 0.8 mg/dL 0.1-1.1 BILI CONJ (test code = 2925925418) 0.0 mg/dL 0.0-0.3 T PROTEIN (test code = 3019199224) 7.1 g/dL 6.3-8.2 ALBUMIN (test code = 7170435254) 4.7 g/dL 3.5-5.0 ALK PHOS (test code = 2676219903) 86 U/L 34-122 ALTv (test code = 1742-6) 16 U/L 5-35 AST(SGOT) (test code = 4839141292) 24 U/L 13-40 Lab Interpretation (test code = Normal 94940-2) [facility] [id number] 07:44:19 Test Item Value Reference Range Interpretation Comments APPEARANCE (test code = Clear Clear 5687294370) COLOR (test code = Colorless Yellow A 6354485723) PH (test code = 4.8-8.0 3654316251) SP GRAVITY (test code = 1.003-1.030 5420629579) GLU U QUAL (test code = Normal Normal 2141080838) BLOOD (test code = Negative Negative 4825168829) KETONES (test code = Negative Negative 4566902274) PROTEIN (test code = Negative Negative 2887-8) UROBILIN (test code = Normal Normal 1912496020) BILIRUBIN (test code = Negative Negative 4458480899) NITRITE (test code = Negative Negative 7901475493) LEUK ASHLY (test code = Negative Negative 4237047335) RBC/HPF (test code = See_Comment [Autom ated message] 9180618723) The system Pulsity generated this result transmit juliet reference range : 0 - 3 HPF. The refe rence range was not u sed to interpret th is result as normal/abnormal . WBC/HPF (test code = See_Comment [Autom ated message] 2672412443) The system Pulsity generated this result transmit juliet reference range : 0 - 5 HPF. The refe rence range was not u sed to interpret th is result as normal/abnormal . BACTERIA (test code = Negative Negative 0454876626) Lab Interpretation (test Abnormal code = 46167-4) [facility] CenterProthrombin Time (PT) / [id number] 07:42:19 Test Item Value Reference Range Interpretation Comments PROTIME PATIENT (test See_Comment [Auto mated message] code = 5964-2) The system ich generated this result transmitted ref erence range: 12.0 - 1 4.7 Seconds. The re ference range was not u sed to interpret this result as normal/abnor mal. INR (test code = 6301-6) Nor mal INR <1.1; Warfarin Therap eutic range 2.0 to 3. 0 or 2.5 to 3.5, dep ending upon the indica tions. Lab Interpretation (test Normal code = 65586-8) [facility] CenterCB with [id number] 07:33:17 Test Item Value Reference Range Interpretation Comments WBC (test code = See_Comment [Automated 3690-2) message] The sy stem which generated this result transmitted reference range : 4.30 - 11.10 10*3/?L. The reference range was not used to interpret this result as normal/abnormal . RBC (test code = See_Comment [Automated 579-8) message] The sy stem which generated this result transmitted reference range : 3.93 - 5.25 10*6/?L. The reference range was not used to interpret this result as normal/abnormal . HGB (test code = 15.4 g/dL 11.6-15.0 H 718-7) HCT (test code = 45.6 % 35.7-45.2 H 4544-3) MCV (test code = 91.4 fL 80.6-95.5 787-2) MCH (test code = 30.9 pg 25.9-32.8 785-6) MCHC (test code = 33.8 g/dL 31.6-35.1 786-4) RDW-SD (test code = 41.0 fL 39.0-49.9 29406-8) RDW-CV (test code = 12.5 % 12.0-15.5 788-0) PLT (test code = See_Comment [Automated 777-3) message] The sy stem which generated this result transmitted reference range : 166 - 358 10*3/ ?L. The reference r vish was not used to interpret this result as normal/abnormal . MPV (test code = 9.8 fL 9.5-12.9 79349-1) NRBC/100 WBC (test See_Comment [Automat ed code = 0896640384) message] The system which generated this result transmitted reference range : 0.0 - 10.0 /100 WBCs. The refer ence range was not u sed to interpret th is result as normal/abnormal . NRBC x10^3 (test code <0.01 See_Comment [Auto mated = 9270317828) message] The s ystem which generated this result transmitted reference range : 10*3/?L. The reference range was not used to interpret this result as normal/abnormal . GRAN MAT (NEUT) % 50.5 % (test code = 770-8) IMM GRAN % (test code 0.10 % = 1299380706) LYMPH % (test code = 38.7 % 736-9) MONO % (test code = 7.4 % 5905-5) EOS % (test code = 2.5 % 713-8) BASO % (test code = 0.8 % 706-2) GRAN MAT x10^3(ANC) 3.76 10*3/uL 1.88-7.09 (test code = 4031730168) IMM GRAN x10^3 (test <0.03 0.00-0.06 code = 7124098849) LYMPH x10^3 (test code 2.89 10*3/uL 1.32-3.29 = 731-0) MONO x10^3 (test code 0.55 10*3/uL 0.33-0.92 = 742-7) EOS x10^3 (test code = 0.19 10*3/uL 0.03-0.39 711-2) BASO x10^3 (test code 0.06 10*3/uL 0.01-0.07 = 704-7) Lab Interpretation Abnormal (test code = 19567-4) [facility] CenterXR CHEST 1 [id number] 14:19:30HISTORY: Chest pain. TECHNIQUE: Portable AP erect view of the chest is obtained. Comparison ismade with 05/01/2019 study. FINDINGS: No acute pneumonia. No pneumothorax or pleural effusion orpulmonary congestion detected. Mild cardiomegaly noted. CONCLUSIONS: No signs of acute cardiopulmonary disease.[facility], Radiant Results Inft User - 06/10/2020 8:20 AM CSTHISTORY: Chest pain.TECHNIQUE: Portable AP erect view of the chest is obtained. Comparison ismade with 05/01/2019 study.FINDINGS: No acute pneumonia. No pneumothorax or pleural effusion orpulmonary congestion detected. Mild cardiomegaly noted.CONCLUSIONS: No signs of acute cardiopulmonary disease.[facility] CenterTROPONIN I 2020-06-10 14:18:14 Test Item Value Reference Range Interpretation Comments TROPONIN I (test <0.012 See_Comment [Automated code = 9126298712) message] The system which generated this result transmitted reference range : <=0.034 ng/mL. The reference range was not used to interpr et this result as normal/abnormal . SHUN (test code = Equal or Less than SHUN) 0.034 ng/ml---Normal ?Note: Cardiac troponin begins to rise 3-4 hours after the onset of ischemia. Repeat in 4-6 hours if the sample was drawn within 3-4 hours of the onset of the symptom and found normal. Between 0.035 and 0.120 ng/mL--- Borderline. Questionable myocardial injury or necrosis ? ?Note: Serial measurement may be necessary to confirm or exclude the diagnosis of myocardial injury or necrosis; Clinical correlation (symptoms, EKGs, imaging studies, and others) required; Repeat in 4-6 hours if clinically indicated. ? Equal or Higher than 0.121 ng/mL---Abnormal. Myocardial Injury or Necrosis Likely ? Biotin has been reported to cause a negative bias, interpret results relative to patient's use of biotin. ? Lab Interpretation Normal (test code = 99494-9) [facility] CenterCOVID-19 (ID NOW RAPID TESTING)2020-06-10 14:18:14 Test Item Value Reference Range Interpretation Comments SARS-CoV-2 Rapid ID NOW Not Detected Not Detected (test code = 42376-7) SHUN (test code = SHUN) ID NOW COVID-19 Assay is an isothermal nucleic acid amplification test intended for the qualitative detection of nucleic acid from SARS-CoV-2 viral RNA in nasopharyngeal (COP EXAMINER) specimens. It is used under Emergency Use Authorization (EUA) by FDA. The limit of detection (LOD) of the assay is 125 Genome Equivalents/mL. A positive result is indicative of the presence of SARS-CoV-2 RNA. ?Clinical correlation with patient history and other diagnostic information is necessary to determine patient infection status. A negative (Not Detected) result does not preclude SARS-CoV-2 infection. In patients with clinical symptoms and other tests that are consistent with SARS-CoV-2 infection, negative results should be treated as presumptive negative and a new specimen should be tested with alternative PCR molecular test. Invalid: Please collect a new specimen for repeat patient testing if clinically indicated. Lab Interpretation Normal (test code = 96884-5) [facility] CenterN-TERMINAL [id number] 14:14:51 Test Item Value Reference Range Interpretation Comments NT-proBNP (test code 1230 pg/mL See_Comment H [Autom ated = 5955010613) message] The system which generated this result transmitted reference range : <=125. The reference range was not used to interpret this result as normal/abnormal . SHUN (test code = SHUN) Biotin has been reported to cause a negative bias, interpret results relative to patient's use of biotin. Lab Interpretation Abnormal (test code = 40847-4) [facility] CenterMAGNESIUM2021-03-11 14:06:52 Test Item Value Reference Range Interpretation Comments MAGNESIUM (test code = 8798857535) 1.8 mg/dL 1.7-2.4 Lab Interpretation (test code = Normal 21942-4) [facility] CenterCOMP. METABOLIC PANEL (26710)2020-06-10 14:06:31 Test Item Value Reference Range Interpretation Comments NA (test code = 141 mmol/L 135-145 9865049518) K (test code = 3.6 mmol/L 3.5-5.0 1620077267) CL (test code = 101 mmol/L 98-108 8310255802) CO2 TOTAL (test code = 32 mmol/L 23-31 H 8426881395) AGAP (test code = 2-16 1315668249) BUN (test code = 13 mg/dL 7-23 4490574847) GLUCOSE (test code = 126 mg/dL 70-110 H 3915817798) CREATININE (test code = 0.80 mg/dL 0.50-1.04 4160558157) TOTAL BILI (test code = 0.7 mg/dL 0.1-1.4 5440259736) CALCIUM (test code = 9.5 mg/dL 8.6-10.6 7718952690) T PROTEIN (test code = 7.1 g/dL 6.3-8.2 2473366963) ALBUMIN (test code = 4.8 g/dL 3.5-5.0 7584759942) ALK PHOS (test code = 88 U/L 34-122 2186762814) ALTv (test code = 16 U/L 5-35 1742-6) AST(SGOT) (test code = 23 U/L 13-40 6357649304) eGFR Calculation mL/min/1.73m2 (Non-) (test code = 1863964778) eGFR Calculation mL/min/1.73m2 () (test code = 3344385785) SHUN (test code = SHUN) Association of Glomerular Filtration Rate (GFR) and Staging of Kidney Disease* + --+ --+ ------+| GFR (mL/min/1.73 m2) ?| With Kidney Damage ?| ?Without Kidney Damage+ --------+ --------+ +| ?>90 ?| ?Stage one ?| ? Normal ?+ ---+ ---+ -------+| ?60-89 ?| ?Stage two ?| ? Decreased GFR ? + --+ --+ ------+| ?30-59 ?| ?Stage three ?| ? Stage three ? + --+ --+ ------+| ?15-29 ?| ?Stage four ? | ? Stage four ?+ ---+ ---+ -------+| ?<15 (or dialysis) ? ?| ?Stage five ? | ? Stage five ?+ ---+ ---+ -------+ *Each stage assumes the associated GFR level has been in effect for at least three months. ?Stages 1 to 5, with or without kidney disease, indicate chronic kidney disease. Notes: Determination of stages one and two (with eGFR >59mL/min/1.73 m2) requires estimation of kidney damage for at least three months as defined by structural or functional abnormalities of the kidney, manifested by either:Pathological abnormalities or Markers of kidney damage (including abnormalities in the composition of the blood or urine or abnormalities in imaging tests). Lab Interpretation Abnormal (test code = 62790-6) [facility] CenterLIPASE2021-03-11 14:06:11 Test Item Value Reference Range Interpretation Comments LIPASE (test code = 2403693546) 41 U/L 0-220 Lab Interpretation (test code = Normal 54367-3) [facility] WITH [id number] 13:55:09 Test Item Value Reference Range Interpretation Comments WBC (test code = See_Comment [Automated 6690-2) message] The sy stem which generated this result transmitted reference range : 4.30 - 11.10 10*3/?L. The reference range was not used to interpret this result as normal/abnormal . RBC (test code = See_Comment [Automated 739-8) message] The sy stem which generated this result transmitted reference range : 3.93 - 5.25 10*6/?L. The reference range was not used to interpret this result as normal/abnormal . HGB (test code = 15.7 g/dL 11.6-15.0 H 718-7) HCT (test code = 47.3 % 35.7-45.2 H 4544-3) MCV (test code = 92.0 fL 80.6-95.5 787-2) MCH (test code = 30.5 pg 25.9-32.8 785-6) MCHC (test code = 33.2 g/dL 31.6-35.1 786-4) RDW-SD (test code = 42.0 fL 39.0-49.9 75327-3) RDW-CV (test code = 12.4 % 12.0-15.5 788-0) PLT (test code = See_Comment [Automated 777-3) message] The sy stem which generated this result transmitted reference range : 166 - 358 10*3/ ?L. The reference r vish was not used to interpret this result as normal/abnormal . MPV (test code = 10.0 fL 9.5-12.9 00959-3) NRBC/100 WBC (test See_Comment [Automat ed code = 1015604602) message] The system which generated this result transmitted reference range : 0.0 - 10.0 /100 WBCs. The refer ence range was not u sed to interpret th is result as normal/abnormal . NRBC x10^3 (test code <0.01 See_Comment [Auto mated = 5141678202) message] The s ystem which generated this result transmitted reference range : 10*3/?L. The reference range was not used to interpret this result as normal/abnormal . GRAN MAT (NEUT) % 57.8 % (test code = 770-8) IMM GRAN % (test code 0.40 % = 6954210806) LYMPH % (test code = 32.2 % 736-9) MONO % (test code = 6.7 % 5905-5) EOS % (test code = 2.0 % 713-8) BASO % (test code = 0.9 % 706-2) GRAN MAT x10^3(ANC) 4.42 10*3/uL 1.88-7.09 (test code = 4592030654) IMM GRAN x10^3 (test 0.03 10*3/uL 0.00-0.06 code = 6228817856) LYMPH x10^3 (test code 2.46 10*3/uL 1.32-3.29 = 731-0) MONO x10^3 (test code 0.51 10*3/uL 0.33-0.92 = 742-7) EOS x10^3 (test code = 0.15 10*3/uL 0.03-0.39 711-2) BASO x10^3 (test code 0.07 10*3/uL 0.01-0.07 = 704-7) Lab Interpretation Abnormal (test code = 55305-5) [facility] MYOCARDIUM PERFUSION STRESS AND REST 2020-01-16 01:23:231. ?The patient's electrocardiogram is nonischemic.2. ?The patient's clinical response is asymptomatic for angina. 3. ?Overall left ventricular systolic function is normal.4. ?SPECT imaging reveals small size, mild degree fixed defect in apicalwall segments. 5. ?No reversible defect noted. I was present for the stress portion of the study. [facility] Lexiscan StressTest Report PROCEDURE:After obtaining witnessed informed consent, patient underwent a Regadenosonnuclear stress test using a one-day protocol. The patient was administered0.4 mg. Regadenoson over 10 sec onds intravenously. Myocardial perfusionSPECT imaging was performed at rest after the intravenous injection of 16.1mCi of Technetium 99m Tetrofosmin. During the stress portion of the test45.0 mCi of Technetium 99m Tetrofosmin was injected intravenously at 10seconds after the Regadenoson infusion at peak pharmacologic effect. Thestress gated SPECT study was acquired. Both stress and rest images wereacquired with patient being supine. Images were processed according to ASNCguidelines. Short, horizontal long, long axis slices, raw data cines, polarplot, and wall motion analysis were reviewed. FINDINGS:* ?During the Regadenoson administration, no symptoms were noted. * ?Please refer ECG report for full details. * ?The overall technical quality of the study is good. ?* ?Raw cine data reveals no significant abnormality. * ?SPECT imaging reveals small size, mild degree reduced uptake ofradiopharmaceutical agents apical wall segments in both stress images andrest images. * ?Rest of the SPECT imaging re veals normal uptake of radiopharmaceuticalagents in all of wall segments in both stress and rest images. * ?Post-stress LV end-diastolic volume is 81 ml and LV end-systolic volumeis ?23 ml. * ?The leftventricle ejection fraction is calculated to be 72 % at stressand 66% at rest. * ?Regional wall motion analysis of the left ventricle reveals is normal. * ?TID: 0.92 [facility], Radiant Results Inft User - 01/15/2020 8:24 PM [facility] Lexiscan Stress Test ReportPROCEDURE:After obtaining witnessed informed consent, patient underwent a Regadenosonnuclear stress test using a one-day protocol. The patient was administered0.4 mg. Regadenoson over 10 seconds intravenously. Myoca rdial perfusionSPECT imaging was performed at rest after the intravenous injection of 16.1mCi of Technetium 99m Tetrofosmin. During the stress portion of the test45.0 mCi of Technetium 99m Tetrofosmin was injected intravenously at 10seconds after the Regadenoson infusion at peak pharmacologic effect. Thestress gated SPECT study was acquired. Both stress and rest images wereacquired with patient beingsupine. Images were processed according to ASNguidelines. Short, horizontal long, long axis slices,raw data cines, polarplot, and wall motion analysis were reviewed. FINDINGS:* During the Regadenoson administration, no symptoms were noted. * Please refer ECG report for full details. * The overall technical quality of the study is good. * Raw cine data reveals no significant abnormality. * SPECT imaging reveals small size, mild degree reduced uptake ofradiopharmaceutical agents apical wall segments in both stress images andrest images. * Rest of the SPECT imaging reveals normal uptake of rad iopharmaceuticalagents in all of wall segments in both stress and rest images. * Post-stress LV end-diastolic volume is 81 ml and LV end-systolic volumeis 23 ml. * The left ventricle ejection fraction is calculated to be 72 % at stressand 66% at rest. * Regional wall motion analysis of the left ventricle reveals is normal. * TID: [id number]. The patient's electrocardiogram is nonischemic.2. The patient's clinical response is asymptomatic for angina. 3. Overall left ventricular systolic function is normal.4. SPECT imaging reveals small size, mild degree fixed defect in apicalwall segments. 5. No reversible defect noted. I was present for the stress portion of the study.[facility]"
[2021-05-27] MEDS ORDERED: HYDRALAZINE HCL 25 MG TABLET ONE ×2 (11:56→13:58)
--- NOTE | 2021-05-27 13:57 | EDPHYS ---
Physician Documentation [facility] Name: Nickolas Grimes Age: 71 yrs Sex: Female : 1950 Arrival Date: 05/27/2021 Time: 11:23 Bed 25 Private MD: ED Physician Vidya Crawley HPI: 05/27 12:37 This 71 yrs old Female presents to ER via Ambulatory with complaints of Headache. jr8 12:37 Onset: The symptoms/episode began/occurred acutely, today. Associated signs and jr8 symptoms: The patient has no apparent associated signs or symptoms. The patient has not experienced similar symptoms in the past. The patient has not recently seen a physician. Patient stated that she feels a non painful pulsation to right side of head with heart beat after exertion. Denies any other symptoms but has never experienced this in past so was concerned . Historical: - Allergies: 11:35 Azithromycin; jl7 - Home Meds: 11:35 sotalol 120 mg Oral tab 1 tab 2 times per day [Active]; Eliquis 5 mg Oral tab 1 tab jl7 daily [Active]; Glipizide Oral [Active]; - PMHx: 11:35 Atrial Fib; Hypertension; Diabetes mellitus; jl7 - Immunization history:: Client reports receiving the Nicko \T\ Nicko single-dose vaccine. - Social history:: Smoking status: Patient denies any tobacco usage or history of. ROS: 12:37 Constitutional: Negative for fever, chills, and weight loss, Neck: Negative for injury, jr8 pain, and swelling, Cardiovascular: Negative for chest pain, palpitations, and edema, Respiratory: Negative for shortness of breath, cough, wheezing, and pleuritic chest pain, Abdomen/GI: Negative for abdominal pain, nausea, vomiting, diarrhea, and constipation, Back: Negative for injury and pain, MS/Extremity: Negative for injury and deformity, Skin: Negative for injury, rash, and discoloration, Neuro: Negative for headache, weakness, numbness, tingling, and seizure. Exam: 12:37 Constitutional: This is a well developed, well nourished patient who is awake, alert, jr8 and in no acute distress. Neck: Trachea midline, no thyromegaly or masses palpated, and no cervical lymphadenopathy. Supple, full range of motion without nuchal rigidity, or vertebral point tenderness. No Meningismus. Cardiovascular: Regular rate and rhythm with a normal S1 and S2. No gallops, murmurs, or rubs. Normal PMI, no JVD. No pulse deficits. Respiratory: Lungs have equal breath sounds bilaterally, clear to auscultation and percussion. No rales, rhonchi or wheezes noted. No increased work of breathing, no retractions or nasal flaring. Abdomen/GI: Soft, non-tender, with normal bowel sounds. No distension or tympany. No guarding or rebound. No evidence of tenderness throughout. Back: No spinal tenderness. No costovertebral tenderness. Full range of motion. Skin: Warm, dry with normal turgor. Normal color with no rashes, no lesions, and no evidence of cellulitis. MS/ Extremity: Pulses equal, no cyanosis. Neurovascular intact. Full, normal range of motion. Neuro: Awake and alert, GCS 15, oriented to person, place, time, and situation. Cranial nerves II-XII grossly intact. Motor strength 5/5 in all extremities. Sensory grossly intact. Cerebellar exam normal. Normal gait. Vital Signs: 11:34 Temp 98.2; Weight 83.46 kg; Height 5 ft. 6 in. (167.64 cm); Pain 0/10; jl7 11:39 BP 175 / 69; Pulse 63; Resp 16; Pulse Ox 99% on R/A; Pain 0/10; ab2 12:00 BP 149 / 70; Pulse 62; Resp 16; Pulse Ox 99% ; Pain 0/10; ab2 13:12 BP 178 / 78; Pulse 62; Resp 18; Pulse Ox 98% ; Pain 0/10; ab2 13:44 BP 184 / 77; Pulse 63; Resp 20; Pulse Ox 98% ; lr4 11:34 Body Mass Index 29.70 (83.46 kg, 167.64 cm) jl7 MDM: 11:32 Patient medically screened. jr8 13:46 Data reviewed: vital signs, nurses notes, and as a result, I will discharge patient. jr8 Data interpreted: Pulse oximetry: on room air is 98 %. Interpretation: normal. Counseling: I had a detailed discussion with the patient and/or guardian regarding: the historical points, exam findings, and any diagnostic results supporting the discharge/admit diagnosis, the need for outpatient follow up, a family practitioner, to return to the emergency department if symptoms worsen or persist or if there are any questions or concerns that arise at home. Response to treatment: the patient's symptoms have mildly improved after treatment. 13:54 ED course: Patient still without any other s/s. BP had initially improved but now jr8 elevated after she found out her was come to ED after accidently pulling his nephrostomy tube. Will give one more hydralazine and d/c patient to f/u with PCP. Knows to come back if worse or new symptoms were to arise . Administered Medications: 11:54 Drug: HydrALAZINE 25 mg Route: PO; ab2 13:43 Follow up: Response: Blood pressure is lowered lr4 14:05 Drug: HydrALAZINE 25 mg Route: PO; lr4 14:26 Follow up: Response: No adverse reaction; Other lr4 Disposition Summary: 05/27/21 13:56 Discharge Ordered Location: Home jr8 Problem: new jr8 Symptoms: have improved jr8 Condition: Stable jr8 Diagnosis - Essential (primary) hypertension jr8 Followup: jr8 - With: Private Physician - When: 2 - 3 days - Reason: Recheck today's complaints, Continuance of care, Re-evaluation by your physician Discharge Instructions: - Discharge Summary Sheet jr8 - Hypertension, Adult jr8 Forms: - Medication Reconciliation Form jr8 - Thank You Letter jr8 - Antibiotic Education jr8 - Prescription Opioid Use jr8 Signatures: Edil Torres PA PA jr8 Pool Bowman RN RN jl7 Nate Guillen ab2 Jennifer Quiroga RN RN lr4
--- NOTE | 2021-05-27 13:57 | ER ---
Nurse's Notes [facility] Name: Nickolas Grimes Age: 71 yrs Sex: Female : 1950 Arrival Date: 05/27/2021 Time: 11:23 Bed 25 Private MD: Diagnosis: Essential (primary) hypertension Presentation: 05/27 11:34 Chief complaint: Patient states: Reports feels heartbeat in right side of head, denies jl7 pain. Coronavirus screen: At this time, the client does not indicate any symptoms associated with coronavirus-19. Ebola Screen: No symptoms or risks identified at this time. Initial Sepsis Screen: Does the patient meet any 2 criteria? No. Patient's initial sepsis screen is negative. Does the patient have a suspected source of infection? No. Patient's initial sepsis screen is negative. Risk Assessment: Do you want to hurt yourself or someone else? Patient reports no desire to harm self or others. Onset of symptoms was May 27, 2021 at 10:00. 11:34 Method Of Arrival: Ambulatory 7 11:34 Acuity: [place] 3 jl7 Triage Assessment: 11:35 Headache History: Denies prior headaches. General: Appears in no apparent distress. jl7 uncomfortable, Behavior is calm, cooperative, appropriate for age. Pain: Denies pain. Pain currently is 0 out of 10 on a pain scale. Pain began 1.5 hrs ago Also complains of no other associated symptoms. Neuro: Level of Consciousness is awake, alert, obeys commands, Oriented to person, place, time, situation. Historical: - Allergies: 11:35 Azithromycin; jl7 - Home Meds: 11:35 sotalol 120 mg Oral tab 1 tab 2 times per day [Active]; Eliquis 5 mg Oral tab 1 tab jl7 daily [Active]; Glipizide Oral [Active]; - PMHx: 11:35 Atrial Fib; Hypertension; Diabetes mellitus; jl7 - Immunization history:: Client reports receiving the Nicko \T\ Nicko single-dose vaccine. - Social history:: Smoking status: Patient denies any tobacco usage or history of. Screenin:40 Abuse screen: Denies threats or abuse. Denies injuries from another. Nutritional ab2 screening: No deficits noted. Tuberculosis screening: No symptoms or risk factors identified. Fall Risk None identified. Assessment: 11:38 General: Appears in no apparent distress. comfortable, Behavior is calm, cooperative, ab2 appropriate for age. Pain: Denies pain. Neuro: Level of Consciousness is awake, alert, obeys commands, Oriented to person, place, time, situation, Appropriate for age Team Member are equal bilaterally Moves all extremities. Gait is steady, Speech is normal, Facial symmetry appears normal, Reports a pulsating sensation in her head. Patient states it is not painful. 11:39 Cardiovascular: No deficits noted. Reports None Denies chest pain, shortness of breath, ab2 Heart tones S1 S2 present Patient's skin is warm and dry. Respiratory: Airway is patent Respiratory effort is even, unlabored, Respiratory pattern is regular, symmetrical, Breath sounds are clear bilaterally. Denies shortness of breath. GI: No deficits noted. No signs and/or symptoms were reported involving the gastrointestinal system. Abdomen is round non-distended. : No deficits noted. No signs and/or symptoms were reported regarding the genitourinary system. EENT: No deficits noted. No signs and/or symptoms were reported regarding the EENT system. Derm: No deficits noted. No signs and/or symptoms reported regarding the dermatologic system. Skin is intact, is healthy with good turgor, Skin is dry, Skin is pink, warm \T\ dry. Musculoskeletal: No deficits noted. No signs and/or symptoms reported regarding the musculoskeletal system. 13:17 Reassessment: Patient appears in no apparent distress at this time. Patient resting in ab2 bed comfortably. Denies any needs at this time. Patient denies pain at this time. 14:24 Reassessment: Patient is alert, oriented x 3, equal unlabored respirations, skin lr4 warm/dry/pink. Patient states feeling better. Pt departed ed ambulatory with all personal effects. 14:25 General: LORNA way adv its ok for pt to d/c with elev bp. lr4 Vital Signs: 11:34 Temp 98.2; Weight 83.46 kg; Height 5 ft. 6 in. (167.64 cm); Pain 0/10; jl7 11:39 BP 175 / 69; Pulse 63; Resp 16; Pulse Ox 99% on R/A; Pain 0/10; ab2 12:00 BP 149 / 70; Pulse 62; Resp 16; Pulse Ox 99% ; Pain 0/10; ab2 13:12 BP 178 / 78; Pulse 62; Resp 18; Pulse Ox 98% ; Pain 0/10; ab2 13:44 BP 184 / 77; Pulse 63; Resp 20; Pulse Ox 98% ; lr4 11:34 Body Mass Index 29.70 (83.46 kg, 167.64 cm) jl7 ED Course: 11:23 Patient arrived in ED. ds1 11:[address] PA is PHCP. jr8 11:32 Vidya Crawley MD is Attending Physician. jr8 11:35 Triage completed. jl7 11:35 Arm band placed on right wrist. jl7 11:37 Nate Guillen is Primary Nurse. ab2 11:40 Patient has correct armband on for positive identification. Bed in low position. Call ab2 light in reach. Side rails up X2. 11:40 No provider procedures requiring assistance completed. ab2 Administered Medications: 11:54 Drug: HydrALAZINE 25 mg Route: PO; ab2 13:43 Follow up: Response: Blood pressure is lowered lr4 14:05 Drug: HydrALAZINE 25 mg Route: PO; lr4 14:26 Follow up: Response: No adverse reaction; Other lr4 Outcome: 13:56 Discharge ordered by . jr8 14:27 Patient left the ED. lr4 Signatures: Jolynn Solano ds1 Edil [address] PA PA jr8 Pool Bowman RN RN jl7 Nate Guillen ab2 Jennifer Quiroga RN RN lr4
[2021-05-27 14:32] VITALS: TEMP 98.2
[2021-05-27 14:35] VITALS: O2SAT 98
[2021-05-27 14:37] VITALS: BP 184/77
== END 2021-05-27 14:27 | disposition home or self-care (01) ==
LOC: ER 11:15
DX: I10 Essential (primary) hypertension (principal); E11.9 Type 2 diabetes mellitus without complications; I48.91 Unspecified atrial fibrillation; Z79.01 Long term (current) use of anticoagulants; Z88.1 Allergy status to other antibiotic agents
CPT/HCPCS: 99283

== ENCOUNTER 2022-06-23 07:25 | Emergency (ER) | payer MEDICARE ==
--- OUTSIDE RECORDS SUMMARY | 2022-06-23 07:37 | XMS REPORT | Continuity of Care Document ---
:1950 Author Organization [facility] t Address [address] [place]. [address] [place] [address] Care Team Providers Name Role Phone Fabrice DAWSON, [facility] Primary Care Physician Fabrice [facility] [place] Attending Clinician Unavailable Jocelyn Plascencia Attending Clinician Christa Saleem Attending Clinician CHANCE Attending Clinician Unavailable Shira Rosa MD Attending Clinician [phone] Melani Zuleta Attending Clinician Opal DAWSON, Shanelle K.H. Attending Clinician Rhonda Daley Attending Clinician Tracy Fraire MD Attending Clinician Franky King DO Attending Clinician FRANKY KING Attending Clinician Unavailable Doctor Unassigned, [place] Attending Clinician Unavailable MATEO CRUZ Attending Clinician Unavailable Mark Reich MD Attending Clinician SHANELLE JOSEPH Attending Clinician Unavailable Nancy DAWSON, Mateo Attending Clinician SHIRA ROSA Attending Clinician Unavailable Javier DAWSON, [facility] Attending Clinician Stiven Gordon MD Attending Clinician BERENICE ARMAS Attending Clinician Unavailable 2, [facility] Attending Clinician Unavailable Berenice Armas MD Attending Clinician MARK REICH Attending Clinician Unavailable [place]J_[facility] Attending Clinician Unavailable CHANCE Admitting Clinician Unavailable FRANKY KING Admitting Clinician Unavailable [facility] Admitting Clinician Unavailable Payers Payer Name Policy Type Policy Number Effective Date Expiration Date S [facility] MANAGED MEDICARE DAEKFF 2020 HMO GENERIC 00:00:00 [employer] HEALTH DAEKFF 2020 (MEDICARE 00:00:00 REPLACEMENT HMO) MEDICARE PART A \\T\\ [id number] 2014 B 00:00:00 [employer] LIFE [id number] 2014 00:00:00 [facility] [id number] [employer] (MEDICARE 00:00:00 REPLACEMENT/ADVANTA GE - HMO) Problems Condition Condition Condition Status Onset Resolution Last Treating Co mments Source Name Details Category Date Date Treatment Clinician Date Bronchitis Bronchitis Disease Active 2020-0 U nivers 3-05 ity of 00:00: [place] [facility] 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 cough 3-05 ity of 00:00: [place] [facility] Mold Mold Disease Active 2020-0 Univers exposure exposure 3-05 ity of 00:00: [place] [facility] Need for Need for Disease Active 2020-0 Unive rs influenza influenza 3-05 ity of vaccin[place] Need for Need for Disease Active 2020-0 Unive rs 23-polyval 23-polyval 3-05 it y of ent ent 00:00: [place] pneumococc pneumococc 00 Me dical al al Branch polysaccha polysaccha ride ride vaccine vaccine Senile Senile Disease Active Univers osteoporos osteoporos 305 it y of is is 00:00: [place] 00 Medical Branch Medicare Medicare Disease Active Unive rs annual annual 305 ity of wellness wellness 00:00: [place] visit, visit, 00 Medical subsequent subsequent Br anch Atrial Atrial Disease Active Methodi fibrillati fibrillati 2-17 st on with on with 00:00: Hosp[facility] RVR RVR 00 l Atrial Atrial Disease Active Univers fibrillati fibrillati 2-10 it y of on with on with 00:00: [place] rapid rapid 00 Medical ventricula ventricula Br anch r response r response Essential Essential Disease Active 2016-04 Uni vers hypertensi hypertensi 04-10 it y of on, benign on, benign 00:[place] Chronic Chronic Disease Active 2016-04 Univers atrial atrial 04-10 ity of fibrillati fibrillati [place] 00 [facility] [place] [id number] Mixed Problem Common hyperlipid Spirit emia - [facility] 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 - [facility] anticoagul [facility] [id number] Essential Problem Comm on hypertensi Spirit on - [facility] [id number] GERD Problem Common without Spirit esophagiti - CHI s [facility] [id number] THIERRY Problem Common (generaliz Spirit ed anxiety - CHI disorder) [facility] [id number] 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, Medical without Center long-term current use of insulin [id number] Hypothyroi Problem Com mon dism, Spirit unspecifie - [facility]I d type [facility] Allergies, Adverse Reactions, Alerts Allergy Allergy Status Severity Reaction(s) Onset Inactive Treating Comm ents Source Name Type Date Date Clinician AZITHROM DRUG Active ITCHING Univers YCIN INGREDI 305 ity of 00:00: [place] 00 Medical Branch Azithrom Propensi Active Itching Unive rs ycin ty to 3-05 ity of adverse 00:00: [place] reaction 00 Medical s Branch Metformi Propensi Active Rash Method i n ty to 2-17 st adverse 00:00: Hospita reaction 00 l s to drug METFORMI DRUG Active Rash Univers N INGREDI 04-18 ity of 00:00: [place] 00 Medical Branch azithrom azithrom Active rash Common ycin ycin [facility] Metformi Metformi Active rash Common n n [facility] Social History Social Habit Start Date Stop Date Quantity Comments Source Exposure to Not sure [facility] SARS-CoV-2 [facility] (event) [place] History of Common Spirit - Tobacco Use [facility] Alcohol intake 2017-05-19 2017-05-19 [facility] 00:00:00 00:00:00 non-drinker of alcohol (finding) Tobacco use and 2017-01-09 2017-01-09 Never used Universit y of exposure 00:00:00 00:00:00 [facility] Sex Assigned At [birth year] [facility] 00:00:00 00:00:00 Smoking Status Start Date Stop Date Source Never Smoker [facility] Medications Ordered Filled Start Stop Current Ordering Indication Dosage Frequency Signature Comments Components Source Medication Medication Date Date Medication? Clinician (SIG) Name Name diltiazem 2020-04- No 60mg Take 60 mg U nivers 60 mg 2- 12-06 by mouth 3 ity of tablet 08:32: 00:00 (three) [place] 05 :00 times Medical daily. Branch DILTIAZEM 2020-04 Yes TAKE 1 Univer s 60 mg 2-06 TABLET BY ity of tablet 00:00: MOUTH 00 EVERY 8 Medical HOURS FOR Branch 90 DAYS DILTIAZEM 2020-04 Yes TAKE 1 Univer s 60 mg 2-06 TABLET BY ity of tablet 00:00: MOUTH 00 EVERY 8 Medical HOURS FOR Branch 90 DAYS DILTIAZEM 2020-04 Yes TAKE 1 Univer s 60 mg 2-06 TABLET BY ity of tablet 00:00: MOUTH 00 EVERY 8 Medical HOURS FOR Branch 90 DAYS DILTIAZEM 2020-04 Yes TAKE 1 Univer s 60 mg 2-06 TABLET BY ity of tablet 00:00: MOUTH [place] [address] EVERY 8 Medical HOURS FOR Branch 90 DAYS DILTIAZEM 2020-04 Yes TAKE 1 Univer s 60 mg 2-06 TABLET BY ity of tablet 00:00: MOUTH [place] [address] EVERY 8 Medical HOURS FOR Branch 90 DAYS GLIPIZIDE 5 2020-04 Yes [id number] Take 1/2 Univers mg tablet 1-26 (one-half) ity of 00:00: tablet by [place] 00 mouth once Medical daily Branch GLIPIZIDE 5 2020-04 Yes [id number] Take 1/2 Univers mg tablet 1-26 (one-half) ity of 00:00: tablet by [place] [address] mouth once Medical daily Branch GLIPIZIDE 5 2020-04 Yes [id number] Take 1/2 Univers mg tablet 1-26 (one-half) ity of 00:00: tablet by [place] [address] mouth once Medical daily Branch GLIPIZIDE 5 2020-04 Yes [id number] Take 1/2 Univers mg tablet 1-26 (one-half) ity of 00:00: tablet by [place] [address] mouth once Medical daily Branch GLIPIZIDE 5 2020-04 Yes [id number] Take 1/2 Univers mg tablet 1-26 (one-half) ity of 00:00: tablet by [place] [address] mouth once Medical daily Branch GLIPIZIDE 5 2020-04 Yes [id number] Take 1/2 Univers mg tablet 1-26 (one-half) ity of 00:00: tablet by [place] [address] mouth once Medical daily Branch OMEPRAZOLE 2020-04 Yes [id number] Take 1 Univers 20 mg 1-09 capsule by ity of capsule 00:00: [facility] OMEPRAZOLE 2020-04 Yes [id number] Take 1 Univers 20 mg 1-09 capsule by [place]y of capsule 00:00: [place] 00 daily [place] OMEPRAZOLE 2020-04 Yes [id number] Take 1 Univers 20 mg 1-09 capsule by ity of capsule 00:00: mouth [place] 00 daily [place] OMEPRAZOLE 2020-04 Yes [id number] Take 1 Univers 20 mg 1-09 capsule by ity of capsule 00:00: mouth [facility] OMEPRAZOLE 2020-04 Yes [id number] Take 1 Univers 20 mg 1-09 capsule by [place]y of capsule 00:00: mouth [place] 00 daily [place] OMEPRAZOLE 2020-04 Yes [id number] Take 1 Univers 20 mg 1-09 capsule by ity of capsule 00:00: mouth [place] daily [place] OMEPRAZOLE 2020-04 Yes [id number] Take 1 Univers 20 mg 1-09 capsule by ity of capsule 00:00: mouth [place] daily [place] OMEPRAZOLE 2020-04 Yes [id number] Take 1 Univers 20 mg 1-09 capsule by ity of capsule 00:00: [place] daily [place] OMEPRAZOLE 2020-04 Yes [id number] Take 1 Univers 20 mg 1-09 capsule by ity of capsule 00:00: [place] daily [place] GLIPIZIDE 5 2020-04 Yes [id number] Take 1/2 Univers mg tablet 0-07 (one-half) ity of 00:00: tablet by [place] 00 mouth once Medical daily Branch GLIPIZIDE 5 2020-04 Yes [id number] Take 1/2 Univers mg tablet 0-07 (one-half) ity of 00:00: tablet by [place] 00 mouth once Medical daily Branch GLIPIZIDE 5 2020-04 Yes [id number] Take 1/2 Univers mg tablet 0-07 (one-half) ity of 00:00: tablet by [place] 00 mouth once Medical daily Branch GLIPIZIDE 5 2020-04 Yes [id number] Take 1/2 Univers mg tablet 0-07 (one-half) ity of 00:00: tablet by [place] 00 mouth once Medical daily Branch GLIPIZIDE 5 2020-04- No [id number] Take 1/2 Univers mg tablet 0-07 - (one-half) ity of 00:00: 00:00 tablet by [place] 00 :00 mouth once Medical daily Branch fluconazole 2020- No 150mg Take 150 Univers 150 mg 8- 08-06 mg by ity of tablet 17:37: 00:00 mouth [place] :00 now. Medical Branch fluconazole 2020- No 150mg Take 150 Univers 150 mg 8- 08-06 mg by ity of tablet 17:37: 00:00 mouth once [place] :00 now. Medical Branch SOTALOL 120 1-0 Yes [id number] Take 1 U nivers mg tablet 8-06 tablet by ity o f 00:00: mouth [place] 00 twice Medical daily Branch SOTALOL 120 2021-0 Yes [id number] Take 1 U nivers mg tablet 8-06 tablet by ity o f 00:00: mouth [place] 00 twice Medical daily Branch SOTALOL 120 2021-0 Yes [id number] Take 1 U nivers mg tablet 8-06 tablet by ity o f 00:00: mouth [place] 00 twice Medical daily Branch SOTALOL 120 1-0 Yes [id number] Take 1 U nivers mg tablet 8-06 tablet by ity o f 00:00: mouth [place] 00 twice Medical daily Branch SOTALOL 120 1-0 Yes [id number] Take 1 U nivers mg tablet 8-06 tablet by ity o f 00:00: mouth [place] twice Medical daily Branch SOTALOL 120 1-0 Yes [id number] Take 1 U nivers mg tablet 8-06 tablet by ity o f 00:00: mouth [place] 00 twice Medical daily Branch SOTALOL 120 1-0 Yes [id number] Take 1 U nivers mg tablet 8-06 tablet by ity o f 00:00: mouth [place] 00 twice Medical daily Branch SOTALOL 120 1-0 Yes [id number] Take 1 U nivers mg tablet 8-06 tablet by ity o f 00:00: mouth [place] 00 twice Medical daily Branch SOTALOL 120 2021-0 Yes [id number] Take 1 U nivers mg tablet 8-06 tablet by ity o f 00:00: mouth [place] 00 twice Medical daily Branch SOTALOL 120 2021-0 Yes [id number] Take 1 U nivers mg tablet 8-06 tablet by ity o f 00:00: mouth [place] 00 twice Medical daily Branch SOTALOL 120 2021-0 Yes [id number] Take 1 U nivers mg tablet 8-06 tablet by ity o f 00:00: mouth [place] 00 twice Medical daily Branch SOTALOL 120 2021-0 Yes [id number] Take 1 U nivers mg tablet 8-06 tablet by ity o f 00:00: mouth [place] 00 twice Medical daily Branch EUTHYROX 75 1-0 Yes [id number] TAKE 1 Univers mcg tablet 7-22 TABLET BY ity of 00:00: MOUTH ONCE [place] 00 DAILY IN [facility] MORNING MONTELUKAST 2020-0 Yes [id number] 10mg TAKE 1 Univers 10 mg 7-22 TABLET BY ity of tablet 00:00: MOUTH AT [place] [facility] EUTHYROX 75 2020-0 Yes [id number] TAKE 1 Univers mcg tablet 7-22 TABLET BY ity of 00:00: MOUTH ONCE 00 DAILY IN [facility] MORNING MONTELUKAST 2020-0 Yes [id number] 10mg TAKE 1 Univers 10 mg 7-22 TABLET BY ity of tablet 00:00: [facility] [place] [facility] EUTHYROX 75 2020-0 Yes [id number] TAKE 1 Univers mcg tablet 7-22 TABLET BY ity of 00:00: MOUTH ONCE 00 DAILY IN [facility] MORNING MONTELUKAST 0 Yes [id number] 10mg TAKE 1 Univers 10 mg 7-22 TABLET BY ity of tablet 00:00: MOUTH AT [place] [facility] EUTHYROX 75 2020-0 Yes [id number] TAKE 1 Univers mcg tablet 7-22 TABLET BY ity of 00:00: MOUTH ONCE 00 DAILY IN [facility] MORNING MONTELUKAST 2020-0 Yes [id number] 10mg TAKE 1 Univers 10 mg 7-22 TABLET BY ity of tablet 00:00: MOUTH AT [facility] EUTHYROX 75 2020-0 Yes [id number] TAKE 1 Univers mcg tablet 7-22 TABLET BY ity of 00:00: MOUTH ONCE 00 DAILY IN [facility] MORNING MONTELUKAST 2020-0 Yes [id number] 10mg TAKE 1 Univers 10 mg 7-22 TABLET BY ity of tablet 00:00: MOUTH AT [facility] EUTHYROX 75 2020-0 Yes [id number] TAKE 1 Univers mcg tablet 7-22 TABLET BY ity of 00:00: MOUTH ONCE 00 DAILY IN [facility] MORNING MONTELUKAST 2020-0 Yes [id number] 10mg TAKE 1 Univers 10 mg 7-22 TABLET BY ity of tablet 00:00: MOUTH AT [facility] EUTHYROX 75 2020-0 Yes [id number] TAKE 1 Univers mcg tablet 7-22 TABLET BY ity of 00:00: MOUTH ONCE 00 DAILY IN [facility] MORNING MONTELUKAST Yes [id number] 10mg TAKE 1 Univers 10 mg 7-22 TABLET BY ity of tablet 00:00: MOUTH AT [facility] EUTHYROX 75 2020- Yes [id number] TAKE 1 Univers mcg tablet 7-22 TABLET BY ity of 00:00: MOUTH ONCE [place] 00 DAILY IN [facility] MORNING MONTELUKAST Yes [id number] 10mg TAKE 1 Univers 10 mg 7-22 TABLET BY ity of tablet 00:00: MOUTH AT [facility] EUTHYROX 75 2020-0 Yes [id number] TAKE 1 Univers mcg tablet 7-22 TABLET BY ity of 00:00: MOUTH ONCE [place] 00 DAILY IN [facility] MORNING MONTELUKAST Yes [id number] 10mg TAKE 1 Univers 10 mg 7-22 TABLET BY ity of tablet 00:00: MOUTH AT [facility] EUTHYROX 75 Yes [id number] TAKE 1 Univers mcg tablet 7-22 TABLET BY ity of 00:00: MOUTH ONCE [place] 00 DAILY IN [facility] MORNING MONTELUKAST Yes [id number] 10mg TAKE 1 Univers 10 mg 7-22 TABLET BY ity of tablet 00:00: MOUTH AT [facility] EUTHYROX 75 0 Yes [id number] TAKE 1 Univers mcg tablet 7-22 TABLET BY ity of 00:00: MOUTH ONCE [place] 00 DAILY IN [facility] MORNING MONTELUKAST 0 Yes [id number] 10mg TAKE 1 Univers 10 mg 7-22 TABLET BY ity of tablet 00:00: MOUTH AT [facility] EUTHYROX 75 2020-0 Yes [id number] TAKE 1 Univers mcg tablet 7-22 TABLET BY ity of 00:00: MOUTH ONCE [place] 00 DAILY IN [facility] MORNING MONTELUKAST Yes [id number] 10mg TAKE 1 Univers 10 mg 7-22 TABLET BY ity of tablet 00:00: MOUTH AT [facility] EUTHYROX 75 2020-0 Yes [id number] TAKE 1 Univers mcg tablet 7-22 TABLET BY ity of 00:00: MOUTH ONCE [place] 00 DAILY IN [facility] MORNING MONTELUKAST Yes [id number] 10mg TAKE 1 Univers 10 mg 7-22 TABLET BY ity of tablet 00:00: MOUTH AT 00 BEDTIME Medical Branch EUTHYROX 75 2020-0 Yes [id number] TAKE 1 Univers mcg tablet 7-22 TABLET BY ity of 00:00: MOUTH ONCE 00 DAILY IN Medical THE Branch MORNING MONTELUKAST 2020-0 Yes [id number] 10mg TAKE 1 Univers 10 mg 7-22 TABLET BY ity of tablet 00:00: MOUTH AT 00 BEDTIME Medical Branch ELIQUIS 5 2020-0 Yes Take 1 [...] [place] 00 twice Medical daily Branch apixaban 2020-0 Yes [id number] 5mg Take 1 Univers (ELIQUIS) [...] [place] 22 times Medical daily. Branch fluconazole 2020-0 Yes 150mg Take 150 U nivers 150 mg 4-19 mg by ity of tablet 07:20: mouth once [place] 22 now. Medical Branch diltiazem 2020-0 Yes 60mg Take 60 mg Un lali 60 mg 4-19 by mouth 3 ity of tablet 07:20: (three) [place] 22 times Medical daily. Branch fluconazole 2020-0 Yes 150mg Take 150 U nivers 150 [...] (three) [place] 22 times Medical daily. Branch aspirin 81 2020-0 2020- No 81mg Take 81 mg Univers mg chewable -19 04-19 by mouth ity of tablet 07:18: 00:00 daily. [place] 12 :00 Medical Branch diltiazem 2020-0 Yes 60mg Take 60 mg Un lali 60 mg -19 by mouth 3 ity of tablet 02:20: (three) [place] 22 times Medical daily. Branch diltiazem 2020-0 Yes 60mg Take 60 mg Un lali 60 mg -19 by mouth 3 ity of tablet 02:20: (three) [place] 22 times Medical daily. Branch diltiazem 2020-0 Yes 60mg Take 60 mg Un lali 60 mg 4-19 by mouth 3 ity of tablet 02:20: (three) [place] 22 times Medical daily. Branch diltiazem 2020-0 Yes 60mg Take 60 mg Un lali 60 mg -19 by mouth 3 ity of tablet 02:20: (three) [place] 22 times Medical daily. Branch diltiazem 2020-0 Yes 60mg Take 60 mg Un lali 60 mg -19 by mouth 3 ity of tablet 02:20: (three) [place] 22 times Medical daily. Branch MONTELUKAST 2020-0 Yes [id number] 10mg TAKE 1 Univers 10 mg 4-07 TABLET BY ity of tablet 00:00: MOUTH AT [place] 00 BEDTIME Medical Branch SOTALOL 120 2020-0 Yes [id number] Take 1 U nivers mg tablet 4-07 tablet by ity o f 00:00: mouth [place] 00 twice Medical daily Branch LEVOTHYROXI 2020-0 Yes [id number] TAKE 1 Univers NE 75 mcg 4-07 TABLET BY ity o f tablet 00:00: MOUTH ONCE [place] 00 DAILY IN Medical THE Branch MORNING MONTELUKAST 2020-0 Yes [id number] 10mg TAKE 1 Univers 10 mg 4-07 TABLET BY ity of tablet 00:00: MOUTH AT [place] 00 BEDTIME Medical Branch SOTALOL 120 2020-0 Yes [id number] Take 1 U nivers mg tablet 4-07 tablet by ity o f 00:00: mouth [place] 00 twice Medical daily Branch LEVOTHYROXI Yes [id number] TAKE 1 Univers NE 75 mcg 4-07 TABLET BY ity o f tablet 00:00: MOUTH ONCE [place] DAILY IN Medical THE [place] MORNING MONTELUKAST Yes [id number] 10mg TAKE 1 Univers 10 mg 4-07 TABLET BY ity of tablet 00:00: MOUTH AT [place] 00 BEDTIME Medical Branch SOTALOL 120 0 Yes [id number] Take 1 U nivers mg tablet 4-07 tablet by ity o f 00:00: mouth 00 twice Medical daily Branch LEVOTHYROXI Yes [id number] TAKE 1 Univers NE 75 mcg 4-07 TABLET BY ity o f tablet 00:00: MOUTH ONCE DAILY IN Medical THE [place] MORNING MONTELUKAST Yes [id number] 10mg TAKE 1 Univers 10 mg 4-07 TABLET BY ity of tablet 00:00: MOUTH AT [place] 00 BEDTIME Medical Branch SOTALOL 120 Yes [id number] Take 1 U nivers mg tablet 4-07 tablet by ity o f 00:00: mouth twice Medical daily Branch LEVOTHYROXI Yes [id number] TAKE 1 Univers NE 75 mcg 4-07 TABLET BY ity o f tablet 00:00: MOUTH ONCE DAILY IN Medical THE [place] MORNING MONTELUKAST Yes [id number] 10mg TAKE 1 Univers 10 mg 4-07 TABLET BY ity of tablet 00:00: MOUTH AT [place] 00 BEDTIME Medical Branch SOTALOL 120 0 Yes [id number] Take 1 U nivers mg tablet 4-07 tablet by ity o f 00:00: mouth twice Medical daily Branch LEVOTHYROXI Yes [id number] TAKE 1 Univers NE 75 mcg 4-07 TABLET BY ity o f tablet 00:00: MOUTH ONCE DAILY IN Medical THE [place] MORNING MONTELUKAST Yes [id number] 10mg TAKE 1 Univers 10 mg 4-07 TABLET BY ity of tablet 00:00: MOUTH AT [place] 00 BEDTIME Medical Branch SOTALOL 120 0 Yes [id number] Take 1 U nivers mg tablet 4-07 tablet by ity o f 00:00: mouth 00 twice Medical daily Branch LEVOTHYROXI Yes [id number] TAKE 1 Univers NE 75 mcg 4-07 TABLET BY ity o f tablet 00:00: MOUTH ONCE [place] 00 DAILY IN Medical THE Branch MORNING SOTALOL 120 Yes [id number] Take 1 U nivers mg tablet 07-07 tablet by ity o f 00:00: mouth [place] 00 twice Medical daily Branch SOTALOL 120 2020-0 Yes [id number] Take 1 U nivers mg tablet 07-07 tablet by ity o f 00:00: mouth 00 twice Medical daily Branch SOTALOL 120 2020-0 2020- No [id number] Take 1 Univers mg tablet 07-07 tablet by ity of 00:00: 00:00 mouth [place] 00 :00 twice Medical daily Branch SOTALOL 120 2020-0 2020- No [id number] Take 1 Univers mg tablet 07-07 tablet by ity of 00:00: 00:00 mouth [place] 00 :00 twice Medical daily Branch MONTELUKAST 2020-0 2020- No [id number] 10mg TAKE 1 Univers 10 mg 07-07 TABLET BY ity of tablet 00:00: 00:00 MOUTH AT [place] 00 :00 BEDTIME Medical Branch LEVOTHYROXI 2020-0 2020- No [id number] TAKE 1 Univers NE 75 mcg 07-07 TABLET BY ity of tablet 00:00: 00:00 MOUTH ONCE [place] 00 :00 DAILY IN Medical THE [place] MORNING MONTELUKAST 2020-0 2020- No [id number] 10mg TAKE 1 Univers 10 mg 07-07 TABLET BY ity of tablet 00:00: 00:00 MOUTH AT [place] 00 :00 BEDTIME Medical Branch LEVOTHYROXI 2020-2020- No [id number] TAKE 1 Univers NE 75 mcg 07-07 TABLET BY ity of tablet 00:00: 00:00 MOUTH ONCE [place] 00 :00 DAILY IN Medical THE Branch MORNING ELIQUIS 5 2020- Yes Take 1 Univer s mg tablet 2-22 tablet by ity o f 00:00: mouth [place] 00 twice Medical daily Branch ELIQUIS 5 2020- Yes Take 1 Univer s mg tablet [...] No Take 1 Unive rs mg tablet 2- 05-21 tablet by ity of 00:00: 00:00 mouth [place] 00 :00 twice Medical daily Branch LEVOTHYROXI Yes [id number] TAKE 1 Univers NE 75 mcg 1-15 TABLET BY ity o f tablet 00:00: MOUTH ONCE 00 DAILY IN [facility] MORNING MONTELUKAST Yes [id number] 10mg TAKE 1 Univers 10 mg 1-15 TABLET BY ity of tablet 00:00: MOUTH AT [place] BEDTIME [facility] LEVOTHYROXI Yes [id number] TAKE 1 Univers NE 75 mcg 1-15 TABLET BY ity o f tablet 00:00: MOUTH ONCE [place] 00 DAILY IN [facility] MORNING MONTELUKAST Yes [id number] 10mg TAKE 1 Univers 10 mg 1-15 TABLET BY ity of tablet 00:00: MOUTH AT [place] BEDTIME [facility] LEVOTHYROXI Yes [id number] TAKE 1 Univers NE 75 mcg 1-15 TABLET BY ity o f tablet 00:00: MOUTH ONCE 00 DAILY IN [facility] MORNING MONTELUKAST Yes [id number] 10mg TAKE 1 Univers 10 mg 1-15 TABLET BY ity of tablet 00:00: MOUTH AT [place] BEDTIME [facility] LEVOTHYROXI Yes [id number] TAKE 1 Univers NE 75 mcg 1-15 TABLET BY ity o f tablet 00:00: MOUTH ONCE [place] 00 DAILY IN [facility] MORNING MONTELUKAST Yes [id number] 10mg TAKE 1 Univers 10 mg 1-15 TABLET BY ity of tablet 00:00: [facility] [place] [facility] MONTELUKAST 2020- No [id number] 10mg TAKE 1 Univers 10 mg 1-15 -07 TABLET BY ity of tablet 00:00: 00:00 MOUTH AT [place] 00 :00 BEDTIME [facility] LEVOTHYROXI 2020- No [id number] TAKE 1 Univers NE 75 mcg 1-15 04-07 TABLET BY ity of tablet 00:00: 00:00 MOUTH ONCE [place] 00 :00 DAILY IN Medical THE Branch MORNING fluticasone 2020- Yes [id number] 1{spray Use 1 Univers propionate 2-20 } [place] in ity o f (FLONASE) 00:00: each [place] 50 00 nostril Medical mcg/actuati daily. Branch on nasal spray fluticasone 2020- Yes [id number] 1{spray Use 1 Univers propionate 2-20 } [place] in ity o f (FLONASE) 00:00: each [place] 50 00 nostril Medical mcg/actuati daily. Branch on nasal spray fluticasone 2020- Yes [id number] 1{spray Use 1 Univers propionate 2-20 } [place] in ity o f (FLONASE) 00:00: each [place] 50 00 nostril Medical mcg/actuati daily. Branch on nasal spray fluticasone 2020- Yes [id number] 1{spray Use 1 Univers propionate 2-20 } [place] in ity o f (FLONASE) 00:00: each [place] 50 00 nostril Medical mcg/actuati daily. Branch on nasal spray fluticasone 2020- Yes [id number] 1{spray Use 1 Univers propionate 2-20 } [place] in ity o f (FLONASE) 00:00: each [place] 50 00 nostril Medical mcg/actuati daily. Branch on nasal spray fluticasone 2020- Yes [id number] 1{spray Use 1 Univers propionate 2-20 } [place] in ity o f (FLONASE) 00:00: each [place] 50 00 nostril Medical mcg/actuati daily. Branch on nasal spray fluticasone 2020- Yes [id number] 1{spray Use 1 Univers propionate 2-20 } [place] in ity o f (FLONASE) 00:00: each [place] 50 00 nostril Medical mcg/actuati daily. Branch on nasal spray fluticasone 2020- Yes [id number] 1{spray Use 1 Univers propionate 2-20 } [place] in ity o f (FLONASE) 00:00: each [place] 50 00 nostril Medical mcg/actuati daily. Branch on nasal spray fluticasone 2020- Yes [id number] 1{spray Use 1 [facility] propionate 2-20 } [place] in ity o f (FLONASE) 00:00: each [place] 50 00 nostril Medical mcg/actuati daily. Branch on nasal spray fluticasone 2020- Yes [id number] 1{spray Use 1 [facility] propionate 2-20 } [place] in ity o f (FLONASE) 00:00: each [place] 50 00 nostril Medical mcg/actuati daily. Branch on nasal spray fluticasone 2020- Yes [id number] 1{spray Use 1 [facility] propionate 2-20 } [place] in ity o f (FLONASE) 00:00: each [place] 50 00 nostril Medical mcg/actuati daily. Branch on nasal spray fluticasone 2020- Yes [id number] 1{spray Use 1 [facility] propionate 2-20 } [place] in ity o f (FLONASE) 00:00: each [place] 50 00 nostril Medical mcg/actuati daily. Branch on nasal spray fluticasone 2020- Yes [id number] 1{spray Use 1 [facility] propionate 2-20 } [place] in ity o f (FLONASE) 00:00: each [place] 50 00 nostril Medical mcg/actuati daily. Branch on nasal spray fluticasone 2020- Yes [id number] 1{spray Use 1 [facility] propionate 2-20 } [place] in ity o f (FLONASE) 00:00: each [place] [address] 00 nostril Medical mcg/actuati daily. Branch on nasal spray fluticasone 2020- Yes [id number] 1{spray Use 1 [facility] propionate 2-20 } [place] in ity o f (FLONASE) 00:00: each [place] 50 00 nostril Medical mcg/actuati daily. Branch on nasal spray fluticasone 2020- Yes [id number] 1{spray Use 1 [facility] propionate 2-20 } [place] in ity o f (FLONASE) 00:00: each [place] 50 00 nostril Medical mcg/actuati daily. Branch on nasal spray fluticasone 2020-1 Yes [id number] 1{spray Use 1 [facility] propionate 2-20 } [place] in ity o f (FLONASE) 00:00: each [place] 50 00 nostril Medical mcg/actuati daily. Branch on nasal spray fluticasone 2020- Yes [id number] 1{spray Use 1 [facility] propionate 2-20 } [place] in ity o f (FLONASE) 00:00: each [place] [address] 00 nostril Medical mcg/actuati daily. Branch on nasal spray fluticasone 2020- Yes [id number] 1{spray Use 1 [facility] propionate 2-20 } [place] in ity o f (FLONASE) 00:00: each [place] 50 00 nostril Medical mcg/actuati daily. Branch on nasal spray fluticasone 2020- Yes [id number] 1{spray Use 1 [facility] propionate 2-20 } [place] in ity o f (FLONASE) 00:00: each [place] [address] 00 nostril Medical mcg/actuati daily. Branch on nasal spray fluticasone 2020- Yes [id number] 1{spray Use 1 [facility] propionate 2-20 } [place] in ity o f (FLONASE) 00:00: each [place] [address] 00 nostril Medical mcg/actuati daily. Branch on nasal spray fluticasone 2020- Yes [id number] 1{spray Use 1 [facility] propionate 2-20 } [place] in ity o f (FLONASE) 00:00: each [place] [address] 00 nostril Medical mcg/actuati daily. Branch on nasal spray fluticasone 2020- Yes [id number] 1{spray Use 1 [facility] propionate 2-20 } [place] in ity o f (FLONASE) 00:00: each [place] [address] 00 nostril Medical mcg/actuati daily. Branch on nasal spray fluticasone 2020- Yes [id number] 1{spray Use 1 [facility] propionate 2-20 } [place] in ity o f (FLONASE) 00:00: each [place] [address] 00 nostril Medical mcg/actuati daily. Branch on nasal spray fluticasone 2020- Yes [id number] 1{spray Use 1 [facility] propionate 2-20 } [place] in ity o f (FLONASE) 00:00: each [place] [address] 00 nostril Medical mcg/actuati daily. Branch on nasal spray fluticasone 2020- Yes [id number] 1{spray Use 1 [facility] propionate 2-20 } [place] in ity o f (FLONASE) 00:00: each [place] [address] 00 nostril Medical mcg/actuati daily. Branch on nasal spray sotaloL 120 2019- Yes [id number] 120mg Take 1 [facility] mg tablet 1-16 tablet by ity o f 00:00: mouth 2 [place] (two) Medical times Branch daily. sotaloL 120 2019-04 Yes [id number] 120mg Take 1 [facility] mg tablet 1-16 tablet by ity o f 00:00: mouth 2 [place] 00 (two) Medical times Branch daily. sotaloL 120 2019-04 Yes [id number] 120mg Take 1 [facility] mg tablet 1-16 tablet by ity o f 00:00: mouth 2 [place] 00 (two) Medical times Branch daily. sotaloL 120 2019-04 Yes [id number] 120mg Take 1 [facility] mg tablet 1-16 tablet by ity o f 00:00: mouth 2 [place] 00 (two) Medical times Branch daily. sotaloL 120 2019-04 Yes [id number] 120mg Take 1 [facility] mg tablet 1-16 tablet by ity o f 00:00: mouth 2 [place] 00 (two) Medical times Branch daily. sotaloL 120 2019-04 Yes [id number] 120mg Take 1 [facility] mg tablet 1-16 tablet by ity o f 00:00: mouth 2 [place] 00 (two) Medical times Branch daily. sotaloL 120 2019-04- No [id number] 120mg Take 1 [facility] mg tablet 1-16 04-07 tablet by ity of 00:00: 00:00 mouth 2 [place] 00 :00 (two) Medical times Branch daily. diltiazem 2019-04 Yes 60mg Take 60 mg Un lali 60 mg 1-03 by mouth 3 ity of tablet 18:54: (three) [place] 55 times Medical daily. Branch diltiazem 2019-04 Yes 60mg Take 60 mg Un [facility] 60 mg 1-03 by mouth 3 ity of tablet 18:54: (three) [place] 55 times Medical daily. Branch diltiazem 2019-04 Yes 60mg Take 60 mg Un [facility] 60 mg 1-03 by mouth 3 ity of tablet 18:54: (three) [place] 55 times Medical daily. Branch diltiazem 2019-04 Yes 60mg Take 60 mg Un [facility] 60 mg 1-03 by mouth 3 ity of tablet 18:54: (three) [place] 55 times Medical daily. Branch diltiazem 2019-04 Yes 60mg Take 60 mg Un [facility] 60 mg 1-03 by mouth 3 ity of tablet 18:54: (three) [place] 55 times Medical daily. Branch diltiazem 2019-04 Yes 60mg Take 60 mg Un lali 60 mg 1-03 by mouth 3 ity of tablet 18:54: (three) [place] 55 times Medical daily. Branch diltiazem 2019-04 Yes 60mg Take 60 mg Un lali 60 mg 1-03 by mouth 3 ity of tablet 18:54: (three) [place] 55 times Medical daily. Branch diltiazem 2019-04 Yes 60mg Take 60 mg Un lali 60 mg 1-03 by mouth 3 ity of tablet 18:54: (three) [place] 55 times Medical daily. Branch carboxymeth 2019- Yes [id number] Patient [facility] ylcellulose 1-03 takes per ity of sodium 00:00: pharmacy [place] ophthalmic 00 Medical drops Branch carboxymeth 2020-1 Yes [id number] Patient [facility] ylcellulose 1-03 takes per ity of sodium 00:00: pharmacy [place] ophthalmic Medical drops Branch carboxymeth 2020-1 Yes [id number] Patient [facility] ylcellulose 1-03 takes per ity of sodium 00:00: pharmacy [place] ophthalmic Medical drops Branch carboxymeth 2020- Yes [id number] Patient [facility] ylcellulose 1-03 takes per ity of sodium 00:00: pharmacy [place] ophthalmic 00 Medical drops Branch carboxymeth 2020-1 Yes [id number] Patient [facility] ylcellulose 1-03 takes per ity of sodium 00:00: pharmacy [place] ophthalmic Medical drops Branch carboxymeth 2020-1 Yes [id number] Patient [facility] ylcellulose 1-03 takes per ity of sodium 00:00: pharmacy [place] ophthalmic Medical drops Branch carboxymeth 2020-1 Yes [id number] Patient [facility] ylcellulose 1-03 takes per ity of sodium 00:00: pharmacy [place] ophthalmic Medical drops Branch carboxymeth 2020-1 Yes [id number] Patient [facility] ylcellulose 1-03 takes per ity of sodium 00:00: pharmacy [place] ophthalmic Medical drops Branch carboxymeth 2020-2020- No [id number] Patient [facility] ylcellulose 1-03 04-19 takes per it y of sodium 00:00: 00:00 pharmacy [place] ophthalmic 00 :00 Medical drops Branch tc 2019-04 2020- No 45mCi 45 [facility] 99m-tetrofo 0-15 10-15 [place] i ty of smin 16:00: 15:53 , [place] (MYOVIEW) 00 :00 Intravenou Medi judah injection s, ONCE, 1 Bran ch 45 dose, [place] 01/14/20 at 1100, Routine Regadenoson 2020-1 2020- No PRN, Unive rs (LEXISCAN) 0-15 10-15 Starting ity of injection 15:51: 15:51 [place] 51 :51 01/15/20 Medical at 1051, Branch Until [place] 01/15/20 at 1051, Routine tc 2019-04 2020- No 16.1mCi 16.1 [facility] 99m-tetrofo 0-15 10-15 [place]ic[place] i ty of smin 14:00: 13:57 , [place] (MYOVIEW) 00 :00 Intravenou Medi judah injection s, ONCE, 1 Bran ch 16.1 dose, [place] 01/15/20 at 0900, Routine aspirin 81 2019-04 Yes 81mg Take 81 mg U nivers mg chewable 0-13 by mouth ity of tablet 15:43: daily. [address] folic 2019-04 Yes Take by [facility] acid/multiv 0-13 mouth. ity of it-min/lute 15:43: [place] in ([address] ORAL) vitamin C 2019-04 Yes 1000mg Take 1,000 [facility] with chioma 0-13 mg by ity of hips 15:43: mouth [place] (VITAMIN C) 54 daily. Medica l 1,000 mg Branch tablet aspirin 81 2019-04 Yes 81mg Take 81 mg U nivers mg chewable 0-13 by mouth ity of tablet 15:43: daily. [address] folic 2019-04 Yes Take by [facility] acid/multiv 0-13 mouth. ity of it-min/lute 15:43: [place] in ([address] ORAL) vitamin C 2019-04 Yes 1000mg Take 1,000 [facility] with chioma 0-13 mg by ity of hips 15:43: mouth [place] (VITAMIN C) 54 daily. Medica l 1,000 mg Branch tablet aspirin 81 2019- Yes 81mg Take 81 mg U nivers mg chewable 0-13 by mouth ity of tablet 15:43: daily. [address] folic 2020- Yes Take by [facility] acid/multiv 0-13 mouth. ity of it-min/lute 15:43: [place] in ([address] ORAL) vitamin C 2019- Yes 1000mg Take 1,000 [facility] with chioma 0-13 mg by ity of hips 15:43: mouth [place] (VITAMIN C) 54 daily. Medica l 1,000 mg Branch tablet aspirin 81 2020-1 Yes 81mg Take 81 mg U nivers mg chewable 0-13 by mouth ity of tablet 15:43: daily. [place] [address] Medical Branch folic 2020- Yes Take by [facility] acid/multiv 0-13 mouth. ity of it-min/lute 15:43: [place] in ([place] [address] Medical SILVER Branch ORAL) vitamin C 2020- Yes 1000mg Take 1,000 [facility] with chioma 0-13 mg by ity of hips 15:43: mouth [place] (VITAMIN C) 54 daily. Medica l 1,000 mg Branch tablet aspirin 81 2020- Yes 81mg Take 81 mg U nivers mg chewable 0-13 by mouth ity of tablet 15:43: daily. [place] [address] Medical Branch folic 2020- Yes Take by [facility] acid/multiv 0-13 mouth. ity of it-min/lute 15:43: [place] in ([place] [address] Medical SILVER Branch ORAL) vitamin C 2020- Yes 1000mg Take 1,000 [facility] with chioma 0-13 mg by ity of hips 15:43: mouth [place] (VITAMIN C) 54 daily. Medica l 1,000 mg Branch tablet aspirin 81 2020- Yes 81mg Take 81 mg U nivers mg chewable 0-13 by mouth ity of tablet 15:43: daily. [place] [address] Medical Branch folic 2020- Yes Take by [facility] acid/multiv 0-13 mouth. ity of it-min/lute 15:43: [place] in ([place] [address] Medical SILVER Branch ORAL) vitamin C 2020- Yes 1000mg Take 1,000 [facility] with chioma 0-13 mg by ity of hips 15:43: mouth [place] (VITAMIN C) 54 daily. Medica l 1,000 mg Branch tablet aspirin 81 2020-1 Yes 81mg Take 81 mg U nivers mg chewable 0-13 by mouth ity of tablet 15:43: daily. [place] [address] Medical Branch folic 2020- Yes Take by [facility] acid/multiv 0-13 mouth. ity of it-min/lute 15:43: [place] in ([facility] 54 Medical SILVER Branch ORAL) vitamin C 2020- Yes 1000mg Take 1,000 [facility] with chioma 0-13 mg by ity of hips 15:43: mouth [place] (VITAMIN C) 54 daily. Medica l 1,000 mg Branch tablet aspirin 81 2020-1 Yes 81mg Take 81 mg U nivers mg chewable 0-13 by mouth ity of tablet 15:43: daily. [place] [address] Medical Branch folic 2020- Yes Take by [facility] acid/multiv 0-13 mouth. ity of it-min/lute 15:43: [place] in ([place] [address] Medical SILVER Branch ORAL) vitamin C 2020- Yes 1000mg Take 1,000 [facility] with chioma 0-13 mg by ity of hips 15:43: mouth [place] (VITAMIN C) 54 daily. Medica l 1,000 mg Branch tablet folic 2020- Yes Take by [facility] acid/multiv 0-13 mouth. ity of it-min/lute 15:43: [place] in ([place] [address] Medical SILVER Branch ORAL) vitamin C 2020- Yes 1000mg Take 1,000 [facility] with chioma 0-13 mg by ity of hips 15:43: mouth [place] (VITAMIN C) 54 daily. Medica l 1,000 mg Branch tablet folic 2020- Yes Take by [facility] acid/multiv 0-13 mouth. ity of it-min/lute 15:43: [place] in ([place] [address] Medical SILVER Branch ORAL) vitamin C 2020- Yes 1000mg Take 1,000 [facility] with chioma 0-13 mg by ity of hips 15:43: mouth [place] (VITAMIN C) 54 daily. Medica l 1,000 mg Branch tablet folic 2020- Yes Take by [facility] acid/multiv 0-13 mouth. ity of it-min/lute 15:43: [place] in ([place] [address] Medical SILVER Branch ORAL) vitamin C 2020- Yes 1000mg Take 1,000 [facility] with chioma 0-13 mg by ity of hips 15:43: mouth [place] (VITAMIN C) 54 daily. Medica l 1,000 mg Branch tablet folic 2020-1 Yes Take by [facility] acid/multiv 0-13 mouth. ity of it-min/lute 15:43: [place] in ([place] [address] Medical SILVER Branch ORAL) vitamin C 2020-1 Yes 1000mg Take 1,000 [facility] with chioma 0-13 mg by ity of hips 15:43: mouth [place] (VITAMIN C) 54 daily. Medica l 1,000 mg Branch tablet folic 2020-1 Yes Take by [facility] acid/multiv 0-13 mouth. ity of it-min/lute 15:43: [place] in ([place] [address] Medical SILVER Branch ORAL) vitamin C 2020-1 Yes 1000mg Take 1,000 [facility] with chioma 0-13 mg by ity of hips 15:43: mouth [place] (VITAMIN C) 54 daily. Medica l 1,000 mg Branch tablet folic 2020- Yes Take by [facility] acid/multiv 0-13 mouth. ity of it-min/lute 15:43: [place] in ([place] [address] Medical SILVER Branch ORAL) vitamin C 2020- Yes 1000mg Take 1,000 [facility] with chioma 0-13 mg by ity of hips 15:43: mouth [place] (VITAMIN C) 54 daily. Medica l 1,000 mg Branch tablet folic 2020- Yes Take by [facility] acid/multiv 0-13 mouth. ity of it-min/lute 15:43: [place] in ([place] [address] Medical SILVER Branch ORAL) vitamin C 2020- Yes 1000mg Take 1,000 [facility] with chioma 0-13 mg by ity of hips 15:43: mouth [place] (VITAMIN C) 54 daily. Medica l 1,000 mg Branch tablet folic 2020- Yes Take by [facility] acid/multiv 0-13 mouth. ity of it-min/lute 15:43: [place] in ([place] [address] Medical SILVER Branch ORAL) vitamin C 2020- Yes 1000mg Take 1,000 [facility] with chioma 0-13 mg by ity of hips 15:43: mouth [place] (VITAMIN C) 54 daily. Medica l 1,000 mg Branch tablet folic 2020- Yes Take by [facility] acid/multiv 0-13 mouth. ity of it-min/lute 15:43: [place] in ([place] [address] Medical SILVER Branch ORAL) vitamin C 2020- Yes 1000mg Take 1,000 [facility] with chioma 0-13 mg by ity of hips 15:43: mouth [place] (VITAMIN C) 54 daily. Medica l 1,000 mg Branch tablet folic 2020- Yes Take by [facility] acid/multiv 0-13 mouth. ity of it-min/lute 15:43: [place] in ([place] [address] Medical SILVER Branch ORAL) vitamin C 2020- Yes 1000mg Take 1,000 [facility] with chioma 0-13 mg by ity of hips 15:43: mouth [place] (VITAMIN C) 54 daily. Medica l 1,000 mg Branch tablet aspirin 81 2020-1 Yes 81mg Take 81 mg U nivers mg chewable 0-13 by mouth ity of tablet 15:43: daily. [place] [address] Medical Branch folic 2020-1 Yes Take by Univers acid/multiv 0-13 mouth. ity of it-min/lute 15:43: [place] in ([place] [address] Medical SILVER Branch ORAL) vitamin C 2020- Yes 1000mg Take 1,000 [facility] with chioma 0-13 mg by ity of hips 15:43: mouth [place] (VITAMIN C) 54 daily. Medica l 1,000 mg Branch tablet aspirin 81 2019- Yes 81mg Take 81 mg U nivers mg chewable 0-13 by mouth ity of tablet 15:43: daily. [place] [address] Medical Branch folic 2019- Yes Take by [facility] acid/multiv 0-13 mouth. ity of it-min/lute 15:43: [place] in ([place] [address] Medical SILVER Branch ORAL) vitamin C 2019- Yes 1000mg Take 1,000 [facility] with chioma 0-13 mg by ity of hips 15:43: mouth [place] (VITAMIN C) 54 daily. Medica l 1,000 mg Branch tablet aspirin 81 2019- Yes 81mg Take 81 mg U nivers mg chewable 0-13 by mouth ity of tablet 15:43: daily. [place] [address] Medical Branch folic 2019- Yes Take by [facility] acid/multiv 0-13 mouth. ity of it-min/lute 15:43: [place] in ([place] [address] Medical SILVER Branch ORAL) vitamin C 2020- Yes 1000mg Take 1,000 [facility] with chioma 0-13 mg by ity of hips 15:43: mouth [place] (VITAMIN C) 54 daily. Medica l 1,000 mg Branch tablet aspirin 81 2019- Yes 81mg Take 81 mg U nivers mg chewable 0-13 by mouth ity of tablet 15:43: daily. [place] [address] Medical Branch folic 2020- Yes Take by Univers acid/multiv 0-13 mouth. ity of it-min/lute 15:43: [place] in ([place] [address] Medical SILVER Branch ORAL) vitamin C 2020- Yes 1000mg Take 1,000 [facility] with chioma 0-13 mg by ity of hips 15:43: mouth [place] (VITAMIN C) 54 daily. Medica l 1,000 mg Branch tablet aspirin 81 2020- Yes 81mg Take 81 mg U nivers mg chewable 0-13 by mouth ity of tablet 15:43: daily. [place] [address] Medical Branch folic 2020- Yes Take by Univers acid/multiv 0-13 mouth. ity of it-min/lute 15:43: [place] in ([place] [address] Medical SILVER Branch ORAL) vitamin C 2020- Yes 1000mg Take 1,000 [facility] with chioma 0-13 mg by ity of hips 15:43: mouth [place] (VITAMIN C) 54 daily. Medica l 1,000 mg Branch tablet aspirin 81 2020- Yes 81mg Take 81 mg U nivers mg chewable 0-13 by mouth ity of tablet 15:43: daily. [place] [address] Medical Branch folic 2019- Yes Take by Univers acid/multiv 0-13 mouth. ity of it-min/lute 15:43: [place] in ([place] [address] Medical SILVER Branch ORAL) vitamin C 2019-04 Yes 1000mg Take 1,000 [facility] with chioma 0-13 mg by ity of hips 15:43: mouth [place] (VITAMIN C) 54 daily. Medica l 1,000 mg Branch tablet aspirin 81 2019- Yes 81mg Take 81 mg U nivers mg chewable 0-13 by mouth ity of tablet 15:43: daily. [place] [address] Medical Branch folic 2019- Yes Take by Univers acid/multiv 0-13 mouth. ity of it-min/lute 15:43: [place] in ([place] [address] Medical SILVER Branch ORAL) vitamin C 2019-04 Yes 1000mg Take 1,000 [facility] with chioma 0-13 mg by ity of hips 15:43: mouth [place] (VITAMIN C) 54 daily. Medica l 1,000 mg Branch tablet aspirin 81 2019- Yes 81mg Take 81 mg U nivers mg chewable 0-13 by mouth ity of tablet 15:43: daily. [place] [address] Medical Branch folic 2019- Yes Take by Univers acid/multiv 0-13 mouth. ity of it-min/lute 15:43: [place] in ([place] [address] Medical SILVER Branch ORAL) vitamin C 2020- Yes 1000mg Take 1,000 [facility] with chioma 0-13 mg by ity of hips 15:43: mouth [place] (VITAMIN C) 54 daily. Medica l 1,000 mg Branch tablet aspirin 81 2020- Yes 81mg Take 81 mg U nivers mg chewable 0-13 by mouth ity of tablet 15:43: daily. [place] [address] Medical Branch folic 2020- Yes Take by Univers acid/multiv 0-13 mouth. ity of it-min/lute 15:43: [place] in ([place] [address] Medical SILVER Branch ORAL) vitamin C 2020- Yes 1000mg Take 1,000 [facility] with chioma 0-13 mg by ity of hips 15:43: mouth [place] (VITAMIN C) 54 daily. Medica l 1,000 mg Branch tablet aspirin 81 2020- Yes 81mg Take 81 mg U nivers mg chewable 0-13 by mouth ity of tablet 15:43: daily. [place] [address] Medical Branch folic 2019-04 Yes Take by Univers acid/multiv 0-13 mouth. ity of it-min/lute 15:43: [place] in ([place] [address] Medical SILVER Branch ORAL) vitamin C 2019- Yes 1000mg Take 1,000 [facility] with chioma 0-13 mg by ity of hips 15:43: mouth [place] (VITAMIN C) 54 daily. Medica l 1,000 mg Branch tablet aspirin 81 2019- Yes 81mg Take 81 mg U nivers mg chewable 0-13 by mouth ity of tablet 15:43: daily. [address] Branch folic 2019-04 Yes Take by Univers acid/multiv 0-13 mouth. ity of it-min/lute 15:43: [place] in ([place] [address] Medical SILVER Branch ORAL) vitamin C 2019- Yes 1000mg Take 1,000 [facility] with chioma 0-13 mg by ity of hips 15:43: mouth [place] (VITAMIN C) 54 daily. Medica l 1,000 mg Branch tablet aspirin 81 2019- Yes 81mg Take 81 mg U nivers mg chewable 0-13 by mouth ity of tablet 15:43: daily. [address] Branch folic 2019- Yes Take by Univers acid/multiv 0-13 mouth. ity of it-min/lute 15:43: [place] in ([place] [address] Medical SILVER Branch ORAL) vitamin C 2020- Yes 1000mg Take 1,000 [facility] with chioma 0-13 mg by ity of hips 15:43: mouth [place] (VITAMIN C) 54 daily. Medica l 1,000 mg Branch tablet aspirin 81 2020- Yes 81mg Take 81 mg U nivers mg chewable 0-13 by mouth ity of tablet 15:43: daily. [address] Branch folic 2019- Yes Take by Univers acid/multiv 0-13 mouth. ity of it-min/lute 15:43: [place] in ([place] [address] Medical [place] Branch ORAL) vitamin C 2020-1 Yes 1000mg Take 1,000 [facility] with chioma 0-13 mg by ity of hips 15:43: mouth [place] (VITAMIN C) 54 daily. Medica l 1,000 mg Branch tablet folic 2020-1 Yes Take by Univers acid/multiv 0-13 mouth. ity of it-min/lute 10:43: [place] in ([place] [address] Medical SILVER Branch ORAL) vitamin C 2020- Yes 1000mg Take 1,000 [facility] with chioma 0-13 mg by ity of hips 10:43: mouth [place] (VITAMIN C) 54 daily. Medica l 1,000 mg Branch tablet folic 2020-1 Yes Take by [facility] acid/multiv 0-13 mouth. ity of it-min/lute 10:43: [place] in ([facility] 54 Medical SILVER Branch ORAL) vitamin C 2020- Yes 1000mg Take 1,000 [facility] with chioma 0-13 mg by ity of hips 10:43: mouth [place] (VITAMIN C) 54 daily. Medica l 1,000 mg Branch tablet folic 2020-1 Yes Take by Univers acid/multiv 0-13 mouth. ity of it-min/lute 10:43: [place] in ([facility] 54 Medical SILVER Branch ORAL) vitamin C 2020- Yes 1000mg Take 1,000 [facility] with chioma 0-13 mg by ity of hips 10:43: mouth [place] (VITAMIN C) 54 daily. Medica l 1,000 mg Branch tablet folic 2020-1 Yes Take by [facility] acid/multiv 0-13 mouth. ity of it-min/lute 10:43: [place] in ([place] [address] Medical SILVER Branch ORAL) vitamin C 2020- Yes 1000mg Take 1,000 [facility] with chioma 0-13 mg by ity of hips 10:43: mouth [place] (VITAMIN C) 54 daily. Medica l 1,000 mg Branch tablet folic 2020-1 Yes Take by [facility] acid/multiv 0-13 mouth. ity of it-min/lute 10:43: [place] in ([facility] 54 Medical SILVER Branch ORAL) vitamin C 2020-1 Yes 1000mg Take 1,000 [facility] with chioma 0-13 mg by ity of hips 10:43: mouth [place] (VITAMIN C) 54 daily. Medica l 1,000 mg Branch tablet folic 2020-1 Yes Take by [facility] acid/multiv 0-13 mouth. ity of it-min/lute 10:43: [place] in ([facility] 54 Medical SILVER Branch ORAL) vitamin C 2020- Yes 1000mg Take 1,000 Univers with chioma 0-13 mg by ity of hips 10:43: mouth [place] (VITAMIN C) 54 daily. Medica l 1,000 mg Branch tablet folic 2019- Yes Take by [facility] acid/multiv 0-13 mouth. ity of it-min/lute 10:43: [place] in ([address] ORAL) vitamin C 2020- Yes 1000mg Take 1,000 Univers with chioma 0-13 mg by ity of hips 10:43: mouth [place] (VITAMIN C) 54 daily. Medica l 1,000 mg Branch tablet folic 2019- Yes Take by Univers acid/multiv 0-13 mouth. ity of it-min/lute 10:43: [place] in ([address] ORAL) vitamin C 2019- Yes 1000mg Take 1,000 [facility] with chioma 0-13 mg by ity of hips 10:43: mouth [place] (VITAMIN C) 54 daily. Medica l 1,000 mg Branch tablet folic 2019- Yes Take by [facility] acid/multiv 0-13 mouth. ity of it-min/lute 10:43: [place] in ([address] ORAL) vitamin C 2019- Yes 1000mg Take 1,000 Univers with chioma 0-13 mg by ity of hips 10:43: mouth [place] (VITAMIN C) 54 daily. Medica l 1,000 mg Branch tablet folic 2019- Yes Take by Univers acid/multiv 0-13 mouth. ity of it-min/lute 10:43: [place] in ([address] ORAL) vitamin C 2019- Yes 1000mg Take 1,000 Univers with chioma 0-13 mg by ity of hips 10:43: mouth [place] (VITAMIN C) 54 daily. Medica l 1,000 mg Branch tablet fluconazole 2020- Yes [id number] 150mg Take 1 [facility] 150 mg 0-05 tablet by ity of tablet 00:00: mouth [place] 00 every 72 Medical ([facility] Branch wo) hours. Take 1 pill every 3 days for 2 weeks. omeprazole 2020- Yes [id number] 20mg Take 1 Univers 20 mg 0-05 capsule by ity of capsule 00:00: mouth [place] 00 daily. Medical Branch glipiZIDE 5 2020- Yes [id number] 2.5mg Take 0.5 [facility] mg tablet 0-05 tablets by ity of 00:00: mouth [place] 00 daily. Medical Branch fluconazole 2020- Yes [id number] 150mg Take 1 [facility] 150 mg 0-05 tablet by ity of tablet 00:00: mouth [place] 00 [facility] 72 [facility]. Take 1 pill every 3 days for 2 weeks. omeprazole 2019-04 Yes [id number] 20mg Take 1 [facility] 20 mg 0-05 capsule by ity of capsule 00:00: mouth [place] 00 daily. Medical Branch glipiZIDE 5 2019-04 Yes [id number] 2.5mg Take 0.5 [facility] mg tablet 0-05 tablets by ity of 00:00: mouth [place] 00 daily. Medical Branch fluconazole 2019-04 Yes [id number] 150mg Take 1 [facility] 150 mg 0-05 tablet by ity of tablet 00:00: mouth [place] 00 every 72 [facility]. Take 1 pill every 3 days for 2 weeks. omeprazole 2019-04 Yes [id number] 20mg Take 1 [facility] 20 mg 0-05 capsule by ity of capsule 00:00: mouth [place] 00 daily. Medical Branch glipiZIDE 5 2019-04 Yes [id number] 2.5mg Take 0.5 [facility] mg tablet 0-05 tablets by ity of 00:00: mouth [place] 00 daily. Medical Branch omeprazole 2019-04 Yes [id number] 20mg Take 1 [facility] 20 mg 0-05 capsule by ity of capsule 00:00: mouth [place] 00 daily. Medical Branch glipiZIDE 5 2019-04 Yes [id number] 2.5mg Take 0.5 [facility] mg tablet 0-05 tablets by ity of 00:00: mouth [place] 00 daily. Medical Branch omeprazole 2019-04 Yes [id number] 20mg Take 1 [facility] 20 mg 0-05 capsule by ity of capsule 00:00: mouth [place] 00 daily. Medical Branch glipiZIDE 5 2019-04 Yes [id number] 2.5mg Take 0.5 [facility] mg tablet 0-05 tablets by ity of 00:00: mouth [place] 00 daily. Medical Branch omeprazole 2019-04 Yes [id number] 20mg Take 1 [facility] 20 mg 0-05 capsule by [facility] capsule 00:00: mouth [place] 00 daily. [facility] glipiZIDE 5 2019-04 Yes [id number] 2.5mg Take 0.5 [facility] mg tablet 0-05 tablets by it[facility] of 00:00: mouth [place] 00 daily. [facility] omeprazole 2020- Yes [id number] 20mg Take 1 [facility] 20 mg 0-05 capsule by [facility] of capsule 00:00: mouth [place] 00 daily. [facility] glipiZIDE 5 2019-04 Yes [id number] 2.5mg Take 0.5 [facility] mg tablet 0-05 tablets by it[facility] of 00:00: mouth [place] 00 daily. [facility] omeprazole 2019- Yes [id number] 20mg Take 1 [facility] 20 mg 0-05 capsule by [facility] of capsule 00:00: mouth [place] 00 daily. [facility] glipiZIDE 5 2019-04 Yes [id number] 2.5mg Take 0.5 [facility] mg tablet 0-05 tablets by it[facility] of 00:00: mouth [place] 00 daily. [facility] omeprazole 2019- Yes [id number] 20mg Take 1 [facility] 20 mg 0-05 capsule by [facility] of capsule 00:00: mouth [place] 00 daily. [facility] glipiZIDE 5 2019-04 Yes [id number] 2.5mg Take 0.5 [facility] mg tablet 0-05 tablets by it[facility] of 00:00: mouth [place] 00 daily. [facility] omeprazole 2019-04 Yes [id number] 20mg Take 1 [facility] 20 mg 0-05 capsule by [facility] of capsule 00:00: mouth [place] 00 daily. [facility] glipiZIDE 5 2019-04 Yes [id number] 2.5mg Take 0.5 [facility] mg tablet 0-05 tablets by ity of 00:00: mouth [place] 00 daily. [facility] omeprazole 2020- Yes [id number] 20mg Take 1 [facility] 20 mg 0-05 capsule by [facility] of capsule 00:00: mouth [place] 00 daily. [facility] glipiZIDE 5 2019- Yes [id number] 2.5mg Take 0.5 [facility] mg tablet 0-05 tablets by ity of 00:00: mouth [place] 00 daily. [facility] omeprazole 2020- Yes [id number] 20mg Take 1 [facility] 20 mg 0-05 capsule by it[facility] of capsule 00:00: mouth [place] 00 daily. [facility] glipiZIDE 5 2019-04 Yes [id number] 2.5mg Take 0.5 [facility] mg tablet 0-05 tablets by ity of 00:00: mouth [place] 00 daily. [facility] omeprazole 2019- Yes [id number] 20mg Take 1 [facility] 20 mg 0-05 capsule by it[facility] of capsule 00:00: mouth [place] 00 daily. [facility] glipiZIDE 5 2019- Yes [id number] 2.5mg Take 0.5 [facility] mg tablet 0-05 tablets by ity of 00:00: mouth [place] 00 daily. [facility] omeprazole 2019- Yes [id number] 20mg Take 1 [facility] 20 mg 0-05 capsule by it[facility] of capsule 00:00: mouth [place] 00 daily. [facility] glipiZIDE 5 2019- Yes [id number] 2.5mg Take 0.5 [facility] mg tablet 0-05 tablets by ity of 00:00: mouth [place] 00 daily. [facility] omeprazole 2019- Yes [id number] 20mg Take 1 [facility] 20 mg 0-05 capsule by it[facility] of capsule 00:00: mouth [place] 00 daily. [facility] Branch fluconazole 2019- Yes [id number] 150mg Take 1 [facility] 150 mg 0-05 tablet by ity of tablet 00:00: mouth [place] 00 every 72 Medical ([facility] wo) hours. Take 1 pill every 3 days for 2 weeks. omeprazole 2019- Yes [id number] 20mg Take 1 [facility] 20 mg 0-05 capsule by it[facility] of capsule 00:00: mouth [place] 00 daily. [facility] glipiZIDE 5 2019- Yes [id number] 2.5mg Take 0.5 [facility] mg tablet 0-05 tablets by ity of 00:00: mouth [place] 00 daily. [facility] Branch fluconazole 2019- Yes [id number] 150mg Take 1 [facility] 150 mg 0-05 tablet by ity of tablet 00:00: mouth [place] 00 every 72 Medical ([facility] wo) hours. Take 1 pill every 3 days for 2 weeks. omeprazole 2019- Yes [id number] 20mg Take 1 [facility] 20 mg 0-05 capsule by ity of capsule 00:00: mouth [place] 00 daily. [facility] glipiZIDE 5 2019- Yes [id number] 2.5mg Take 0.5 [facility] mg tablet 0-05 tablets by ity of 00:00: mouth [place] 00 daily. Medical Branch fluconazole 2019- Yes [id number] 150mg Take 1 [facility] 150 mg 0-05 tablet by ity of tablet 00:00: mouth [place] 00 every 72 Medical ([facility] wo) hours. Take 1 pill every 3 days for 2 weeks. omeprazole 2020- Yes [id number] 20mg Take 1 [facility] 20 mg 0-05 capsule by ity of capsule 00:00: mouth [place] 00 daily. Medical Branch glipiZIDE 5 2019- Yes [id number] 2.5mg Take 0.5 [facility] mg tablet 0-05 tablets by ity of 00:00: mouth [place] 00 daily. Medical Branch fluconazole 2020- Yes [id number] 150mg Take 1 [facility] 150 mg 0-05 tablet by ity of tablet 00:00: mouth [place] 00 every 72 Medical ([facility] wo) hours. Take 1 pill every 3 days for 2 weeks. omeprazole 2019- Yes [id number] 20mg Take 1 [facility] 20 mg 0-05 capsule by ity of capsule 00:00: mouth [place] 00 daily. Medical Branch glipiZIDE 5 2019- Yes [id number] 2.5mg Take 0.5 [facility] mg tablet 0-05 tablets by ity of 00:00: mouth [place] 00 daily. Medical Branch fluconazole 2020- Yes [id number] 150mg Take 1 [facility] 150 mg 0-05 tablet by ity of tablet 00:00: mouth [place] 00 every 72 Medical ([facility] wo) hours. Take 1 pill every 3 days for 2 weeks. omeprazole 2019- Yes [id number] 20mg Take 1 [facility] 20 mg 0-05 capsule by ity of capsule 00:00: mouth [place] 00 daily. Medical [facility] glipiZIDE 5 2019- Yes [id number] 2.5mg Take 0.5 [facility] mg tablet 0-05 tablets by ity of 00:00: mouth [place] 00 daily. Medical Branch fluconazole 2020- Yes [id number] 150mg Take 1 [facility] 150 mg 0-05 tablet by ity of tablet 00:00: mouth [place] 00 every 72 Medical ([facility] wo) hours. Take 1 pill every 3 days for 2 weeks. omeprazole 2019- Yes [id number] 20mg Take 1 [facility] 20 mg 0-05 capsule by ity of capsule 00:00: mouth [place] 00 daily. Medical Branch glipiZIDE 5 2019- Yes [id number] 2.5mg Take 0.5 [facility] mg tablet 0-05 tablets by ity of 00:00: mouth [place] 00 daily. Medical Branch fluconazole 2019- Yes [id number] 150mg Take 1 [facility] 150 mg 0-05 tablet by ity of tablet 00:00: mouth [place] 00 every 72 Medical ([facility] wo) hours. Take 1 pill every 3 days for 2 weeks. omeprazole 2019- Yes [id number] 20mg Take 1 [facility] 20 mg 0-05 capsule by ity of capsule 00:00: mouth [place] 00 daily. Medical Branch glipiZIDE 5 2019-04 Yes [id number] 2.5mg Take 0.5 [facility] mg tablet 0-05 tablets by ity of 00:00: mouth [place] 00 daily. Medical Branch fluconazole 2019- Yes [id number] 150mg Take 1 [facility] 150 mg 0-05 tablet by ity of tablet 00:00: mouth [place] 00 every 72 Medical ([facility] wo) hours. Take 1 pill every 3 days for 2 weeks. omeprazole 2019- Yes [id number] 20mg Take 1 [facility] 20 mg 0-05 capsule by ity of capsule 00:00: mouth [place] 00 daily. Medical Branch glipiZIDE 5 2019-04 Yes [id number] 2.5mg Take 0.5 [facility] mg tablet 0-05 tablets by ity of 00:00: mouth [place] 00 daily. Medical Branch fluconazole 2019- Yes [id number] 150mg Take 1 [facility] 150 mg 0-05 tablet by ity of tablet 00:00: mouth [place] 00 every 72 Medical ([facility] wo) hours. Take 1 pill every 3 days for 2 weeks. omeprazole 2019- Yes [id number] 20mg Take 1 [facility] 20 mg 0-05 capsule by ity of capsule 00:00: mouth [place] 00 daily. [facility] Branch glipiZIDE 5 2019- Yes [id number] 2.5mg Take 0.5 [facility] mg tablet 0-05 tablets by ity of 00:00: mouth [place] 00 daily. Medical Branch fluconazole 2020- Yes [id number] 150mg Take 1 [facility] 150 mg 0-05 tablet by ity of tablet 00:00: mouth [place] 00 every 72 Medical ([facility] wo) hours. Take 1 pill every 3 days for 2 weeks. omeprazole 2019- Yes [id number] 20mg Take 1 [facility] 20 mg 0-05 capsule by ity of capsule 00:00: mouth [place] 00 daily. Medical Branch glipiZIDE 5 2019- Yes [id number] 2.5mg Take 0.5 [facility] mg tablet 0-05 tablets by ity of 00:00: mouth [place] 00 daily. Medical Branch fluconazole 2020- Yes [id number] 150mg Take 1 [facility] 150 mg 0-05 tablet by ity of tablet 00:00: mouth [place] 00 every 72 Medical ([facility]) hours. Take 1 pill every 3 days for 2 weeks. omeprazole 2019- Yes [id number] 20mg Take 1 [facility] 20 mg 0-05 capsule by ity of capsule 00:00: mouth [place] 00 daily. Medical Branch glipiZIDE 5 2019-04 Yes [id number] 2.5mg Take 0.5 [facility] mg tablet 0-05 tablets by ity of 00:00: mouth [place] 00 daily. Medical Branch fluconazole 2019- Yes [id number] 150mg Take 1 [facility] 150 mg 0-05 tablet by ity of tablet 00:00: mouth [place] 00 every 72 Medical ([facility]) hours. Take 1 pill every 3 days for 2 weeks. omeprazole 2019-04 Yes [id number] 20mg Take 1 [facility] 20 mg 0-05 capsule by ity of capsule 00:00: mouth [place] 00 daily. Medical Branch glipiZIDE 5 2019-04 Yes [id number] 2.5mg Take 0.5 [facility] mg tablet 0-05 tablets by ity of 00:00: mouth [place] 00 daily. Medical Branch fluconazole 2019- Yes [id number] 150mg Take 1 [facility] 150 mg 0-05 tablet by ity of tablet 00:00: mouth [place] 00 every 72 Medical ([facility] wo) hours. Take 1 pill every 3 days for 2 weeks. omeprazole 2019- Yes [id number] 20mg Take 1 [facility] 20 mg 0-05 capsule by ity of capsule 00:00: mouth [place] 00 daily. [facility] Branch glipiZIDE 5 2019-04 Yes [id number] 2.5mg Take 0.5 [facility] mg tablet 0-05 tablets by ity of 00:00: mouth [place] 00 daily. Medical Branch fluconazole 2019- Yes [id number] 150mg Take 1 [facility] 150 mg 0-05 tablet by ity of tablet 00:00: mouth [place] 00 every 72 Medical ([facility] wo) hours. Take 1 pill every 3 days for 2 weeks. omeprazole 2019- Yes [id number] 20mg Take 1 [facility] 20 mg 0-05 capsule by ity of capsule 00:00: mouth [place] 00 daily. Medical Branch glipiZIDE 5 2019-04 Yes [id number] 2.5mg Take 0.5 [facility] mg tablet 0-05 tablets by ity of 00:00: mouth [place] 00 daily. Medical Branch fluconazole 2019- Yes [id number] 150mg Take 1 [facility] 150 mg 0-05 tablet by ity of tablet 00:00: mouth [place] 00 every 72 Medical ([facility] wo) hours. Take 1 pill every 3 days for 2 weeks. omeprazole 2019-04 Yes [id number] 20mg Take 1 [facility] 20 mg 0-05 capsule by ity of capsule 00:00: mouth [place] 00 daily. Medical Branch glipiZIDE 5 2019-04 Yes [id number] 2.5mg Take 0.5 [facility] mg tablet 0-05 tablets by ity of 00:00: mouth [place] 00 daily. Medical Branch fluconazole 2019-04 Yes [id number] 150mg Take 1 [facility] 150 mg 0-05 tablet by ity of tablet 00:00: mouth [place] 00 every 72 Medical ([facility] wo) hours. Take 1 pill every 3 days for 2 weeks. omeprazole 2019-04 Yes [id number] 20mg Take 1 [facility] 20 mg 0-05 capsule by ity of capsule 00:00: mouth [place] 00 daily. Medical Branch glipiZIDE 5 2019-04 Yes [id number] 2.5mg Take 0.5 [facility] mg tablet 0-05 tablets by ity of 00:00: mouth [place] 00 daily. Medical Branch fluconazole 2019- Yes [id number] 150mg Take 1 [facility] 150 mg 0-05 tablet by ity of tablet 00:00: mouth [place] 00 every 72 Medical ([facility] wo) hours. Take 1 pill every 3 days for 2 weeks. omeprazole 2019-04 Yes [id number] 20mg Take 1 [facility] 20 mg 0-05 capsule by ity of capsule 00:00: mouth [place] 00 daily. Medical Branch glipiZIDE 5 2019-04 Yes [id number] 2.5mg Take 0.5 [facility] mg tablet 0-05 tablets by ity of 00:00: mouth [place] 00 daily. Medical Branch omeprazole 2019-04- No [id number] 20mg Take 1 [facility] 20 mg 0-05 - capsule by ity of capsule 00:00: 00:00 mouth [place] 00 :00 daily. [facility] Branch glipiZIDE 5 2019-04- No [id number] 2.5mg Take 0.5 [facility] mg tablet 0-05 10-07 tablets by ity of 00:00: 00:00 mouth [place] 00 :00 daily. [facility] Branch fluconazole 2019-04- No [id number] 150mg Take 1 [facility] 150 mg 0-05 04-07 tablet by ity of tablet 00:00: 00:00 mouth [place] 00 :00 every 72 Medical ([facility] wo) hours. Take 1 pill every 3 days for 2 weeks. aspirin 81 2020-0 Yes 81mg Take 81 mg U n[facility] mg chewable 7-21 by mouth ity of tablet 19:14: daily. [address] aspirin 81 2020-0 Yes 81mg Take 81 mg U nivers mg chewable 7-21 by mouth ity of tablet 19:14: daily. [address] aspirin 81 2020-0 Yes 81mg Take 81 mg U nivers mg chewable 7-21 by mouth ity of tablet 19:14: daily. [address] aspirin 81 2020-0 Yes 81mg Take 81 mg U nivers mg chewable 7-21 by mouth ity of tablet 19:14: daily. [address] aspirin 81 2020-0 Yes 81mg Take 81 mg U nivers mg chewable 7-21 by mouth ity of tablet 19:14: daily. [address] aspirin 81 2020-0 Yes 81mg Take 81 mg U nivers mg chewable 7-21 by mouth ity of tablet 19:14: daily. [address] aspirin 81 2020-0 Yes 81mg Take 81 mg U nivers mg chewable 7-21 by mouth ity of tablet 19:14: daily. [address] aspirin 81 2020-0 Yes 81mg Take 81 mg U nivers mg chewable 7-21 by mouth ity of tablet 19:14: daily. [address] aspirin 81 2020-0 Yes 81mg Take 81 mg U nivers mg chewable 7-21 by mouth ity of tablet 19:14: daily. [address] aspirin 81 2020-0 Yes 81mg Take 81 mg U nivers mg chewable 7-21 by mouth ity of tablet 19:14: daily. [address] aspirin 81 2020-0 Yes 81mg Take 81 mg U nivers mg chewable 7-21 by mouth ity of tablet 19:14: daily. [place] [address] Medical Branch aspirin 81 2020-0 Yes 81mg Take 81 mg U nivers mg chewable 7-21 by mouth ity of tablet 19:14: daily. [place] [address] Medical Branch glipiZIDE 5 2020-0 Yes [id number] 2.5mg Take 0.5 [facility] mg tablet 7-21 tablets by ity of 00:00: mouth [place] 00 daily. Medical Branch glipiZIDE 5 2020-0 Yes [id number] 2.5mg Take 0.5 [facility] mg tablet 7-21 tablets by ity of 00:00: mouth [place] 00 daily. Medical Branch glipiZIDE 5 2020-0 Yes [id number] 2.5mg Take 0.5 [facility] mg tablet 7-21 tablets by ity of 00:00: mouth [place] 00 daily. Medical Branch glipiZIDE 5 2020-0 Yes [id number] 2.5mg Take 0.5 [facility] mg tablet 7-21 tablets by ity of 00:00: mouth [place] 00 daily. Medical Branch glipiZIDE 5 2020-0 Yes [id number] 2.5mg Take 0.5 [facility] mg tablet 7-21 tablets by ity of 00:00: mouth [place] 00 daily. Medical Branch glipiZIDE 5 2020-0 Yes [id number] 2.5mg Take 0.5 [facility] mg tablet 7-21 tablets by ity of 00:00: mouth [place] 00 daily. Medical Branch glipiZIDE 5 2020-0 Yes [id number] 2.5mg Take 0.5 [facility] mg tablet 7-21 tablets by ity of 00:00: mouth [place] 00 daily. Medical Branch glipiZIDE 5 2020-0 Yes [id number] 2.5mg Take 0.5 [facility] mg tablet 7-21 tablets by ity of 00:00: mouth [place] 00 daily. Medical Branch glipiZIDE 5 2020-0 Yes [id number] 2.5mg Take 0.5 [facility] mg tablet 7-21 tablets by ity of 00:00: mouth [place] 00 daily. Medical Branch glipiZIDE 5 2020-0 2020- No [id number] 2.5mg Take 0.5 [facility] mg tablet 7-21 10-05 tablets by ity of 00:00: 00:00 mouth [place] 00 :00 daily. Medical Branch glipiZIDE 5 2019-0 2020- No [id number] 2.5mg Take 0.5 [facility] mg tablet 10-20 10-05 tablets by ity of 00:00: 00:00 mouth [place] 00 :00 daily. Medical Branch fluconazole 2019-0 2020- No [id number] 150mg Take 1 [facility] 150 mg 7-20 10-22 tablet by ity of tablet 00:00: 04:59 mouth [place] 00 :00 now for 1 Medical dose. Then Branch take a 2nd dose if needed 72 hours later for yeast infection. fluconazole 2019-0 2020- No [id number] 150mg Take 1 [facility] 150 mg -20 10- tablet by ity of tablet 00:00: 04:59 mouth [place] 00 :00 now for 1 Medical dose. Then Branch take a 2nd dose if needed 72 hours later for yeast infection. levothyroxi 2020-0 2020- No 75ug Take 75 Un lali ne 75 mcg 7-20 07-20 mcg by ity of tablet 13:38: 00:00 mouth [place] 13 :00 every Medical morning. Branch levothyroxi 2019-0 2020- No 75ug Take 75 Un [place] ne 75 mcg 7-20 07-20 mcg by ity of tablet 13:38: 00:00 mouth [place] 13 :00 every Medical morning. Branch levothyroxi 2020-0 Yes [id number] 75ug Take 1 [facility] ne 75 mcg 7-20 tablet by ity o f tablet 00:00: mouth [place] 00 every Medical morning. Branch levothyroxi 2020-0 Yes [id number] 75ug Take 1 [facility] ne 75 mcg 7-20 tablet by ity o f tablet 00:00: mouth [place] 00 every Medical morning. Branch levothyroxi 2020-0 Yes [id number] 75ug Take 1 [facility] ne 75 mcg 7-20 tablet by ity o f tablet 00:00: mouth [place] 00 every Medical morning. Branch levothyroxi 2020-0 Yes [id number] 75ug Take 1 [facility] ne 75 mcg 7-20 tablet by ity o f tablet 00:00: mouth [place] 00 every Medical morning. Branch levothyroxi 2020-0 Yes [id number] 75ug Take 1 [facility] ne 75 mcg 7-20 tablet by ity o f tablet 00:00: mouth [place] 00 every Medical morning. Branch levothyroxi 2020-0 Yes [id number] 75ug Take 1 [facility] ne 75 mcg 7-20 tablet by ity o f tablet 00:00: mouth [place] 00 every Medical morning. Branch levothyroxi 2020-0 Yes [id number] 75ug Take 1 [facility] ne 75 mcg 7-20 tablet by ity o f tablet 00:00: mouth [place] 00 every Medical morning. Branch levothyroxi 2020-0 Yes [id number] 75ug Take 1 [facility] ne 75 mcg 7-20 tablet by ity o f tablet 00:00: mouth [place] 00 every Medical morning. Branch levothyroxi 2020-0 Yes [id number] 75ug Take 1 [facility] ne 75 mcg 7-20 tablet by ity o f tablet 00:00: mouth [place] 00 every Medical morning. Branch levothyroxi 2020-0 Yes [id number] 75ug Take 1 [facility] ne 75 mcg 7-20 tablet by ity o f tablet 00:00: mouth [place] 00 every Medical morning. Branch levothyroxi 2020-0 Yes [id number] 75ug Take 1 [facility] ne 75 mcg 7-20 tablet by ity o f tablet 00:00: mouth [place] 00 every Medical morning. Branch levothyroxi 2020-0 Yes [id number] 75ug Take 1 [facility] ne 75 mcg 7-20 tablet by ity o f tablet 00:00: mouth [place] 00 every Medical morning. Branch levothyroxi 2020-0 Yes [id number] 75ug Take 1 [facility] ne 75 mcg 7-20 tablet by ity o f tablet 00:00: mouth [place] 00 every Medical morning. Branch levothyroxi 2020-0 Yes [id number] 75ug Take 1 [facility] ne 75 mcg 7-20 tablet by ity o f tablet 00:00: mouth [place] 00 every Medical morning. Branch levothyroxi 2020-0 Yes [id number] 75ug Take 1 [facility] ne 75 mcg 7-20 tablet by ity o f tablet 00:00: mouth [place] 00 every Medical morning. Branch levothyroxi 2020-0 Yes [id number] 75ug Take 1 [facility] ne 75 mcg 7-20 tablet by ity o f tablet 00:00: mouth [place] 00 every Medical morning. Branch levothyroxi 2020-0 Yes [id number] 75ug Take 1 [facility] ne 75 mcg 7-20 tablet by ity o f tablet 00:00: mouth [place] 00 every Medical morning. Branch levothyroxi 2020-0 Yes [id number] 75ug Take 1 [facility] ne 75 mcg 7-20 tablet by ity o f tablet 00:00: mouth [place] 00 every Medical morning. Branch levothyroxi 2020-0 Yes [id number] 75ug Take 1 [facility] ne 75 mcg 7-20 tablet by ity o f tablet 00:00: mouth [place] 00 every Medical morning. Branch levothyroxi 2020-0 Yes [id number] 75ug Take 1 [facility] ne 75 mcg 7-20 tablet by ity o f tablet 00:00: mouth [place] 00 every Medical morning. Branch levothyroxi 2020-0 Yes [id number] 75ug Take 1 [facility] ne 75 mcg 7-20 tablet by ity o f tablet 00:00: mouth [place] 00 every Medical morning. Branch levothyroxi 2020-0 Yes [id number] 75ug Take 1 [facility] ne 75 mcg 7-20 tablet by ity o f tablet 00:00: mouth [place] 00 every Medical morning. Branch levothyroxi 2020-0 Yes [id number] 75ug Take 1 [facility] ne 75 mcg 7-20 tablet by ity o f tablet 00:00: mouth [place] 00 every Medical morning. Branch levothyroxi 2020-0 Yes [id number] 75ug Take 1 [facility] ne 75 mcg 7-20 tablet by ity o f tablet 00:00: mouth [place] 00 every Medical morning. Branch levothyroxi 2020-0 Yes [id number] 75ug Take 1 [facility] ne 75 mcg 7-20 tablet by ity o f tablet 00:00: mouth [place] 00 every Medical morning. Branch levothyroxi 2020-0 Yes [id number] 75ug Take 1 [facility] ne 75 mcg 7-20 tablet by ity o f tablet 00:00: mouth [place] 00 every Medical morning. Branch levothyroxi 2020-0 2020- No [id number] 75ug Take 1 [facility] ne 75 mcg 7-20 01-15 tablet by ity of tablet 00:00: 00:00 mouth [place] 00 :00 every Medical morning. [place] sotalol 120 2019-0 2020- No [id number] 120mg Take 120 [facility] mg tablet 7-14 07-14 mg by ity of 13:42: 00:00 mouth 2 [place] 34 :00 (two) Medical times Branch daily. sotalol 120 2019-0 2019- No [id number] 120mg Take 120 [facility] mg tablet 7-14 07-14 mg by ity of 13:42: 00:00 mouth 2 [place] 34 :00 (two) Medical times Branch daily. fluticasone 2020-0 2020- No 1{spray Use 1 U nivers (FLONASE) 7-14 07-08 } [place] in ity o f 50 13:42: 00:00 each [place] mcg/actuati 34 :00 nostril Medic al on nasal daily. Branch spray fluticasone 2020-0 2020- No 1{spray Use 1 U nivers (FLONASE) 7-14 07-08 } [place] in ity o f 50 13:42: 00:00 each [place] mcg/actuati 34 :00 nostril Medic al on nasal daily. Branch spray sotalol 120 2020-0 Yes [id number] 120mg Take 1 [facility] mg tablet 7-14 tablet by ity o f 00:00: mouth 2 [place] (two) Medical times Branch daily. montelukast 2020-0 Yes [id number] 10mg Take 1 [facility] 10 mg 7-14 tablet by ity of tablet 00:00: mouth at [place] [address] bedtime. Medical Branch fluticasone 2020-0 Yes [id number] 1{spray Use 1 [facility] propionate 7-14 } [place] in ity o f (FLONASE) 00:00: each [place] 50 00 nostril Medical mcg/actuati daily. Branch on nasal spray sotalol 120 2020-0 Yes [id number] 120mg Take 1 [facility] mg tablet 7-14 tablet by ity o f 00:00: mouth 2 [place] 00 (two) Medical times Branch daily. montelukast 2020-0 Yes [id number] 10mg Take 1 [facility] 10 mg 7-14 tablet by ity of tablet 00:00: mouth at [place] 00 bedtime. Medical Branch fluticasone 2020-0 Yes [id number] 1{spray Use 1 [facility] propionate 7-14 } [place] in ity o f (FLONASE) 00:00: each [place] 50 00 nostril Medical mcg/actuati daily. Branch on nasal spray sotalol 120 2020-0 Yes [id number] 120mg Take 1 [facility] mg tablet 7-14 tablet by ity o f 00:00: mouth 2 [place] 00 (two) Medical times Branch daily. montelukast 2020-0 Yes [id number] 10mg Take 1 [facility] 10 mg 7-14 tablet by ity of tablet 00:00: mouth at [place] 00 bedtime. Medical Branch fluticasone 2020-0 Yes [id number] 1{spray Use 1 [facility] propionate 7-14 } [place] in ity o f (FLONASE) 00:00: each [place] 50 00 nostril Medical mcg/actuati daily. Branch on nasal spray sotalol 120 2020-0 Yes [id number] 120mg Take 1 [facility] mg tablet 7-14 tablet by ity o f 00:00: mouth 2 [place] (two) Medical times Branch daily. montelukast 2020-0 Yes [id number] 10mg Take 1 [facility] 10 mg 7-14 tablet by ity of tablet 00:00: mouth at [place] 00 bedtime. Medical Branch fluticasone 2020-0 Yes [id number] 1{spray Use 1 [facility] propionate 7-14 } [place] in ity o f (FLONASE) 00:00: each [place] 50 00 nostril Medical mcg/actuati daily. Branch on nasal spray sotalol 120 2020-0 Yes [id number] 120mg Take 1 [facility] mg tablet 7-14 tablet by ity o f 00:00: mouth 2 [place] (two) Medical times Branch daily. montelukast 2020-0 Yes [id number] 10mg Take 1 [facility] 10 mg 7-14 tablet by ity of tablet 00:00: mouth at [place] 00 bedtime. Medical Branch fluticasone 2020-0 Yes [id number] 1{spray Use 1 [facility] propionate 7-14 } [place] in ity o f (FLONASE) 00:00: each [place] [address] 00 nostril Medical mcg/actuati daily. Branch on nasal spray sotalol 120 2020-0 Yes [id number] 120mg Take 1 [facility] mg tablet 7-14 tablet by ity o f 00:00: mouth 2 [place] [address] (two) Medical times Branch daily. montelukast 2020-0 Yes [id number] 10mg Take 1 [facility] 10 mg 7-14 tablet by ity of tablet 00:00: mouth at [place] 00 bedtime. Medical Branch fluticasone 2020-0 Yes [id number] 1{spray Use 1 [facility] propionate 7-14 } [place] in ity o f (FLONASE) 00:00: each [place] 50 00 nostril Medical mcg/actuati daily. Branch on nasal spray sotalol 120 2020-0 Yes [id number] 120mg Take 1 [facility] mg tablet 7-14 tablet by ity o f 00:00: mouth 2 [place] [address] (two) Medical times Branch daily. montelukast 2020-0 Yes [id number] 10mg Take 1 [facility] 10 mg 7-14 tablet by ity of tablet 00:00: mouth at [place] 00 bedtime. Medical Branch fluticasone 2020-0 Yes [id number] 1{spray Use 1 [facility] propionate 7-14 } [place] in ity o f (FLONASE) 00:00: each [place] 50 00 nostril Medical mcg/actuati daily. Branch on nasal spray sotalol 120 2020-0 Yes [id number] 120mg Take 1 [facility] mg tablet 7-14 tablet by ity o f 00:00: mouth 2 [place] [address] (two) Medical times Branch daily. montelukast 2020-0 Yes [id number] 10mg Take 1 [facility] 10 mg 7-14 tablet by ity of tablet 00:00: mouth at [place] [address] bedtime. Medical Branch fluticasone 2020-0 Yes [id number] 1{spray Use 1 [facility] propionate 7-14 } [place] in ity o f (FLONASE) 00:00: each [place] [address] 00 nostril Medical mcg/actuati daily. Branch on nasal spray sotalol 120 2020-0 Yes [id number] 120mg Take 1 [facility] mg tablet 7-14 tablet by ity o f 00:00: mouth 2 [place] (two) Medical times Branch daily. montelukast 2020-0 Yes [id number] 10mg Take 1 [facility] 10 mg 7-14 tablet by ity of tablet 00:00: mouth at [place] [address] bedtime. Medical Branch fluticasone 2020-0 Yes [id number] 1{spray Use 1 [facility] propionate 7-14 } [place] in ity o f (FLONASE) 00:00: each [place] [address] 00 nostril Medical mcg/actuati daily. Branch on nasal spray sotalol 120 2020-0 Yes [id number] 120mg Take 1 [facility] mg tablet 7-14 tablet by ity o f 00:00: mouth 2 [place] (two) Medical times Branch daily. montelukast 2020-0 Yes [id number] 10mg Take 1 [facility] 10 mg 7-14 tablet by ity of tablet 00:00: mouth at [place] [address] bedtime. Medical Branch fluticasone 2020-0 Yes [id number] 1{spray Use 1 [facility] propionate 7-14 } [place] in ity o f (FLONASE) 00:00: each [place] 50 00 nostril Medical mcg/actuati daily. Branch on nasal spray sotalol 120 2020-0 Yes [id number] 120mg Take 1 [facility] mg tablet 7-14 tablet by ity o f 00:00: mouth 2 [place] (two) Medical times Branch daily. montelukast 2020-0 Yes [id number] 10mg Take 1 [facility] 10 mg 7-14 tablet by ity of tablet 00:00: mouth at [place] 00 bedtime. Medical Branch fluticasone 2020-0 Yes [id number] 1{spray Use 1 [facility] propionate 7-14 } [place] in ity o f (FLONASE) 00:00: each [place] 50 00 nostril Medical mcg/actuati daily. Branch on nasal spray sotalol 120 2020-0 Yes [id number] 120mg Take 1 [facility] mg tablet 7-14 tablet by ity o f 00:00: mouth 2 [place] (two) Medical times Branch daily. montelukast 2020-0 Yes [id number] 10mg Take 1 [facility] 10 mg 7-14 tablet by ity of tablet 00:00: mouth at [place] [address] bedtime. Medical Branch fluticasone 2020-0 Yes [id number] 1{spray Use 1 [facility] propionate 7-14 } [place] in ity o f (FLONASE) 00:00: each [place] [address] 00 nostril Medical mcg/actuati daily. Branch on nasal spray sotalol 120 2020-0 Yes [id number] 120mg Take 1 [facility] mg tablet 7-14 tablet by ity o f 00:00: mouth 2 [place] (two) Medical times Branch daily. montelukast 2020-0 Yes [id number] 10mg Take 1 [facility] 10 mg 7-14 tablet by ity of tablet 00:00: mouth at [place] 00 bedtime. Medical Branch fluticasone 2020-0 Yes [id number] 1{spray Use 1 [facility] propionate 7-14 } [place] in ity o f (FLONASE) 00:00: each [place] 50 00 nostril Medical mcg/actuati daily. Branch on nasal spray sotalol 120 2020-0 Yes [id number] 120mg Take 1 [facility] mg tablet 7-14 tablet by ity o f 00:00: mouth 2 [place] [address] (two) Medical times Branch daily. montelukast 2020-0 Yes [id number] 10mg Take 1 [facility] 10 mg 7-14 tablet by ity of tablet 00:00: mouth at [place] [address] bedtime. Medical Branch fluticasone 2020-0 Yes [id number] 1{spray Use 1 [facility] propionate 7-14 } [place] in ity o f (FLONASE) 00:00: each [place] [address] 00 nostril Medical mcg/actuati daily. Branch on nasal spray sotalol 120 2020-0 Yes [id number] 120mg Take 1 [facility] mg tablet 7-14 tablet by ity o f 00:00: mouth 2 [place] [address] (two) Medical times Branch daily. montelukast 2020-0 Yes [id number] 10mg Take 1 [facility] 10 mg 7-14 tablet by ity of tablet 00:00: mouth at [place] 00 bedtime. Medical Branch fluticasone 2020-0 Yes [id number] 1{spray Use 1 [facility] propionate 7-14 } [place] in ity o f (FLONASE) 00:00: each [place] [address] 00 nostril Medical mcg/actuati daily. Branch on nasal spray sotalol 120 2020-0 Yes [id number] 120mg Take 1 [facility] mg tablet 7-14 tablet by ity o f 00:00: mouth 2 [place] [address] (two) Medical times Branch daily. montelukast 2020-0 Yes [id number] 10mg Take 1 [facility] 10 mg 7-14 tablet by ity of tablet 00:00: mouth at [place] [address] bedtime. Medical Branch fluticasone 2020-0 Yes [id number] 1{spray Use 1 [facility] propionate 7-14 } [place] in ity o f (FLONASE) 00:00: each [place] [address] 00 nostril Medical mcg/actuati daily. Branch on nasal spray sotalol 120 2020-0 Yes [id number] 120mg Take 1 [facility] mg tablet 7-14 tablet by ity o f 00:00: mouth 2 [place] [address] (two) Medical times Branch daily. montelukast 2020-0 Yes [id number] 10mg Take 1 [facility] 10 mg 7-14 tablet by ity of tablet 00:00: mouth at [place] 00 bedtime. Medical Branch fluticasone 2020-0 Yes [id number] 1{spray Use 1 [facility] propionate 7-14 } [place] in ity o f (FLONASE) 00:00: each [place] 50 00 nostril Medical mcg/actuati daily. Branch on nasal spray sotalol 120 2020-0 Yes [id number] 120mg Take 1 [facility] mg tablet 7-14 tablet by ity o f 00:00: mouth 2 [place] (two) Medical times Branch daily. montelukast 2020-0 Yes [id number] 10mg Take 1 [facility] 10 mg 7-14 tablet by ity of tablet 00:00: mouth at [place] 00 bedtime. Medical Branch fluticasone 2020-0 Yes [id number] 1{spray Use 1 [facility] propionate 7-14 } [place] in ity o f (FLONASE) 00:00: each [place] [address] 00 nostril Medical mcg/actuati daily. Branch on nasal spray sotalol 120 2020-0 Yes [id number] 120mg Take 1 [facility] mg tablet 7-14 tablet by ity o f 00:00: mouth 2 [place] (two) Medical times Branch daily. montelukast 2020-0 Yes [id number] 10mg Take 1 [facility] 10 mg 7-14 tablet by ity of tablet 00:00: mouth at [place] [address] bedtime. Medical Branch fluticasone 2020-0 Yes [id number] 1{spray Use 1 [facility] propionate 7-14 } [place] in ity o f (FLONASE) 00:00: each [place] [address] 00 nostril Medical mcg/actuati daily. Branch on nasal spray sotalol 120 2020-0 Yes [id number] 120mg Take 1 [facility] mg tablet 7-14 tablet by ity o f 00:00: mouth 2 [place] (two) Medical times Branch daily. montelukast 2020-0 Yes [id number] 10mg Take 1 [facility] 10 mg 7-14 tablet by ity of tablet 00:00: mouth at [place] [address] bedtime. Medical Branch fluticasone 2020-0 Yes [id number] 1{spray Use 1 [facility] propionate 7-14 } [place] in ity o f (FLONASE) 00:00: each [place] 50 00 nostril Medical mcg/actuati daily. Branch on nasal spray sotalol 120 2020-0 Yes [id number] 120mg Take 1 [facility] mg tablet 7-14 tablet by ity o f 00:00: mouth 2 [place] [address] (two) Medical times Branch daily. montelukast 2020-0 Yes [id number] 10mg Take 1 [facility] 10 mg 7-14 tablet by ity of tablet 00:00: mouth at [place] [address] bedtime. Medical Branch fluticasone 2020-0 Yes [id number] 1{spray Use 1 [facility] propionate 7-14 } [place] in ity o f (FLONASE) 00:00: each 50 00 nostril Medical mcg/actuati daily. Branch on nasal spray sotalol 120 2020-0 Yes [id number] 120mg Take 1 [facility] mg tablet 7-14 tablet by ity o f 00:00: mouth 2 [place] (two) Medical times Branch daily. montelukast 2020-0 Yes [id number] 10mg Take 1 [facility] 10 mg 7-14 tablet by ity of tablet 00:00: mouth at [place] 00 bedtime. Medical Branch fluticasone 2020-0 Yes [id number] 1{spray Use 1 [facility] propionate 7-14 } [place] in ity o f (FLONASE) 00:00: each [place] 50 00 nostril Medical mcg/actuati daily. Branch on nasal spray sotalol 120 2020-0 Yes [id number] 120mg Take 1 [facility] mg tablet 7-14 tablet by ity o f 00:00: mouth 2 [place] (two) Medical times Branch daily. montelukast 2020-0 Yes [id number] 10mg Take 1 [facility] 10 mg 7-14 tablet by ity of tablet 00:00: mouth at [place] 00 bedtime. Medical Branch fluticasone 2020-0 Yes [id number] 1{spray Use 1 [facility] propionate 7-14 } [place] in ity o f (FLONASE) 00:00: each [place] 50 00 nostril Medical mcg/actuati daily. Branch on nasal spray sotalol 120 2020-0 Yes [id number] 120mg Take 1 [facility] mg tablet 7-14 tablet by ity o f 00:00: mouth 2 [place] [address] (two) Medical times Branch daily. montelukast 2020-0 Yes [id number] 10mg Take 1 [facility] 10 mg 7-14 tablet by ity of tablet 00:00: mouth at [place] 00 bedtime. Medical Branch fluticasone 2020-0 Yes [id number] 1{spray Use 1 [facility] propionate 7-14 } [place] in ity o f (FLONASE) 00:00: each [place] 50 00 nostril Medical mcg/actuati daily. Branch on nasal spray sotalol 120 2020-0 Yes [id number] 120mg Take 1 [facility] mg tablet 7-14 tablet by ity o f 00:00: mouth 2 [place] [address] (two) Medical times Branch daily. montelukast 2020-0 Yes [id number] 10mg Take 1 [facility] 10 mg 7-14 tablet by ity of tablet 00:00: mouth at [place] 00 bedtime. Medical Branch fluticasone 2020-0 Yes [id number] 1{spray Use 1 [facility] propionate 7-14 } [place] in ity o f (FLONASE) 00:00: each [place] 50 00 nostril Medical mcg/actuati daily. Branch on nasal spray sotalol 120 2020-0 Yes [id number] 120mg Take 1 [facility] mg tablet 7-14 tablet by ity o f 00:00: mouth 2 [place] 00 (two) Medical times Branch daily. montelukast 2020-0 Yes [id number] 10mg Take 1 [facility] 10 mg 7-14 tablet by ity of tablet 00:00: mouth at [place] 00 bedtime. Medical Branch fluticasone 2020-0 Yes [id number] 1{spray Use 1 [facility] propionate 7-14 } [place] in ity o f (FLONASE) 00:00: each [place] 50 00 nostril Medical mcg/actuati daily. Branch on nasal spray sotalol 120 2020-0 Yes [id number] 120mg Take 1 [facility] mg tablet 7-14 tablet by ity o f 00:00: mouth 2 [place] [address] (two) Medical times Branch daily. montelukast 2020-0 Yes [id number] 10mg Take 1 [facility] 10 mg 7-14 tablet by ity of tablet 00:00: mouth at [place] 00 bedtime. Medical Branch fluticasone 2020-0 Yes [id number] 1{spray Use 1 [facility] propionate 7-14 } [place] in ity o f (FLONASE) 00:00: each [place] 50 00 nostril Medical mcg/actuati daily. Branch on nasal spray montelukast 2020-0 Yes [id number] 10mg Take 1 [facility] 10 mg 7-14 tablet by ity of tablet 00:00: mouth at [place] 00 bedtime. Medical Branch fluticasone 2020-0 Yes [id number] 1{spray Use 1 [facility] propionate 7-14 } [place] in ity o f (FLONASE) 00:00: each [place] 50 00 nostril Medical mcg/actuati daily. Branch on nasal spray montelukast 2020-0 Yes [id number] 10mg Take 1 [facility] 10 mg 7-14 tablet by ity of tablet 00:00: mouth at [place] 00 bedtime. Medical Branch fluticasone 2020-0 No [id number] 1{spray Use 1 [facility] propionate 7-14 } [place] in ity o f (FLONASE) 00:00: each [place] 50 00 nostril Medical mcg/actuati daily. Branch on nasal spray montelukast 2020- No [id number] 10mg Take 1 [facility] 10 mg 7-14 01-15 tablet by ity of tablet 00:00: 00:00 mouth at [place] 00 :00 bedtime. Medical Branch sotalol 120 2019- No [id number] 120mg Take 1 [facility] mg tablet 7-14 11-16 tablet by ity of 00:00: 00:00 mouth 2 [place] 00 :00 (two) Medical times Branch daily. atorvastati Yes [id number] 40mg Take 1 [facility] n 40 mg 6-25 tablet by ity of tablet 00:00: mouth at [place] 00 bedtime. Medical Branch atorvastati Yes [id number] 40mg Take 1 [facility] n 40 mg 6-25 tablet by ity of tablet 00:00: mouth at [place] 00 bedtime. Medical Branch atorvastati Yes [id number] 40mg Take 1 [facility] n 40 mg 6-25 tablet by ity of tablet 00:00: mouth at [place] 00 bedtime. Medical Branch atorvastati Yes [id number] 40mg Take 1 [facility] n 40 mg 6-25 tablet by ity of tablet 00:00: mouth at [place] 00 bedtime. Medical Branch atorvastati 2019- Yes [id number] 40mg Take 1 [facility] n 40 mg 6-25 tablet by ity of tablet 00:00: mouth at [place] 00 bedtime. Medical Branch atorvastati Yes [id number] 40mg Take 1 [facility] n 40 mg 6-25 tablet by ity of tablet 00:00: mouth at [place] 00 bedtime. Medical Branch atorvastati 2019- Yes [id number] 40mg Take 1 [facility] n 40 mg 6-25 tablet by ity of tablet 00:00: mouth at [place] 00 bedtime. Medical Branch atorvastati Yes [id number] 40mg Take 1 [facility] n 40 mg 6-25 tablet by ity of tablet 00:00: mouth at [place] 00 bedtime. Medical Branch atorvastati Yes [id number] 40mg Take 1 [facility] n 40 mg 6-25 tablet by ity of tablet 00:00: mouth at [place] 00 bedtime. Medical Branch atorvastati 2020-0 Yes [id number] 40mg Take 1 [facility] n 40 mg 6-25 tablet by ity of tablet 00:00: mouth at [place] bedtime. Medical Branch atorvastati 2020-0 Yes [id number] 40mg Take 1 [facility] n 40 mg 6-25 tablet by ity of tablet 00:00: mouth at [place] bedtime. Medical Branch atorvastati 2020-0 Yes [id number] 40mg Take 1 [facility] n 40 mg 6-25 tablet by ity of tablet 00:00: mouth at [place] bedtime. Medical Branch atorvastati 2020-0 Yes [id number] 40mg Take 1 [facility] n 40 mg 6-25 tablet by ity of tablet 00:00: mouth at [place] bedtime. Medical Branch atorvastati 2020-0 Yes [id number] 40mg Take 1 [facility] n 40 mg 6-25 tablet by ity of tablet 00:00: mouth at [place] [address] bedtime. Medical Branch atorvastati 2019-0 Yes [id number] 40mg Take 1 [facility] n 40 mg 6-25 tablet by ity of tablet 00:00: mouth at [place] [address] bedtime. Medical Branch atorvastati 2020-0 Yes [id number] 40mg Take 1 [facility] n 40 mg 6-25 tablet by ity of tablet 00:00: mouth at [place] [address] bedtime. Medical Branch atorvastati 2020-0 Yes [id number] 40mg Take 1 [facility] n 40 mg 6-25 tablet by ity of tablet 00:00: mouth at [place] [address] bedtime. Medical Branch atorvastati 2020-0 Yes [id number] 40mg Take 1 [facility] n 40 mg 6-25 tablet by ity of tablet 00:00: mouth at [place] [address] bedtime. Medical Branch atorvastati 2020-0 Yes [id number] 40mg Take 1 [facility] n 40 mg 6-25 tablet by ity of tablet 00:00: mouth at [place] [address] bedtime. Medical Branch atorvastati 2020-0 Yes [id number] 40mg Take 1 [facility] n 40 mg 6-25 tablet by ity of tablet 00:00: mouth at [place] [address] bedtime. Medical Branch atorvastati 2020-0 Yes [id number] 40mg Take 1 [facility] n 40 mg 6-25 tablet by ity of tablet 00:00: mouth at [place] 00 bedtime. Medical Branch atorvastati 2020-0 Yes [id number] 40mg Take 1 [facility] n 40 mg 6-25 tablet by ity of tablet 00:00: mouth at [place] bedtime. Medical Branch atorvastati 2020-0 Yes [id number] 40mg Take 1 [facility] n 40 mg 6-25 tablet by ity of tablet 00:00: mouth at [place] bedtime. Medical Branch atorvastati 2020-0 Yes [id number] 40mg Take 1 [facility] n 40 mg 6-25 tablet by ity of tablet 00:00: mouth at [place] bedtime. Medical Branch atorvastati 2020-0 Yes [id number] 40mg Take 1 [facility] n 40 mg 6-25 tablet by ity of tablet 00:00: mouth at [place] bedtime. Medical Branch atorvastati 2020-0 Yes [id number] 40mg Take 1 [facility] n 40 mg 6-25 tablet by ity of tablet 00:00: mouth at [place] bedtime. Medical Branch atorvastati 2020-0 Yes [id number] 40mg Take 1 [facility] n 40 mg 6-25 tablet by ity of tablet 00:00: mouth at [place] bedtime. Medical Branch atorvastati 2020-0 Yes [id number] 40mg Take 1 [facility] n 40 mg 6-25 tablet by ity of tablet 00:00: mouth at [place] bedtime. Medical Branch atorvastati 2020-0 Yes [id number] 40mg Take 1 [facility] n 40 mg 6-25 tablet by ity of tablet 00:00: mouth at [place] [address] bedtime. Medical Branch atorvastati 2020-0 Yes [id number] 40mg Take 1 [facility] n 40 mg 6-25 tablet by ity of tablet 00:00: mouth at [place] bedtime. Medical Branch atorvastati 2020-0 Yes [id number] 40mg Take 1 [facility] n 40 mg 6-25 tablet by ity of tablet 00:00: mouth at [place] [address] bedtime. Medical Branch atorvastati 2020-0 Yes [id number] 40mg Take 1 [facility] n 40 mg 6-25 tablet by ity of tablet 00:00: mouth at [place] 00 bedtime. Medical Branch atorvastati 2020-0 Yes [id number] 40mg Take 1 [facility] n 40 mg 6-25 tablet by ity of tablet 00:00: mouth at [place] [address] bedtime. Medical Branch atorvastati 2019-0 Yes [id number] 40mg Take 1 [facility] n 40 mg 6-25 tablet by ity of tablet 00:00: mouth at [place] [address] bedtime. Medical Branch atorvastati 2019-0 Yes [id number] 40mg Take 1 [facility] n 40 mg 6-25 tablet by ity of tablet 00:00: mouth at [place] [address] bedtime. Medical Branch atorvastati 2019-0 Yes [id number] 40mg Take 1 [facility] n 40 mg 6-25 tablet by ity of tablet 00:00: mouth at [place] [address] bedtime. Medical Branch atorvastati 2019-0 Yes [id number] 40mg Take 1 [facility] n 40 mg 6-25 tablet by ity of tablet 00:00: mouth at [place] [address] bedtime. Medical Branch atorvastati 2019-0 Yes [id number] 40mg Take 1 [facility] n 40 mg 6-25 tablet by ity of tablet 00:00: mouth at [place] [address] bedtime. Medical Branch atorvastati 2019-0 Yes [id number] 40mg Take 1 [facility] n 40 mg 6-25 tablet by ity of tablet 00:00: mouth at [place] [address] bedtime. Medical Branch atorvastati 2019-0 Yes [id number] 40mg Take 1 [facility] n 40 mg 6-25 tablet by ity of tablet 00:00: mouth at [place] [address] bedtime. Medical Branch atorvastati 2019-0 Yes [id number] 40mg Take 1 [facility] n 40 mg 6-25 tablet by ity of tablet 00:00: mouth at [place] [address] bedtime. Medical Branch atorvastati 2019-0 2020- No [id number] 40mg Take 1 [facility] n 40 mg 6-25 04-19 tablet by ity of tablet 00:00: 00:00 mouth at [place] 00 :00 bedtime. Medical Branch apixaban 2019-0 2019- No 5mg Take 5 mg [facility] vers (ELIQUIS) 09-10 by mouth 2 ity of 2.5 mg 15:46: 00:00 (two) [place] tablet 23 :00 times Medical daily. Branch apixaban 2019- No 5mg Take 5 mg [facility] vers [...] ity of mg tablet 00:00: mouth 2 00 (two) Medical times Branch daily. Indication [...] a type or abnormal heart beat apixaban 2019-0 2020- No [id number] 5mg Take 1 [facility] (ELIQUIS) 5 6-11 02- tablet by it y of mg tablet 00:00: 00:00 mouth 2 [place] 00 :[place] (two) Medical times Branch daily. Indication s: atrial arrhythmia , a type or abnormal heart beat aspirin 81 2020-0 Yes 81mg Take 81 mg [facility] mg chewable 6-04 by mouth ity of tablet 14:17: daily. [address] Branch aspirin 81 2020-0 Yes 81mg Take 81 mg [facility] nivers mg chewable 6-04 by mouth ity of tablet 14:17: daily. [address] aspirin 81 2020-0 Yes 81mg Take 81 mg [facility] nivers mg chewable 6-04 by mouth ity of tablet 14:17: daily. [address] aspirin 81 2020-0 Yes 81mg Take 81 mg [facility] n[facility] mg chewable 6-04 by mouth ity of tablet 14:17: daily. [address] Branch aspirin 81 2020-0 Yes 81mg Take 81 mg [facility] n[facility] mg chewable 6-04 by mouth ity of tablet 14:17: daily. [address] Branch aspirin 81 2020-0 Yes 81mg Take 81 mg [facility] n[facility] mg chewable 6-04 by mouth ity of tablet 14:17: daily. [address] aspirin 81 2020-0 Yes 81mg Take 81 mg [facility] n[facility] mg chewable 6-04 by mouth ity of tablet 14:17: daily. [address] Branch aspirin 81 2020-0 Yes 81mg Take 81 mg [facility] n[facility] mg chewable 6-04 by mouth ity of tablet 14:17: daily. [address] Branch aspirin 81 2020-0 Yes 81mg Take 81 mg [facility] n[facility] mg chewable 6-04 by mouth ity of tablet 14:17: daily. [address] Branch aspirin 81 2020-0 Yes 81mg Take 81 mg [facility] mg chewable 6-04 by mouth ity of tablet 14:17: daily. [address] aspirin 81 2020-0 Yes 81mg Take 81 mg [facility] mg chewable 6-04 by mouth ity of tablet 14:17: daily. [address] aspirin 81 2020-0 Yes 81mg Take 81 mg [facility] n[facility] mg chewable 6-04 by mouth ity of tablet 14:17: daily. [address] Branch aspirin 81 2020-0 Yes 81mg Take 81 mg U nivers mg chewable 6-04 by mouth ity of tablet 14:17: daily. [address] aspirin 81 2020-0 Yes 81mg Take 81 mg [facility] n[facility] mg chewable 6-04 by mouth ity of tablet 14:17: daily. [address] aspirin 81 2020-0 Yes 81mg Take 81 mg [facility] n[facility] mg chewable 6-04 by mouth ity of tablet 14:17: daily. [address] aspirin 81 2020-0 Yes 81mg Take 81 mg U nivers mg chewable 6-04 by mouth ity of tablet 14:17: daily. [address] aspirin 81 2020-0 Yes 81mg Take 81 mg U nivers mg chewable 6-04 by mouth ity of tablet 14:17: daily. [address] apixaban 2020-0 Yes 5mg Take 5 mg [...] Medical daily. Branch sotalol 120 2020-0 Yes [id number] 120mg Take 120 [facility] mg tablet 6-04 mg by ity of 14:17: mouth 2 [place] 27 (two) Medical times Branch daily. sotalol 120 2020-0 Yes [id number] 120mg Take 120 [facility] mg tablet 6-04 mg by ity of 14:17: mouth 2 [place] 27 (two) Medical times Branch daily. sotalol 120 2020-0 Yes [id number] 120mg Take 120 [facility] mg tablet 6-04 mg by ity of 14:17: mouth 2 [place] [address] (two) Medical times Branch daily. sotalol 120 2020-0 Yes [id number] 120mg Take 120 [facility] mg tablet 6-04 mg by ity of 14:17: mouth 2 [place] [address] (two) Medical times Branch daily. sotalol 120 2020-0 Yes [id number] 120mg Take 120 [facility] mg tablet 6-04 mg by ity of 14:17: mouth 2 [place] [address] [facility] Medical times Branch daily. sotalol 120 2020-0 Yes [id number] 120mg Take 120 [facility] mg tablet 6-04 mg by ity of 14:17: mouth 2 [place] [address] (two) Medical times Branch daily. sotalol 120 2020-0 Yes [id number] 120mg Take 120 [facility] mg tablet 6-04 mg by ity of 14:17: mouth 2 [place] [address] (two) Medical times Branch daily. sotalol 120 2020-0 Yes [id number] 120mg Take 120 [facility] mg tablet 6-04 mg by ity of 14:17: mouth [address] [place] [address] ([facility] Medical times Branch daily. sotalol 120 2020-0 Yes [id number] 120mg Take 120 [facility] mg tablet 6-04 mg by ity of 14:17: mouth [address] [place] [address] ([facility]) Medical times Branch daily. sotalol 120 2020-0 Yes [id number] 120mg Take 120 [facility] mg tablet 6-04 mg by ity of 14:17: mouth [address] [place] [address] (two) Medical times Branch daily. sotalol 120 2020-0 Yes [id number] 120mg Take 120 [facility] mg tablet 6-04 mg by ity of 14:17: mouth [address] [place] [address] ([facility] Medical times Branch daily. sotalol 120 2020-0 Yes [id number] 120mg Take 120 [facility] mg tablet 6-04 mg by ity of 14:17: mouth [address] [place] [address] (two) Medical times Branch daily. sotalol 120 2020-0 Yes [id number] 120mg Take 120 [facility] mg tablet 6-04 mg by ity of 14:17: mouth [address] [place] [address] (two) Medical times Branch daily. diltiazem 2020-0 2020- No [id number] 60mg Take 1 [facility] 60 mg 6-04 09-03 tablet by ity of tablet 00:00: 04:59 mouth [place] 00 :00 every 8 Medical (eight) Branch hours for 90 days. diltiazem 2020-0 2020- No [id number] 60mg Take 1 [facility] 60 mg 6-04 09-03 tablet by ity of tablet 00:00: 04:59 mouth [place] 00 :00 every 8 Medical (eight) Branch hours for 90 days. diltiazem 2020-0 2020- No [id number] 60mg Take 1 [facility] 60 mg 6-04 09-03 tablet by ity of tablet 00:00: 04:59 mouth [place] 00 :00 every 8 Medical (eight) Branch hours for 90 days. diltiazem 2020-0 2020- No [id number] 60mg Take 1 [facility] 60 mg 6-04 09-03 tablet by ity of tablet 00:00: 04:59 mouth [place] 00 :00 every 8 Medical (eight) Branch hours for 90 days. diltiazem 2020-0 2020- No [id number] 60mg Take 1 [facility] 60 mg 6-04 09-03 tablet by ity of tablet 00:00: 04:59 mouth [place] 00 :00 every 8 Medical (eight) Branch hours for 90 days. diltiazem 2020-0 2020- No [id number] 60mg Take 1 [facility] 60 mg 6-04 09-03 tablet by ity of tablet 00:00: 04:59 mouth [place] 00 :00 every 8 Medical (eight) Branch hours for 90 days. diltiazem 2020-0 2020- No [id number] 60mg Take 1 [facility] 60 mg 6-04 09-03 tablet by ity of tablet 00:00: 04:59 mouth [place] 00 :00 every 8 Medical (eight) Branch hours for 90 days. diltiazem 2020-0 2020- No [id number] 60mg Take 1 [facility] 60 mg 6-04 09-03 tablet by ity of tablet 00:00: 04:59 mouth [place] 00 :00 every 8 Medical (eight) Branch hours for 90 days. diltiazem 2020-0 2020- No [id number] 60mg Take 1 [facility] 60 mg 6-04 09-03 tablet by ity of tablet 00:00: 04:59 mouth [place] 00 :00 every 8 Medical (eight) Branch hours for 90 days. diltiazem 2020-0 2020- No [id number] 60mg Take 1 [facility] 60 mg 6-04 09-03 tablet by ity of tablet 00:00: 04:59 mouth [place] 00 :00 every 8 Medical (eight) Branch hours for 90 days. diltiazem 2020-0 2020- No [id number] 60mg Take 1 [facility] 60 mg 6-04 09-03 tablet by ity of tablet 00:00: 04:59 mouth [place] 00 :00 every 8 Medical (eight) Branch hours for 90 days. diltiazem 2020-0 2020- No [id number] 60mg Take 1 [facility] 60 mg 6-04 09-03 tablet by ity of tablet 00:00: 04:59 mouth [place] 00 :00 every 8 Medical (eight) Branch hours for 90 days. diltiazem 2020-0 2020- No [id number] 60mg Take 1 [facility] 60 mg 6-04 09-03 tablet by ity of tablet 00:00: 04:59 mouth [place] 00 :00 every 8 Medical (eight) Branch hours for 90 days. diltiazem 2020-0 2020- No [id number] 60mg Take 1 [facility] 60 mg 6-04 09-03 tablet by ity of tablet 00:00: 04:59 mouth [place] 00 :00 every 8 Medical (eight) Branch hours for 90 days. diltiazem 2020-0 2020- No [id number] 60mg Take 1 [facility] 60 mg 6-04 09-03 tablet by ity of tablet 00:00: 04:59 mouth [place] 00 :00 every 8 Medical (eight) Branch hours for 90 days. diltiazem 2020-0 2020- No [id number] 60mg Take 1 [facility] 60 mg 6-04 09-03 tablet by ity of tablet 00:00: 04:59 mouth [place] 00 :00 every 8 Medical (eight) Branch hours for 90 days. diltiazem 2020-0 2020- No [id number] 60mg Take 1 [facility] 60 mg 6-04 09-03 tablet by ity of tablet 00:00: 04:59 mouth [place] 00 :00 every 8 Medical (eight) Branch hours for 90 days. diltiazem 2020-0 2020- No [id number] 60mg Take 1 [facility] 60 mg 6-04 09-03 tablet by ity of tablet 00:00: 04:59 mouth [place] 00 :00 every 8 Medical (eight) Branch hours for 90 days. diltiazem 2020-0 2020- No [id number] 60mg Take 1 [facility] 60 mg 6-04 09-03 tablet by ity of tablet 00:00: 04:59 mouth [place] 00 :00 every 8 Medical (eight) Branch hours for 90 days. diltiazem 2020-0 2020- No [id number] 60mg Take 1 [facility] 60 mg 6-07 09-03 tablet by ity of tablet 00:00: 04:59 mouth [place] 00 :00 every 8 Medical (eight) Branch hours for 90 days. diltiazem 2020-0 2020- No [id number] 60mg Take 1 [facility] 60 mg 6-07 09-03 tablet by ity of tablet 00:00: 04:59 mouth [place] 00 :00 every 8 Medical (eight) Branch hours for 90 days. diltiazem 2020-0 2020- No [id number] 60mg Take 1 [facility] 60 mg 6-07 09-03 tablet by ity of tablet 00:00: 04:59 mouth [place] 00 :00 every 8 Medical (eight) Branch hours for 90 days. diltiazem 2019-0 2020- No [id number] 60mg Take 1 [facility] 60 mg 6-07 09-03 tablet by ity of tablet 00:00: 04:59 mouth [place] 00 :00 every 8 Medical (eight) Branch hours for 90 days. diltiazem 2020-0 2020- No [id number] 60mg Take 1 [facility] 60 mg 6-07 09-03 tablet by it[facility] of tablet 00:00: 04:59 mouth [place] 00 :00 every 8 Medical (eight) Branch hours for 90 days. diltiazem 2020-0 2020- No [id number] 60mg Take 1 [facility] 60 mg 6-07 09-03 tablet by [facility] of tablet 00:00: 04:59 mouth [place] 00 :00 every 8 Medical (eight) Branch hours for 90 days. fluconazole 2020-0 2020- No [id number] 150mg Take 1 [facility] (DIFLUCAN) 5-20 05-21 tablet by ity of 150 mg 00:00: 04:59 mouth [place] tablet 00 :00 now for 1 Medical dose. Branch diltiazem 2020-0 Yes [id number] 60mg Take 1 [facility] vers 60 mg 5-19 tablet by ity of tablet 00:00: mouth [place] 00 every 8 Medical (eight) Branch hours. diltiazem 2020-0 Yes [id number] 60mg Take 1 [facility] vers 60 mg 5-19 tablet by ity of tablet 00:00: mouth [place] 00 every 8 Medical (eight) Branch hours. diltiazem 2020-0 2020- No [id number] 60mg Take 1 [facility] 60 mg 5-19 06-04 tablet by [facility] of tablet 00:00: 00:00 mouth [place] 00 :00 every 8 Medical (eight) Branch hours. diltiazem 2020-0 2020- No [id number] 60mg Take 1 [facility] 60 mg 5-19 06-04 tablet by [facility] of tablet 00:00: 00:00 mouth [place] 00 :00 every 8 Medical (eight) Branch hours. diltiazem 2020-0 2020- No [id number] 60mg Take 1 [facility] 60 mg 5-19 06-04 tablet by [facility] of tablet 00:00: 00:00 mouth [place] 00 :00 every 8 Medical (eight) Branch hours. diltiazem 2020-0 2020- No [id number] 60mg Take 1 [facility] 60 mg [...] Medical daily. Branch fluconazole 2020-0 2020- No [id number] 150mg Take 1 [facility] (DIFLUCAN) 4-13 04-14 [...] Use 1 [facility] (FLONASE) 3-05 } [place] in ity of 50 17:40: each [place] mcg/actuati 47 nostril Medic al on nasal daily. Branch spray sotalol 120 2020-0 Yes [id number] 120mg Take 120 [facility] mg tablet 3-05 [...] Use 1 [facility] (FLONASE) 3-05 } [place] in ity of 50 17:40: each [place] mcg/actuati 47 nostril Medic al on nasal daily. Branch spray sotalol 120 2020-0 Yes [id number] 120mg Take 120 [facility] mg tablet 3-05 [...] Use 1 [facility] (FLONASE) 3-05 } [place] in ity of 50 17:40: each [place] mcg/actuati 47 nostril Medic al on nasal daily. Branch spray sotalol 120 2020-0 Yes [id number] 120mg Take 120 [facility] mg tablet 3-05 mg by ity of 17:40: mouth 2 [place] [address] (two) Medical times Branch daily. levothyroxi 2020-0 Yes 75ug Take 75 [facility] vers ne 75 mcg 3-05 mcg by ity of tablet 17:40: mouth [place] 47 every Medical morning. Branch fluticasone 2020-0 Yes 1{spray Use 1 [facility] (FLONASE) 3-05 } [place] in ity of 50 17:40: each [place] mcg/actuati 47 nostril Medic al on nasal daily. Branch spray sotalol 120 2020-0 Yes [id number] 120mg Take 120 [facility] mg tablet 3-05 mg by ity of 17:40: mouth 2 [place] [address] (two) Medical times Branch daily. levothyroxi 2020-0 Yes 75ug Take 75 [facility] vers ne 75 mcg 3-05 mcg by ity of tablet 17:40: mouth [place] [address] every Medical morning. Branch fluticasone 2020-0 Yes 1{spray Use 1 [facility] (FLONASE) 3-05 } [place] in ity of 50 17:40: each [place] mcg/actuati 47 nostril Medic al on nasal daily. Branch spray sotalol 120 2020-0 Yes [id number] 120mg Take 120 [facility] mg tablet 3-05 mg by ity of 17:40: mouth 2 [place] [address] (two) Medical times Branch daily. levothyroxi 2020-0 Yes 75ug Take 75 [facility] vers ne 75 mcg 3-05 mcg by ity of tablet 17:40: mouth [place] [address] every Medical morning. Branch fluticasone 2020-0 Yes 1{spray Use 1 [facility] (FLONASE) 3-05 } [place] in ity of 50 17:40: each [place] mcg/actuati 47 nostril Medic al on nasal daily. Branch spray sotalol 120 2020-0 Yes [id number] 120mg Take 120 [facility] mg tablet 3-05 mg by ity of 17:40: mouth 2 [place] [address] (two) Medical times Branch daily. levothyroxi 2020-0 Yes 75ug Take 75 [facility] vers ne 75 mcg 3-05 mcg by ity of tablet 17:40: mouth [place] 47 every Medical morning. Branch fluticasone 2020-0 Yes 1{spray Use 1 [facility] (FLONASE) 3-05 } [place] in ity of 50 17:40: each [place] mcg/actuati 47 nostril Medic al on nasal daily. Branch spray sotalol 120 2020-0 Yes [id number] 120mg Take 120 [facility] mg tablet 3-05 mg by ity of 17:40: mouth 2 [place] 47 (two) Medical times Branch daily. levothyroxi 2020-0 Yes 75ug Take 75 [facility] vers ne 75 mcg 3-05 mcg by ity of tablet 17:40: mouth [place] 47 every Medical morning. Branch fluticasone 2020-0 Yes 1{spray Use 1 [facility] (FLONASE) 3-05 } [place] in ity of 50 17:40: each [place] mcg/actuati 47 nostril Medic al on nasal daily. Branch spray sotalol 120 2020-0 Yes [id number] 120mg Take 120 [facility] mg tablet 3-05 mg by ity of 17:40: mouth 2 [place] 47 (two) Medical times Branch daily. levothyroxi 2020-0 Yes 75ug Take 75 [facility] vers ne 75 mcg 3-05 mcg by ity of tablet 17:40: mouth [place] 47 every Medical morning. Branch fluticasone 2020-0 Yes 1{spray Use 1 [facility] (FLONASE) 3-05 } [place] in ity of 50 17:40: each [place] mcg/actuati 47 nostril Medic al on nasal daily. Branch spray sotalol 120 2020-0 Yes [id number] 120mg Take 120 [facility] mg tablet 3-05 mg by ity of 17:40: mouth 2 [place] 47 (two) Medical times Branch daily. levothyroxi 2020-0 Yes 75ug Take 75 [facility] vers ne 75 mcg 3-05 mcg by ity of tablet 17:40: mouth [place] 47 every Medical morning. Branch fluticasone 2020-0 Yes 1{spray Use 1 [facility] (FLONASE) 3-05 } [place] in ity of 50 17:40: each [place] mcg/actuati 47 nostril Medic al on nasal daily. Branch spray levothyroxi 2020-0 Yes 75ug Take 75 [facility] vers ne 75 mcg 3-05 mcg by ity of tablet 17:40: mouth [place] 47 every Medical morning. Branch fluticasone 2020-0 Yes 1{spray Use 1 [facility] (FLONASE) 3-05 } [place] in ity of 50 17:40: each [place] mcg/actuati 47 nostril Medic al on nasal daily. Branch spray levothyroxi 2020-0 Yes 75ug Take 75 [facility] vers ne 75 mcg 3-05 mcg by ity of tablet 17:40: mouth [place] 47 every Medical morning. Branch fluticasone 2020-0 Yes 1{spray Use 1 [facility] (FLONASE) 3-05 } [place] in ity of 50 17:40: each [place] mcg/actuati 47 nostril Medic al on nasal daily. Branch spray levothyroxi 2020-0 Yes 75ug Take 75 [facility] vers ne 75 mcg 3-05 mcg by ity of tablet 17:40: mouth [place] 47 every Medical morning. Branch fluticasone 2020-0 Yes 1{spray Use 1 [facility] (FLONASE) 3-05 } [place] in ity of 50 17:40: each [place] mcg/actuati 47 nostril Medic al on nasal daily. Branch spray levothyroxi 2020-0 Yes 75ug Take 75 [facility] vers ne 75 mcg 3-05 mcg by ity of tablet 17:40: mouth [place] 47 every Medical morning. Branch fluticasone 2020-0 Yes 1{spray Use 1 [facility] (FLONASE) 3-05 } [place] in ity of 50 17:40: each [place] mcg/actuati 47 nostril Medic al on nasal daily. Branch spray levothyroxi 2020-0 Yes 75ug Take 75 [facility] vers ne 75 mcg 3-05 mcg by ity of tablet 17:40: mouth [place] 47 every Medical morning. Branch fluticasone 2020-0 Yes 1{spray Use 1 [facility] (FLONASE) 3-05 } [place] in ity of 50 17:40: each [place] mcg/actuati 47 nostril Medic al on nasal daily. Branch spray levothyroxi 2020-0 Yes 75ug Take 75 [facility] vers ne 75 mcg 3-05 mcg by ity of tablet 17:40: mouth [place] 47 every Medical morning. Branch fluticasone 2020-0 Yes 1{spray Use 1 [facility] (FLONASE) 3-05 } [place] in ity of 50 17:40: each [place] mcg/actuati 47 nostril Medic al on nasal daily. Branch spray levothyroxi 2020-0 Yes 75ug Take 75 [facility] vers ne 75 mcg 3-05 mcg by ity of tablet 17:40: mouth [place] 47 every Medical morning. Branch fluticasone 2020-0 Yes 1{spray Use 1 [facility] (FLONASE) 3-05 } [place] in ity of 50 17:40: each [place] mcg/actuati 47 nostril Medic al on nasal daily. Branch spray levothyroxi 2020-0 Yes 75ug Take 75 [facility] vers ne 75 mcg 3-05 mcg by ity of tablet 17:40: mouth [place] 47 every Medical morning. Branch fluticasone 2020-0 Yes 1{spray Use 1 [facility] (FLONASE) 3-05 } [place] in ity of 50 17:40: each [place] mcg/actuati 47 nostril Medic al on nasal daily. Branch spray levothyroxi 2020-0 Yes 75ug Take 75 [facility] vers ne 75 mcg 3-05 mcg by ity of tablet 17:40: mouth [place] 47 every Medical morning. Branch fluticasone 2020-0 Yes 1{spray Use 1 [facility] (FLONASE) 3-05 } [place] in ity of 50 17:40: each [place] mcg/actuati 47 nostril Medic al on nasal daily. Branch spray levothyroxi 2020-0 Yes 75ug Take 75 [facility] vers ne 75 mcg 3-05 mcg by ity of tablet 17:40: mouth [place] 47 every Medical morning. Branch fluticasone 2020-0 Yes 1{spray Use 1 [facility] (FLONASE) 3-05 } [place] in ity of 50 17:40: each [place] mcg/actuati 47 nostril Medic al on nasal daily. Branch spray levothyroxi 2020-0 Yes 75ug Take 75 [facility] vers ne 75 mcg 3-05 mcg by ity of tablet 17:40: mouth [place] 47 every Medical morning. Branch fluticasone 2020-0 Yes 1{spray Use 1 [facility] (FLONASE) 3-05 } [place] in ity of 50 17:40: each [place] mcg/actuati 47 nostril Medic al on nasal daily. Branch spray levothyroxi 2020-0 Yes 75ug Take 75 [facility] vers ne 75 mcg 3-05 mcg by ity of tablet 17:40: mouth [place] 47 every Medical morning. Branch fluticasone 2020-0 Yes 1{spray Use 1 [facility] (FLONASE) 3-05 } [place] in ity of 50 17:40: each [place] [...] Use 1 [facility] (FLONASE) 3-05 } [place] in ity of 50 17:40: each [place] mcg/actuati 47 nostril Medic al on nasal daily. Branch spray sotalol 120 2020-0 Yes [id number] 120mg Take 120 [facility] mg tablet 3-05 [...] Use 1 [facility] (FLONASE) 3-05 } [place] in ity of 50 17:40: each [place] mcg/actuati 47 nostril Medic al on nasal daily. Branch spray sotalol 120 2020-0 Yes [id number] 120mg Take 120 [facility] mg tablet 3-05 mg by ity of 17:40: mouth 2 [place] [address] (two) Medical times [place] daily. levothyroxi 2020-0 Yes 75ug Take 75 [facility] vers ne 75 mcg 3-05 mcg by ity of tablet 17:40: mouth [place] [address] every Medical morning. Branch apixaban 2020-0 Yes 5mg Take 5 mg [facility] ers (ELIQUIS) 3-05 by mouth 2 ity of 2.5 mg 17:40: (two) [place] tablet 47 times Medical daily. Branch fluticasone 2020-0 Yes 1{spray Use 1 [facility] (FLONASE) 3-05 } [place] in ity of 50 17:40: each [place] mcg/actuati 47 nostril Medic al on nasal daily. Branch spray sotalol 120 2020-0 Yes [id number] 120mg Take 120 [facility] mg tablet 3-05 mg by ity of 17:40: mouth 2 [place] [address] (two) Medical times [place] daily. aspirin 81 2020-0 Yes 81mg Take 81 mg [facility] mg chewable 3-05 by mouth ity of tablet 17:40: daily. [address] aspirin 81 2020-0 Yes 81mg Take 81 mg U n[facility] mg chewable 3-05 by mouth ity of tablet 17:40: daily. [address] aspirin 81 2020-0 Yes 81mg Take 81 mg U nivers mg chewable 3-05 by mouth ity of tablet 17:40: daily. [address] aspirin 81 2020-0 Yes 81mg Take 81 mg U nivers mg chewable 3-05 by mouth ity of tablet 17:40: daily. [address] aspirin 81 2020-0 Yes 81mg Take 81 mg U nivers mg chewable 3-05 by mouth ity of tablet 17:40: daily. [address] aspirin 81 2020-0 Yes 81mg Take 81 mg U nivers mg chewable 3-05 by mouth ity of tablet 17:40: daily. [address] aspirin 81 2020-0 Yes 81mg Take 81 mg U nivers mg chewable 3-05 by mouth ity of tablet 17:40: daily. [address] aspirin 81 2020-0 Yes 81mg Take 81 mg U nivers mg chewable 3-05 by mouth ity of tablet 17:40: daily. [address] Branch aspirin 81 2020-0 Yes 81mg Take 81 mg U nivers mg chewable 3-05 by mouth ity of tablet 17:40: daily. [address] Branch aspirin 81 2020-0 Yes 81mg Take 81 mg U nivers mg chewable 3-05 by mouth ity of tablet 17:40: daily. [address] Branch aspirin 81 2020-0 Yes 81mg Take 81 mg U nivers mg chewable 3-05 by mouth ity of tablet 17:40: daily. [address] Branch aspirin 81 2020-0 Yes 81mg Take 81 mg U nivers mg chewable 3-05 by mouth ity of tablet 17:40: daily. [address] Branch doxycycline 2020-0 Yes [id number] 100mg Take 1 [facility] hyclate 100 3-05 tablet by ity of mg tablet 00:00: mouth 2 [place] 00 (two) Medical times Branch daily. bromphenira 2020-0 Yes [id number] 10mL Take 10 mL [facility] mine-pseudo 3-05 by mouth 4 it y of ephedrine-D 00:00: (four) [place] M (BROMFED 00 times Medical DM) 2-30-10 daily as Bran ch mg/5 mL needed syrup (Bronchiti s). ipratropium 2020-0 Yes [id number] .5mg Inhale 2.5 [facility] 0.02 % 3-05 mL every 4 ity of nebulizer 00:00: (four) [place] solution 00 hours as Medical needed for Branch Wheezing or Shortness of Breath. albuterol 2020-0 Yes [id number] 2.5mg Inhale 3 [facility] 2.5 mg /3 3-05 mL every 4 ity of mL (0.083 00:00: (four) [place] %) 00 hours as Medical nebulizer needed for Bran ch solution Wheezing or Shortness of Breath. albuterol 2020-0 Yes [id number] 2{puff} Inhale 2 [facility] (VENTOLIN 3-05 Puffs ity of HFA) 90 00:00: every 6 [place] mcg/actuati 00 (six) Medical on inhaler hours as Branc h needed for Wheezing or Shortness of Breath. doxycycline 2020-0 Yes [id number] 100mg Take 1 [facility] hyclate 100 3-05 tablet by ity of mg tablet 00:00: mouth 2 [place] 00 (two) Medical times Branch daily. bromphenira 2020-0 Yes [id number] 10mL Take 10 mL [facility] mine-pseudo 3-05 by mouth 4 it y of ephedrine-D 00:00: (four) [place] M (BROMFED 00 times Medical DM) 2-30-10 daily as Bran ch mg/5 mL needed syrup (Bronchiti s). ipratropium 2020-0 Yes [id number] .5mg Inhale 2.5 [facility] 0.02 % 3-05 mL every 4 ity of nebulizer 00:00: (four) [place] solution 00 hours as Medical needed for Branch Wheezing or Shortness of Breath. albuterol 2020-0 Yes [id number] 2.5mg Inhale 3 [facility] 2.5 mg /3 3-05 mL every 4 ity of mL (0.083 00:00: (four) [place] %) 00 hours as Medical nebulizer needed for Bran ch solution Wheezing or Shortness of Breath. albuterol 2020-0 Yes [id number] 2{puff} Inhale 2 [facility] (VENTOLIN 3-05 Puffs ity of HFA) 90 00:00: every 6 [place] mcg/actuati 00 (six) Medical on inhaler hours as Branc h needed for Wheezing or Shortness of Breath. doxycycline 2020-0 Yes [id number] 100mg Take 1 [facility] hyclate 100 3-05 tablet by ity of mg tablet 00:00: mouth 2 [place] 00 (two) Medical times Branch daily. bromphenira 2020-0 Yes [id number] 10mL Take 10 mL [facility] mine-pseudo 3-05 by mouth 4 it y of ephedrine-D 00:00: (four) [place] M (BROMFED 00 times Medical DM) 2-30-10 daily as Bran ch mg/5 mL needed syrup (Bronchiti s). ipratropium 2020-0 Yes [id number] .5mg Inhale 2.5 [facility] 0.02 % 3-05 mL every 4 ity of nebulizer 00:00: (four) [place] solution 00 hours as Medical needed for Branch Wheezing or Shortness of Breath. albuterol 2020-0 Yes [id number] 2.5mg Inhale 3 [facility] 2.5 mg /3 3-05 mL every 4 ity of mL (0.083 00:00: (four) [place] %) 00 hours as Medical nebulizer needed for Bran ch solution Wheezing or Shortness of Breath. albuterol 2020-0 Yes [id number] 2{puff} Inhale 2 [facility] (VENTOLIN 3-05 Puffs ity of HFA) 90 00:00: every 6 [place] mcg/actuati 00 (six) Medical on inhaler hours as Branc h needed for Wheezing or Shortness of Breath. doxycycline 2020-0 Yes [id number] 100mg Take 1 [facility] hyclate 100 3-05 tablet by ity of mg tablet 00:00: mouth 2 [place] 00 (two) Medical times Branch daily. bromphenira 2020-0 Yes [id number] 10mL Take 10 mL [facility] mine-pseudo 3-05 by mouth 4 it y of ephedrine-D 00:00: (four) [place] M (BROMFED 00 times Medical DM) 2-30-10 daily as Bran ch mg/5 mL needed syrup (Bronchiti s). ipratropium 2020-0 Yes [id number] .5mg Inhale 2.5 [facility] 0.02 % 3-05 mL every 4 ity of nebulizer 00:00: (four) [place] solution 00 hours as Medical needed for Branch Wheezing or Shortness of Breath. albuterol 2020-0 Yes [id number] 2.5mg Inhale 3 [facility] 2.5 mg /3 3-05 mL every 4 ity of mL (0.083 00:00: (four) [place] %) 00 hours as Medical nebulizer needed for Bran ch solution Wheezing or Shortness of Breath. albuterol 2020-0 Yes [id number] 2{puff} Inhale 2 [facility] (VENTOLIN 3-05 Puffs ity of HFA) 90 00:00: every 6 [place] mcg/actuati 00 (six) Medical on inhaler hours as Branc h needed for Wheezing or Shortness of Breath. doxycycline 2020-0 Yes [id number] 100mg Take 1 [facility] hyclate 100 3-05 tablet by ity of mg tablet 00:00: mouth 2 [place] 00 (two) Medical times Branch daily. bromphenira 2020-0 Yes [id number] 10mL Take 10 mL [facility] mine-pseudo 3-05 by mouth 4 it y of ephedrine-D 00:00: (four) [place] M (BROMFED 00 times Medical DM) 2-30-10 daily as Bran ch mg/5 mL needed syrup (Bronchiti s). ipratropium 2020-0 Yes [id number] .5mg Inhale 2.5 [facility] 0.02 % 3-05 mL every 4 ity of nebulizer 00:00: (four) [place] solution 00 hours as Medical needed for Branch Wheezing or Shortness of Breath. albuterol 2020-0 Yes [id number] 2.5mg Inhale 3 [facility] 2.5 mg /3 3-05 mL every 4 ity of mL (0.083 00:00: (four) [place] %) 00 hours as Medical nebulizer needed for Bran ch solution Wheezing or Shortness of Breath. albuterol 2020-0 Yes [id number] 2{puff} Inhale 2 [facility] (VENTOLIN 3-05 Puffs ity of HFA) 90 00:00: every 6 [place] mcg/actuati 00 (six) Medical on inhaler hours as Branc h needed for Wheezing or Shortness of Breath. doxycycline 2020-0 Yes [id number] 100mg Take 1 [facility] hyclate 100 3-05 tablet by ity of mg tablet 00:00: mouth 2 [place] 00 (two) Medical times Branch daily. bromphenira 2020-0 Yes [id number] 10mL Take 10 mL [facility] mine-pseudo 3-05 by mouth 4 it y of ephedrine-D 00:00: (four) [place] M (BROMFED 00 times Medical DM) 2-30-10 daily as Bran ch mg/5 mL needed syrup (Bronchiti s). ipratropium 2020-0 Yes [id number] .5mg Inhale 2.5 [facility] 0.02 % 3-05 mL every 4 ity of nebulizer 00:00: (four) [place] solution 00 hours as Medical needed for Branch Wheezing or Shortness of Breath. albuterol 2020-0 Yes [id number] 2.5mg Inhale 3 [facility] 2.5 mg /3 3-05 mL every 4 ity of mL (0.083 00:00: (four) [place] %) 00 hours as Medical nebulizer needed for Bran ch solution Wheezing or Shortness of Breath. albuterol 2020-0 Yes [id number] 2{puff} Inhale 2 [facility] (VENTOLIN 3-05 Puffs ity of HFA) 90 00:00: every 6 [place] mcg/actuati 00 (six) Medical on inhaler hours as Branc h needed for Wheezing or Shortness of Breath. doxycycline 2019- 2020- No [id number] 100mg Take 1 [facility] hyclate 100 06-04 05-04 tablet by it y of mg tablet 00:00: 00:00 mouth 2 [place] 00 :00 (two) Medical times Branch daily. bromphenira 2019- 2020- No [id number] 10mL Take 10 mL [facility] mine-pseudo 06-04 05-04 by mouth 4 i ty of ephedrine-D 00:00: 00:00 (four) [place] M (BROMFED 00 :00 times Medical DM) 2-30-10 daily as Bran ch mg/5 mL needed syrup (Bronchiti s). ipratropium 2020- No [id number] .5mg Inhale 2.5 [facility] 0.02 % 06-04 05-04 mL every 4 ity of nebulizer 00:00: 00:00 (four) [place] solution 00 :00 hours as Medical needed for Branch Wheezing or Shortness of Breath. albuterol 2019- No [id number] 2.5mg Inhale 3 [facility] 2.5 mg /3 06-04 05-04 mL every 4 ity of mL (0.083 00:00: 00:00 (four) [place] %) 00 :00 hours as Medical nebulizer needed for Bran ch solution Wheezing or Shortness of Breath. albuterol 2019- No [id number] 2{puff} Inhale 2 [facility] (VENTOLIN 3-05 05-04 Puffs ity of HFA) 90 00:00: 00:00 every 6 [place] mcg/actuati 00 :00 (six) Medical on inhaler hours as Branc h needed for Wheezing or Shortness of Breath. acetaminoph Yes [id number] 2 - 1 [facility] en-codeine 3-10 tab Every ity of 300-30 mg 00:00: 4hrs as [place] tablet 00 needed for Medical pain or Branch cough requiring narcotic acetaminoph 2018- Yes [id number] 2 - 1 [facility] en-codeine 3-10 tab Every ity of 300-30 mg 00:00: 4hrs as [place] tablet 00 needed for Medical pain or Branch cough requiring narcotic acetaminoph 2018- Yes [id number] 2 - 1 [facility] en-codeine 3-10 tab Every ity of 300-30 mg 00:00: 4hrs as [place] tablet 00 needed for Medical pain or Branch cough requiring narcotic acetaminoph 2019- Yes [id number] 2 - 1 [facility] en-codeine 3-10 tab Every ity of 300-30 mg 00:00: 4hrs as [place] tablet 00 needed for Medical pain or Branch cough requiring narcotic acetaminoph 2018- Yes [id number] 2 - 1 [facility] en-codeine 3-10 tab Every ity of 300-30 mg 00:00: 4hrs as [place] tablet 00 needed for Medical pain or Branch cough requiring narcotic acetaminoph Yes [id number] 2 - 1 [facility] en-codeine 3-10 tab Every ity of 300-30 mg 00:00: 4hrs as [place] tablet 00 needed for Medical pain or Branch cough requiring narcotic acetaminoph 2020- No [id number] 04/03 - [facility] en-codeine 3-10 05-04 tab Every ity of 300-30 mg 00:00: 00:00 4hrs [place] tablet 00 :00 needed for Medical pain or Branch cough requiring narcotic furosemide Yes [id number] 40mg Take 1 [facility] (LASIX) 40 2-12 tablet by ity of mg tablet 00:00: mouth [place] 00 daily. Medical Branch KCL 20 mEq Yes [id number] 20meq Take 1 [facility] tablet 2-12 tablet by ity of 00:00: mouth [place] 00 daily. Medical Branch furosemide Yes [id number] 40mg Take 1 [facility] (LASIX) 40 2-12 tablet by ity of mg tablet 00:00: mouth [place] 00 daily. Medical Branch KCL 20 mEq Yes [id number] 20meq Take 1 [facility] tablet 2-12 tablet by ity of 00:00: mouth [place] 00 daily. Medical Branch furosemide Yes [id number] 40mg Take 1 [facility] (LASIX) 40 2-12 tablet by ity of mg tablet 00:00: mouth [place] 00 daily. Medical Branch KCL 20 mEq Yes [id number] 20meq Take 1 [facility] tablet 2-12 tablet by ity of 00:00: mouth [place] 00 daily. Medical Branch furosemide Yes [id number] 40mg Take 1 [facility] (LASIX) 40 2-12 tablet by ity of mg tablet 00:00: mouth [place] 00 daily. Medical Branch KCL 20 mEq 0 Yes [id number] 20meq Take 1 [facility] tablet 2-12 tablet by ity of 00:00: mouth [place] 00 daily. Medical Branch furosemide Yes [id number] 40mg Take 1 [facility] (LASIX) 40 2-12 tablet by ity of mg tablet 00:00: mouth [place] 00 daily. Medical Branch KCL 20 mEq Yes [id number] 20meq Take 1 [facility] tablet 2-12 tablet by ity of 00:00: mouth [place] 00 daily. Medical Branch furosemide Yes [id number] 40mg Take 1 [facility] (LASIX) 40 2-12 tablet by ity of mg tablet 00:00: mouth [place] 00 daily. Medical Branch KCL 20 mEq Yes [id number] 20meq Take 1 [facility] tablet 2-12 tablet by ity of 00:00: mouth [place] 00 daily. Medical Branch furosemide 2020- No [id number] 40mg Take 1 [facility] (LASIX) 40 2-12 05-04 tablet by ity of mg tablet 00:00: 00:00 mouth [place] 00 :00 daily. Medical Branch KCL 20 mEq 0 2020- No [id number] 20meq Take 1 [facility] tablet 2-12 05-04 tablet by ity of 00:00: 00:00 mouth [place] 00 :00 daily. Medical Branch diltiazem Yes [id number] 60mg Take 1 [facility] vers 60 mg 1-11 tablet by ity of tablet 00:00: mouth [place] 00 every 8 Medical (eight) Branch hours. diltiazem Yes [id number] 60mg Take 1 [facility] vers 60 mg 1-11 tablet by ity of tablet 00:00: mouth [place] 00 every 8 Medical (eight) Branch hours. diltiazem 0 Yes [id number] 60mg Take 1 [facility] vers 60 mg 1-11 tablet by ity of tablet 00:00: mouth [place] 00 every 8 Medical (eight) Branch hours. diltiazem 0 Yes [id number] 60mg Take 1 [facility] vers 60 mg 1-11 tablet by ity of tablet 00:00: mouth [place] 00 every 8 Medical (eight) Branch hours. diltiazem 2019-0 Yes [id number] 60mg Take 1 [facility] vers 60 mg 1-11 tablet by ity of tablet 00:00: mouth [place] 00 every 8 Medical (eight) Branch hours. diltiazem 2019-0 Yes [id number] 60mg Take 1 [facility] vers 60 mg 1-11 tablet by ity of tablet 00:00: mouth [place] 00 every 8 Medical (eight) Branch hours. diltiazem 2019-0 Yes [id number] 60mg Take 1 [facility] vers 60 mg 1-11 tablet by ity of tablet 00:00: mouth [place] 00 every 8 Medical (eight) Branch hours. diltiazem 2019-0 Yes [id number] 60mg Take 1 [facility] vers 60 mg 1-11 tablet by ity of tablet 00:00: mouth [place] 00 every 8 Medical (eight) Branch hours. diltiazem 2019-0 Yes [id number] 60mg Take 1 [facility] vers 60 mg 1-11 tablet by ity of tablet 00:00: mouth [place] 00 every 8 Medical (eight) Branch hours. diltiazem 2019-0 2020- No [id number] 60mg Take 1 [facility] 60 mg 1-11 05-18 tablet by ity of tablet 00:00: 00:00 mouth [place] 00 :00 every 8 Medical (eight) Branch hours. diltiazem 2019-0 2020- No [id number] 60mg Take 1 [facility] 60 mg 1-11 05-18 tablet by ity of tablet 00:00: 00:00 mouth [place] 00 :00 every 8 Medical (eight) Branch hours. diltiazem 2018-0 Yes 60mg Q.25D Take 60 mg [facility] (CardIZEM) 2-[address] 60 MG 11:47: (four) [facility] tablet [facility] times a l day. HR >60 sotalol 2018-0 Yes 120mg Q.5D Take 120 Meth[facility] di (BETAPACE) 2-[address] 120 MG 11:47: mouth 2 [facility] tablet 51 (two) l times a day. omeprazole 2018-0 Yes 20mg QD Take 20 mg [facility] (PriLOSEC) 2-[address] 20 MG 11:47: daily. [facility] capsule 51 l omeprazole 2018-0 Yes 20mg QD Take 20 mg M [facility] (PriLOSEC) 2-[address] 20 MG 11:47: daily. [facility] capsule 51 l apixaban 2018-0 Yes 5mg Q.5D Take 5 mg [facility] (ELIQUIS) 5 2-[address] mg tablet 11:47: (two) [facility] 51 times a l day. metFORMIN 2018-0 Yes 250mg QD Take 250 [facility] (GLUCOPHAGE 2-[address] ) 500 mg 11:47: mouth [facility] tablet 51 daily with l breakfast. Pt is allergic to generic metformin montelukast 2018-0 Yes 10mg QD Take 10 mg [facility] (SINGULAIR) 2-[address] 10 mg 11:47: nightly. [facility] tablet 51 l fluticasone 2018-0 Yes 2{spray QD 2 sprays [facility] (FLONASE) 2-19 } by Each st 50 11:47: Nare route [facility] mcg/actuati 51 daily. l on nasal spray levothyroxi 2018-0 Yes 75ug QD Take 75 [facility] ne 2-19 mcg by st (SYNTHROID, 11:47: mouth Hospi ta LEVOXYL) 75 51 every l mcg tablet morning. diltiazem 2018-0 Yes 60mg Q.25D Take 60 mg M [facility] (CardIZEM) 2-[address] 60 MG 11:47: (four) Hospita tablet 51 times a l day. HR >60 sotalol 2018-0 Yes 120mg Q.5D Take 120 Metho di (BETAPACE) 2-[address] 120 MG 11:47: mouth 2 Hospita tablet 51 (two) l times a day. apixaban 2018-0 Yes 5mg Q.5D Take 5 mg Meth zoya (ELIQUIS) 5 2-[address] mg tablet 11:47: (two) Hospita 51 times a l day. metFORMIN 2018-0 Yes 250mg QD Take 250 Met [facility] (GLUCOPHAGE 2-[address] ) 500 mg 11:47: mouth [facility]osp[facility] tablet 51 daily with l breakfast. Pt is allergic to generic metformin montelukast 2018-0 Yes 10mg QD Take 10 mg [facility] (SINGULAIR) 2-[address] 10 mg 11:47: nightly. Hospita tablet 51 l fluticasone 2018-0 Yes 2{spray QD 2 sprays [facility] (FLONASE) 2-19 } by Each st 50 11:47: Nare route Hospita mcg/actuati 51 daily. l on nasal spray levothyroxi 2018-0 Yes 75ug QD Take 75 Met hodi ne 2-[address] (SYNTHROID, 11:47: mouth Hospi ta LEVOXYL) 75 51 every l mcg tablet morning. VENTOLIN 2016-04- No [facility] HFA 90 0-07 03-05 ity of mcg/actuati 00:00: 00:00 [place] on inhaler 00 :00 [facility] VENTOLIN 2016-04- No [facility] HFA 90 007 03-05 ity of mcg/actuati 00:00: 00:00 [place] on inhaler 00 :00 [facility] montelukast 2017-0 Yes Univer s 10 mg 9-03 ity of tablet 00:00: [place] [facility] montelukast 2017-0 Yes Univer s 10 mg 9-03 ity of tablet 00:00: [place] [facility] montelukast 2017-0 Yes Univer s 10 mg 9-03 ity of tablet 00:00: [place] [facility] montelukast 2017-0 Yes Univer s 10 mg 9-03 ity of tablet 00:00: [place] [facility] montelukast 2017-0 Yes Univer s 10 mg 9-03 ity of tablet 00:00: [place] [facility] montelukast 2017-0 Yes Univer s 10 mg 9-03 ity of tablet 00:00: [place] [facility] montelukast 2017-0 Yes Univer s 10 mg 9-03 ity of tablet 00:00: [place] [facility] montelukast 2017-0 Yes Univer s 10 mg 9-03 ity of tablet 00:00: [place] [facility] montelukast 2017-0 Yes Univer s 10 mg 9-03 ity of tablet 00:00: [place] [facility] montelukast 2017-0 Yes Univer s 10 mg 9-03 ity of tablet 00:00: [place] [facility] montelukast 2017-0 Yes Univer s 10 mg 9-03 ity of tablet 00:00: [place] [facility] montelukast 2017-0 Yes Univer s 10 mg 9-03 ity of tablet 00:00: [place] [facility] montelukast 2017-0 Yes Univer s 10 mg 9-03 ity of tablet 00:00: [place] 00 [facility] Yes Univer s 10 mg 9-03 ity [facility] tablet 00:00: [place] [facility] mg 9-03 [facility]y [facility] tablet 00:00: [place] [facility] Univer s 10 mg 9-03 ity of tablet 00:00: [place] [facility] Univer s 10 mg 9-03 ity of tablet 00:00: [place] [facility] Yes Univer s 10 mg 9-03 ity of tablet 00:00: [place] [facility] Yes Univer s 10 mg 9-03 ity of tablet 00:00: [place] [facility] Yes Univer s 10 mg 9-03 ity of tablet 00:00: [place] [facility] Yes Univer s 10 mg 9-03 ity of tablet 00:00: [place] [facility] Yes Univer s 10 mg 9-03 ity of tablet 00:00: [place] [facility] Yes Univer s 10 mg 9-03 ity of tablet 00:00: [place] [facility] Yes Univer s 10 mg 9-03 ity of tablet 00:00: [place] 00 [facility] 2017-0 Yes Univer s 10 mg 9-03 ity of tablet 00:00: [place] [facility] 2020- No Unive rs 10 mg 9-06 06-08 ity of tablet 00:00: 00:00 [place] [facility] 2020- No Unive rs 10 mg 9-06 06-08 ity of tablet 00:00: 00:00 [place] 00 :00 [facility] Flonase Flonase No 1{spray QD Flonase Allergy Allergy _in_eac Allergy Relief 50 Relief 50 h_nostr Relief 50 MCG/ACT MCG/ACT il} MCG/ACT Atorvastati Atorvastati No Atorvastat n Calcium n Calcium in Calcium 40 MG 40 MG 40 MG dilTIAZem dilTIAZem No 1{table TID dilTIAZem HCl 60 MG HCl 60 MG t} HCl 60 MG Glucose Glucose No Glucose testing testing testing strips n/s strips n/s strips n/s glipiZIDE 5 glipiZIDE 5 No QD glipiZIDE MG MG 5 MG Montelukast Montelukast No Montelukas Sodium 10 Sodium 10 t Sodium MG MG 10 MG Levothyroxi Levothyroxi No QD Levothyrox ne Sodium ne Sodium ine Sodium 75 MCG 75 MCG 75 MCG Singulair Singulair No 1{table QD Singulair 10 MG 10 MG t} 10 MG Euthyrox 75 Euthyrox 75 No Euthyrox MCG MCG 75 MCG Eliquis 5 Eliquis 5 No BID Eliquis 5 MG MG MG Omeprazole Omeprazole No QD Omeprazole 20 MG 20 MG 20 MG Montelukast Montelukast No Montelukas Sodium 10 Sodium 10 t Sodium MG MG 10 MG Levalbutero Levalbutero No 3{ml} Levalbuter l HCl 0.63 l HCl 0.63 ol HCl MG/3ML MG/3ML 0.63 MG/3ML Singulair Singulair No 1{table QD Singulair 10 MG 10 MG t} 10 MG Flonase Flonase No 1{spray QD Flonase Allergy Allergy _in_eac Allergy Relief 50 Relief 50 h_nostr Relief 50 MCG/ACT MCG/ACT il} MCG/ACT dilTIAZem dilTIAZem No 1{table dilTIAZem HCl 60 MG HCl 60 MG t} HCl 60 MG Atorvastati Atorvastati No Atorvastat n Calcium n Calcium in Calcium 40 MG 40 MG 40 MG Lancets - Lancets - No QD Lancets - Sertraline Sertraline No 1{table QD Sertraline HCl 50 MG HCl 50 MG t} HCl 50 MG glipiZIDE 5 glipiZIDE 5 No QD glipiZIDE MG MG 5 MG Euthyrox 75 Euthyrox 75 No Euthyrox MCG MCG 75 MCG Levothyroxi Levothyroxi No QD Levothyrox ne Sodium ne Sodium ine Sodium 75 MCG 75 MCG 75 MCG Sotalol HCl Sotalol HCl No 1{table BID Sotalol 160 MG 160 MG t} HCl 160 MG Glucose Glucose No Glucose testing testing testing strips n/s strips n/s strips n/s Eliquis 5 Eliquis 5 No BID Eliquis 5 MG MG MG dilTIAZem dilTIAZem No 1{table dilTIAZem HCl 60 MG HCl 60 MG t} HCl 60 MG Lancets - Lancets - No QD Lancets - Levalbutero Levalbutero No 3{ml} Levalbuter l HCl 0.63 l HCl 0.63 ol HCl MG/3ML MG/3ML 0.63 MG/3ML glipiZIDE 5 glipiZIDE 5 No QD glipiZIDE MG MG 5 MG Euthyrox 75 Euthyrox 75 No Euthyrox MCG MCG 75 MCG Sertraline Sertraline No Sertraline HCl 50 MG HCl 50 MG HCl 50 MG Atorvastati Atorvastati No Atorvastat n Calcium n Calcium in Calcium 40 MG 40 MG 40 MG Glucose Glucose No Glucose testing testing testing strips n/s strips n/s strips n/s Flonase Flonase No 1{spray QD Flonase Allergy Allergy _in_eac Allergy Relief 50 Relief 50 h_nostr Relief 50 MCG/ACT MCG/ACT il} MCG/ACT Eliquis 5 Eliquis 5 No BID Eliquis 5 MG MG MG Singulair Singulair No 1{table QD Singulair 10 MG 10 MG t} 10 MG Levothyroxi Levothyroxi No QD Levothyrox ne Sodium ne Sodium ine Sodium 75 MCG 75 MCG 75 MCG Montelukast Montelukast No Montelukas Sodium 10 Sodium 10 t Sodium MG MG 10 MG Omeprazole Omeprazole No QD Omeprazole 20 MG 20 MG 20 MG Sotalol HCl Sotalol HCl No 1{table BID Sotalol 120 MG 120 MG t} HCl 120 MG dilTIAZem dilTIAZem No 1{table dilTIAZem HCl 60 MG HCl 60 MG t} HCl 60 MG Lancets - Lancets - No QD Lancets - Flonase Flonase No 1{spray QD Flonase Allergy Allergy _in_eac Allergy Relief 50 Relief 50 h_nostr Relief 50 MCG/ACT MCG/ACT il} MCG/ACT Euthyrox 75 Euthyrox 75 No Euthyrox MCG MCG 75 MCG Levalbutero Levalbutero No 3{ml} Levalbuter l HCl 0.63 l HCl 0.63 ol HCl MG/3ML MG/3ML 0.63 MG/3ML glipiZIDE 5 glipiZIDE 5 No QD glipiZIDE MG MG 5 MG Levothyroxi Levothyroxi No QD Levothyrox ne Sodium ne Sodium ine Sodium 75 MCG 75 MCG 75 MCG Glucose Glucose No Glucose testing testing testing strips n/s strips n/s strips n/s Omeprazole Omeprazole No QD Omeprazole 20 MG 20 MG 20 MG Sotalol HCl Sotalol HCl No 1{table BID Sotalol 120 MG 120 MG t} HCl 120 MG Sertraline Sertraline No Sertraline HCl 50 MG HCl 50 MG HCl 50 MG Eliquis 5 Eliquis 5 No BID Eliquis 5 MG MG MG Montelukast Montelukast No Montelukas Sodium 10 Sodium 10 t Sodium MG MG 10 MG Singulair Singulair No 1{table QD Singulair 10 MG 10 MG t} 10 MG Atorvastati Atorvastati No Atorvastat n Calcium n Calcium in Calcium 40 MG 40 MG 40 MG Sertraline Sertraline No Sertraline HCl 50 MG HCl 50 MG HCl 50 MG Singulair Singulair No 1{table QD Singulair 10 MG 10 MG t} 10 MG Montelukast Montelukast No Montelukas Sodium 10 Sodium 10 t Sodium MG MG 10 MG dilTIAZem dilTIAZem No dilTIAZem HCl 60 MG HCl 60 MG HCl 60 MG glipiZIDE 5 glipiZIDE 5 No QD glipiZIDE MG MG 5 MG Levothyroxi Levothyroxi No Levothyrox ne Sodium ne Sodium ine Sodium 75 MCG 75 MCG 75 MCG Glucose Glucose No Glucose testing testing testing strips n/s strips n/s strips n/s Lancets - Lancets - No QD Lancets - Euthyrox 75 Euthyrox 75 No Euthyrox MCG MCG 75 MCG Atorvastati Atorvastati No Atorvastat n Calcium n Calcium in Calcium 40 MG 40 MG 40 MG Flonase Flonase No 1{spray QD Flonase Allergy Allergy _in_eac Allergy Relief 50 Relief 50 h_nostr Relief 50 MCG/ACT MCG/ACT il} MCG/ACT Sotalol HCl Sotalol HCl No 1{table BID Sotalol 120 MG 120 MG t} HCl 120 MG Omeprazole Omeprazole No Omeprazole 20 MG 20 MG 20 MG Levalbutero Levalbutero No 3{ml} Levalbuter l HCl 0.63 l HCl 0.63 ol HCl MG/3ML MG/3ML 0.63 MG/3ML Eliquis 5 Eliquis 5 No Eliquis 5 MG MG MG Levalbutero Levalbutero No 3{ml} Levalbuter l HCl 0.63 l HCl 0.63 ol HCl MG/3ML MG/3ML 0.63 MG/3ML Restasis Restasis No 1{drop_ BID Restasis 0.05 % 0.05 % into_af 0.05 % fected_ eye} Singulair Singulair No 1{table QD Singulair 10 MG 10 MG t} 10 MG Omeprazole Omeprazole No Omeprazole 20 MG 20 MG 20 MG Flonase Flonase No 1{spray QD Flonase Allergy Allergy _in_eac Allergy Relief 50 Relief 50 h_nostr Relief 50 MCG/ACT MCG/ACT il} MCG/ACT Sertraline Sertraline No Sertraline HCl 50 MG HCl 50 MG HCl 50 MG Neomycin-Po Neomycin-Po No 1{drop_ QID Neomycin-P lymyxin-Dex lymyxin-Dex into_af olymyxin-D ameth 0.1 % ameth 0.1 % fected_ exameth eye} 0.1 % dilTIAZem dilTIAZem No dilTIAZem HCl 60 MG HCl 60 MG HCl 60 MG Levothyroxi Levothyroxi No QD Levothyrox ne Sodium ne Sodium ine Sodium 75 MCG 75 MCG 75 MCG Glucose Glucose No Glucose testing testing testing strips n/s strips n/s strips n/s Atorvastati Atorvastati No Atorvastat n Calcium n Calcium in Calcium 40 MG 40 MG 40 MG Montelukast Montelukast No Montelukas Sodium 10 Sodium 10 t Sodium MG MG 10 MG Levothyroxi Levothyroxi No Levothyrox ne Sodium ne Sodium ine Sodium 75 MCG 75 MCG 75 MCG glipiZIDE 5 glipiZIDE 5 No QD glipiZIDE MG MG 5 MG Eliquis 5 Eliquis 5 No Eliquis 5 MG MG MG Euthyrox 75 Euthyrox 75 No Euthyrox MCG MCG 75 MCG Lancets - Lancets - No QD Lancets - Sotalol HCl Sotalol HCl No 1{table BID Sotalol 120 MG 120 MG t} HCl 120 MG Sertraline Sertraline No 1{table QD Sertraline HCl 50 MG HCl 50 MG t} HCl 50 MG Eliquis 5 Eliquis 5 No Eliquis 5 MG MG MG Lancets - Lancets - No QD Lancets - Sertraline Sertraline No Sertraline HCl 50 MG HCl 50 MG HCl 50 MG Levalbutero Levalbutero No 3{ml} Levalbuter l HCl 0.63 l HCl 0.63 ol HCl MG/3ML MG/3ML 0.63 MG/3ML Sotalol HCl Sotalol HCl No 1{table BID Sotalol 120 MG 120 MG t} HCl 120 MG Flonase Flonase No 1{spray QD Flonase Allergy Allergy _in_eac Allergy Relief 50 Relief 50 h_nostr Relief 50 MCG/ACT MCG/ACT il} MCG/ACT Euthyrox 75 Euthyrox 75 No Euthyrox MCG MCG 75 MCG dilTIAZem dilTIAZem No 1{table TID dilTIAZem HCl 60 MG HCl 60 MG t} HCl 60 MG Levothyroxi Levothyroxi No QD Levothyrox ne Sodium ne Sodium ine Sodium 75 MCG 75 MCG 75 MCG Omeprazole Omeprazole No QD Omeprazole 20 MG 20 MG 20 MG Montelukast Montelukast No Montelukas Sodium 10 Sodium 10 t Sodium MG MG 10 MG glipiZIDE 5 glipiZIDE 5 No glipiZIDE MG MG 5 MG Singulair Singulair No 1{table QD Singulair 10 MG 10 MG t} 10 MG Glucose Glucose No Glucose testing testing testing strips n/s strips n/s strips n/s Atorvastati Atorvastati No Atorvastat n Calcium n Calcium in Calcium 40 MG 40 MG 40 MG glipiZIDE 5 glipiZIDE 5 No QD glipiZIDE MG MG 5 MG Montelukast Montelukast No Montelukas Sodium 10 Sodium 10 t Sodium MG MG 10 MG Sertraline Sertraline No Sertraline HCl 50 MG HCl 50 MG HCl 50 MG Levalbutero Levalbutero No 3{ml} Levalbuter l HCl 0.63 l HCl 0.63 ol HCl MG/3ML MG/3ML 0.63 MG/3ML Sotalol HCl Sotalol HCl No 1{table BID Sotalol 120 MG 120 MG t} HCl 120 MG Flonase Flonase No 1{spray QD Flonase Allergy Allergy _in_eac Allergy Relief 50 Relief 50 h_nostr Relief 50 MCG/ACT MCG/ACT il} MCG/ACT dilTIAZem dilTIAZem No 1{table TID dilTIAZem HCl 60 MG HCl 60 MG t} HCl 60 MG Lancets - Lancets - No QD Lancets - Levothyroxi Levothyroxi No QD Levothyrox ne Sodium ne Sodium ine Sodium 75 MCG 75 MCG 75 MCG Atorvastati Atorvastati No Atorvastat n Calcium n Calcium in Calcium 40 MG 40 MG 40 MG Euthyrox 75 Euthyrox 75 No Euthyrox MCG MCG 75 MCG Omeprazole Omeprazole No QD Omeprazole 20 MG 20 MG 20 MG Singulair Singulair No 1{table QD Singulair 10 MG 10 MG t} 10 MG Glucose Glucose No Glucose testing testing testing strips n/s strips n/s strips n/s Eliquis 5 Eliquis 5 No Eliquis 5 MG MG MG Omeprazole Omeprazole No QD Omeprazole 20 MG 20 MG 20 MG Montelukast Montelukast No Montelukas Sodium 10 Sodium 10 t Sodium MG MG 10 MG Sertraline Sertraline No Sertraline HCl 50 MG HCl 50 MG HCl 50 MG Levalbutero Levalbutero No 3{ml} Levalbuter l HCl 0.63 l HCl 0.63 ol HCl MG/3ML MG/3ML 0.63 MG/3ML Sotalol HCl Sotalol HCl No 1{table BID Sotalol 120 MG 120 MG t} HCl 120 MG Flonase Flonase No 1{spray QD Flonase Allergy Allergy _in_eac Allergy Relief 50 Relief 50 h_nostr Relief 50 MCG/ACT MCG/ACT il} MCG/ACT dilTIAZem dilTIAZem No 1{table TID dilTIAZem HCl 60 MG HCl 60 MG t} HCl 60 MG Lancets - Lancets - No QD Lancets - Levothyroxi Levothyroxi No QD Levothyrox ne Sodium ne Sodium ine Sodium 75 MCG 75 MCG 75 MCG Eliquis 5 Eliquis 5 No Eliquis 5 MG MG MG Euthyrox 75 Euthyrox 75 No Euthyrox MCG MCG 75 MCG Atorvastati Atorvastati No Atorvastat n Calcium n Calcium in Calcium 40 MG 40 MG 40 MG Singulair Singulair No 1{table QD Singulair 10 MG 10 MG t} 10 MG Glucose Glucose No Glucose testing testing testing strips n/s strips n/s strips n/s glipiZIDE 5 glipiZIDE 5 No QD glipiZIDE MG MG 5 MG Omeprazole Omeprazole No QD Omeprazole 20 MG 20 MG 20 MG Lancets - Lancets - No QD Lancets - Sertraline Sertraline No 1{table QD Sertraline HCl 50 MG HCl 50 MG t} HCl 50 MG Levalbutero Levalbutero No 3{ml} Levalbuter l HCl 0.63 l HCl 0.63 ol HCl MG/3ML MG/3ML 0.63 MG/3ML Sotalol HCl Sotalol HCl No 1{table BID Sotalol 120 MG 120 MG t} HCl 120 MG Immunizations Ordered Filled Immunization Date Status Comments Sour e Immunization Name Name FLUZONE HIGH DOSE FLUZONE HIGH DOSE 2022 Completed [facility] - OVER [facility] OVER 65 10:22:00 [facility] FluAD FluAD 2021-01-18 Completed [facility] - 11:06:00 [facility] FluAD FluAD 2021-01-18 Completed [facility] - 11:06:00 [facility] FluAD FluAD 2021-01-18 Completed [facility] - 11:06:00 [facility] FluAD FluAD 2021-01-18 Completed [facility] - 11:06:00 [facility] FluAD FluAD 2021-01-18 Completed [facility] - 11:06:00 [facility] FluAD FluAD 2021-01-18 Completed [facility] - 11:06:00 [facility] FluAD FluAD 2021-01-18 Completed [facility] - 11:06:00 [facility] FluAD FluAD 2021-01-18 Completed [facility] - 11:06:00 [facility] FluAD FluAD 2021-01-18 Completed [facility] - 11:06:00 [facility] COVID-19 Vaccine COVID-19 Vaccine 2020-06-24 [facility] ([facility] 13:57:00 [facility] COVID-19 Vaccine COVID-19 Vaccine 2020-06-24 Completed [facility] ([facility] (Anna) 13:57:00 [facility] COVID-19 Vaccine COVID-19 Vaccine 2020-06-24 Completed [facility] ([facility] (Anna) 13:57:00 [facility] COVID-19 Vaccine COVID-19 Vaccine 2020-06-24 Com[facility] ([facility]) (Anna) 13:57:00 [facility] COVID-19 Vaccine COVID-19 Vaccine 2020-06-24 Completed [facility] (Anna) (Anna) 13:57:00 [facility] COVID-19 Vaccine COVID-19 Vaccine 2020-06-24 Com[facility] ([facility]) (Anna) 13:57:00 [facility] COVID-19 Vaccine COVID-19 Vaccine 2020-06-24 Completed [facility] ([facility]) (Anna) 13:57:00 [facility] COVID-19 Vaccine COVID-19 Vaccine 2020-06-24 Completed [facility] ([facility]) (Anna) 13:57:00 [facility] COVID-19 Vaccine COVID-19 Vaccine 2020-06-24 Com[facility] ([facility] (Anna) 13:57:00 [facility] Influenza High Dose 2020-01-05 Completed [facility] [place] 00:[facility]:00 [facility] Influenza High Dose 2020-01-05 Completed [facility] 00:00:00 [facility] Influenza High Dose 2020-01-05 Completed [facility] 00:00:00 [facility] Influenza High Dose 2020-01-05 Completed [facility] 00:00:00 [facility] Influenza High Dose 2020-01-05 Completed [facility] 00:00:00 [facility] Influenza High Dose 2020-01-05 Completed [facility] 00:00:00 [facility] Influenza High Dose 2020-01-05 Completed [facility] 00:00:00 [facility] Influenza High Dose 2020-01-05 Completed [facility] 00:00:00 [facility] Influenza High Dose 2020-01-05 Completed [facility] 00[facility]00:00 [facility] Influenza High Dose 2020-01-05 Completed [facility] 00:00:00 [facility] Influenza High Dose 2020-01-05 Completed [facility] 00:00:00 [facility] Influenza High Dose 2020-01-05 Completed [facility] 00:00:00 [facility] Influenza High Dose 2020-01-05 Completed [facility] 00:00:00 [facility] Influenza High Dose 2020-01-05 Completed [facility] 00:00:00 [facility] Influenza High Dose 2020-01-05 Completed [facility] 00:00:00 [facility] Influenza High Dose 2020-01-05 Completed [facility] 00:00:00 [facility] Influenza High Dose 2020-01-05 Completed [facility] 00:00:00 [facility] Influenza High Dose 2020-01-05 Completed [facility] 00:00:00 [facility] Influenza High Dose 2020-01-05 Completed [facility] 00:00:00 [facility] Influenza High Dose 2020-01-05 Completed [facility] 00:00:00 [facility] Influenza High Dose 2020-01-05 Completed [facility] 00:00:00 [facility] Influenza High Dose 2020-01-05 Completed [facility] 00:00:00 [facility] Influenza High Dose 2020-01-05 Completed [facility] 00:00:00 [facility] Influenza High Dose 2020-01-05 Completed [facility] 00:00:00 [facility] Influenza High Dose 2020-01-05 Completed [facility] 00:00:00 [facility] Influenza High Dose 2020-01-05 Completed [facility] 00:00:00 [facility] Influenza High Dose 2020-01-05 Completed [facility] 00:00:00 [facility] Influenza High Dose 2020-01-05 Completed [facility] 00:00:00 [facility] Influenza High Dose 2020-01-05 Completed [facility] 00:00:00 [facility] Influenza High Dose 2020-01-05 Completed [facility] 00:00:00 [facility] Influenza High Dose 2020-01-05 Completed [facility] 00:00:00 [facility] Influenza High Dose 2020-01-05 Completed [facility] 00:00:00 [facility] Influenza High Dose 2020-01-05 Completed [facility] 00:00:00 [facility] Influenza High Dose 2020-01-05 Completed [facility] 00:00:00 [facility] Influenza High Dose 2020-01-05 Completed [facility] 00:00:00 [facility] Influenza High Dose 2020-01-05 Completed [facility] 00:00:00 [facility] Influenza High Dose 2020-01-05 Completed [facility] 00:00:00 [facility] Influenza High Dose 2020-01-05 Completed [facility] 00:00:00 [facility] Influenza High Dose 2020-01-05 Completed [facility] 00:00:00 [facility] Influenza High Dose 2020-01-05 Completed [facility] 00:00:00 [facility] Influenza High Dose 2020-01-05 Completed [facility] 00:00:00 [facility] Vital Signs Vital Name Observation Time Observation Value Comments Source height 2022 10:00:00 67 [in_i] [facility] weight 2022 10:00:00 171.6 [lb_av] [facility] temperature 2022 10:00:00 96.8 [degF] [facility] bmi 2022 10:00:00 26.87 kg/m2 [facility] oximetry 2022 10:00:00 97 % [facility] respiratory rate 2022 10:00:00 18 /min [facility] blood pressure 2022 10:00:00 137 mm[Hg] [facility] - systolic [facility] blood pressure 2022 10:00:00 77 mm[Hg] [facility] - diastolic [facility] height 2021-10-25 09:50:00 67 [in_i] [facility] weight 2021-10-25 09:50:00 182 [lb_av[facility] temperature 2021-10-25 09:50:00 97.6 [degF] [facility] bmi 2021-10-25 09:50:00 28.5 kg/m2 [facility] oximetry 2021-10-25 09:50:00 97 % [facility] respiratory rate 2021-10-25 09:50:00 16 /min [facility] blood pressure 2021-10-25 09:50:00 132 mm[Hg] [facility] - systolic [facility] blood pressure 2021-10-25 09:50:00 67 mm[Hg] [facility] - diastolic [facility] height 2021-09-06 08:00:00 68 [in_i] [facility] weight 2021-09-06 08:00:00 180.6 [lb_av] [facility] temperature 2021-09-06 08:00:00 97.3 [degF] [facility] bmi 2021-09-06 08:00:00 27.46 kg/m2 [facility] oximetry 2021-09-06 08:00:00 95 % [facility] respiratory rate 2021-09-06 08:00:00 16 /min [facility] blood pressure 2021-09-06 08:00:00 136 mm[Hg] [facility] - systolic [facility] blood pressure 2021-09-06 08:00:00 63 mm[Hg] [facility] - diastolic [facility] Systolic blood 2020-07-19 09:45:00 147 mm[Hg] [facility] pressure [facility] Diastolic blood 2020-07-19 09:45:00 100 mm[Hg] [facility] pressure [facility] Respiratory rate 2020-07-19 09:45:00 15 /min [facility] Oxygen saturation in 2020-07-19 09:45:00 97 /min [facility] by [place] [facility] Heart rate 2020-07-19 09:30:00 64 /min [facility] Body temperature 2020-07-19 07:14:00 36.44 Swati [facility] Body height 2020-07-19 07:14:00 172.7 cm [facility] Body weight 2020-07-19 07:14:00 86.183 kg [facility] BMI 2020-07-19 07:14:00 28.89 kg/m2 [facility] Systolic blood 2020-06-10 15:00:00 140 mm[Hg] [facility] Diastolic blood 2020-06-10 15:00:00 74 mm[Hg] [facility] pressure [facility] Heart rate 2020-06-10 15:00:00 57 /min [facility] Respiratory rate 2020-06-10 15:00:00 18 /min [facility] Oxygen saturation in 2020-06-10 15:00:00 97 /min [facility] blood by [facility] [facility] Pulse oximetry Branch Body temperature 2020-06-10 13:07:00 36.5 Swati [facility] [place] [facility] Body weight 2020-06-10 13:07:00 83.915 kg [facility] [place] [facility] BMI 2020-06-10 13:07:00 28.13 kg/m2 [facility] [place] [facility] Systolic blood 2020-01-13 15:46:00 131 mm[Hg] [facility] [place] [facility] Diastolic blood 2020-01-13 15:46:00 76 mm[Hg] [facility] [place] [facility] Heart rate 2020-01-13 15:43:00 61 /min [facility] Respiratory rate 2020-01-13 15:43:00 19 /min [facility] Body height 2020-01-13 15:43:00 172.7 cm [facility] Body weight 2020-01-13 15:43:00 83.689 kg [facility] BMI 2020-01-13 15:43:00 28.05 kg/m2 [facility] Oxygen saturation in 2020-01-13 15:43:00 95 /min [facility] [place] [facility] P[facility]xim[facility] Systolic blood 2020-01-05 19:11:00 134 mm[Hg] [facility] [place] [facility] Diastolic blood 2020-01-05 19:11:00 82 mm[Hg] [facility] [place] [facility] Heart rate 2020-01-05 18:01:00 67 /min [facility] Body temperature 2020-01-05 18:01:00 36.72 Swati [facility] [place] [facility] Respiratory rate 2020-01-05 18:01:00 18 /min [facility] Body weight 2020-01-05 18:01:00 84.278 kg [facility] BMI 2020-01-05 18:01:00 28.25 kg/m2 [facility] Oxygen saturation in 2020-01-05 18:01:00 95 /min University of Arterial blood by [facility] judah Pulse oximetry Branch Systolic blood 2019-10-21 19:25:00 148 mm[Hg] [facility] [place] [facility] Diastolic blood 2019-10-21 19:25:00 80 mm[Hg] [facility] [place] [facility] Heart rate 2019-10-21 19:25:00 71 /min [facility] Body temperature 2019-10-21 19:25:00 36.06 Swati [facility] [place] [facility] Respiratory rate 2019-10-21 19:25:00 20 /min [facility] [place] [facility] Body height 2019-10-21 19:25:00 172.7 cm [facility] Body weight 2019-10-21 19:25:00 85.186 kg [facility] BMI 2019-10-21 19:25:00 28.55 kg/m2 [facility] Oxygen saturation in 2019-10-21 19:25:00 94 /min [facility] [place] [facility] Systolic blood 2019-09-04 13:58:00 146 mm[Hg] Univer sity of [facility] Diastolic blood 2019-09-04 13:58:00 80 mm[Hg] Unive rsity of pressure [facility] Heart rate 2019-09-04 13:55:00 66 /min [facility] Respiratory rate 2019-09-04 13:55:00 19 /min [facility] Body height 2019-09-04 13:55:00 172.7 cm [facility] Body weight 2019-09-04 13:55:00 84.142 kg [facility] BMI 2019-09-04 13:55:00 28.21 kg/m2 Universi ty [facility] Oxygen saturation in 2019-09-04 13:55:00 96 /min University of Arterial blood by [facility] Pulse oximetry Branch Systolic blood 2019-06-05 17:41:00 148 mm[Hg] Univer sity of pressure [facility] Diastolic blood 2019-06-05 17:41:00 85 mm[Hg] Unive rsity of pressure [facility] Heart rate 2019-06-05 17:41:00 59 /min Universi ty [facility] Body temperature 2019-06-05 17:41:00 36.11 Swati [facility] Respiratory rate 2019-06-05 17:41:00 18 /min [facility] Body weight 2019-06-05 17:41:00 84.188 kg Universi ty [facility] BMI 2019-06-05 17:41:00 29.96 kg/m2 Universi ty [facility] Oxygen saturation in 2019-06-05 17:41:00 93 /min University of Arterial blood by [facility] Pulse oximetry Branch Procedures Procedure Date / Time Performing Clinician Source Performed XR CHEST 1 VW 2020-07-19 07:30:00 Ed Dejesus [facility] MAGNESIUM 2020-07-19 07:24:00 Tracy Fraire [facility] TROPONIN I 2020-07-19 07:24:00 Ed Dejesus [facility] HEPATIC FUNCTION PANEL 2020-07-19 07:24:00 Ed Dejesus [facility] ([id number]) (ALB,T.PRO,BILI [facility] Branch T,BU/BC,ALT,AST,ALK PHOS) BASIC METABOLIC PANEL 2020-07-19 07:24:00 Lulu Dejesusanne [facility] (NA, K, CL, CO2, GLUCOSE, Medica l Branch BUN, CREATININE, CA) CBC WITH DIFF 2020-07-19 07:24:00 Chirag [facility] PROTHROMBIN TIME / INR 2020-07-19 07:24:00 Chirag [facility] N-TERMINAL PRO-BNP 2020-07-19 07:24:00 Chirag [facility] URINALYSIS 2020-07-19 07:23:00 Chirag [facility] XR CHEST 1 VW 2020-06-10 14:08:40 Singer [facility] COVID-19 (ID NOW RAPID 2020-06-10 13:27:00 Singer [facility] TESTING) Medical Branch LIPASE 2020-06-10 13:25:00 Singer [facility] MAGNESIUM 2020-06-10 13:25:00 Singer [facility] TROPONIN I 2020-06-10 13:25:00 Singer [facility] COMP. METABOLIC PANEL 2020-06-10 13:25:00 Franky King [facility] ([id number]) [facility] CBC WITH DIFF 2020-06-10 13:25:00 Singer [facility] N-TERMINAL PRO-BNP 2020-06-10 13:25:00 Singer Franky [facility] HB ECG ROUTINE & RHYTHM 2020-06-10 13:19:30 Singer [facility] MEDICATION CORRESPONDENCE 2020-05-23 06:01:00 Doctor Hilaryssigned, [facility] MEDICATION CORRESPONDENCE 2020-04-19 06:01:00 Doctor Gilberto, [facility] AUTHORIZATION FOR RELEASE 2020-01-29 05:01:00 Doctor Unassigned, formerly [facility] NM MYOCARDIUM PERFUSION 2020-01-15 17:17:00 Shanelle Joseph [facility] STRESS AND REST Medical Branch NM MYOCARDIUM PERFUSION 2020-01-15 17:17:00 Shanelle Joseph [facility] STRESS AND REST Medical Branch NM MYOCARDIUM PERFUSION 2020-01-15 17:17:00 Shanelle Joseph [facility] STRESS AND REST Medical Branch NM MYOCARDIUM PERFUSION 2020-01-15 17:17:00 Shanelle Joseph [facility] REST Medical Branch INSURANCE CORRESPONDENCE 2020-01-08 05:01:00 Doctor Unasswilber, [facility] FLU VACC(),65+ 2020-01-05 18:14:03 Shira Rosa [facility] YRS,IM,HIGH DOSE QUAD A Medical Br anch CARDIOLOGY EVENT MONITOR 2019-10-23 05:01:00 Doctor Gilberto, [facility] INSURANCE CORRESPONDENCE 2019-10-13 05:01:00 Doctor Gilberto [facility] AUTHORIZATION FOR RELEASE 2019-09-29 05:01:00 Doctor Gilberto [facility] EXTERNAL PROVIDER - ADC 2019-09-16 05:01:00 Doctor Gilberto [facility] CARDIOLOGY [facility] EKG-12 LEAD 2019-09-04 14:01:00 Shanelle Joseph [facility] Medical Branch AUTHORIZATION TO RELEASE 2019-09-04 05:01:00 Doctor Gilberto [facility] PHI TO [facility] AGREEMENTS AUTHORIZATIONS 2019-08-08 05:01:00 Doctor Gilberto [facility] AND IRREVOCABLE [facility] ASSIGNMENTS (FORM 2001) AGREEMENTS AUTHORIZATIONS 2019-06-05 06:01:00 Doctor Gilberto [facility] AND IRREVOCABLE [facility] ASSIGNMENTS (FORM 2001) Plan of Care Planned Activity Planned Date Details Comments Source Future Scheduled 2022-03-16 COVID-19 VACCINE (#1) [facility] Test 10:33:00 [code = COVID-19 VACCINE (#1)] Future Scheduled 2022-03-16 BREAST CANCER [facility] Test 10:33:00 SCREENING [code = BREAST CANCER SCREENING] Future Scheduled 2022-03-16 COLONOSCOPY SCREENING [facility] Test 10:33:00 [code = COLONOSCOPY SCREENING] Future Scheduled 2022-03-16 SHINGLES VACCINES (1 Met [facility] Test 10:33:00 of 2) [code = SHINGLES VACCINES (1 of 2)] Future Scheduled 2022-03-16 65+ [facility]OCOCCAL [facility] 10:33:00 VACCINE (1 - PCV) [code = 65+ PNEUMOCOCCAL VACCINE (1 - PCV)] Future Scheduled 2022-03-16 INFLUENZA VACCINE [facility] Test 10:33:00 [code = INFLUENZA VACCINE] Future Scheduled 2021-11-30 HEPATITIS B VACCINES Met [facility] Test 07:42:46 (1 of 3 - 3-dose series) [code = HEPATITIS B VACCINES (1 of 3 - 3-dose series)] Future Scheduled 2021-11-30 COVID-19 VACCINE (#1) [facility] Test 07:42:46 [code = COVID-19 VACCINE (#1)] Future Scheduled 2021-11-30 BREAST CANCER [facility] Test 07:42:46 SCREENING [code = BREAST CANCER SCREENING] Future Scheduled 2021-11-30 COLONOSCOPY SCREENING [facility] Test 07:42:46 [code = COLONOSCOPY SCREENING] Future Scheduled 2021-11-30 SHINGLES VACCINES (1 Met [facility] Test 07:42:46 of 2) [code = SHINGLES VACCINES (1 of 2)] Future Scheduled 2021-11-30 65+ P[facility]UMOCOCCAL [facility] Test 07:42:46 VACCINE (1 - PCV) [code = 65+ PNEUMOCOCCAL VACCINE (1 - PCV)] Future Scheduled 2021-11-30 INFLUENZA VACCINE [facility] Test 07:42:46 [code = INFLUENZA VACCINE] Encounters Start End Encounter Admission Attending Care Care Encounter Source Date/Time Date/Time Type Type Clinicians Facility Department ID 2022-06-21 Outpatient Avina, [facility] [id number] Common 10:03:03 Azeem [id number] [facility] 2022-02-17 Outpatient Avina, [facility] [id number] Common 10:25:02 [facility] [id number] [facility] 2021-09-06 Outpatient Avina, [facility] [id number] Common 08:03:02 Azeem [id number] [facility] 2021-01-30 Emergency [facility] [id number] Univers 13:40:28 ity of [facility] 2022-04-14 2022-04-14 CAV Jocelyn 2.16.840. 2.16.840.1. [facility] [id number] Devoted 15:30:00 16:30:00 Emilianojonh [id number] [facility] [id number] 2022 2022 OFFICE STLMLC STLMLC [id number] Co mmon 00:00:00 00:00:00 VISIT [facility] PT - CHI LEVEL 4 [facility] 2022-01-27 2022-01-27 (TEL) STLMLC STLMLC [id number] Co mmon 00:00:00 00:00:00 [facility] 2021-12-19 2021-12-19 LETY Goodwin 2.16.840. 2.16.840.1. [facility] [id number] Devoted 22:00:00 23:00:00 Stiven [id number] [facility] [id number] 2021-12-15 2021-12-15 (TEL) STLMLC STLMLC [id number] Co mmon 00:00:00 00:00:00 [facility] 2021-11-24 2021-11-24 [facility] [id number] Devoted 00:00:00 00:00:00 0825 [facility] l Group 2021-11-08 2021-11-08 [place] [id number] Devoted 00:00:00 00:00:00 0809 [facility]ica l Group 2021-10-25 2021-10-25 OFFICE STLMLC STLMLC [id number] Co mmon 00:00:00 00:00:00 VISIT [facility] PT - CHI LEVEL 4 [facility] 2021-10-17 2021-10-17 Outpatient NIYARADHA [facility] [id number] [place] 01:15:00 01:15:00 _ANN 0718 [facility] 2021-10-15 2021-10-15 [place] DM [id number] Devoted 04:31:00 04:31:00 0716 Medica l Group 2021-10-14 2021-10-14 (TEL) STLMLC STLMLC [id number] Co mmon 00:00:00 00:00:00 [facility] 2021-10-10 2021-10-10 (TEL) STLMLC STLMLC [id number] Co mmon 00:00:00 00:00:00 [facility] 2021-09-28 2021-09-28 (TEL) STLMLC STLMLC [id number] Co mmon 00:00:00 00:00:00 [facility] 2021-09-23 2021-09-23 (TEL) STLMLC STLMLC [id number] Co mmon 00:00:00 00:00:00 [facility] 2021-09-06 2021-09-06 SUB ANNUAL STLMLC STLMLC [id number] Common 00:00:00 00:00:00 [facility] - CHI VISIT [facility] 2021-09-02 2021-09-02 [place] 1.2.840.114 [id number] Univers 00:00:00 00:00:00 Shira CERDA [id number] [facility] 4.2.7.2.686 Dustin CARDONA [phone] Oh dical [address] 2021-05-12 2021-05-12 CAV Melani 2.16.840. 2.16.840.1. CLAC [id number] Devoted 14:30:00 15:30:00 Zuleta [id number] [facility] [id number] 2021-05-10 2021-05-10 [place] 1.2.840.114 [id number] Univers 00:00:00 00:00:00 Shira CERDA [id number] [place] [phone] Oh dical NAL 231 [facility] 2021-04-04 2021-04-04 Refill Opal, [facility] 1.2.840.114 [id number] Univers 00:00:00 00:00:00 Sendgiancarlo CERDA [id number] it[place] [phone] Oh dical NAL 044 [facility] 2021-04-01 2021-04-01 Refill Opal, [facility] 1.2.840.114 [id number] Univers 00:00:00 00:00:00 Shanelle CERDA [id number] [place] [phone] Oh dical NAL 044 [facility] 2021-02-28 2021-02-28 [facility] 1.2.840.114 [id number] Univers 00:00:00 00:00:00 Shanelle CERDA [id number] [place] [phone] Oh dical NAL 059 [facility] 2021-02-25 2021-02-25 [facility] Shelley, [facility] 1.2.840.114 [id number] [facility] 00:00:00 00:00:00 Shira CERDA [id number] [place] [phone] Oh dical NAL 231 [facility] 2021-02-14 2021-02-14 Refjefe Joseph, [facility] 1.2.840.114 [id number] Univers 00:00:00 00:00:00 Shanelle CERDA [id number] [place] [phone] Oh dical NAL 044 [facility] 2021-02-07 2021-02-07 [facility] 1.2.840.114 [id number] Univers 00:00:00 00:00:00 Shira [place] [id number] ity of [facility] 4.[place] [phone] [address] 2021-02-07 2021-02-07 Refill [facility] 1.2.840.114 [id number] Univers 00:00:00 00:00:00 Shanelle SAAVEDRATON [id number] ity of [facility] [place] [phone] [address] 2021-01-05 2021-01-05 [facility] 1.2.840.114 [id number] Univers 00:00:00 00:00:00 Shira [place]ura [place] [id number] [place] [phone] [address] 2020-11-04 2020-11-04 Refill [facility] 1.2.840.114 [id number] Univers 00:00:00 00:00:00 Rhonda [place] [id number] [place] [phone] [address] 2020-10-20 2020-10-20 Refill [facility] 1.2.840.114 [id number] Univers 00:00:00 00:00:00 Rhonda [place] [id number] [place] [phone] [address] 2020-10-13 2020-10-13 Refill [facility] 1.2.840.114 [id number] Univers 00:00:00 00:00:00 Rhonda [place] [id number] [place] [phone] Oh dical nal 044 [facility] 2020-10-05 2020-10-05 Refill Opal, [facility] 1.2.840.114 [id number] Univers 00:00:00 00:00:00 Sendil [facility] [place] 350.1.13.10 [place] [phone] Oh dicil nal [address] [place] [address] 2020-10-05 2020-10-05 [facility] 1.2.840.114 [id number] Univers 00:00:00 00:00:00 Rohnda Cerda 350.1.13.10 [place] [phone] Oh dicil [place]al [address] [place] [address] 2020-08-19 2020-08-19 [facility] 1.2.840.114 [id number] Univers 00:00:00 00:00:00 Sendgiancarlo [facility] [place] [id number] [place] [phone] Oh dicil [place]al [address] [place] [address] 2020-07-19 2020-07-19 Emergency [facility], [facility] 1.2.359.938 [id number] Univers 02:15:00 04:56:00 Tracy Cerda 350.1.13.10 [place] [phone] [facility] 084 Branch 2020-07-05 2020-07-05 Refill Shelley, [facility] 1.2.840.114 [id number] Univers 00:00:00 00:00:00 Shira Cerda 350.1.13.10 [place] [phone] Oh dical nal [address] [place] [address] 2020-06-10 2020-06-10 Emergency King, [facility] 1.2.968.500 [id number] Univers 07:09:00 10:13:00 Franky Cerda 350.1.13.10 i [place].2.[place] [phone] [facility] 084 [place] 2020-06-10 2020-06-10 Emergency X , [facility] ERT [id number] Univers 07:09:00 10:13:00 FRANKY ity [facility] 2020-05-23 2020-05-23 Orders Doctor PRADO 1.2.840.114 [id number] Univers 00:00:00 00:00:00 Only Unassigned, ANDREA 350.1.13.10 ity of [facility] 4.2.7.2.686 Roel as [phone] [address] 2020-05-22 2020-05-22 [facility] 1.2.840.114 [id number] Univers 00:00:00 00:00:00 Shanelle Cerda 350.1.13.10 [place] [phone] [address] 2020-04-27 2020-04-27 [facility] [id number] Univers 11:00:00 11:00:00 MATEO ity [facility] 2020-04-19 2020-04-19 Orders Doctor PRADO 1.2.840.114 [id number] Univers 00:00:00 00:00:00 Only Unassigned, ANDREA 350.1.13.10 ity of [facility] 4.2.7.2.686 Roel as [phone] [address] 2020-04-16 2020-04-16 [facility]fe [facility] 1.2.840.114 [id number] Univers 00:00:00 00:00:00 Mark [place] 350.1.13.10 [place] [phone] Oh dicil nal [address] [place] [address] 2020-03-30 2020-03-30 Outpatient R [facility] [id number] Univers 14:00:00 14:00:[facility] 2020-03-17 2020-03-17 [facility] 1.2.840.114 [id number] 00:00:00 00:00:00 Shira Ventura [place] 350.1.13.10 [place] 4.2.7.2.686 Professio [phone] [address] 2020-03-17 2020-03-17 [facility] 1.2.840.114 [id number] Univers 00:00:00 00:00:00 Shira Saavedraton 350.1.13.10 ity [facility] [place] [phone] [address] 2020-03-05 2020-03-05 Outpatient R OPAL, [facility] [id number] Univers 09:30:00 09:30:00 SENDIL [facility] 2020-02-16 2020-02-16 [facility] 1.2.840.114 [id number] 00:00:00 00:00:00 Mark [place] 350.1.13.10 [place] 4.2.7.2.686 Professio [phone] [address] 2020-02-16 2020-02-16 [facility] 1.2.840.114 [id number] [facility] 00:00:00 00:00:00 Mark Cerda 350.1.13.10 [place] [phone] [address] 2020-02-03 2020-02-03 Telephone [facility] 1.2.840.114 [id number] 00:00:00 00:00:00 Shira Ventura [place] 350.1.13.10 [place] 4.2.7.2.686 Professio [phone] [address] 2020-02-03 2020-02-03 Telephone [facility] 1.2.840.114 [id number] Univers 00:00:00 00:00:00 Shira Cerda 350.1.13.10 [place] [facility] [phone] Oh dical [facility] 231 [facility] 2020-01-29 2020-01-29 Orders Doctor JOHAN 1.2.840.114 [id number] 00:00:00 00:00:00 Only Unassigned, ANDREA 350.1.13.10 [facility] 4.2.7.2.686 [id number] [facility] 2020-01-29 2020-01-29 Orders Doctor JOHAN 1.2.840.114 [id number] Univers 00:00:00 00:00:00 Only Unassigned, ANDREA 350.1.13.10 ity of [facility] 4.2.7.2.686 Roel as [phone] [facility] [address] [place] 2020-01-22 2020-01-22 Telephone Katlyn Cruz 1.2.371.940 [id number] 00:00:00 00:00:00 Mateo [place] 350.1.13.10 [facility] 4.2.7.2.686 [id number] [id number] 2020-01-22 2020-01-22 Telephone Katlyn Cruz 1.2.770.816 [id number] Univers 00:00:00 00:00:00 Mateo [place] 350.1.13.10 it y of Hospital 4.2.7.2.686 Roel as [phone] [facility] 039 [place] 2020-01-15 2020-01-15 [facility] 1.2.840.114 [id number] Univers 08:39:03 23:59:00 Encounter Shanelle Cerda 350.1.13.10 [place] [phone] [facility] 805 [place] 2020-01-15 2020-01-15 Outpatient R [facility] [id number] Univers 09:00:00 09:00:00 SENDIL ity of [facility] 2020-01-15 2020-01-15 [facility] 1.2.840.114 [id number] Univers 08:38:48 08:38:48 Encounter Shanelle Cerda 350.1.13.10 [place] [phone] [address] 2020-01-15 2020-01-15 [facility] 1.2.840.114 [id number] Univers 08:38:01 08:38:01 Encounter Shanelle PazYonnyTammi Cerda 350.1.13.10 [place] of [place] [phone] [address] 2020-01-15 2020-01-15 [facility] 1.2.840.114 [id number] Univers 08:37:44 08:37:44 Encounter Shanelle Cerda 350.1.13.10 [place] [phone] [address] 2020-01-13 2020-01-[address] [facility] 1.2.840.114 [id number] Univers 10:32:07 11:23:40 Visit Mateo Cerda 350.1.13.10 [place] [phone] Oh dical [facility]9 [facility] 2020-01-13 2020-01-13 [facility] [id number] Univers 10:40:00 10:40:00 MATEO ity of [facility] 2020-01-08 2020-01-08 Orders Doctor JOHAN 1.2.840.114 [id number] Univers 00:00:00 00:00:00 Only Unassigned, ANDREA 350.1.13.10 ity of [facility] 4.2.7.2.686 Roel as [phone] [address] 2020-01-05 2020-01-05 [facility] 1.2.840.114 [id number] Univers 12:52:24 14:19:44 Visit Shira Cerda 350.1.13.10 [place] [phone] [facility] 231 [facility] 2020-01-05 2020-01-05 [facility] [id number] Univers 12:00:00 12:00:00 SHIRA juan of [facility] 2019-12-12 2019-12-12 Telephone [facility] 1.2.328.747 [id number] Univers 00:00:00 00:00:00 Roz Cer[place] 350.1.13.10 [place] [phone] [address] 2019-12-10 2019-12-10 [facility]phone [facility] 1.2.840.114 [id number] Univers 00:00:00 00:00:00 Shira Cerad 350.1.13.10 [place] [phone] [address] 2019-10-13 2019-12-01 Office [facility] 1.2.840.114 [id number] Univers 16:40:00 08:52:10 Visit Shanelle [place]da 350.1.13.10 it[place] [phone] [address] 2019-12-01 2019-12-01 Telephone [facility] [id number] [employer] 00:00:00 00:00:00 Shanelle Cerda [id number] [id number] [phone] [address] 2019-11-02 2019-11-02 [facility] [id number] Univers 00:00:00 00:00:00 [facility] [id number] [id number] [phone] [address] Office Building 2019-11-02 2019-11-02 [facility] [id number] Univers 00:00:00 00:00:00 Send[place] Makenna Cerda [id number] [place] [place] [phone] [place] dic[place] nal 059 [facility] 2019-10-23 2019-10-23 Orders Doctor JOHAN 1.2.840.114 [id number] Univers 00:00:00 00:00:00 Only Unassigned, ANDREA 350.1.13.10 ity of [place] [facility] 4.2.7.2.686 Roel as [phone] [address] 2019-10-21 2019-10-21 Office Rosa, [facility] 1.2.840.114 [id number] Univers 14:12:16 15:40:10 Visit Shira Cerda 350.1.13.10 [place] [phone] [facility] nal 231 [facility] 2019-10-21 2019-10-21 Outpatient [facility] [id number] Univers 14:20:00 14:20:00 [facility]-10-16 2019-10-16 [facility] 1.2.840.114 [id number] Univers 00:00:00 00:00:00 Mark Cerda 350.1.13.10 [place] [phone] [facility] 044 [facility] 2019-10-14 2019-10-14 [facility] 1.2.840.114 [id number] Univers 00:00:00 00:00:00 Mark Creda 350.1.13.10 [place] [phone] [facility] 044 [facility] 2019-10-13 2019-10-13 [facility] [id number] Univers 09:00:00 09:00:00 SENDIL ity [facility] 2019-10-13 2019-10-13 Orders Doctor JOHAN 1.2.840.114 [id number] Univers 00:00:00 00:00:00 Only Unassigned, ANDREA 350.1.13.10 [place] [facility] 4.2.7.2.686 [place] [phone] [address] 2019-10-13 2019-10-13 Telephone [facility] 1.2.840.114 [id number] Univers 00:00:00 00:00:00 Mark Cerda 350.1.13.10 [place] [phone] Oh dic[address] 2019-10-08 2019-10-08 Telephone [facility] 1.2.347.516 [id number] Univers 00:00:00 00:00:00 Shanelle Cerda 350.1.13.10 [place] [phone] [place] dic[place] nal 9 [facility] 2019-10-08 2019-10-08 Refill [facility] 1.2.840.114 [id number] Univers 00:00:00 00:00:00 Mark Cerda 350.1.13.10 [place] [phone] Oh dic[address] 2019-09-04 2019-09-30 Office [facility] 1.2.840.114 [id number] Univers 09:36:41 16:18:59 Visit Shanelle Cerda 350.1.13.10 [place] [phone] Oh dicil nal 9 [facility] 2019-09-29 2019-09-29 Orders Doctor JOHAN 1.2.840.114 [id number] Univers 00:00:00 00:00:00 Only Unassigned, ANDREA 350.1.13.10 [place] [facility] 4.2.7.2.686 [place] [phone] [address] 2019-09-22 2019-09-22 Telephone [facility] 1.2.840.114 [id number] Univers 00:00:00 00:00:00 Mark Cerda 350.1.13.10 [place] [phone] [address] 2019-09-16 2019-09-16 Orders Doctor JOHAN 1.2.840.114 [id number] Univers 00:00:00 00:00:00 Only Unassigned, ANDREA 350.1.13.10 [place] [facility] 4.2.7.2.686 Role as [phone] [address] 2019-09-05 2019-09-05 Refill [facility] 1.2.840.114 [id number] Univers 00:00:00 00:00:00 Mark Cerda 350.1.13.10 [place] [phone] [facility] 044 [facility] 2019-09-05 2019-09-05 [facility] 1.2.329.781 [id number] Univers 00:00:00 00:00:00 Shanelle Cerda 350.1.13.10 [place] [phone] [facility] 059 [facility] 2019-09-04 2019-09-04 Outpatient [facility] [id number] Univers 09:00:00 09:00:00 SENDIL ity [facility] 2019-09-04 2019-09-04 Orders Doctor JOHAN 1.2.840.114 [id number] Univers 00:00:00 00:00:00 Only Unassigned, ANDREA 350.1.13.10 [place] [facility] 4.2.7.2.686 [place] [phone] [address] 2019-08-18 2019-08-18 [facility] 1.2.840.114 [id number] Univers 00:00:00 00:00:00 Mark Cerda 350.1.13.10 [place] [phone] Oh dical nal 044 [facility] 2019-08-14 2019-08-14 [facility] 1.2.840.114 [id number] Univers 00:00:00 00:00:00 Mark Buck 350.1.13.10 [place]2.[place] [phone] Oh dical nal 044 [facility] 2019-08-08 2019-08-08 Outpatient Romain ARMAS [facility] [id number] Univers 08:30:00 08:30:00 BERENICE juan [facility] 2019-08-08 2019-08-08 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, 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 [facility] 1.2.840.114 [id number] Univers 08:07:56 08:22:56 Visit Berenice Armas 350.1.1 3.10 it[place] [phone] [facility] 353 [facility] 2019-08-08 2019-08-08 Orders Doctor JOHAN 1.2.840.114 [id number] Univers 00:00:00 00:00:00 Only Unassigned, ANDREA 350.1.13.10 [place] of [place] [facility] 4.2.7.2.686 [place] [phone] [address] 2019-08-04 2019-08-04 Outpatient Romain ARMAS [facility] [id number] Univers 11:00:00 11:00:00 BERENICE juan [facility] 2019-08-04 2019-08-04 Telemedici Tanja [facility] 1.2.840.114 [id number] Univers 08:02:41 08:32:41 ne Visit Berenice Cerda 350.1.13.10 [place]y [place]2.[place] [phone] Oh dical nal 044 [facility] 2019-07-14 2019-07-14 [facility] 1.2.840.114 [id number] Univers 00:00:00 00:00:00 Mark Cerda 350.1.13.10 [place]2.[place] [phone] Oh dical nal 044 [facility] 2019-06-06 2019-06-06 Pre Visit [facility] 1.2.840.114 [id number] Univers 00:00:00 00:00:00 Outreach Mark Cerda 350.1.13.10 [place] [phone] Oh dical nal 044 [facility] 2019-06-05 2019-06-05 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 [id number] Univers 10:40:00 10:40:00 MARK juan of [facility] 2019-06-05 2019-06-05 Orders Doctor JOHAN 1.2.840.114 [id number] Univers 00:00:00 00:00:00 Only Unassigned, ANDREA 350.1.13.10 it[place] [facility] 4.2.7.2.686 [place] [phone] [address] 2019-05-21 2019-05-21 Outpatient [facility] [facility] [phone] [facility] 07:12:00 07:12:00 _J_AH 98627 Family Practic e 2019-05-21 2019-05-21 Outpatient [place] [facility] VFP [phone] [facility] 07:12:00 07:12:00 _J_AH 05965 Family Practic e Results Test Description Test Time Test Comments Results Result Sourc e Comments Sander result 3 00:00:00 Chest 1 View 2020-07-01 Cardiomegaly Universit y of 9 without pulmonary [place] [facility] 08:48:14 edema. RL: 135 [facility]: [facility] [id number] ORDERING PHYSICIAN: Roosevelt HANDLEY HISTORY: palpitations ? [...] thedetection of masses.IMPRESSIONCa rdiomegaly without pulmonary edema.RL: 135[facility]: [id number] signed by Jose Enrique Gerardo MD at 07/19/2020 3:48 AM MAGNESIUM 2020-07-19 08:32:01 Test Item Value Reference Range Interpretation Comme nts MAGNESIUM (test code = 0976055204) 2.0 mg/dL 1.7-2.4 Lab Interpretation (test code = 14872-7) Normal [facility] [id number] 08:17:52 Test Item Value Reference Range Interpretation Comments TROPONIN I (test 0.004 ng/mL See_Comment [Automated code = 0153748106) message] The system which generated this result [...] ? Lab Interpretation Normal (test code = 80744-1) [facility]MINAL [id number] 07:56:58 Test Item Value Reference Range Interpretation Comments NT-proBNP (test code 367 pg/mL See_Comment H [Autom ated = 8102936636) message] The system which generated this result transmitted reference range : <=125. The reference range was not used to interpret this result as normal/abnormal . SHUN (test code = SHUN) Biotin has been reported to cause a negative bias, interpret results relative to patient's use of biotin. Lab Interpretation Abnormal (test code = 10289-4) [facility] (NA, K, CL, CO2, GLUCOSE, BUN, CREATININE, CA)2020-07-19 07:49:01 Test Item Value Reference Range Interpretation Comments NA (test code = 145 mmol/L 135-145 7077386833) K (test code = 3.8 mmol/L 3.5-5.0 7826650855) CL (test code = 105 mmol/L 98-108 4341671073) CO2 TOTAL (test code = 32 mmol/L 23-31 H 5278342978) AGAP (test code = 2-16 3614172680) BUN (test code = 13 mg/dL 7-23 2653177107) GLUCOSE (test code = 128 mg/dL 70-110 H 8628001156) CREATININE (test code = 0.86 mg/dL 0.50-1.04 6057012092) CALCIUM (test code = 9.6 mg/dL 8.6-10.6 2343506277) eGFR (test code = mL/min/1.73m2 4686954191) SHUN (test code = SHUN) Association of [...] tests). Lab Interpretation Abnormal (test code = 90142-8) [facility] Dallas[facility] Function [facility] (ALB, T.PRO, BILI T, BU/BC, ALT, AST, ALK PHOS)2020-07-19 07:49:01 Test Item Value Reference Range Interpretation Comments TOTAL BILI (test code = 2045902656) 0.9 mg/dL 0.1-1.1 BILI UNCON (test code = 8553322355) 0.8 mg/dL 0.1-1.1 BILI CONJ (test code = 5895868429) 0.0 mg/dL 0.0-0.3 T PROTEIN (test code = 9978686992) 7.1 g/dL 6.3-8.2 ALBUMIN (test code = 2409294360) 4.7 g/dL 3.5-5.0 ALK PHOS (test code = 5483378384) 86 U/L 34-122 ALTv (test code = 1742-6) 16 U/L 5-35 AST(SGOT) (test code = 6669613709) 24 U/L 13-40 Lab Interpretation (test code = Normal 71170-2) [facility] DallasUrinalysis2021-04-19 07:44:19 Test Item Value Reference Range Interpretation Comments APPEARANCE (test code = Clear Clear 1767210212) COLOR (test code = Colorless Yellow A 9476259713) PH (test code = 4.8-8.0 0946112382) SP GRAVITY (test code = 1.003-1.030 4863045876) GLU U QUAL (test code = Normal Normal 1107135978) BLOOD (test code = Negative Negative 3681869015) KETONES (test code = Negative Negative 4690117235) PROTEIN (test code = Negative Negative 2887-8) UROBILIN (test code = Normal Normal 7586410277) BILIRUBIN (test code = Negative Negative 6081027296) NITRITE (test code = Negative Negative 7477920252) LEUK ASHLY (test code = Negative Negative 9170705765) RBC/HPF (test code = See_Comment [Autom ated message] 4373201104) The system Hoodin generated this result transmit juliet reference range : 0 - 3 HPF. The refe rence range was not u sed to interpret th is result as normal/abnormal . WBC/HPF (test code = See_Comment [Autom ated message] 5530527476) The system Hoodin generated this result transmit juliet reference range : 0 - 5 HPF. The refe rence range was not u sed to interpret th is result as normal/abnormal . BACTERIA (test code = Negative Negative 1661301081) Lab Interpretation (test Abnormal code = 50040-6) [facility] DallasProthrombin Time (PT) / [id number] 07:42:19 Test Item Value Reference Range Interpretation Comments PROTIME PATIENT (test See_Comment [Auto mated message] code = 5964-2) The system wh ich generated this result transmitted ref erence range: 12.0 - 1 4.7 Seconds. The re ference range was not u sed to interpret this result as normal/abnor mal. INR (test code = 6301-6) Nor mal INR <1.1; Warfarin Therap eutic range 2.0 to 3. 0 or 2.5 to 3.5, dep ending upon the indica tions. Lab Interpretation (test Normal code = 13897-6) [facility] with [id number] 07:33:17 Test Item Value Reference Range Interpretation Comments WBC (test code = See_Comment [Automated 9290-2) message] The sy stem which generated this result transmitted reference range : 4.30 - 11.10 10*3/?L. The reference range was not used to interpret this result as normal/abnormal . RBC (test code = See_Comment [Automated 499-8) message] The sy stem which generated this [...] RDW-SD (test code = 41.0 fL 39.0-49.9 26614-1) RDW-CV (test code = 12.5 % 12.0-15.5 788-0) PLT (test code = See_Comment [Automated 777-3) message] The sy stem which generated this result transmitted reference range : 166 - 358 10*3/ ?L. The reference r vish was not used to interpret this result as normal/abnormal . MPV (test code = 9.8 fL 9.5-12.9 60146-9) NRBC/100 WBC (test See_Comment [Automat ed code = 0672074999) message] The system which generated this result transmitted reference range : 0.0 - 10.0 /100 WBCs. The refer ence range was not u sed to interpret th is result as normal/abnormal . NRBC x10^3 (test code <0.01 See_Comment [Auto mated = 5285792010) message] The s ystem which generated this result transmitted reference range : 10*3/?L. The reference range was not used to interpret this result as normal/abnormal . GRAN MAT (NEUT) % 50.5 % (test code = 770-8) IMM GRAN % (test code 0.10 % = 1220808230) LYMPH % (test code = 38.7 % 736-9) MONO % (test code = 7.4 % 5905-5) EOS % (test code = 2.5 % 713-8) BASO % (test code = 0.8 % 706-2) GRAN MAT x10^3(ANC) 3.76 10*3/uL 1.88-7.09 (test code = 5124932311) IMM GRAN x10^3 (test <0.03 0.00-0.06 code = 1548855361) LYMPH x10^3 (test code 2.89 10*3/uL 1.32-3.29 = 731-0) MONO x10^3 (test code 0.55 10*3/uL 0.33-0.92 = 742-7) EOS x10^3 (test code = 0.19 10*3/uL 0.03-0.39 711-2) BASO x10^3 (test code 0.06 10*3/uL 0.01-0.07 = 704-7) Lab Interpretation Abnormal (test code = 73497-2) [facility] DallasXR CHEST 1 [id number] 14:19:30HISTORY: Chest pain. TECHNIQUE: Portable AP erect [...] Comparison ismade with 05/01/2019 study.FINDINGS: No acute pneumonia.No pneumothorax or pleural effusion orpulmonary congestion detected. Mild cardiomegaly noted.CONCLUSIONS: No signs of acute cardiopulmonary disease.[facility] DallasTROPONIN I 2020-06-10 14:18:14 Test Item Value Reference Range Interpretation Comments TROPONIN I (test <0.012 See_Comment [Automated code = 6586249462) message] The system which generated this result [...] ? Lab Interpretation Normal (test code = 56352-8) [facility] DallasCOVID-19 (ID NOW RAPID TESTING)2020-06-10 14:18:14 Test Item Value Reference Range Interpretation Comments SARS-CoV-2 Rapid ID NOW Not Detected Not Detected (test code = 49935-0) SHUN (test code = SHUN) ID NOW COVID-19 Assay is an isothermal nucleic acid amplification test intended for the qualitative detection of nucleic acid from SARS-CoV-2 viral RNA in nasopharyngeal (SHEET CUTTING OPERATOR) specimens. It is used under Emergency Use [...] indicated. Lab Interpretation Normal (test code = 84562-2) [facility] DallasN-TERMINAL [id number] 14:14:51 Test Item Value Reference Range Interpretation Comments NT-proBNP (test code 1230 pg/mL See_Comment H [Autom ated = 2766769346) message] The system which generated this result transmitted reference range : <=125. The reference range was not used to interpret this result as normal/abnormal . SHUN (test code = SHUN) Biotin has been reported to cause a negative bias, interpret results relative to patient's use of biotin. Lab Interpretation Abnormal (test code = 30113-5) [facility] DallasMAGNESIUM2021-03-11 14:06:52 Test Item Value Reference Range Interpretation Comments MAGNESIUM (test code = 2419617127) 1.8 mg/dL 1.7-2.4 Lab Interpretation (test code = Normal 72183-4) [facility] DallasCOMP. METABOLIC PANEL (61831)2020-06-10 14:06:31 Test Item Value Reference Range Interpretation Comments NA (test code = 141 mmol/L 135-145 9840162568) K (test code = 3.6 mmol/L 3.5-5.0 6208189659) CL (test code = 101 mmol/L 98-108 2073237323) CO2 TOTAL (test code = 32 mmol/L 23-31 H 9509065457) AGAP (test code = 2-16 2658280842) BUN (test code = 13 mg/dL 7-23 2008769289) GLUCOSE (test code = 126 mg/dL 70-110 H 6508624126) CREATININE (test code = 0.80 mg/dL 0.50-1.04 6509501542) TOTAL BILI (test code = 0.7 mg/dL 0.1-1.1 9338872866) CALCIUM (test code = 9.5 mg/dL 8.6-10.6 0698579011) T PROTEIN (test code = 7.1 g/dL 6.3-8.2 9259609446) ALBUMIN (test code = 4.8 g/dL 3.5-5.0 1444050637) ALK PHOS (test code = 88 U/L 34-122 0556816977) ALTv (test code = 16 U/L 5-35 2-6) AST(SGOT) (test code = 23 U/L 13-40 2905245300) eGFR Calculation mL/min/1.73m2 (Non-) (test code = 9912459361) eGFR Calculation mL/min/1.73m2 () (test code = 0655918828) SHUN (test code = SHUN) Association of [...] tests). Lab Interpretation Abnormal (test code = 74172-1) [facility] DallasLIPASE2021-03-11 14:06:11 Test Item Value Reference Range Interpretation Comments LIPASE (test code = 1498278712) 41 U/L 0-220 Lab Interpretation (test code = Normal 04769-2) [facility] DallasCBC WITH [id number] 13:55:09 Test Item Value Reference Range Interpretation Comments WBC (test code = See_Comment [Automated 7890-2) message] The sy stem which generated this result transmitted reference range : 4.30 - 11.10 10*3/?L. The reference range was not used to interpret this result as normal/abnormal . RBC (test code = See_Comment [Automated 919-8) message] The sy stem which generated this [...] RDW-SD (test code = 42.0 fL 39.0-49.9 25158-3) RDW-CV (test code = 12.4 % 12.0-15.5 788-0) PLT (test code = See_Comment [Automated 777-3) message] The sy stem which generated this result transmitted reference range : 166 - 358 10*3/ ?L. The reference r vish was not used to interpret this result as normal/abnormal . MPV (test code = 10.0 fL 9.5-12.9 31210-9) NRBC/100 WBC (test See_Comment [Automat ed code = 7022710436) message] The system which generated this result transmitted reference range : 0.0 - 10.0 /100 WBCs. The refer ence range was not u sed to interpret th is result as normal/abnormal . NRBC x10^3 (test code <0.01 See_Comment [Auto mated = 1525349587) message] The s ystem which generated this result transmitted reference range : 10*3/?L. The reference range was not used to interpret this result as normal/abnormal . GRAN MAT (NEUT) % 57.8 % (test code = 770-8) IMM GRAN % (test code 0.40 % = 9506289419) LYMPH % (test code = 32.2 % 736-9) MONO % (test code = 6.7 % 5905-5) EOS % (test code = 2.0 % 713-8) BASO % (test code = 0.9 % 706-2) GRAN MAT x10^3(ANC) 4.42 10*3/uL 1.88-7.09 (test code = 2666054454) IMM GRAN x10^3 (test 0.03 10*3/uL 0.00-0.06 code = 9635594733) LYMPH x10^3 (test code 2.46 10*3/uL 1.32-3.29 = 731-0) MONO x10^3 (test code 0.51 10*3/uL 0.33-0.92 = 742-7) EOS x10^3 (test code = 0.15 10*3/uL 0.03-0.39 711-2) BASO x10^3 (test code 0.07 10*3/uL 0.01-0.07 = 704-7) Lab Interpretation Abnormal (test code = 91213-0) [facility] MYOCARDIUM PERFUSION STRESS AND REST 2020-01-16 01:23:231. ?The patient's electrocardiogram is nonischemic.2. ?The patient's clinical response is asymptomatic for angina. 3. ?Overall left ventricular systolic function is normal.4. ?SPECT imaging reveals small size, mild degree fixed defect in apicalwall segments. 5. ?No reversible defect noted. I was present for the stress portion of the study. [facility] Lexiscan Stress Test Report PROCEDURE:After obtaining witnessed informed consent, patient underwent a Regadenosonnuclear stress test using a one-day protocol. The patient was administered0.4 mg. Regadenoson over 10 seconds intravenously. Myocardial perfusionSPECT imaging was performed at rest after the intravenous injection of 16.1mCi of Technetium 99m Tetrofosmin. During the stress portion of the test45.0 mCi of Technetium 99m Tetrofosmin was injected intravenously at 10seconds after the Regadenoson infusion at peak phar macologic effect. Thestress gated SPECT study was acquired. Both stress and rest images wereacquiredwith patient being supine. Images were processed according to ASNguidelines. Short, horizontal long, long axis slices, raw [...] images. * ?Rest of the SPECT imaging reveals normal uptake of radiopharmaceuticalagents in all of wall segments in both stress and rest images. * ?Post-stress LV end-diastolic volume is 81 ml and LV end-systolic volumeis ?23 ml. * ?The left ventricle ejection fraction is calculated to be 72 % at stressand 66% at rest. * ?Regional wall motion analysis of the left ventricle reveals is normal. * ?TID: 0.92 [facility], Radiant Results Inft User - 01/15/2020 8:24 PM [facility] Lexiscan Stress Test ReportPROCEDURE:After obtaining witnessed informed consent, patient underwent a Regadenosonnuclear stress test using a one-day protocol. The patient was administered0.4 mg. Regadenoson over 10 seconds intravenously. Myocardial perfusionSPECT imaging was performed at rest after the intravenous injection of 16.1mCi of Technetium 99m Tetrofosmin. During the stress portion of the test45.0 mCi of Technetium 99m Tetrofosmin was injected intravenously at 10seconds after the Regadenoson infusion at peak pharmacologic effect. Thestressgated SPECT study was acquired. Both stress and rest images wereacquired with patient being supine. Images were processed according to ASNguidelines. Short, horizontal long, long axis slices, raw datacines, polarplot, and wall motion analysis were reviewed. FINDINGS:* During the Regadenoson administration, no symptoms were noted. * Please refer ECG report for full details. * The overall technical qu ality of the study is good. * Raw cine data reveals no significant abnormality. * SPECT imaging reveals small size, mild degree reduced uptake ofradiopharmaceutical agents apical wall segments in both stress images andrest images. * Rest of the SPECT imaging reveals normal uptake of radiopharmaceutical agents in all of wall segments in both stress and rest images. * Post-stress LV end-diastolic volumeis 81 ml and LV end-systolic volumeis 23 ml. * The left ventricle ejection fraction is calculated abigail 72 % at stressand 66% at rest. * Regional wall motion analysis of the left ventricle reveals is normal. * TID: [id number]. The patient's electrocardiogram is nonischemic.2. The patient's clinical response is asymptomatic for angina. 3. Overall left ventricular systolic function is normal.4. SPECT imaging reveals small size, mild degree fixed defect in apicalwall segments. 5. No reversible defect noted. I was present for the stress portion of the study.[facility]"
[2022-06-23 08:15] LABS: Absolute Lymphocytes (CBC) 1.6 K/uL (0.7-4.9); Hematocrit 44.1 % (36.0-45.0); Lymphocytes % 26.4 % (15.3-44.8)
[2022-06-23 08:24] LABS: Albumin 3.9 g/dL (3.4-5.0); Bilirubin Total 0.5 mg/dL (0.2-1.0); Magnesium 2.1 mg/dL (1.6-2.4); Protein, Total 6.3 g/dL (6.4-8.2)
[2022-06-23 08:38] LABS: Thyroid Stimulating Hormone 5.01 uIU/mL (0.358-3.740)
[2022-06-23 08:57] LABS: Specific Gravity 1.012 (1.005-1.030); Urine Bacteria <20 /HPF (<20); Urine Bilirubin NEGATIVE (Negative); Urine Blood Negative (Negative); Urine Clarity Clear (Clear); Urine Color Light-Yellow (Yellow); Urine Glucose NEGATIVE (Negative); Urine Mucus Slight /HPF (None Seen); Urine Protein TRACE (Negative); Urine RBC <5 /HPF (None Seen); Urine Urobilinogen Normal (Normal); Urine WBC Clump Rare /HPF (None Seen)
--- NOTE | 2022-06-23 09:07 | RAD REPORT ---
EXAM DESCRIPTION: RAD - Chest Single View - 06/23/2022 8:04 am CLINICAL HISTORY: near syncope Chest pain. COMPARISON: Chest Pa And Lat (2 Views) dated 04/14/2021; Chest Single View dated 03/30/2020; Chest Si ngle View dated 03/16/2019; Chest Pa And Lat (2 Views) dated 06/21/2016 FINDINGS: Portable technique limits examination quality. The lungs are grossly clear. The heart is upper limit of normal in size. No displaced fractures. IMPRESSION: No acute intrathoracic process suspected.
--- NOTE | 2022-06-23 09:22 | EDPHYS ---
Physician Documentation [facility] Name: Nickolas Grimes Age: 72 yrs Sex: Female : 1950 Arrival Date: 06/23/2022 Time: 07:33 Bed 13 Private MD: ED Physician Agustin Stevens HPI: 06/23 08:12 This 72 yrs old Female presents to ER via EMS with complaints of Dizziness, General rt Weakness. 08:12 Patient presents to the ED with fatigue, generalized weakness, lightheadedness starting rt when she woke up at about 615. This was worse when she was walking around. Patient states that she felt very clammy and sweaty at that time but denied any chest pain, nausea, dyspnea. Patient states that the symptoms have currently resolved, feels at her baseline now. Stable vital signs in route. Denies other acute complaints at this time, symptoms are moderate in severity, no other aggravating or alleviating factors.. Historical: - Allergies: 07:35 Azithromycin; ll1 - PMHx: 07:35 Atrial Fib; diabetes mellitus; Hypertension; ll1 - Immunization history:: Client reports receiving the 2nd dose of the Covid vaccine. - Social history:: Smoking status: Patient denies any tobacco usage or history of. - Family history:: not pertinent. ROS: 08:12 Cardiovascular: Negative for chest pain, palpitations, and edema, Respiratory: Negative rt for shortness of breath, cough, wheezing, and pleuritic chest pain, Abdomen/GI: Negative for abdominal pain, nausea, vomiting, diarrhea, and constipation, Psych: Negative for depression, anxiety, suicide ideation, homicidal ideation, and hallucinations. 08:12 Constitutional: Positive for fatigue, Negative for fever. 08:12 Skin: Positive for diaphoresis, Negative for rash. 08:12 Neuro: Positive for near syncope, weakness. Exam: 08:12 Constitutional: This is a well developed, well nourished patient who is awake, alert, rt and in no acute distress. Head/Face: Normocephalic, atraumatic. Chest/axilla: Normal chest wall appearance and motion. Nontender with no deformity. No lesions are appreciated. Cardiovascular: Regular rate and rhythm with a normal S1 and S2. No gallops, murmurs, or rubs. Normal PMI, no JVD. No pulse deficits. Respiratory: Lungs have equal breath sounds bilaterally, clear to auscultation and percussion. No rales, rhonchi or wheezes noted. No increased work of breathing, no retractions or nasal flaring. Abdomen/GI: Soft, non-tender, with normal bowel sounds. No distension or tympany. No guarding or rebound. No evidence of tenderness throughout. MS/ Extremity: Pulses equal, no cyanosis. Neurovascular intact. Full, normal range of motion. Neuro: Awake and alert, GCS 15, oriented to person, place, time, and situation. Cranial nerves II-XII grossly intact. Motor strength 5/5 in all extremities. Sensory grossly intact. Cerebellar exam normal. Normal gait. Psych: Awake, alert, with orientation to person, place and time. Behavior, mood, and affect are within normal limits. 08:12 ECG was reviewed by the Attending Physician. Vital Signs: 07:33 BP 164 / 74; Pulse 60; Resp 15; Temp 97.6; Pulse Ox 98% ; Weight 77.56 kg; Height 5 ft. ll1 6 in. ; Pain 0/10; 08:36 BP 141 / 70; Pulse 59; Pulse Ox 97% on R/A; ll1 09:33 BP 116 / 67; Pulse 57; Resp 16; Pulse Ox 99% ; ll1 07:33 Body Mass Index 27.60 (77.56 kg, 167.64 cm) ll1 07:33 Pain Scale: Adult ll1 MDM: 07:33 Patient medically screened. rt 09:21 Differential diagnosis: Dysrhythmia, pneumonia, pneumothorax, electrolyte disturbance, rt acute coronary syndrome, anemia. Data reviewed: vital signs, nurses notes, lab test result(s), EKG, radiologic studies. Consideration of Admission/Observation Escalation of care including admission/observation considered. Independent interpretation of the following test(s) in the Emergency Department X-Ray: My interpretation is No pneumothorax, interpretation of the x-ray images. Test considered but Not performed: CT: Low suspicion for PE, CVA, CT scans or not indicated. Counseling: I had a detailed discussion with the patient and/or guardian regarding: the historical points, exam findings, and any diagnostic results supporting the discharge/admit diagnosis, lab results, radiology results, the need for outpatient follow up. ED course: Discussed labs, imaging with the patient. Patient with WBCs in the urine without urinary symptoms and no bacteria, will send for culture, discussed this with the patient, antibiotics not indicated at this time. Discussed and offered admission to the patient, she is strongly desirous of discharge, she is currently asymptomatic, believe this is reasonable at this time. Patient to be discharged, follow-up with cardiology and primary care as an outpatient. Return precautions were discussed. Patient and daughter are comfortable with this plan and verbalized understanding.. 06/23 07:35 Order name: CBC with Diff; Complete Time: 09:11 rt 06/23 07:35 Order name: CMP; Complete Time: 09:11 rt 06/23 07:35 Order name: Troponin High Sensitivity; Complete Time: 09:11 rt 06/23 07:35 Order name: TSH; Complete Time: 09:11 rt 06/23 07:35 Order name: Magnesium; Complete Time: 09:11 rt 06/23 07:35 Order name: Urine W/Microscopic (UAM); Complete Time: 09:11 rt 06/23 08:40 Order name: T4 Free; Complete Time: 09:11 EDMS 06/23 09:01 Order name: Urine Culture EDMS 06/23 07:35 Order name: Chest Single View XRAY; Complete Time: 09:11 rt 06/23 07:35 Order name: EKG; Complete Time: 07:35 rt 06/23 07:35 Order name: EKG - Nurse/Tech; Complete Time: 07:50 rt EC:12 Rate is 56 beats/min. Rhythm is regular, Sinus bradycardia with LAFB, nonspecific t rt wave changes. Left axis deviation noted. IA interval is normal. QRS interval is normal. QT interval is prolonged at 499 msec. No Q waves. Administered Medications: No medications were administered Disposition Summary: 06/23/22 09:21 Discharge Ordered Location: Home rt Problem: new rt Symptoms: are resolved rt Condition: Stable rt Diagnosis - Syncope Near rt Followup: rt - With: Private Physician - When: 2 - 3 days - Reason: Followup: rt - With: Dale Espinoza MD - When: 5 - 6 days - Reason: Discharge Instructions: - Discharge Summary Sheet rt - Near-Syncope rt Forms: - Medication Reconciliation Form rt - Thank You Letter rt - Antibiotic Education rt - Prescription Opioid Use rt Signatures: Dispatcher [employer] Corine Villareal RN RN ll1 Agustin Stevens, MD rt
--- NOTE | 2022-06-23 09:22 | ER ---
Nurse's Notes [facility] Name: Nickolas Grimes Age: 72 yrs Sex: Female : 1950 Arrival Date: 06/23/2022 Time: 07:33 Bed 13 Private MD: Diagnosis: Syncope Near Presentation: 06/23 07:33 Chief complaint: Patient states: Awoke at 0615 feeling clammy, slightly dizzy, weak ll1 when walking to restroom. Feels better now. Coronavirus screen: Vaccine status: Patient reports receiving the 2nd dose of the covid vaccine. Client denies travel out of the [place] in the last 14 days. At this time, the client does not indicate any symptoms associated with coronavirus-19. Ebola Screen: Patient denies travel to an Ebola-affected area in the 21 days before illness onset. Initial Sepsis Screen: Does the patient meet any 2 criteria? No. Patient's initial sepsis screen is negative. Does the patient have a suspected source of infection? No. Patient's initial sepsis screen is negative. Risk Assessment: Do you want to hurt yourself or someone else? Patient reports no desire to harm self or others. Onset of symptoms was June 23, 2022. 07:33 Method Of Arrival: EMS ll1 07:33 Acuity: [place] 3 ll1 Triage Assessment: 07:35 General: Appears in no apparent distress. Behavior is calm, cooperative, appropriate ll1 for age. Pain: Denies pain. Neuro: Reports dizziness, weakness. Historical: - Allergies: 07:35 Azithromycin; ll1 - PMHx: 07:35 Atrial Fib; diabetes mellitus; Hypertension; ll1 - Immunization history:: Client reports receiving the 2nd dose of the Covid vaccine. - Social history:: Smoking status: Patient denies any tobacco usage or history of. - Family history:: not pertinent. Screenin:[facility] ED Fall Risk Assessment (Adult) Score/Fall Risk Level 0 - 2 = Low Risk ll1 Oriented to surroundings, Maintained a safe environment, Educated pt \T\ family on fall prevention, incl call for assistance when getting out of bed, Hourly rounding (assess needs \T\ fall precautionary measures) done. Abuse screen: Denies threats or abuse. Nutritional screening: No deficits noted. Tuberculosis screening: No symptoms or risk factors identified. Assessment: 07:50 Reassessment: No changes from previously documented assessment. Patient and/or family ll1 updated on plan of care and expected duration. Pain level reassessed. Patient is alert, oriented x 3, equal unlabored respirations, skin warm/dry/pink. 07:58 Reassessment: No changes from previously documented assessment. Xray at BS. ll1 08:14 Reassessment: No changes from previously documented assessment. Patient and/or family ll1 updated on plan of care and expected duration. Pain level reassessed. Patient is alert, oriented x 3, equal unlabored respirations, skin warm/dry/pink. 09:33 Reassessment: No changes from previously documented assessment. Patient and/or family ll1 updated on plan of care and expected duration. Pain level reassessed. Patient is alert, oriented x 3, equal unlabored respirations, skin warm/dry/pink. Vital Signs: 07:33 BP 164 / 74; Pulse 60; Resp 15; Temp 97.6; Pulse Ox 98% ; Weight 77.56 kg; Height 5 ft. ll1 6 in. ; Pain 0/10; 08:36 BP 141 / 70; Pulse 59; Pulse Ox 97% on R/A; ll1 09:33 BP 116 / 67; Pulse 57; Resp 16; Pulse Ox 99% ; ll1 07:33 Body Mass Index 27.60 (77.56 kg, 167.64 cm) ll1 07:33 Pain Scale: Adult ll1 ED Course: 07:33 Patient arrived in ED. ll1 07:33 Augstin Stevens MD is Attending Physician. rt 07:35 Triage completed. ll1 07:35 Corine Holden, FAWAD is Primary Nurse. ll1 07:35 Arm band placed on Patient placed in an exam room, on a stretcher. ll1 07:45 Inserted saline lock: 22 gauge in right antecubital area, using aseptic technique. ll1 Blood collected. 08:01 Patient has correct armband on for positive identification. Bed in low position. Call ll1 light in reach. Side rails up X2. Client placed on continuous cardiac and pulse oximetry monitoring. NIBP monitoring applied. sports management intern on. 08:05 Chest Single View XRAY In Process Unspecified. EDMS 08:47 Urine W/Microscopic (UAM) Sent. bc6 09:21 Dale Espinoza MD is Referral Physician. rt 09:33 No provider procedures requiring assistance completed. IV discontinued, intact, ll1 bleeding controlled, No redness/swelling at site. Pressure dressing applied. Administered Medications: No medications were administered Medication: 09:34 VIS not applicable for this client. ll1 Outcome: 09:21 Discharge ordered by . rt 09:34 Discharged to home ambulatory. ll1 09:34 Condition: stable 09:34 Discharge instructions given to patient, family, Instructed on discharge instructions, follow up and referral plans. Demonstrated understanding of instructions, follow-up care. 09:34 Patient left the ED. ll1 Signatures: Dispatcher [employer] EDMS Corine Holden RN RN ll1 Agustin Stevens MD MD rt Paola Yo bc6
[2022-06-23 09:48] VITALS: TEMP 97.6
[2022-06-23 09:59] VITALS: BP 116/67; O2SAT 99
--- NOTE | 2022-06-26 12:36 | EKG ---
Test Date: 2022-06-23 Test Time: 07:47:15 Steam Plant Operator: JOHN MEASUREMENT RESULTS: Intervals: Rate: 56 [place]: 188 QRSD: 104 QT: 518 QTc: 499 [place]: P: 50 [place]: 188 QRS: -57 T: 35 INTERPRETIVE STATEMENTS: Sinus bradycardia Left anterior fascicular block Nonspecific T wave abnormality Prolonged QT Abnormal ECG Compared to ECG 03/16/2019 08:54:58 Left anterior fascicular block now present Prolonged QT interval now present Sinus rhythm no longer present Left-axis deviation no longer present Incomplete right bundle-branch block no longer present T-wave abnormality still present Electronically Signed On 06-26-22 12:28:57 CDT by Dale Espinoza
== END 2022-06-23 09:34 | disposition home or self-care (01) ==
LOC: ER 07:25
DX: R55 Syncope and collapse (principal); R53.83 Other fatigue; R53.1 Weakness; R61 Generalized hyperhidrosis
CPT/HCPCS: 36415; 71045; 80053; 81001; 83735; 84439; 84443; 84484; 85025; 87086; 87088; 93005; 99284

== ENCOUNTER 2024-03-13 20:12 | Emergency (ER) | payer MEDICARE ==
--- OUTSIDE RECORDS SUMMARY | 2024-03-13 20:14 | XMS REPORT | Continuity of Care Document ---
Author Name Unknown Address [address] [facility] [address] [place], [place] [id number] [place] [address] [facility] Address [address] [facility] [place] [place] [address] Care Team Providers [facility] Home Care Coordinator Name Role Phone Azeem Avina Attending Clinician Unavailable GC_GCBZW_Kadiyala_S Attending Clinician Unavaila Jocelyn Aguilar Attending Clinician Christa Saleem Attending Clinician [phone] CHANCE Attending Clinician Unavailable Melani Zuleta Attending Clinician Ige-Odunuga_J_AH Attending Clinician Unavailable GC_GCBZW_Kadiyala_S Admitting Clinician Unavaila bernie ZAMAN_ANTHONY Admitting Clinician Unavailable Ige-Odunuga_J_AH Admitting Clinician Unavailable Payers Payer Name Policy Type Policy Number Effective Date Expirati on Date Source [facility] (MEDICARE REPLACEMENT HMO) YI 2020 00:00:00 [facility] (MEDICARE REPLACEMENT/[place] GE - HMO) [id number] 2019 00:00:00 Problems Condition Name Condition Details Condition Category Status Onset Date Resolution Date Last Treatment Date Treating Clinician Comments Source [id number] Mixed hyperlipid emia Problem [facility] [id number] correction current use of anticoagul ant Problem [facility] [id number] Essential hypertensi on Problem [facility] [id number] GERD without esophagiti s Problem [facility] [id number] Memory change Problem [facility] Atrial fibrillati on Atrial fibrillati on Problem [facility] [id number] THIERRY (generaliz ed anxiety disorder) Problem [facility] [id number] Longstandi ng persistent atrial fibrillati on Problem [facility] [id number] Non-season al allergic rhinitis, unspecifie d trigger Problem [facility] [id number] Type 2 diabetes mellitus with hyperglyce manju, without long-term current use of insulin Problem [facility] [id number] Hypothyroi dism, unspecifie d type Problem [facility] [id number] Dry eye of right side Problem [facility] Mild dementia (disorder) Mild dementia, unspecifie d dementia type, unspecifie d whether behavioral , psychotic, or mood disturbanc e or anxiety Problem [facility] Allergies, Adverse Reactions, Alerts Allergy Name Allergy Type Status Severity Reaction(s) Onset Date Inactive Date Treating Clinician Comments Source azithrom ycin azithrom ycin Active rash [facility] Metformi n Metformi n Active rash [facility] Social History Social Habit Start Date Stop Date Quantity Comments Source History of Tobacco Use [facility] Sex Assigned At [facility] Smoking Status Start Date Stop Date Source Never Smoker [facility] Medications Ordered Medication Name Filled Medication Name Start Date Stop Date Current Medication? Ordering Clinician Indication Dosage Frequency Signature (SIG) Comments Components Source Ibandronate Sodium 150 MG Ibandronate Sodium 150 MG 6-10 00:00: 00 No Ibandronat e Sodium 150 MG Farxiga 5 MG Farxiga 5 MG - 00:00: 00 No 1{table t} QD Farxiga 5 MG Flonase Allergy Relief 50 MCG/ACT Flonase Allergy Relief 50 MCG/ACT No 1{spray _in_eac h_nostr il} QD Flonase Allergy Relief 50 MCG/ACT Atorvastati n Calcium 40 MG Atorvastati n Calcium 40 MG No 1{table t} QD Atorvastat in Calcium 40 MG dilTIAZem HCl 60 MG dilTIAZem HCl 60 MG No 1{table t} QID dilTIAZem HCl 60 MG Tyrvaya Tyrvaya No Tyrvaya Levothyroxi ne Sodium 75 MCG Levothyroxi ne Sodium 75 MCG No QD Levothyrox ine Sodium 75 MCG Singulair 10 MG Singulair 10 MG No 1{table t} QD Singulair 10 MG Eliquis 5 MG Eliquis 5 MG No 1{table t} BID Eliquis 5 MG Omeprazole 20 MG Omeprazole 20 MG No QD Omeprazole 20 MG Levalbutero l HCl 0.63 MG/3ML Levalbutero l HCl 0.63 MG/3ML No 3{ml} Levalbuter ol HCl 0.63 MG/3ML Sotalol HCl 120 MG Sotalol HCl 120 MG No 1{table t} BID Sotalol HCl 120 MG Candesartan Cilexetil 16 MG Candesartan Cilexetil 16 MG No 1{table t} QD Candesarta n Cilexetil 16 MG Sertraline HCl 50 MG Sertraline HCl 50 MG No 1{table t} QD Sertraline HCl 50 MG Lancets - Lancets - No QD Lancets - Sotalol HCl 160 MG Sotalol HCl 160 MG No Sotalol HCl 160 MG Immunizations Ordered Immunization Name Filled Immunization Name Date Status Comments Source Prevnar 20 (PCV20) Prevnar 20 (PCV20) 2022-10-24 16:04:00 Completed [facility] FLUZONE HIGH DOSE OVER 65 FLUZONE HIGH DOSE OVER 65 2022 10:22:00 Completed [facility] FLUZONE HIGH DOSE OVER 65 FLUZONE HIGH DOSE OVER 65 2022 10:22:00 Completed [facility] Fluad (IIV) - SDS - 0.5mL Fluad (IIV) - SDS - 0.5mL 2021-01-18 11:06:00 Completed [facility] FluAD FluAD 2021-01-18 11:06:00 Completed [facility] FluAD FluAD 2021-01-18 11:06:00 Completed [facility] FluAD FluAD 2021-01-18 11:06:00 Completed [facility] FluAD FluAD 2021-01-18 11:06:00 Completed [facility] COVID-19 Vaccine (Anna) COVID-19 Vaccine (Anna) 2020-06-24 13:57:00 Completed [facility] COVID-19 Vaccine (Anna) COVID-19 Vaccine (Anna) 2020-06-24 13:57:00 Completed [facility] COVID-19 Vaccine (Anna) COVID-19 Vaccine (Anna) 2020-06-24 13:57:00 Completed [facility] COVID-19 Vaccine (Anna) COVID-19 Vaccine (Anna) 2020-06-24 13:57:00 Completed [facility] COVID-19 Vaccine (Anna) COVID-19 Vaccine (Anna) 2020-06-24 13:57:00 Completed [facility] Prevnar 20 (PCV20) Prevnar 20 (PCV20) Unknown Completed [facility] COVID-19 Vaccine (Anna) COVID-19 Vaccine (Anna) Unknown Completed [facility] FluAD FluAD Unknown Completed [facility] FLUZONE HIGH DOSE OVER 65 FLUZONE HIGH DOSE OVER 65 Unknown Completed [facility] Prevnar 20 (PCV20) Prevnar 20 (PCV20) Unknown Completed [facility] COVID-19 Vaccine (Anna) COVID-19 Vaccine (Anna) Unknown Completed [facility] FluAD FluAD Unknown Completed [facility] FLUZONE HIGH DOSE OVER 65 FLUZONE HIGH DOSE OVER 65 Unknown Completed [facility] Prevnar 20 (PCV20) Prevnar 20 (PCV20) Unknown Completed [facility] COVID-19 Vaccine (Anna) COVID-19 Vaccine (Anna) Unknown Completed [facility] FluAD FluAD Unknown Completed [facility] FLUZONE HIGH DOSE OVER 65 FLUZONE HIGH DOSE OVER 65 Unknown Completed [facility] Prevnar 20 (PCV20) Prevnar 20 (PCV20) Unknown Completed [facility] COVID-19 Vaccine (Anna) COVID-19 Vaccine (Anna) Unknown Completed [facility] FluAD FluAD Unknown Completed [facility] FLUZONE HIGH DOSE OVER 65 FLUZONE HIGH DOSE OVER 65 Unknown Completed [facility] Prevnar 20 (PCV20) Prevnar 20 (PCV20) Unknown Completed [facility] COVID-19 Vaccine (Anna) COVID-19 Vaccine (Anna) Unknown Completed [facility] FluAD FluAD Unknown Completed [facility] FLUZONE HIGH DOSE OVER 65 FLUZONE HIGH DOSE OVER 65 Unknown Completed [facility] Prevnar 20 (PCV20) Prevnar 20 (PCV20) Unknown Completed [facility] COVID-19 Vaccine (Anna) COVID-19 Vaccine (Anna) Unknown Completed [facility] FluAD FluAD Unknown Completed [facility] FLUZONE HIGH DOSE OVER 65 FLUZONE HIGH DOSE OVER 65 Unknown Completed [facility] Prevnar 20 (PCV20) Prevnar 20 (PCV20) Unknown Completed [facility] COVID-19 Vaccine (Anna) COVID-19 Vaccine (Anna) Unknown Completed [facility] FluAD FluAD Unknown Completed [facility] FLUZONE HIGH DOSE OVER 65 FLUZONE HIGH DOSE OVER 65 Unknown Completed [facility] Prevnar 20 (PCV20) Prevnar 20 (PCV20) Unknown Completed [facility] COVID-19 Vaccine (Anna) COVID-19 Vaccine (Anna) Unknown Completed [facility] FluAD FluAD Unknown Completed [facility] FLUZONE HIGH DOSE OVER 65 FLUZONE HIGH DOSE OVER 65 Unknown Completed [facility] Prevnar 20 (PCV20) Prevnar 20 (PCV20) Unknown Completed [facility] COVID-19 Vaccine (Anna) COVID-19 Vaccine (Anna) Unknown Completed [facility] FluAD FluAD Unknown Completed [facility] FLUZONE HIGH DOSE OVER 65 FLUZONE HIGH DOSE OVER 65 Unknown Completed [facility] Prevnar 20 (PCV20) Prevnar 20 (PCV20) Unknown Completed [facility] COVID-19 Vaccine (Anna) COVID-19 Vaccine (Anan) Unknown Completed [facility] FluAD FluAD Unknown Completed [facility] FLUZONE HIGH DOSE OVER 65 FLUZONE HIGH DOSE OVER 65 Unknown Completed [facility] Prevnar 20 (PCV20) Prevnar 20 (PCV20) Unknown Completed [facility] COVID-19 Vaccine (Anna) COVID-19 Vaccine (Anna) Unknown Completed [facility] FluAD FluAD Unknown Completed [facility] FLUZONE HIGH DOSE OVER 65 FLUZONE HIGH DOSE OVER 65 Unknown Completed [facility] Prevnar 20 (PCV20) Prevnar 20 (PCV20) Unknown Completed [facility] COVID-19 Vaccine (Anna) COVID-19 Vaccine (Anna) Unknown Completed [facility] FluAD FluAD Unknown Completed [facility] FLUZONE HIGH DOSE OVER 65 FLUZONE HIGH DOSE OVER 65 Unknown Completed [facility] Prevnar 20 (PCV20) Prevnar 20 (PCV20) Unknown Completed [facility] COVID-19 Vaccine (Anna) COVID-19 Vaccine (Anna) Unknown Completed [facility] FluAD FluAD Unknown Completed [facility] FLUZONE HIGH DOSE OVER 65 FLUZONE HIGH DOSE OVER 65 Unknown Completed [facility] Prevnar 20 (PCV20) Prevnar 20 (PCV20) Unknown Completed [facility] COVID-19 Vaccine (Anna) COVID-19 Vaccine (Anna) Unknown Completed [facility] FluAD FluAD Unknown Completed [facility] FLUZONE HIGH DOSE OVER 65 FLUZONE HIGH DOSE OVER 65 Unknown Completed [facility] Prevnar 20 (PCV20) Prevnar 20 (PCV20) Unknown Completed [facility] COVID-19 Vaccine (Anna) COVID-19 Vaccine (Anna) Unknown Completed [facility] FluAD FluAD Unknown Completed [facility] FLUZONE HIGH DOSE OVER 65 FLUZONE HIGH DOSE OVER 65 Unknown Completed [facility] Prevnar 20 (PCV20) Prevnar 20 (PCV20) Unknown Completed [facility] COVID-19 Vaccine (Anna) COVID-19 Vaccine (Anna) Unknown Completed [facility] FluAD FluAD Unknown Completed [facility] FLUZONE HIGH DOSE OVER 65 FLUZONE HIGH DOSE OVER 65 Unknown Completed [facility] Prevnar 20 (PCV20) Prevnar 20 (PCV20) Unknown Completed [facility] COVID-19 Vaccine (Anna) COVID-19 Vaccine (Anna) Unknown Completed [facility] FluAD FluAD Unknown Completed [facility] FLUZONE HIGH DOSE OVER 65 FLUZONE HIGH DOSE OVER 65 Unknown Completed [facility] Prevnar 20 (PCV20) Prevnar 20 (PCV20) Unknown Completed [facility] COVID-19 Vaccine (Anna) COVID-19 Vaccine (Anna) Unknown Completed [facility] FluAD FluAD Unknown Completed [facility] FLUZONE HIGH DOSE OVER 65 FLUZONE HIGH DOSE OVER 65 Unknown Completed [facility] Prevnar 20 (PCV20) Prevnar 20 (PCV20) Unknown Completed [facility] COVID-19 Vaccine (Anna) COVID-19 Vaccine (Anna) Unknown Completed [facility] FluAD FluAD Unknown Completed [facility] FLUZONE HIGH DOSE OVER 65 FLUZONE HIGH DOSE OVER 65 Unknown Completed [facility] Prevnar 20 (PCV20) Prevnar 20 (PCV20) Unknown Completed [facility] COVID-19 Vaccine (Anna) COVID-19 Vaccine (Anna) Unknown Completed [facility] FluAD FluAD Unknown Completed [facility] FLUZONE HIGH DOSE OVER 65 FLUZONE HIGH DOSE OVER 65 Unknown Completed [facility] Vital Signs Vital Name Observation Time Observation Value Comments S ource height 2024 09:30:00 67 [in_i] Commo n [facility] weight 2024 09:30:00 162.8 [lb_av] Co mmon [facility] temperature 2024 09:30:00 98 [degF] Comm on [facility] bmi 2024 09:30:00 25.5 kg/m2 Commo n [facility] oximetry 2024 09:30:00 97 % Commo n [facility] blood pressure systolic 2024 09:30:00 138 mm[Hg] Common [facility] blood pressure diastolic 2024 09:30:00 78 mm[Hg] Common [facility] height 2023-10-24 10:40:00 67 [in_i] Commo n [facility] weight 2023-10-24 10:40:00 169 [lb_av] Comm on [facility] temperature 2023-10-24 10:40:00 97.3 [degF] Com mon [facility] bmi 2023-10-24 10:40:00 26.47 kg/m2 Comm on [facility] oximetry 2023-10-24 10:40:00 97 % Commo n [facility] blood pressure systolic 2023-10-24 10:40:00 132 mm[Hg] [facility] blood pressure diastolic 2023-10-24 10:40:00 70 mm[Hg] [facility] height 2023-10-24 10:40:00 67 [in_i] Commo n [facility] weight 2023-10-24 10:40:00 169 [lb_av] Comm on [facility] temperature 2023-10-24 10:40:00 97.3 [degF] Com mon [facility] bmi 2023-10-24 10:40:00 26.47 kg/m2 Comm on [facility] oximetry 2023-10-24 10:40:00 97 % Commo n [facility] blood pressure systolic 2023-10-24 10:40:00 132 mm[Hg] [facility] blood pressure diastolic 2023-10-24 10:40:00 70 mm[Hg] [facility] height 2023-10-24 10:40:00 67 [in_i] Commo n [facility] weight 2023-10-24 10:40:00 169 [lb_av] Comm on [facility] temperature 2023-10-24 10:40:00 97.3 [degF] Com mon [facility] bmi 2023-10-24 10:40:00 26.47 kg/m2 Comm on [facility] oximetry 2023-10-24 10:40:00 97 % Commo n [facility] blood pressure systolic 2023-10-24 10:40:00 132 mm[Hg] [facility] blood pressure diastolic 2023-10-24 10:40:00 70 mm[Hg] [facility] height 2023-06-12 15:20:00 67 [in_i] Commo n [facility] weight 2023-06-12 15:20:00 172.0 [lb_av] Co mmon [facility] temperature 2023-06-12 15:20:00 97.6 [degF] Com [facility] bmi 2023-06-12 15:20:00 26.94 kg/m2 Comm on [facility] oximetry 2023-06-12 15:20:00 97 % Commo n [facility] respiratory rate 2023-06-12 15:20:00 17 /min Common [facility] blood pressure systolic 2023-06-12 15:20:00 131 mm[Hg] [facility] blood pressure diastolic 2023-06-12 15:20:00 70 mm[Hg] Common [facility] height 2023-03-13 14:30:00 67 [in_i] Commo n [facility] weight 2023-03-13 14:30:00 180.2 [lb_av] Co on [facility] temperature 2023-03-13 14:30:00 97.5 [degF] Com [facility] bmi 2023-03-13 14:30:00 28.22 kg/m2 Comm on [facility] oximetry 2023-03-13 14:30:00 95 % Commo n [facility] blood pressure systolic 2023-03-13 14:30:00 138 mm[Hg] [facility] blood pressure diastolic 2023-03-13 14:30:00 62 mm[Hg] [facility] height 2022-10-24 14:30:00 67 [in_i] Commo n [facility] weight 2022-10-24 14:30:00 181.0 [lb_av] Co [facility] temperature 2022-10-24 14:30:00 98.1 [degF] Com [facility] bmi 2022-10-24 14:30:00 28.35 kg/m2 Comm on [facility] oximetry 2022-10-24 14:30:00 96 % Commo n [facility] respiratory rate 2022-10-24 14:30:00 17 /min Common [facility] blood pressure systolic 2022-10-24 14:30:00 128 mm[Hg] [facility] blood pressure diastolic 2022-10-24 14:30:00 70 mm[Hg] [facility] height 2022-10-24 14:40:00 67 [in_i] Commo n [facility] weight 2022-10-24 14:40:00 181.0 [lb_av] Co [facility] temperature 2022-10-24 14:40:00 98.1 [degF] Com [facility] bmi 2022-10-24 14:40:00 28.35 kg/m2 Comm on [facility] oximetry 2022-10-24 14:40:00 96 % Commo n [facility] respiratory rate 2022-10-24 14:40:00 17 /min Common [facility] blood pressure systolic 2022-10-24 14:40:00 128 mm[Hg] Common [facility] blood pressure diastolic 2022-10-24 14:40:00 70 mm[Hg] [facility] height 2022-07-13 14:20:00 67 [in_i] Commo n [facility] weight 2022-07-13 14:20:00 179.1 [lb_av] Co [facility] temperature 2022-07-13 14:20:00 97.4 [degF] Com [facility] bmi 2022-07-13 14:20:00 28.05 kg/m2 Comm on [facility] oximetry 2022-07-13 14:20:00 96 % Commo n [facility] respiratory rate 2022-07-13 14:20:00 16 /min Common [facility] blood pressure systolic 2022-07-13 14:20:00 138 mm[Hg] [facility] blood pressure diastolic 2022-07-13 14:20:00 70 mm[Hg] [facility] height 2022 10:00:00 67 [in_i] Commo n [facility] weight 2022 10:00:00 171.6 [lb_av] Co mmon [facility] temperature 2022 10:00:00 96.8 [degF] Com [facility] bmi 2022 10:00:00 26.87 kg/m2 Comm on [facility] oximetry 2022 10:00:00 97 % Commo n [facility] respiratory rate 2022 10:00:00 18 /min [facility] blood pressure systolic 2022 10:00:00 137 mm[Hg] [facility] blood pressure diastolic 2022 10:00:00 77 mm[Hg] Common [facility] height 2021-10-25 09:50:00 67 [in_i] Commo n [facility] weight 2021-10-25 09:50:00 182 [lb_av] Comm on [facility] temperature 2021-10-25 09:50:00 97.6 [degF] Com mon [facility] bmi 2021-10-25 09:50:00 28.5 kg/m2 Commo n [facility] oximetry 2021-10-25 09:50:00 97 % Commo n [facility] respiratory rate 2021-10-25 09:50:00 16 /min [facility] blood pressure systolic 2021-10-25 09:50:00 132 mm[Hg] [facility] blood pressure diastolic 2021-10-25 09:50:00 67 mm[Hg] [facility] height 2021-09-06 08:00:00 68 [in_i] Commo n [facility] weight 2021-09-06 08:00:00 180.6 [lb_av] Co mmon [facility] temperature 2021-09-06 08:00:00 97.3 [degF] Com mon [facility] bmi 2021-09-06 08:00:00 27.46 kg/m2 Comm on [facility] oximetry 2021-09-06 08:00:00 95 % Commo n [facility] respiratory rate 2021-09-06 08:00:00 16 /min [facility] blood pressure systolic 2021-09-06 08:00:00 136 mm[Hg] [facility] blood pressure diastolic 2021-09-06 08:00:00 63 mm[Hg] [facility] Encounters Start Date/Time End Date/Time Encounter Type Admission Type Attending Clinicians Care Facility Care Department Encounter ID Source 2024 12:38:00 [id number] 2023-10-22 10:33:00 Outpatient Avina, [facility] [id number] [facility] 2023-10-18 09:13:00 [facility] [id number] [facility] 2023-06-11 15:37:00 [facility] [id number] [facility] 2023-01-29 07:36:00 [facility] [id number] [facility] 2022-07-10 10:13:01 Outpatient Avina, Azeem [facility] [id number] [facility] 2022-06-21 10:03:03 Outpatient Avina, Azeem [facility] [id number] [facility] 2022-02-17 10:25:02 Outpatient Avina, Azeem [facility] [id number] [facility] 2021-09-06 08:03:02 Outpatient Avina, Azeem [facility] [id number] [facility] 2024 00:00:00 2024 00:00:00 OFFICE VISIT ESTAB PT LEVEL 4 [facility] [id number] [facility] 2024 00:00:00 2024 00:00:00 (TEL) [facility] [id number] [facility] 2024-02-01 00:00:00 2024-02-01 00:00:00 (TEL) [facility] [id number] [facility] 2024-01-31 00:00:00 2024-01-31 00:00:00 (TEL) [facility] [id number] [facility] 2023-12-20 00:00:00 2023-12-20 00:00:00 (TEL) [facility] [id number] [facility] 2023-12-14 00:00:00 2023-12-14 00:00:00 (TEL) [facility] [id number] [facility] 2023-12-05 00:00:00 2023-12-05 00:00:00 (TEL) [facility] [id number] [facility] 2023-10-31 00:00:00 2023-10-31 00:00:00 (TEL) [facility] [id number] [facility] 2023-10-29 00:00:00 2023-10-29 00:00:00 (TEL) [facility] [id number] [facility] 2023-10-24 00:00:00 2023-10-24 00:00:00 OFFICE VISIT ESTAB PT LEVEL 4 [facility] [id number] [facility] 2023-10-24 00:00:00 2023-10-24 00:00:00 SUB ANNUAL [facility]LL[facility] VISIT [facility] ST[facility] [id number] [facility] 2023-10-17 00:00:00 2023-10-17 00:00:00 (TEL) [facility] [id number] [facility] 2023-09-05 00:00:00 2023-09-05 00:00:00 (TEL) [facility] [id number] [facility] 2023-09-05 00:00:00 2023-09-05 00:00:00 (TEL) [facility] [id number] [facility] 2023-07-07 00:00:00 2023-07-07 00:00:00 (TEL) [facility]C ST[facility] [id number] [facility] 2023-06-12 00:00:00 2023-06-12 00:00:00 OFFICE VISIT ESTAB PT LEVEL 4 [facility] [id number] [facility] 2023-03-13 00:00:00 2023-03-13 00:00:00 OFFICE VISIT ESTAB PT LEVEL 4 [facility] [id number] [facility] 2023-03-01 00:00:00 2023-03-01 00:00:00 (TEL) [facility] [id number] [facility] 2023-02-27 00:00:00 2023-02-27 00:00:00 (TEL) [facility] [id number] [facility] 2023-02-26 00:00:00 2023-02-26 00:00:00 (TEL) [facility] [id number] [facility] 2023-02-16 00:00:00 2023-02-16 00:00:00 (TEL) [facility] [id number] [facility] 2023-01-29 00:00:00 2023-01-29 00:00:00 (TEL) [facility] [id number] [facility] 2023-01-27 00:00:00 2023-01-27 00:00:00 Outpatient GC_GCBZW_Ka diyala_S [facility] [id number] [facility] 2022-11-27 00:00:00 2022-11-27 00:00:00 (TEL) [facility]C [facility] [id number] [facility] 2022-10-24 00:00:00 2022-10-24 00:00:00 OFFICE VISIT ESTAB PT LEVEL 4 [facility] [id number] [facility] 2022-10-24 00:00:00 2022-10-24 00:00:00 SUB ANNUAL [facility] WELLNESS VISIT [facility] STL[facility] [id number] [facility] 2022-08-05 00:00:00 2022-08-05 00:00:00 Outpatient [place] [id number] [facility] 2022-08-05 00:00:00 2022-08-05 00:00:00 Outpatient DMG DMG [id number] [facility] 2022-07-13 00:00:00 2022-07-13 00:00:00 OFFICE VISIT ESTAB PT LEVEL 4 [facility] [id number] [facility] 2022-07-13 00:00:00 2022-07-13 00:00:00 (TEL) STLMLC STLMLC [id number] [facility] 2022-06-27 00:00:00 2022-06-27 00:00:00 (TEL) STLMLC STLMLC [id number] [facility] 2022-06-23 00:00:00 2022-06-23 00:00:00 (TEL) STLMLC STLMLC [id number] [facility] 2022-06-20 00:00:00 2022-06-20 00:00:00 (TEL) STLMLC STLMLC [id number] [facility] 2022-06-13 00:00:00 2022-06-13 00:00:00 (TEL) STLMLC STLMLC [id number] [facility] 2022-06-06 00:00:00 2022-06-06 00:00:00 (TEL) STLMLC STLMLC [id number] [facility] 2022-04-14 15:30:00 2022-04-14 16:30:00 CAV Jocelyn Plascencia [id number]. [id number]. [id number] [facility] 2022 00:00:00 2022 00:00:00 OFFICE VISIT ESTAB PT LEVEL 4 STLMLC STLMLC [id number] [facility] 2022-01-27 00:00:00 2022-01-27 00:00:00 (TEL) STLMLC STLMLC [id number] [facility] 2021-12-19 22:00:00 2021-12-19 23:00:00 CAV Christa Saleem [id number]. [id number] [facility] 2021-12-15 00:00:00 2021-12-15 00:00:00 (TEL) STLMLC STLMLC [id number] [facility] 2021-11-24 00:00:00 2021-11-24 00:00:00 Outpatient DMG DMG [id number] [facility] 2021-11-08 00:00:00 2021-11-08 00:00:[place] [id number] [facility] 2021-10-25 00:00:00 2021-10-25 00:00:00 OFFICE VISIT ESTAB PT LEVEL 4 STLMLC STLMLC [id number] [facility] 2021-10-17 01:15:00 2021-10-17 01:15:00 [facility] [id number] 0718 [facility] 2021-10-15 04:31:00 2021-10-15 04:31:00 Outpatient DMG [facility] [id number] 0716 [facility] 2021-10-14 00:00:00 2021-10-14 00:00:00 (TEL) STLMLC STLMLC [id number] [facility] 2021-10-14 00:00:00 2021-10-14 00:00:00 (TEL) STLMLC STLMLC [id number] [facility] 2021-10-10 00:00:00 2021-10-10 00:00:00 (TEL) STLMLC STLMLC [id number] [facility] 2021-09-28 00:00:00 2021-09-28 00:00:00 (TEL) STLMLC STLMLC [id number] [facility] 2021-09-23 00:00:00 2021-09-23 00:00:00 (TEL) STLMLC STLMLC [id number] [facility] 2021-09-06 00:00:00 2021-09-06 00:00:00 SUB ANNUAL [facility] VISIT STLMLC STLMLC [id number] [facility] 2021-05-12 14:30:00 2021-05-12 15:30:00 LETY Zuleta [id number]. [id number] 2.16.840.1. [id number] [facility] 2019-05-21 07:12:00 2019-05-21 07:12:00 Outpatient Ige-Sabiha _Juan_GERALDO [facility] [id number] [facility] 2019-05-21 07:12:00 2019-05-21 07:12:00 Outpatient Ige-Odunamy _J_AH [facility] [id number] [facility] Results Test Description Test Time Test Comments Results Result Co mments Source CBC W/AUTO [id number] 00:00:00* Test Item Value Reference Range Interpretation Comme nts NUCLEATED RBCS (test code = 83909-8) 0.0 /100 WBC'S See_Comment [Automated messa ge] The system which generated this result transmitted reference range: 0.0 /100 WBC'S. The reference range was not used to interpret this result as normal/abnormal. ABSOLUTE EOSINOPHILS (test code = 50691-7) 0.11 K/UL See_Comment [Automated messa ge] The system which generated this result transmitted reference range: 0.00-0.50 K/UL. The reference range was not used to interpret this result as normal/abnormal. ABSOLUTE LYMPHOCYTES (test code = 36452-3) 2.01 K/UL See_Comment [Automated messa ge] The system which generated this result transmitted reference range: 1.00-4.00 K/UL. The reference range was not used to interpret this result as normal/abnormal. ABSOLUTE MONOCYTES (test code = 65595-1) 0.51 K/UL See_Comment [Automated messa ge] The system which generated this result transmitted reference range: 0.20-1.00 K/UL. The reference range was not used to interpret this result as normal/abnormal. ABSOLUTE NEUTROPHILS (test code = 21666-7) 3.76 K/UL See_Comment [Automated messa ge] The system which generated this result transmitted reference range: 1.50-7.50 K/UL. The reference range was not used to interpret this result as normal/abnormal. BASOPHILS (test code = 33323-3) 0.5 % EOSINOPHILS (test code = 82973-9) 1.7 % HEMATOCRIT (test code = 15178-4) 43.9 % See_Comment [Automated messa ge] The system which generated this result transmitted reference range: 34.0-45.0 %. The reference range was not used to interpret this result as normal/abnormal. HEMOGLOBIN (test code = 718-7) 14.0 G/DL See_Comment [Automated messa ge] The system which generated this result transmitted reference range: 11.5-15.5 G/DL. The reference range was not used to interpret this result as normal/abnormal. LYMPHOCYTES (test code = 94674-2) 31.3 % MCH (test code = 88822-9) 30.0 PG See_Comment [Automated messa ge] The system which generated this result transmitted reference range: 25.0-33.0 PG. The reference range was not used to interpret this result as normal/abnormal. MCHC (test code = 71049-5) 31.9 G/DL See_Comment [Automated messa ge] The system which generated this result transmitted reference range: 31.0-36.0 G/DL. The reference range was not used to interpret this result as normal/abnormal. MCV (test code = 93725-5) 94.0 fL See_Comment [Automated messa ge] The system which generated this result transmitted reference range: 80.0-99.0 fL. The reference range was not used to interpret this result as normal/abnormal. MONOCYTES (test code = 18739-1) 7.9 % NEUTROPHILS (test code = 25445-2) 58.4 % PLATELET COUNT (test code = 83006-2) 213 K/UL See_Comment [Automated messa ge] The system which generated this result transmitted reference range: 130-400 K/UL. The reference range was not used to interpret this result as normal/abnormal. RBC (test code = 76095-5) 4.67 M/UL See_Comment [Automated messa ge] The system which generated this result transmitted reference range: 3.80-5.40 M/UL. The reference range was not used to interpret this result as normal/abnormal. RDW (test code = 50387-6) 12.7 % See_Comment [Automated messa ge] The system which generated this result transmitted reference range: 11.5-15.0 %. The reference range was not used to interpret this result as normal/abnormal. WBC (test code = 90830-0) 6.4 K/UL See_Comment [Automated messa ge] The system which generated this result transmitted reference range: 3.5-11.0 K/UL. The reference range was not used to interpret this result as normal/abnormal. CBC W/AUTO [id number] 00:00:00* Test Item Value Reference Range Interpretation Comme nts NUCLEATED RBCS (test code = 93111-5) 0.0 /100 WBC'S See_Comment [Automated messa ge] The system which generated this result transmitted reference range: 0.0 /100 WBC'S. The reference range was not used to interpret this result as normal/abnormal. ABSOLUTE EOSINOPHILS (test code = 84296-4) 0.13 K/UL See_Comment [Automated messa ge] The system which generated this result transmitted reference range: 0.00-0.50 K/UL. The reference range was not used to interpret this result as normal/abnormal. ABSOLUTE LYMPHOCYTES (test code = 85742-6) 1.77 K/UL See_Comment [Automated messa ge] The system which generated this result transmitted reference range: 1.00-4.00 K/UL. The reference range was not used to interpret this result as normal/abnormal. ABSOLUTE MONOCYTES (test code = 35492-4) 0.59 K/UL See_Comment [Automated messa ge] The system which generated this result transmitted reference range: 0.20-1.00 K/UL. The reference range was not used to interpret this result as normal/abnormal. ABSOLUTE NEUTROPHILS (test code = 94891-5) 5.53 K/UL See_Comment [Automated messa ge] The system which generated this result transmitted reference range: 1.50-7.50 K/UL. The reference range was not used to interpret this result as normal/abnormal. BASOPHILS (test code = 45039-6) 0.6 % EOSINOPHILS (test code = 75093-9) 1.6 % HEMATOCRIT (test code = 13898-2) 43.4 % See_Comment [Automated messa ge] The system which generated this result transmitted reference range: 34.0-45.0 %. The reference range was not used to interpret this result as normal/abnormal. HEMOGLOBIN (test code = 718-7) 14.1 G/DL See_Comment [Automated messa ge] The system which generated this result transmitted reference range: 11.5-15.5 G/DL. The reference range was not used to interpret this result as normal/abnormal. LYMPHOCYTES (test code = 52086-6) 21.9 % MCH (test code = 16930-3) 30.3 PG See_Comment [Automated messa ge] The system which generated this result transmitted reference range: 25.0-33.0 PG. The reference range was not used to interpret this result as normal/abnormal. MCHC (test code = 46204-2) 32.5 G/DL See_Comment [Automated messa ge] The system which generated this result transmitted reference range: 31.0-36.0 G/DL. The reference range was not used to interpret this result as normal/abnormal. MCV (test code = 97086-6) 93.3 fL See_Comment [Automated messa ge] The system which generated this result transmitted reference range: 80.0-99.0 fL. The reference range was not used to interpret this result as normal/abnormal. MONOCYTES (test code = 80034-1) 7.3 % NEUTROPHILS (test code = 80499-4) 68.2 % PLATELET COUNT (test code = 11754-6) 213 K/UL See_Comment [Automated messa ge] The system which generated this result transmitted reference range: 130-400 K/UL. The reference range was not used to interpret this result as normal/abnormal. RBC (test code = 55925-9) 4.65 M/UL See_Comment [Automated messa ge] The system which generated this result transmitted reference range: 3.80-5.40 M/UL. The reference range was not used to interpret this result as normal/abnormal. RDW (test code = 20373-8) 12.1 % See_Comment [Automated messa ge] The system which generated this result transmitted reference range: 11.5-15.0 %. The reference range was not used to interpret this result as normal/abnormal. WBC (test code = 97252-9) 8.1 K/UL See_Comment [Automated messa ge] The system which generated this result transmitted reference range: 3.5-11.0 K/UL. The reference range was not used to interpret this result as normal/abnormal. CBC W/AUTO [id number] 00:00:00* Test Item Value Reference Range Interpretation Comme nts NUCLEATED RBCS (test code = 85253-4) 0.0 /100 WBC'S See_Comment [Automated messa ge] The system which generated this result transmitted reference range: 0.0 /100 WBC'S. The reference range was not used to interpret this result as normal/abnormal. ABSOLUTE EOSINOPHILS (test code = 59224-6) 0.17 K/UL See_Comment [Automated messa ge] The system which generated this result transmitted reference range: 0.00-0.50 K/UL. The reference range was not used to interpret this result as normal/abnormal. ABSOLUTE LYMPHOCYTES (test code = 53115-2) 2.70 K/UL See_Comment [Automated messa ge] The system which generated this result transmitted reference range: 1.00-4.00 K/UL. The reference range was not used to interpret this result as normal/abnormal. ABSOLUTE MONOCYTES (test code = 57168-4) 0.75 K/UL See_Comment [Automated messa ge] The system which generated this result transmitted reference range: 0.20-1.00 K/UL. The reference range was not used to interpret this result as normal/abnormal. ABSOLUTE NEUTROPHILS (test code = 45148-4) 5.37 K/UL See_Comment [Automated messa ge] The system which generated this result transmitted reference range: 1.50-7.50 K/UL. The reference range was not used to interpret this result as normal/abnormal. BASOPHILS (test code = 39478-9) 0.8 % EOSINOPHILS (test code = 70846-6) 1.9 % HEMATOCRIT (test code = 78209-8) 44.4 % See_Comment [Automated messa ge] The system which generated this result transmitted reference range: 34.0-45.0 %. The reference range was not used to interpret this result as normal/abnormal. HEMOGLOBIN (test code = 718-7) 15.0 G/DL See_Comment [Automated messa ge] The system which generated this result transmitted reference range: 11.5-15.5 G/DL. The reference range was not used to interpret this result as normal/abnormal. LYMPHOCYTES (test code = 07232-0) 29.7 % MCH (test code = 47714-2) 30.7 PG See_Comment [Automated messa ge] The system which generated this result transmitted reference range: 25.0-33.0 PG. The reference range was not used to interpret this result as normal/abnormal. MCHC (test code = 63621-7) 33.8 G/DL See_Comment [Automated messa ge] The system which generated this result transmitted reference range: 31.0-36.0 G/DL. The reference range was not used to interpret this result as normal/abnormal. MCV (test code = 55962-6) 91.0 fL See_Comment [Automated messa ge] The system which generated this result transmitted reference range: 80.0-99.0 fL. The reference range was not used to interpret this result as normal/abnormal. MONOCYTES (test code = 24327-0) 8.3 % NEUTROPHILS (test code = 61268-8) 59.1 % PLATELET COUNT (test code = 03317-1) 251 K/UL See_Comment [Automated messa ge] The system which generated this result transmitted reference range: 130-400 K/UL. The reference range was not used to interpret this result as normal/abnormal. RBC (test code = 03049-4) 4.88 M/UL See_Comment [Automated messa ge] The system which generated this result transmitted reference range: 3.80-5.40 M/UL. The reference range was not used to interpret this result as normal/abnormal. RDW (test code = 05651-0) 12.5 % See_Comment [Automated messa ge] The system which generated this result transmitted reference range: 11.5-15.0 %. The reference range was not used to interpret this result as normal/abnormal. WBC (test code = 52436-2) 9.1 K/UL See_Comment [Automated messa ge] The system which generated this result transmitted reference range: 3.5-11.0 K/UL. The reference range was not used to interpret this result as normal/abnormal. [id number] 00:00:00resultDEXA, BONE DENSITY AXIAL SKELEDEXA, BONE DENSITY AXIAL SKELE
--- NOTE | 2024-03-13 21:15 | RAD REPORT ---
EXAMINATION: ONE VIEW CHEST XR CLINICAL INDICATION: CHEST PAIN TECHNIQUE: Frontal chest projection is submitted. Examination is limited by patient positioning and t echnique. COMPARISON: 06/23/2022 FINDINGS: The lungs are well inflated and clear. The heart is upper limit of normal in size. No displaced fract ures identified. IMPRESSION: No acute intrathoracic abnormalities.
[2024-03-13 21:21] LABS: Absolute Basophils 0.1 K/uL (0-0.5); Absolute Eosinophils 0.1 K/uL (0-0.5); Absolute Monocytes 0.6 K/uL (0.1-1.3); Absolute Neutrophil 5.2 K/uL (1.8-8.0); Basophils % 1.2 % (0-1.3); Eosinophils % 1.8 % (0-4.4); Hematocrit 45.3 % (36.0-45.0); Lymphocytes % 24.7 % (15.3-44.8); MCH 29.8 pg (27.0-35.0); MCV 90.3 fL (80-100); Monocytes % 7.9 % (3.3-12.3); Neutrophils % 64.4 % (41.7-73.7); Nucleated Red Blood Cells % 0.2 % (0-0); Platelets 223 thou/uL (152-406); RBC Red Blood Cell Count 5.01 M/uL (3.86-4.86)
[2024-03-13 21:27] LABS: Protime INR 1.72
[2024-03-13 21:49] LABS: ALT/SGPT 26 U/L (13-56); AST/SGOT 27 U/L (15-37); Albumin 3.9 g/dL (3.4-5.0); Albumin/Globulin Ratio 1.3 (1.1-1.8); Alkaline Phosphatase 77 U/L (45-117); BUN Blood Urea Nitrogen 14 mg/dL (7-18); Bicarbonate 29 mEq/L (21-32); Bilirubin Total 0.7 mg/dL (0.2-1.0); Glomerular Filtration Rate 68 ml/min (=/>90); Glucose Level 139 mg/dL (74-106); NT PRO-BNP 745 pg/mL (<450); Protein, Total 6.9 g/dL (6.4-8.2); Sodium Level 141 mEq/L (136-145); Troponin High Sensitivity 11.2 pg/mL (<58.9)
[2024-03-13 21:50] LABS: Bilirubin Direct < 0.2 mg/dL (0-0.2); Bilirubin Indirect, Calculated 0.5 mg/dL (0.2-0.8)
--- NOTE | 2024-03-14 02:03 | ER ---
Nurse's Notes [facility] Name: Nickolas Grimes Age: 74 yrs Sex: Female : 1950 Arrival Date: 03/13/2024 Time: 20:12 Bed 14 Private MD: Diagnosis: Paroxysmal atrial fibrillation;Palpitations Presentation: 03/13 20:31 Chief complaint: EMS states: patient complaints of palpitations after taking her usual rg5 medication sotalol around 1530. 20:31 Coronavirus screen: Client denies travel out of the [place] in the last 14 days. Ebola rg5 Screen: Patient negative for fever greater than or equal to 101.5 degrees Fahrenheit, and additional compatible Ebola Virus Disease symptoms. Initial Sepsis Screen: Does the patient meet any 2 criteria? No. Patient's initial sepsis screen is negative. Does the patient have a suspected source of infection? No. Patient's initial sepsis screen is negative. Risk Assessment: Do you want to hurt yourself or someone else? Patient reports no desire to harm self or others. Onset of symptoms was March 13, 2024. 20:31 Method Of Arrival: EMS: [facility] rg5 20:31 Acuity: [place] 3 rg5 Triage Assessment: 20:35 General: Appears in no apparent distress. comfortable, Behavior is calm, cooperative, rg5 appropriate for age. Pain: Denies pain. EENT: No deficits noted. Neuro: Level of Consciousness is awake, alert, obeys commands, Oriented to person, place, time. Cardiovascular: Reports palpitations. Respiratory: Airway is patent Trachea midline Respiratory effort is even, unlabored. GI: Abdomen is round Abd is soft and non tender. : No signs and/or symptoms were reported regarding the genitourinary system. Derm: Skin is intact, Skin is dry, Skin is normal, Skin temperature is warm. Musculoskeletal: Circulation, motion, and sensation intact. Range of motion: intact in all extremities. Historical: - Allergies: 20:35 Azithromycin; rg5 - PMHx: 20:35 Atrial Fib; diabetes mellitus; Hypertension; rg5 - Immunization history:: Adult Immunizations up to date. - Infectious Disease History:: Denies. - Social history:: Smoking status: Patient denies any tobacco usage or history of. - Family history:: not pertinent. Screenin:37 [facility] ED Fall Risk Assessment (Adult) History of falling in the last 3 months, rg5 including since admission No falls in past 3 months (0 pts) Confusion or Disorientation No (0 pts) Intoxicated or Sedated No (0 pts) Impaired Gait Yes (1 pt) Mobility Assist Device Used Yes (1 pt) Altered Elimination No (0 pt) Score/Fall Risk Level 0 - 2 = Low Risk Oriented to surroundings, Maintained a safe environment, Hourly rounding (assess needs \T\ fall precautionary measures) done. Abuse screen: Denies threats or abuse. Nutritional screening: No deficits noted. Tuberculosis screening: No symptoms or risk factors identified. Assessment: 20:35 Reassessment: see triage assessment. rg5 21:20 Reassessment: Patient and/or family updated on plan of care and expected duration. Pain rg5 level reassessed. Patient is alert, oriented x 3, equal unlabored respirations, skin warm/dry/pink. 22:25 Reassessment: No changes from previously documented assessment. Patient and/or family rg5 updated on plan of care and expected duration. Pain level reassessed. Patient is alert, oriented x 3, equal unlabored respirations, skin warm/dry/pink. 23:30 Reassessment: No changes from previously documented assessment. Patient and/or family rg5 updated on plan of care and expected duration. Pain level reassessed. Patient is alert, oriented x 3, equal unlabored respirations, skin warm/dry/pink. 03/14 00:41 Reassessment: No changes from previously documented assessment. Patient and/or family rg5 updated on plan of care and expected duration. Pain level reassessed. Patient is alert, oriented x 3, equal unlabored respirations, skin warm/dry/pink. 01:45 Reassessment: Patient and/or family updated on plan of care and expected duration. Pain rg5 level reassessed. Patient is alert, oriented x 3, equal unlabored respirations, skin warm/dry/pink. Patient states feeling better. Vital Signs: 03/13 20:31 BP 147 / 67; Pulse 91; Resp 91; Temp 98.3; Pulse Ox 99% on R/A; Weight 74.84 kg; Height rg5 5 ft. 8 in. ; Pain 0/10; 21:36 BP 142 / 88; Pulse 93; Resp 17; Pulse Ox 98% ; Pain 0/10; rg5 22:30 BP 138 / 77; Pulse 87; Resp 17; Pulse Ox 100% on R/A; Pain 0/10; rg5 12 00:40 BP 108 / 52; Pulse 69; Resp 17; Pulse Ox 99% on R/A; Pain 0/10; rg5 01:39 BP 119 / 70; Pulse 65; Resp 17; Pulse Ox 100% on R/A; rg5 03/13 20:31 Body Mass Index 25.09 (74.84 kg, 172.72 cm) rg5 03/13 20:31 Pain Scale: Adult rg5 21:36 Pain Scale: Adult rg5 22:30 Pain Scale: Adult rg5 03/14 00:40 Pain Scale: Adult rg5 Cody Coma Score: 01:03 Eye Response: spontaneous(4). Motor Response: obeys commands(6). Verbal Response: sp4 oriented(5). Total: 15. ED Course: 03/13 20:31 Patient arrived in ED. vc1 20:32 David De Leon MD is Attending Physician. sp4 20:35 Arm band placed on right wrist. EKG completed in triage. Results shown to MD. rg5 20:35 No provider procedures requiring assistance completed. Missed attempt(s): 20 gauge in rg5 right forearm. 20:45 Todd Ramsey, FAWAD is Primary Nurse. rg5 21:10 XRAY Chest (1 view) In Process Unspecified. EDMS 21:33 Triage completed. rg5 21:37 Patient has correct armband on for positive identification. Door closed. Noise rg5 minimized. Warm blanket given. 03/14 01:15 Troponin High Sensitivity Sent. oe 02:13 Provided Education on: POST ER CARE. rg5 02:13 IV discontinued. rg5 Administered Medications: No medications were administered Medication: 03/13 21:37 VIS not applicable for this client. rg5 Outcome: 03/14 02:02 Discharge ordered by . sp4 02:13 Discharged to home ambulatory, rg5 02:13 Condition: stable 02:13 Discharge instructions given to patient, Instructed on discharge instructions, follow up and referral plans. Demonstrated understanding of instructions, follow-up care, 02:13 Patient left the ED. rg5 Signatures: Dispatcher [employer] EDTN Bayron Dela Cruz Vanessa, RN RN vc1 David De Leon MD MD sp4 Todd Ramsey, FAWAD RN rg5
--- NOTE | 2024-03-14 02:04 | EDPHYS ---
Physician Documentation [facility] Name: Nickolas Grimes Age: 74 yrs Sex: Female : 1950 Arrival Date: 03/13/2024 Time: 20:12 Bed 14 Private MD: ED Physician David De Leon HPI: 03/14 01:00 This 74 yrs old Female presents to ER via EMS with complaints of Palpitations.sp4 19:15 74-year-old female presents with acute palpitations. Patient has history of atrial sp4 fibrillation. Patient is on Eliquis 5 mg twice a day.. Historical: - Allergies: 03/13 20:35 Azithromycin; rg5 - PMHx: 20:35 Atrial Fib; diabetes mellitus; Hypertension; rg5 - Immunization history:: Adult Immunizations up to date. - Infectious Disease History:: Denies. - Social history:: Smoking status: Patient denies any tobacco usage or history of. - Family history:: not pertinent. ROS: 03/14 19:15 Constitutional: Negative for fever, chills, and weight loss, positive for palpitations sp4 All other systems are negative, Exam: 01:03 Constitutional: This is a well developed, well nourished patient who is awake, alert, sp4 and in no acute distress. Head/Face: Normocephalic, atraumatic. Eyes: Pupils equal round and reactive to light, extra-ocular motions intact. Lids and lashes normal. Conjunctiva and sclera are not injected. Cornea within normal limits. Periorbital areas with no swelling, redness, or edema. ENT: Nares patent. No nasal discharge, no septal abnormalities noted. Tympanic membranes are normal and external auditory canals are clear. Oropharynx with no redness, swelling, or masses, exudates, or evidence of obstruction, uvula midline. Mucous membranes moist. Neck: Trachea midline, no thyromegaly or masses palpated, and no cervical lymphadenopathy. Supple, full range of motion without nuchal rigidity, or vertebral point tenderness. Chest/axilla: Normal chest wall appearance and motion. Nontender with no deformity. No lesions are appreciated. Cardiovascular: Regular rate and rhythm with a normal S1 and S2. No gallops, murmurs, or rubs. Normal PMI, no JVD. No pulse deficits. Respiratory: Lungs have equal breath sounds bilaterally, clear to auscultation and percussion. No rales, rhonchi or wheezes noted. No increased work of breathing, no retractions or nasal flaring. Abdomen/GI: Soft, with normal bowel sounds. No distension or tympany. No guarding or rebound. No evidence of tenderness throughout. Back: No spinal tenderness. No costovertebral tenderness. Skin: Warm, dry with normal turgor. Normal color with no rashes, no lesions, and no evidence of cellulitis. MS/ Extremity: Pulses equal, no cyanosis. Neurovascular intact. Full, normal range of motion. Neuro: Awake and alert, GCS 15, oriented to person, place, time, and situation. Cranial nerves II-XII grossly intact. Motor strength 5/5 in all extremities. Sensory grossly intact. Psych: Awake, alert, with orientation to person, place and time. Behavior, mood, and affect are within normal limits 01:03 ECG was reviewed by the Attending Physician. EKG at 2033 atrial fibrillation rate 86 otherwise mild QT prolongation 01:05 Repeat EKG 00503/14/2024 sinus bradycardia rate 54, otherwise unremarkable sp4 Vital Signs: 03/13 20:31 BP 147 / 67; Pulse 91; Resp 91; Temp 98.3; Pulse Ox 99% on R/A; Weight 74.84 kg; Height rg5 5 ft. 8 in. ; Pain 0/10; 21:36 BP 142 / 88; Pulse 93; Resp 17; Pulse Ox 98% ; Pain 0/10; rg 22:30 BP 138 / 77; Pulse 87; Resp 17; Pulse Ox 100% on R/A; Pain 0/10; [facility] 03/14 00:40 BP 108 / 52; Pulse 69; Resp 17; Pulse Ox 99% on R/A; Pain 0/10; [facility] 01:39 BP 119 / 70; Pulse 65; Resp 17; Pulse Ox 100% on R/A; [facility] 03/13 20:31 Body Mass Index 25.09 (74.84 kg, 172.72 cm) [facility] 03/13 20:31 Pain Scale: Adult rg5 21:36 Pain Scale: Adult rg5 22:30 Pain Scale: Adult [facility] 03/14 00:40 Pain Scale: Adult rg Cody Coma Score: 01:03 Eye Response: spontaneous(4). Motor Response: obeys commands(6). Verbal Response: sp4 oriented(5). Total: 15. MDM: 03/13 20:33 Medical Screening Exam initiated [facility] 03/14 19:15 Data reviewed: vital signs, nurses notes, old medical records, lab test result(s), EKG, sp4 radiologic studies. 19:17 ED course: X-ray is normal. ED course: Troponin x 2 is normal. Patient switched into sp4 normal sinus rhythm. Appears to have intermittent atrial fibrillation. Patient already takes diltiazem and sotalol for rate control. Stable for discharge home. 03/13 20:39 Order name: Basic Metabolic Panel; Complete Time: 00:57 [facility] 03/13 20:39 Order name: CBC with Diff; Complete Time: 00:57 [facility] 03/13 20:39 Order name: LFT's; Complete Time: 00:57 [facility] 03/13 20:39 Order name: Magnesium; Complete Time: 00:57 [facility] 03/13 20:39 Order name: NT PRO-BNP; Complete Time: 00:57 [facility] 03/13 20:39 Order name: PT-INR; Complete Time: 00:57 [facility] 03/13 20:39 Order name: Troponin HS; Complete Time: 00:57 [facility] 03/14 00:43 Order name: Troponin High Sensitivity; Complete Time: 19:17 [facility] 03/13 20:39 Order name: XRAY Chest (1 view); Complete Time: 00:57 [facility] 03/14 00:43 Order name: EKG; Complete Time: 00:44 [facility] 03/13 20:39 Order name: Cardiac monitoring; Complete Time: 20:45 [facility] 03/13 20:39 Order name: EKG - Nurse/Tech; Complete Time: 20:45 [facility] 03/13 20:39 Order name: IV Saline Lock; Complete Time: 21:11 [facility] 03/13 20:39 Order name: Labs collected and sent; Complete Time: 21:11 [facility] 03/13 20:39 Order name: O2 Per Protocol; Complete Time: 20:45 [facility] 03/13 20:39 Order name: O2 Sat Monitoring; Complete Time: 20:45 [facility] 03/14 00:44 Order name: EKG - Nurse/Tech: repeat; Complete Time: 01:02 [facility] EC/12 20:34 Rate is 86 beats/min. Rhythm is regular, A fib. QRS [place] is Normal. QRS interval is sp4 normal. QT interval is prolonged. No Q waves. T waves are Normal. No ST changes noted. Clinical impression: No evidence of ischemia. Interpreted by me. Reviewed by me. Administered Medications: No medications were administered Disposition Summary: 03/14/24 02:02 Discharge Ordered Problem: new sp4 Symptoms: have improved sp4 Condition: Stable sp4 Diagnosis - Paroxysmal atrial fibrillation sp4 - Palpitations sp4 Followup: sp4 - With: Private Physician - When: 7 - 10 days - Reason: Recheck today's complaints Discharge Instructions: - Discharge Summary Sheet sp4 - Atrial Fibrillation sp4 Forms: - Patient Portal Instructions sp4 Signatures: Dispatcher [employer] David Tiwari MD MD sp4 Liz Hernandez [facility] Todd Ramsey RN RN rg5 Corrections: (The following items were deleted from the chart) 20:40 20:40 BASIC METABOLIC PANEL+C.LAB.BRZ ordered. EDMS EDMS 20:40 20:40 CBC+H.LAB.BRZ ordered. EDMS EDMS 20:40 20:40 HEPATIC FUNCTION+C.LAB.BRZ ordered. EDMS EDMS 20:40 20:40 MAGNESIUM+C.LAB.BRZ ordered. EDMS EDMS 20:40 20:40 PROBNP+C.LAB.BRZ ordered. EDMS EDMS 20:40 20:40 PROTIME (+INR)+COAG.LAB.BRZ ordered. EDMS EDMS 20:40 20:40 Troponin High Sensitivity+C.LAB.BRZ ordered. EDMS EDMS 20:40 20:40 Chest Single View+RAD.RAD.BRZ ordered. EDMS EDMS
[2024-03-14 02:55] VITALS: TEMP 98.3
[2024-03-14 03:02] VITALS: BP 119/70; O2SAT 100
--- NOTE | 2024-03-14 14:49 | EKG ---
Test Date: 2024-03-14 Test Time: 00:59:37 Manager Transplant: ELANA MEASUREMENT RESULTS: Intervals: Rate: 54 MO: 180 QRSD: 104 QT: 386 QTc: 366 [place]: P: 61 MO: 180 QRS: -55 T: 55 INTERPRETIVE STATEMENTS: Sinus bradycardia Incomplete right bundle branch block Left anterior fascicular block Nonspecific T wave abnormality Abnormal ECG Compared to ECG 06/23/2022 07:47:15 Incomplete right bundle-branch block now present Prolonged QT interval no longer present T-wave abnormality still present Electronically Signed On 03-14-24 14:48:32 SHAREPOINT ADMINISTRATOR by Dorian Phillips
--- NOTE | 2024-03-14 14:50 | EKG ---
Test Date: 2024-03-13 Test Time: 20:34:38 Certified Medical Technician Assistant: LAVELLE MEASUREMENT RESULTS: Intervals: Rate: 86 ND: QRSD: 102 QT: 426 QTc: 509 [place]: P: ND: QRS: -62 T: 37 INTERPRETIVE STATEMENTS: Atrial fibrillation Left anterior fascicular block Nonspecific T wave abnormality, probably digitalis effect Prolonged QT Abnormal ECG Compared to ECG 06/23/2022 07:47:15 Sinus bradycardia no longer present T-wave abnormality still present Electronically Signed On 03-14-24 14:49:05 NETWORK DEVELOPMENT COORDINATOR by Droian Phillips
== END 2024-03-14 02:13 | disposition home or self-care (01) ==
LOC: ER 20:12
DX: I48.0 Paroxysmal atrial fibrillation (principal); Z79.01 Long term (current) use of anticoagulants; I10 Essential (primary) hypertension; E11.9 Type 2 diabetes mellitus without complications
CPT/HCPCS: 36415; 71045; 80048; 80076; 83735; 83880; 84484; 85025; 85610; 93005; 99284

== ENCOUNTER 2024-05-25 11:50 | Inpatient (IN) | payer MEDICARE, OTHER ==
[2024-05-25] MEDS ORDERED: NA CHLORIDE 0.9% 1,000 ML ONE (12:07)
[2024-05-25 12:21] LABS: Absolute Basophils 0.1 K/uL (0-0.5); Absolute Eosinophils 0.1 K/uL (0-0.5); Absolute Lymphocytes (CBC) 1.8 K/uL (0.7-4.9); Absolute Monocytes 0.6 K/uL (0.1-1.3); Absolute Neutrophil 5.7 K/uL (1.8-8.0); Basophils % 0.6 % (0-1.3); Eosinophils % 1.4 % (0-4.4); Hematocrit 41.9 % (36.0-45.0); Hemoglobin 13.8 g/dL (12.0-15.0); Lymphocytes % 21.6 % (15.3-44.8); MCH 29.8 pg (27.0-35.0); MCV 90.2 fL (80-100); MPV 8.3 fL (7.6-11.3); Monocytes % 7.4 % (3.3-12.3); Nucleated Red Blood Cells % 0.1 % (0-0); Platelets 209 thou/uL (152-406); RBC Red Blood Cell Count 4.64 M/uL (3.86-4.86); Red Cell Distribution Width 14.2 % (12.1-15.2)
[2024-05-25] MEDS ORDERED: AZITHROMYCIN 500 MG INJ IVPB ONE (12:25)
[2024-05-25] MEDS ORDERED: NA CHLORIDE 0.9% 250 ML ONE (12:26)
[2024-05-25 12:27] LABS: PT Prothrombin Time 21.4 SECONDS (10.0-13.0); Protime INR 1.94
--- NOTE | 2024-05-25 12:40 | RAD REPORT ---
EXAMINATION: CT HEAD WITHOUT CONTRAST CT CERVICAL SPINE WITHOUT CONTRAST CLINICAL INDICATION: Syncope. Head and neck injury status post fall. Head and neck pain TECHNIQUE: Axial CT images from the skull base to the vertex without intravenous contrast. Axial CT i mages through the cervical spine were obtained without intravenous contrast. Sagittal and coronal reformatted images were created from the data set. Coronal and sagittal reformatted images were creat ed from the data set. One or more of the following dose reduction techniques were used: Automated exposure control, adjustment of the mA and/or kV according to patient size, and/or iterative reconstr uction. Unless otherwise specified, incidental findings do not require dedicated imaging follow-up. [id number]. Comparison: 2021 MRI brain FINDINGS: An intracranial bleed is not seen. Ventricles are normal in caliber. No significant hypodensity within the brain No extra-axial fluid collection. Pansinusitis is present No fracture or dislocation is seen involving the cervical spine. Spondylosis IMPRESSION: No acute intracranial abnormality noted A cervical fracture is not seen. 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
[2024-05-25 12:41] LABS: Specific Gravity 1.027 (1.005-1.030); Urine Bacteria None Seen /HPF (<20); Urine Bilirubin NEGATIVE (Negative); Urine Blood Trace (Negative); Urine Clarity Extremely Turbid (Clear); Urine Color Yellow (Yellow); Urine Culture Reflex Order REFLEXED; Urine Glucose 4+ (Over) (Negative); Urine Ketones TRACE (Negative); Urine Microscopic Reflex YN ORDER UMIC; Urine Mucus 2+ /HPF (None Seen); Urine Nitrite NEGATIVE (Negative); Urine Protein 3+ (Negative); Urine RBC None Seen /HPF (None Seen); Urine Urobilinogen Normal (Normal); Urine WBC >50 /HPF (<5); Urine WBC Clump Occasional /HPF (None Seen); Urine Yeast (Budding) Few /HPF (None Seen)
--- NOTE | 2024-05-25 12:41 | RAD REPORT ---
Procedure: Chest Single View HISTORY: Cough COMPARISON: 2023 FINDINGS: The lungs appear clear of acute infiltrate. Lungs are mildly hyperaerated. No significant pleural effusion noted. The heart is mildly enlarged. . IMPRESSION: No acute abnormality is displayed.
[2024-05-25 12:48] LABS: Albumin 3.3 g/dL (3.4-5.0); Albumin/Globulin Ratio 1.3 (1.1-1.8); Anion Gap 8.3 mEq/L (5.0-15.0); Bilirubin Direct 0.2 mg/dL (0-0.2); Bilirubin Indirect, Calculated 0.6 mg/dL (0.2-0.8); Bilirubin Total 0.8 mg/dL (0.2-1.0); Globulin 2.5 g/dL (2.3-3.5); Magnesium 2.1 mg/dL (1.6-2.4); Potassium 3.3 mEq/L (3.5-5.1); Protein, Total 5.8 g/dL (6.4-8.2); Thyroid Stimulating Hormone 3.7 uIU/mL (0.358-3.740)
[2024-05-25] MEDS ORDERED: POTASSIUM 25 MEQ EFFERV TAB ONE (13:09)
[2024-05-25] MEDS ORDERED: CEFDINIR 300 MG CAP PO ONE (13:09)
[2024-05-25] MEDS ORDERED: CEFTRIAXONE 1000 MG/VIAL ONE (13:09)
--- NOTE | 2024-05-25 13:14 | EDPHYS ---
Physician Documentation [facility] Name: Nickolas Grimes Age: 74 yrs Sex: Female : 1950 Arrival Date: 05/25/2024 Time: 11:50 Bed 5 Private MD: ED Physician Lukas Ferrara HPI: 05/25 13:02 This 74 yrs old Female presents to ER via EMS with complaints of Syncope. marlee 13:02 The patient has experienced syncope, became unresponsive. Onset: The symptoms/episode marlee began/occurred just prior to arrival. Duration: This was a single episode, that lasted 20 second(s). Context: the episode(s) was witnessed, by family. Associated injury: The patient did not suffer any apparent associated injury. Associated signs and symptoms: The patient has no apparent associated signs or symptoms. Current symptoms: Currently, the patient is not experiencing any symptoms, the patient feels back to baseline. The patient has not experienced similar symptoms in the past. Historical: - Allergies: 12:01 Azithromycin; jl7 - Home Meds: 12:01 Farxiga oral [Active]; jl7 - PMHx: 12:01 Atrial Fib; diabetes mellitus; Hypertension; jl7 - Immunization history:: Adult Immunizations up to date. - Infectious Disease History:: Denies. - Social history:: Smoking status: Patient denies any tobacco usage or history of. - Family history:: not pertinent. ROS: 13:02 Constitutional: Negative for fever, chills, and weight loss, Eyes: Negative for injury, marlee pain, redness, and discharge, ENT: Negative for injury, pain, and discharge, Neck: Negative for injury, pain, and swelling, Respiratory: Negative for shortness of breath, cough, wheezing, and pleuritic chest pain, Abdomen/GI: Negative for abdominal pain, nausea, vomiting, diarrhea, and constipation, Back: Negative for injury and pain, : Negative for injury, bleeding, discharge, and swelling, MS/Extremity: Negative for injury and deformity, Skin: Negative for injury, rash, and discoloration, Psych: Negative for depression, anxiety, suicide ideation, homicidal ideation, and hallucinations, Allergy/Immunology: Negative for hives, rash, and allergies, Endocrine: Negative for neck swelling, polydipsia, polyuria, polyphagia, and marked weight changes, Hematologic/Lymphatic: Negative for swollen nodes, abnormal bleeding, and unusual bruising, 13:02 Cardiovascular: Positive for palpitations, 13:02 Neuro: Positive for syncope, weakness, Exam: 13:02 Constitutional: This is a well developed, well nourished patient who is awake, alert, marlee and in no acute distress. Head/Face: Normocephalic, atraumatic. Eyes: Pupils equal round and reactive to light, extra-ocular motions intact. Lids and lashes normal. Conjunctiva and sclera are non-icteric and not injected. Cornea within normal limits. Periorbital areas with no swelling, redness, or edema. ENT: Nares patent. No nasal discharge, no septal abnormalities noted. Tympanic membranes are normal and external auditory canals are clear. Oropharynx with no redness, swelling, or masses, exudates, or evidence of obstruction, uvula midline. Mucous membranes moist. Neck: Trachea midline, no thyromegaly or masses palpated, and no cervical lymphadenopathy. Supple, full range of motion without nuchal rigidity, or vertebral point tenderness. No Meningismus. Chest/axilla: Normal chest wall appearance and motion. Nontender with no deformity. No lesions are appreciated. Cardiovascular: Regular rate and rhythm with a normal S1 and S2. No gallops, murmurs, or rubs. Normal PMI, no JVD. No pulse deficits. Respiratory: Lungs have equal breath sounds bilaterally, clear to auscultation and percussion. No rales, rhonchi or wheezes noted. No increased work of breathing, no retractions or nasal flaring. Abdomen/GI: Soft, non-tender, with normal bowel sounds. No distension or tympany. No guarding or rebound. No evidence of tenderness throughout. Back: No spinal tenderness. No costovertebral tenderness. Full range of motion. Skin: Warm, dry with normal turgor. Normal color with no rashes, no lesions, and no evidence of cellulitis. MS/ Extremity: Pulses equal, no cyanosis. Neurovascular intact. Full, normal range of motion., bilateral aka Neuro: Awake and alert, GCS 15, oriented to person, place, time, and situation. Cranial nerves II-XII grossly intact. Motor strength 5/5 in all extremities. Sensory grossly intact. Cerebellar exam normal. Normal gait. Psych: Awake, alert, with orientation to person, place and time. Behavior, mood, and affect are within normal limits. 13:02 ECG was reviewed by the Attending Physician. Vital Signs: 11:58 BP 124 / 67; Pulse 60; Resp 17; Temp 97; Pulse Ox 96% ; Weight 70.31 kg; Height 5 ft. 7 jl7 in. ; Pain 0/10; 13:14 BP 103 / 76; Pulse 53; Resp 18; Pulse Ox 97% on R/A; ld1 20:00 BP 144 / 83; Pulse 53; Resp 18; Pulse Ox 100% ; cp4 11:58 Body Mass Index 24.28 (70.31 kg, 170.18 cm) jl7 11:58 Pain Scale: Adult jl7 NIH Stroke Scale Scores: 11:58 NIHSS Score: 0 jl7 MDM: 12:03 Medical Screening Exam initiated marlee 13:05 Differential Diagnosis: cardiac arrhythmia, emotional response, GI bleed, idiopathic marlee syncope, pseudo seizure, seizure, transient ischemic attack, vasovagal episode. Data reviewed: vital signs, nurses notes, lab test result(s), EKG, radiologic studies, plain films. Consideration of Admission/Observation Escalation of care including admission/observation considered. I considered the following discharge prescriptions or medication management in the emergency department Medications were administered in the Emergency Department. See MAR. Independent interpretation of the following test(s) in the Emergency Department EKG: See my EKG interpretation above. Test considered but Not performed: MRI: no mri. Historians other than the Patient: EMS: well informed. pt well informed. Care significantly affected by the following chronic conditions: Diabetes, Hypertension, a fib , on eliquis. Counseling: I had a detailed discussion with the patient and/or guardian regarding the historical points, exam findings, and any diagnostic results supporting the discharge/admit diagnosis, lab results, radiology results, the need for further work-up and treatment in the hospital. 05/25 12:04 Order name: Basic Metabolic Panel; Complete Time: 12:50 [facility] 05/25 12:04 Order name: CBC with Diff; Complete Time: 12:50 [facility] 05/25 12:04 Order name: LFT's; Complete Time: 12:50 [facility] 05/25 12:04 Order name: Magnesium; Complete Time: 12:50 [facility] 05/25 12:04 Order name: NT PRO-BNP; Complete Time: 12:50 [facility] 05/25 12:04 Order name: PT-INR; Complete Time: 12:50 [facility] 05/25 12:04 Order name: Troponin HS; Complete Time: 12:50 [facility] 05/25 12:04 Order name: Lipase; Complete Time: 12:50 [facility] 05/25 12:04 Order name: TSH; Complete Time: 12:50 [facility] 05/25 12:04 Order name: Urinalysis w/ reflexes; Complete Time: 12:50 [facility] 05/25 12:44 Order name: Urine Culture EDMS 05/25 14:06 Order name: T4 Free EDMS 05/25 14:06 Order name: Thyroid Stimulating Hormone EDMS 05/25 14:06 Order name: Urinalysis w/ reflexes EDMS 05/25 14:07 Order name: Basic Metabolic Panel EDMS 05/25 14:07 Order name: Basic Metabolic Panel EDMS 05/25 14:07 Order name: Basic Metabolic Panel EDMS 05/25 14:07 Order name: Basic Metabolic Panel EDMS 05/25 14:07 Order name: CBC with Automated Diff EDMS 05/25 14:07 Order name: CBC with Automated Diff EDMS 05/25 14:07 Order name: CBC with Automated Diff EDMS 05/25 14:07 Order name: CBC with Automated Diff EDMS 05/25 14:07 Order name: Lipid Profile EDMS 05/25 14:07 Order name: Lipid Profile EDMS 05/25 14:07 Order name: Magnesium EDMS 05/25 14:07 Order name: Magnesium EDMS 05/25 14:07 Order name: Magnesium EDMS 05/25 14:07 Order name: Magnesium EDMS 05/25 14:07 Order name: Phosphorus EDMS 05/25 14:07 Order name: Phosphorus EDMS 05/25 14:07 Order name: Phosphorus EDMS 05/25 14:07 Order name: Phosphorus EDMS 05/25 14:07 Order name: Troponin High Sensitivity EDMS 05/25 14:07 Order name: Troponin High Sensitivity EDMS 05/25 14:07 Order name: Troponin High Sensitivity EDMS 05/25 12:04 Order name: XRAY Chest (1 view); Complete Time: 12:50 [facility] 05/25 12:04 Order name: CT Head C Spine; Complete Time: 12:50 [facility] 05/25 14:56 Order name: Ankle Left 3 View XRAY eb 05/25 16:46 Order name: CT [facility] 05/25 16:50 Order name: RAD [facility] 05/25 12:04 Order name: EKG; Complete Time: 12:04 [facility] 05/25 14:06 Order name: Physical Therapy Consult [facility] 05/25 12:04 Order name: Cardiac monitoring; Complete Time: 12:04 [facility] 05/25 12:04 Order name: EKG - Nurse/Tech; Complete Time: 12:04 [facility] 05/25 12:04 Order name: IV Saline Lock; Complete Time: 12:05 [facility] 05/25 12:04 Order name: Labs collected and sent; Complete Time: 12:05 [facility] 05/25 12:04 Order name: O2 Per Protocol; Complete Time: 12: [facility] 05/25 12:04 Order name: O2 Sat Monitoring; Complete Time: 12: [facility] EC:02 Rate is 57 beats/min. Rhythm is regular. QRS [place] is Normal. [place] interval is normal. QRS [place] interval is normal. QT interval is normal. No Q waves. T waves are Normal. No ST changes noted. Clinical impression: Sinus bradycardia. Interpreted by me. Reviewed by me. Administered Medications: : Drug: NS 0.9% IV 1000 ml IV at 1 bolus Per protocol; to be given as a bolus over 60 ld1 minutes Route: IV; Rate: 1 bolus; Site: right antecubital; 13:14 Follow up: Response: No adverse reaction; IV Status: Completed infusion; IV Intake: ld1 1000ml 13:13 Drug: Cefdinir PO 300 mg PO once Route: PO; ld1 13:14 Follow up: Response: No adverse reaction ld1 13:13 Drug: Potassium PO Effervescent Tablet 25 mEq PO once; dissolve in 4 ounces of water or ld1 juice Route: PO; 13:14 Follow up: Response: No adverse reaction ld1 13:14 Drug: Rocephin IV 1 grams IV at per protocol once; Given slow IV push per pharmacy ld1 instructions Route: IV; Rate: per protocol; Site: right antecubital; 13:14 Follow up: Response: No adverse reaction; IV Status: Completed infusion; IV Intake: ld1 100ml 17:00 Drug: Ondansetron IVP 4 mg IVP once; over 2 minutes Route: IVP; Site: right antecubital;ld1 Disposition Summary: 05/25/24 13:13 Hospitalization Ordered Notes: Hospitalization Status: Observation marlee Provider: Dane Wright cha Location: Telemetry/MedSurg (observation) marlee Condition: Fair marlee Problem: new marlee Symptoms: have improved marlee Bed/Room Type: Standard marlee Room Assignment: 216(05/25/24 18:37) eb Diagnosis - Syncope Near marlee - Palpitations marlee - Fall on same level, unspecified marlee - Hypokalemia marlee - Sprain of ankle marlee - Abnormal findings on diagnostic imaging of other specified body structures - 16 mm marlee right ilium bone island, r/o blastic metastisis Forms: - Medication Reconciliation Form marlee - SBAR form marlee - Leadership Thank You Letter marlee NIH Stroke Scale - NIH Stroke Score Date: 05/25/2024 Time: 11:58 Total Score = 0 10. Dysarthria (speech clarity - read or repeat words) - 0(Normal) 11. Extinction and Inattention (visual/tactile/auditory/spatial/personal) - 0(No abnormality) 1a. Level of Consciousness (LOC) - 0(Alert) 1b. Level of Consciousness (LOC) (Month \T\ Age) - 0(Both) 1c. LOC Commands (Open \T\ Closes Eyes/[employer]in[employer]) - 0(Both) 2. Best Gaze (Lateral Gaze Paresis) - 0(Normal) 3. Visual Field Loss - 0(No visual loss) 4. Facial Palsy - 0(Normal) 5a. Left Arm: Motor (10-second hold) - 0(No drift) 5b. Right Arm: Motor (10-second hold) - 0(No drift) 6a. Left Leg: Motor (5-second hold - always test supine) - 0(No drift) 6b. Right Leg: Motor (5-second hold - always test supine) - 0(No drift) 7. Limb Ataxia (finger/nose \T\ heel/martinez - test with eyes open) - 0(Absent) 8. Sensory Loss (pinprick arms/legs/face) - 0(Normal) 9. Best Language: Aphasia (description/naming/reading) - 0(No aphasia) Initials: jl7 Signatures: Dispatcher [employer] Lukas Jones MD MD cha Leal, Jahala RN RN jl7 Spears, Shira eb Arias, Niharika, RN RN ld1 Corrections: (The following items were deleted from the chart) 15:16 15:16 Chest Abdomen Pelvis W Con+CT.RAD.BRZ ordered. EDMS EDMS 18:37 13:13 marlee you
--- NOTE | 2024-05-25 13:14 | ER ---
Nurse's Notes [facility] Name: Nickolas Grimes Age: 74 yrs Sex: Female : 1950 Arrival Date: 05/25/2024 Time: 11:50 Bed 5 Private MD: Diagnosis: Syncope Near;Palpitations;Fall on same level, unspecified;Hypokalemia;Sprain of ankle;Abnormal findings on diagnostic imaging of other specified body structures-16 mm right ilium bone island, r/o blastic metastisis Presentation: 05/25 11:58 Chief complaint: EMS states: Toned out for witness syncopal episode, pt stood from 7 chair and felt heart rate increase then lost consciousness, daughter reports she did not hit her head. No complaints on arrival to ED. Coronavirus screen: At this time, the client does not indicate any symptoms associated with coronavirus-19. Ebola Screen: No symptoms or risks identified at this time. Initial Sepsis Screen: Does the patient meet any 2 criteria? No. Patient's initial sepsis screen is negative. Does the patient have a suspected source of infection? No. Patient's initial sepsis screen is negative. Risk Assessment: Do you want to hurt yourself or someone else? Patient reports no desire to harm self or others. Onset of symptoms was May 25, 2024. Care prior to arrival: IV initiated. 20 GA, in the left antecubital area. 11:58 Method Of Arrival: EMS: [facility] 11:58 Acuity: [place] 3 jl7 Triage Assessment: 12:01 General: Appears in no apparent distress. uncomfortable, Behavior is calm, cooperative, jl7 appropriate for age. Pain: Denies pain. Neuro: Reese Agitation-Sedation Scale (RASS): 0 - Alert and Calm Level of Consciousness is awake, alert, obeys commands, Oriented to person, place, time, situation, Reports a syncopal episode. Cardiovascular: Patient's skin is warm and dry. Rhythm is regular. Respiratory: Airway is patent Respiratory effort is even, unlabored, Respiratory pattern is regular, symmetrical. Derm: Skin is pink, warm \T\ dry. Historical: - Allergies: 12:01 Azithromycin; jl7 - Home Meds: 12:01 Farxiga oral [Active]; jl7 - PMHx: 12:01 Atrial Fib; diabetes mellitus; Hypertension; jl7 - Immunization history:: Adult Immunizations up to date. - Infectious Disease History:: Denies. - Social history:: Smoking status: Patient denies any tobacco usage or history of. - Family history:: not pertinent. Screenin:15 [facility] ED Fall Risk Assessment (Adult) History of falling in the last 3 months, ld1 including since admission No falls in past 3 months (0 pts) Confusion or Disorientation No (0 pts) Intoxicated or Sedated No (0 pts) Impaired Gait No (0 pts) Mobility Assist Device Used No (0 pt) Altered Elimination No (0 pt) Score/Fall Risk Level 0 - 2 = Low Risk Oriented to surroundings, Hourly rounding (assess needs \T\ fall precautionary measures) done. Abuse screen: Denies threats or abuse. Denies injuries from another. Nutritional screening: No deficits noted. Tuberculosis screening: No symptoms or risk factors identified. Assessment: 13:15 General: Appears in no apparent distress. comfortable, Behavior is calm, cooperative, ld1 appropriate for age. Pain: Denies pain. Neuro: Level of Consciousness is awake, alert, obeys commands, Oriented to person, place, time, situation, Appropriate for age. Cardiovascular: Capillary refill < 3 seconds Patient's skin is warm and dry. Cardiovascular: Rhythm is sinus rhythm. Respiratory: Airway is patent Respiratory effort is even, unlabored. GI: Abdomen is flat, non-distended. : No signs and/or symptoms were reported regarding the genitourinary system. EENT: No signs and/or symptoms were reported regarding the EENT system. Derm: No signs and/or symptoms reported regarding the dermatologic system. Musculoskeletal: No signs and/or symptoms reported regarding the musculoskeletal system. Vital Signs: 11:58 BP 124 / 67; Pulse 60; Resp 17; Temp 97; Pulse Ox 96% ; Weight 70.31 kg; Height 5 ft. 7 jl7 in. ; Pain 0/10; 13:14 BP 103 / 76; Pulse 53; Resp 18; Pulse Ox 97% on R/A; ld1 20:00 BP 144 / 83; Pulse 53; Resp 18; Pulse Ox 100% ; cp4 11:58 Body Mass Index 24.28 (70.31 kg, 170.18 cm) [facility] 11:58 Pain Scale: Adult jl7 NIH Stroke Scale Scores: 11:58 NIHSS Score: 0 jl7 ED Course: 11:58 Patient arrived in ED. hb 11:58 Pool Bowman, RN is Primary Nurse. jl7 12:01 Triage completed. jl7 12:01 Arm band placed on right wrist. jl7 12:02 Lukas Ferrara MD is Attending Physician. marlee 12:05 Maintain EMS IV. Dressing intact. Good blood return noted. Site clean \T\ dry. Gauge \T\ ld 1 site: 20G LAC. 12:11 XRAY Chest (1 view) In Process Unspecified. EDMS 12:23 Urinalysis w/ reflexes Sent. ld1 12:27 CT Head C Spine In Process Unspecified. EDMS 13:12 Dane Wright is Hospitalizing Provider. marlee 13:15 Patient has correct armband on for positive identification. Placed in gown. Bed in low ld1 position. Call light in reach. Side rails up X2. clinic supervisor on. Pulse ox on. NIBP on. Door closed. Noise minimized. Warm blanket given. 13:15 No provider procedures requiring assistance completed. ld1 16:06 Primary Nurse role handed off by Pool Bowman, RN ld1 16:06 Niharika Arias, FAWAD is Primary Nurse. ld1 20:01 Provided Education on: admission. cp4 20:01 Patient admitted, IV remains in place. cp4 Administered Medications: 12:23 Drug: NS 0.9% IV 1000 ml IV at 1 bolus Per protocol; to be given as a bolus over 60 ld1 minutes Route: IV; Rate: 1 bolus; Site: right antecubital; 13:14 Follow up: Response: No adverse reaction; IV Status: Completed infusion; IV Intake: ld1 1000ml 13:13 Drug: Cefdinir PO 300 mg PO once Route: PO; ld1 13:14 Follow up: Response: No adverse reaction ld1 13:13 Drug: Potassium PO Effervescent Tablet 25 mEq PO once; dissolve in 4 ounces of water or ld1 juice Route: PO; 13:14 Follow up: Response: No adverse reaction ld1 13:14 Drug: Rocephin IV 1 grams IV at per protocol once; Given slow IV push per pharmacy ld1 instructions Route: IV; Rate: per protocol; Site: right antecubital; 13:14 Follow up: Response: No adverse reaction; IV Status: Completed infusion; IV Intake: ld1 100ml 17:00 Drug: Ondansetron IVP 4 mg IVP once; over 2 minutes Route: IVP; Site: right antecubital;ld1 Medication: 13:15 VIS not applicable for this client. ld1 Intake: 13:14 IV: 1000ml; Total: 1000ml. ld1 13:14 IV: 100ml; Total: 1100ml. ld1 Outcome: 13:13 Decision to Hospitalize by Provider. marlee 20:01 Admitted to Med/surg accompanied by tech, via stretcher, with chart, cp4 20:01 Condition: stable 20:01 Instructed on the need for admit, 20:19 Patient left the ED. cp4 NIH Stroke Scale - NIH Stroke Score Date: 05/25/2024 Time: 11:58 Total Score = 0 10. Dysarthria (speech clarity - read or repeat words) - 0(Normal) 11. Extinction and Inattention (visual/tactile/auditory/spatial/personal) - 0(No abnormality) 1a. Level of Consciousness (LOC) - 0(Alert) 1b. Level of Consciousness (LOC) (Month \T\ Age) - 0(Both) 1c. LOC Commands (Open \T\ Closes Eyes/Cigar Head Perforator) - 0(Both) 2. Best Gaze (Lateral Gaze Paresis) - 0(Normal) 3. Visual Field Loss - 0(No visual loss) 4. Facial Palsy - 0(Normal) 5a. Left Arm: Motor (10-second hold) - 0(No drift) 5b. Right Arm: Motor (10-second hold) - 0(No drift) 6a. Left Leg: Motor (5-second hold - always test supine) - 0(No drift) 6b. Right Leg: Motor (5-second hold - always test supine) - 0(No drift) 7. Limb Ataxia (finger/nose \T\ heel/martinez - test with eyes open) - 0(Absent) 8. Sensory Loss (pinprick arms/legs/face) - 0(Normal) 9. Best Language: Aphasia (description/naming/reading) - 0(No aphasia) Initials: jl7 Signatures: Dispatcher [employer] EDVT Lukas Ferrara MD MD cha Baxter, Heather, RN RN hb Leal, Jahala, RN RN jl7 Niharika Arias RN RN ld1 Dalia Walters 4
--- NOTE | 2024-05-25 14:43 | P.HP ---
Certification for Inpatient Patient admitted to: Observation With expected LOS: <2 Midnights Patient will require the following post-hospital care: None Practitioner: I am a practitioner with admitting privileges, knowledge of patient current condition, hospital course, and medical plan of care. Services: Services provided to patient in accordance with Admission requirements found in Title 42 Section 412.3 of the Code of Federal Regulations Patient History Date of Service: 05/25/24 Reason for admission: Weakness, fall History of Present Illness: Nickolas Grimes is a 74 year old female with PMhx atrial fibrillation, GERD, diabetes mellitusNIDDM,who presented to the ED s/p syncopal episode at home this morning of which she woke up after falling. She reports having diarrhea then took her medications and was cooking breakfast when she didn't feel well and fainted. She reports not having an episode like this in the past. She has a distant history of seizures but has stopped medications when she was 38 and was diagnosed with Afib when she was 51 and has been compliant with her medications. Laboratory evaluation significant for potassium 3.3, serum glucose 159, BNP 3081, GFR 68 Chest x-ray reports "The lungs appear clear of acute infiltrate. Lungs are mildly hyperaerated. No significant pleural effusion noted. The heart is mildly enlarged." CT head and cervical spine reports "No acute intracranial abnormality noted. A cervical fracture is not seen." Nickolas will be admitted to hospitalist service for weakness and fall. Allergies azithromycin Allergy (Verified 03/16/19 13:00) Rash Home Medications: Apixaban [Eliquis] 5 mg PO BID 03/16/19 Aspirin 81 mg PO DAILY 03/16/19 Fluticasone Propionate [Flonase Allergy Relief] 1 spray IH DAILY 03/16/19 Levothyroxine [Synthroid*] 75 mcg PO [id number] 03/16/19 Montelukast Sodium [Singulair] 10 mg PO DAILY 03/16/19 Sotalol HCl [Sotalol] 120 mg PO BID 03/16/19 dilTIAZem HCL [Diltiazem 12Hr ER] 60 mg PO TID 03/16/19 Cephalexin [Keflex] 500 mg PO Q6HR #28 cap 03/17/19 Doxycycline Hyclate 100 mg PO BID #14 tablet 03/17/19 Guaifen W/Codeine Syrup [ROBITUSSIN A-C Syrup] 5 ml PO Q6H #1 bottle 03/17/19 - Past Medical/Surgical History -: Hypertension -: Afib -: Diabetes -: GERD -: Tonisllectomy -: Chlecystectomy -: Adenoidectomy -: Cardiac ablation - Family History Mother -: Heart disease Notes: afib Sister -: Heart disease Notes: afib Father -: Hypertension, Other (see notes) Notes: arthritis - Social History Smoking Status: Never smoker Alcohol use: No Caffeine use: No Physical Examination - Physical Exam General: Alert, In no apparent distress, Oriented x3 HEENT: Atraumatic, Normocephalic Neck: Supple, 2+ carotid pulse no bruit Respiratory: Clear to auscultation bilaterally, Normal air movement Cardiovascular: Normal pulses, Regular rate/rhythm, Normal S1 S2 Capillary refill: <2 Seconds Gastrointestinal: Normal bowel sounds, Soft and benign - Studies Laboratory Data (last 24 hrs) 05/25/24 05/25/24 05/25/24 12:10 12:10 12:10 WBC 8.30 Hgb 13.8 Hct 41.9 Plt Count 209 PT 21.4 H INR 1.94 Sodium 142 Potassium 3.3 L BUN 12 Creatinine 0.88 Glucose 159 H Magnesium 2.1 Total Bilirubin 0.8 AST 16 ALT 20 Alkaline Phosphatase 81 Lipase 18 Assessment and Plan - Plan Assessment and plan Syncope with weakness Atrial fibrillation -Chest x-ray reports "The lungs appear clear of acute infiltrate. Lungs are mildly hyperaerated. No significant pleural effusion noted. The heart is mildly enlarged." -CT head and cervical spine reports "No acute intracranial abnormality noted. A cervical fracture is not seen." -Orthostatic vitals -Echo -Physical therapy -Continuous telemetry -Continue home medication UTI (POA) -Rocephin -follow urine culture Diabetes mellitus -Currently takes Farxiga, will continue -Accu-Chek Hypothyroidism -Continue home medication DVT PPx Eliquis Full code LOS 24-hour OBS Discharge Plan: Home - Advance Directives Does patient have a Living Will: No Does patient have a Durable POA for Healthcare: No
[2024-05-25 16:15] VITALS: BMI 24.1
--- NOTE | 2024-05-25 16:45 | RAD REPORT ---
EXAM: Chest Abdomen Pelvis W Cont CLINICAL INDICATION: Chest and abdominal pain TECHNIQUE: CT chest, abdomen and pelvis was performed, with 100 cc Isovue-300 IV contrast, as per de partment protocol. Axial, sagittal and coronal reconstructions were obtained. One or more of the following dose reduction techniques were used: Automated exposure control, adjustment of the mA and/o r kV according to the patient size, and/or iterative reconstruction. Unless otherwise specified, incidental findings do not require dedicated imaging follow-up. [id number]. Oral contrast not given. This limits evaluation of the bowel. COMPARISON: 2019 CT chest FINDINGS: Calcified granuloma left lung. Scarring right lung. Calcified mediastinal lymph nodes. Calcified hilar lymph nodes. Cardiomegaly. No pleural effusion. No pericardial effusion. The wall of the proximal stomach appears mildly thickened. Splenic granuloma. Liver has a mildly nodular contour. Prominent caudate lobe. This could be secondary to chronic diseas e. Cholecystectomy. The spleen, and adrenals appear unremarkable. Kidneys unremarkable 16 mm calcification right ilium Atherosclerosis. There is no evidence of diverticulitis. No adnexal mass. Small amount of ascites. IMPRESSION: The wall of the proximal stomach appears mildly thickened. This could be secondary to inflammation or incomplete distention. 16 mm calcification right ilium representing bone island. A blastic metastasis can have this appearan ce but probably is less follow-up x-ray in a couple months would be helpful to assess stability
[2024-05-25] MEDS: DILTIAZEM HCL 60 MG TAB PO SCH (16:48)
--- NOTE | 2024-05-25 16:49 | RAD REPORT ---
Exam:Ankle Left 3 View HISTORY: left ankle pain FINDINGS: No fracture or dislocation is seen Large plantar calcaneal spur
[2024-05-25] MEDS ORDERED: ONDANSETRON 4 MG/2 ML VIAL ONE (18:28)
[2024-05-25] MEDS: APIXABAN 5 MG TABLET PO SCH (20:34)
[2024-05-25] MEDS: SOTALOL HCL 80 MG TAB PO SCH (21:00)
[2024-05-25 21:43] LABS: Thyroid Stimulating Hormone 4.33 uIU/mL (0.358-3.740)
[2024-05-26 04:32] LABS: Absolute Basophils 0.1 K/uL (0-0.5); Absolute Eosinophils 0.2 K/uL (0-0.5); Absolute Monocytes 0.7 K/uL (0.1-1.3); Basophils % 0.8 % (0-1.3); Eosinophils % 2.2 % (0-4.4); Hematocrit 38.1 % (36.0-45.0); Hemoglobin 12.8 g/dL (12.0-15.0); Lymphocytes % 28.6 % (15.3-44.8); MCH 30.1 pg (27.0-35.0); MCHC 33.5 g/dL (32.0-36.0); MCV 89.8 fL (80-100); Monocytes % 10.7 % (3.3-12.3); Neutrophils % 57.7 % (41.7-73.7); Platelets 177 thou/uL (152-406); RBC Red Blood Cell Count 4.25 M/uL (3.86-4.86); Red Cell Distribution Width 14.3 % (12.1-15.2)
[2024-05-26 04:45] LABS: Anion Gap 8.3 mEq/L (5.0-15.0); Magnesium 1.9 mg/dL (1.6-2.4); Phosphorus 2.7 mg/dL (2.5-4.9); Potassium 3.3 mEq/L (3.5-5.1)
[2024-05-26] MEDS: MAGNESIUM SULFATE 1 gm IVPB 1 GM/100 ML BAG IV ONE (06:48)
[2024-05-26] MEDS: POTASSIUM CL SA 10 MEQ TAB PO ONE (06:48)
[2024-05-26] MEDS: LEVOTHYROXINE SOD 0.075 MG TAB PO SCH (06:49)
[2024-05-26] MEDS: ASPIRIN 81 MG CHEWABLE TABLET PO SCH (09:33)
[2024-05-26] MEDS: ACETAMINOPHEN 325 MG TABLET PO PRN (09:34)
[2024-05-26] MEDS: CEFTRIAXONE 1,000 MG in NA CHLORIDE 0.9% 50 ML IVPB SCH (09:35)
--- NOTE | 2024-05-26 10:11 | P.PN ---
Date of Service: 05/26/24 Subjective Awake, on RA feeling much better this morning No new complaints ROS 10 point ROS as noted above, otherwise negative Physical Exam General: AAO x3, NAD HEENT: Atraumatic, Normocephalic Respiratory: Clear to auscultation bilaterally, Normal air movement Cardiovascular: Normal pulses, RRR, Normal S1 S2 Capillary refill: <2 Seconds Gastrointestinal: Normal bowel sounds, Soft and benign on palpation Vitals Reviewed Problem list Syncope with weakness Atrial fibrillation UTI (POA) Diabetes mellitus Hypothyroidism Assessment and plan Syncope with weakness Atrial fibrillation -Chest x-ray reports "The lungs appear clear of acute infiltrate. Lungs are mildly hyperaerated. No significant pleural effusion noted. The heart is mildly enlarged." -CT head and cervical spine reports "No acute intracranial abnormality noted. A cervical fracture is not seen." -Orthostatic vitals -Echo -Physical therapy- Evaluated and found to be independent with some balance problems -Continuous telemetry -Continue home medication UTI (POA) -Rocephin -follow urine culture Diabetes mellitus -Currently takes Farxiga, will continue -Accu-Chek Hypothyroidism -Continue home medication DVT PPx Eliquis Full code LOS 24-hour OBS
--- NOTE | 2024-05-26 10:26 | P.CNS ---
Date of Consult: 05/26/24 Chief Complaint: Weakness, fall History of Present Illness: Patient with PMH of atrial fibrillation, presented with fall, she report passing out after using bathroom and having diarrhea, denies chest pain, no palpitations, no SOB. Allergies azithromycin Allergy (Verified 03/16/19 13:00) Rash Home medications list reviewed: Yes Home Medications: Apixaban [Eliquis] 5 mg PO BID 03/16/19 Aspirin 81 mg PO DAILY 03/16/19 Fluticasone Propionate [Flonase Allergy Relief] 1 spray IH DAILY 03/16/19 Levothyroxine [Synthroid*] 75 mcg PO [id number] 03/16/19 Montelukast Sodium [Singulair] 10 mg PO DAILY 03/16/19 Sotalol HCl [Sotalol] 120 mg PO BID 03/16/19 dilTIAZem HCL [Diltiazem 12Hr ER] 60 mg PO TID 03/16/19 Cephalexin [Keflex] 500 mg PO Q6HR #28 cap 03/17/19 Doxycycline Hyclate 100 mg PO BID #14 tablet 03/17/19 Guaifen W/Codeine Syrup [ROBITUSSIN A-C Syrup] 5 ml PO Q6H #1 bottle 03/17/19 - Past Medical/Surgical History -: Hypertension -: Afib -: Diabetes -: GERD -: Tonisllectomy -: Chlecystectomy -: Adenoidectomy -: Cardiac ablation - Family History Mother Medical History: Heart disease Notes: afib Sister Medical History: Heart disease Notes: afib Father Medical History: Hypertension, Other (see notes) Notes: arthritis - Social History Alcohol use: No Caffeine use: No Review of Systems 10-point ROS is otherwise unremarkable Physical Examination Temp Pulse Resp BP Pulse Ox 99.6 F 59 16 154/79 H 94 05/26/24 08:00 05/26/24 08:00 05/26/24 08:00 05/26/24 08:00 05/26/24 08:00 General: Alert, In no apparent distress HEENT: Atraumatic, PERRLA, Mucous membr. moist/pink, EOMI, Sclerae nonicteric Neck: Supple, 2+ carotid pulse no bruit, No LAD, Without JVD or thyroid abnormality Respiratory: Clear to auscultation bilaterally, Normal air movement Cardiovascular: Regular rate/rhythm, Normal S1 S2 Gastrointestinal: Normal bowel sounds, No tenderness Musculoskeletal: No tenderness Integumentary: No rashes Neurological: Normal gait, Normal speech, Normal tone, Normal affect Lymphatics: No axilla or inguinal lymphadenopathy Laboratory Data (last 24 hrs) 05/25/24 05/25/24 05/25/24 12:10 12:10 12:10 WBC 8.30 Hgb 13.8 Hct 41.9 Plt Count 209 PT 21.4 H INR 1.94 Sodium 142 Potassium 3.3 L BUN 12 Creatinine 0.88 Glucose 159 H Magnesium 2.1 Total Bilirubin 0.8 AST 16 ALT 20 Alkaline Phosphatase 81 Lipase 18 - Problems (1) Syncope Current Visit: Yes Status: Acute Plan: Patient syncope looks like vagal vs neurocardiogenic continue patient current medications continue to monitor on tele overnight outpatient follow up with her account services associate for an event monitor (2) Atrial fibrillation Current Visit: Yes Status: Acute Plan: continue Sotalol continue Dilatzem continue Eliquis
--- NOTE | 2024-05-26 11:58 | EKG ---
Test Date: 2024-05-25 Test Time: 12:03:00 Commercial Real Estate Assistant: Ted Santacruz MEASUREMENT RESULTS: Intervals: Rate: 57 MO: 162 QRSD: 102 QT: 476 QTc: 463 [place]: P: 77 MO: 162 QRS: -67 T: 89 INTERPRETIVE STATEMENTS: Sinus bradycardia Left axis deviation Nonspecific T wave abnormality Abnormal ECG Compared to ECG 03/14/2024 00:59:37 Left-axis deviation now present Incomplete right bundle-branch block no longer present Left anterior fascicular block no longer present T-wave abnormality still present Electronically Signed On 05-26-24 11:57:51 [employer] by Dorian Phillips
--- NOTE | 2024-05-26 12:50 | ECHO ---
HEIGHT: 5 ft 7 in WEIGHT: 155 lb 0 oz DATE OF STUDY: 05/26/[address]: Faviola Briceño NP 2-DIMENSIONAL: YES M.MODE: YES DOPPLER: YES COLOR FLOW: YES TDS: PORTABLE: YES DEFINITY: BUBBLE STUDY: DIAGNOSIS: WEAKNESS, SYCOPE CARDIAC HISTORY: CATHERIZATION: NO SURGERY: NO PROSTHETIC VALVE: NO PACEMAKER: NO MEASUREMENTS (cm) DIASTOLIC (NORMALS) SYSTOLIC (NORMALS) IVSd 1.2 (0.6-1.2) LA Diam 3.1 (1.9-4.0) LVEF 60-65% LVIDd 4.9 (3.5-5.7) LVIDs 3.0 (2.0-3.5) %FS 39% LVPWd 1.2 (0.6-1.2) Ao Diam 2.9 (2.0-3.7) 2 DIMENSIONAL ASSESSMENT: RIGHT ATRIUM: NORMAL LEFT ATRIUM: MODERATE DILATED RIGHT VENTRICLE: NORMAL LEFT VENTRICLE: NORMAL TRICUSPID VALVE: TRACE TRICUSPID REGURGITATION MITRAL VALVE: MILD MITRAL REGURGITATION PULMONIC VALVE: NORMAL AORTIC VALVE: NORMAL PERICARDIAL EFFUSION: NONE AORTIC ROOT: NORMAL LEFT VENTRICULAR WALL MOTION: NORMAL DOPPLER/COLOR FLOW: GRADE II DIASTOLIC DYSFUNCTION COMMENTS: 1. NORMAL LEFT VENTRICULAR SYSTOLIC FUNCTION, EJECTION FRACTION 60-65%, NORMAL WALL MOTION 2. GRADE II DIASTOLIC DYSFUNCTION 3. MILD ELEVATED FILLING PRESSURE (RIGHT ATRIAL PRESSURE 10-15 mmHg) 4. MODERATE DILATED LEFT ATRIUM 5. MILD MITRAL REGURGITATION TECHNOLOGIST: GABRIELA SMITH
[2024-05-27 01:07] VITALS: O2SAT 95
[2024-05-27 04:31] LABS: Absolute Eosinophils 0.1 K/uL (0-0.5); Absolute Lymphocytes (CBC) 1.7 K/uL (0.7-4.9); Absolute Monocytes 0.6 K/uL (0.1-1.3); Absolute Neutrophil 3.1 K/uL (1.8-8.0); Basophils % 0.9 % (0-1.3); Eosinophils % 2.5 % (0-4.4); Hematocrit 36.5 % (36.0-45.0); Hemoglobin 12.1 g/dL (12.0-15.0); Lymphocytes % 30.6 % (15.3-44.8); MCH 30.1 pg (27.0-35.0); MCHC 33.3 g/dL (32.0-36.0); MCV 90.3 fL (80-100); MPV 7.8 fL (7.6-11.3); Monocytes % 10.6 % (3.3-12.3); Neutrophils % 55.4 % (41.7-73.7); Nucleated Red Blood Cells % 0.1 % (0-0); Platelets 170 thou/uL (152-406); RBC Red Blood Cell Count 4.04 M/uL (3.86-4.86); Red Cell Distribution Width 14.2 % (12.1-15.2)
[2024-05-27 04:42] LABS: Anion Gap 4.7 mEq/L (5.0-15.0); Magnesium 2.1 mg/dL (1.6-2.4); Phosphorus 2.5 mg/dL (2.5-4.9); Potassium 3.7 mEq/L (3.5-5.1)
[2024-05-27] MEDS ORDERED: HYDRALAZINE HCL 20 MG/ML VIAL IV PRN (05:46)
[2024-05-27] MEDS: POTASS/SODIUM PHOSPHATE 1 PKT POWD.PACK PO SCH (08:27)
--- NOTE | 2024-05-27 10:27 | P.PN ---
Date of Service: 05/27/24 Subjective: ROS: 10 point ROS as noted above, otherwise negative Physical Exam: GEN: Alert, oriented, NAD CV: Regular rate and rhythm, no edema Pulm: Nonlabored respirations on room air, clear bilaterally ABD: soft, nontender, nondistended Integumentary: No rashes Neuro: Normal speech, normal affect Problem List: Syncope Paroxysmal A-fib; hx of cardiac ablation UTI (POA) NIDDM2 Hypothyroidism Hypertension GERD Syncope Generalized Weakness Paroxysmal A-fib; hx of cardiac ablation Presented to ED after syncopal episode at home. Reportedly fell from ground level with LOC. Daughter states she did not hit her head. Patient reports feeling her heart race increased after standing up from her chair then she lost consciousness. CT abdomen (05/25): wall of the proximal stomach appears mildly thickened. 16 mm calcification right ilium representing bone island. A blastic metastasis can have this appearance. follow-up x-ray in a couple months to assess stability. Echo (05/26): normal EF, grade 2 diastolic dysfunction, mild elevated filling pressure, moderate dilated left atrium, mild MR, trace TR. CT head negative, CXR negative. continue PT check orthostatic vitals continue sotalol, cardizem, eliquis f/u outpatient for event monitor syncope possibly vagal vs neurocardiogenic UTI (POA) Started on empiric abx on admission to cover possible UTI given suspicious UA urine cx (05/25): 3+ non-be4ta hemolytic strep NIDDM2 accu-cheks, SSI Hypothyroidism Hypertension GERD continue home meds as appropriate VTE: home eliquis Code: Full Dispo: Home Time Spent Managing Pts Care (In Minutes): 55
[2024-05-27 11:15] VITALS: BP 127/66; TEMP 98
--- NOTE | 2024-05-27 12:28 | P.PN ---
Subjective Date of Service: 05/27/24 Chief Complaint: Weakness, fall Subjective: No new changes, No C/O voiced, Tolerating diet, Ambulating, Improving Review of Systems 10-point ROS is otherwise unremarkable Physical Examination - Vital Signs Temperature: 98.0 F Blood Pressure: 127/66 Pulse: 109 Respirations: 13 Pulse Ox (%): 97 - Physical Exam General: Alert, In no apparent distress HEENT: Atraumatic, PERRLA, EOMI Neck: Supple, JVD not distended Respiratory: Clear to auscultation bilaterally, Normal air movement Cardiovascular: Irregular heart rate/rhythm Gastrointestinal: Normal bowel sounds, No tenderness Musculoskeletal: No tenderness Integumentary: No rashes Neurological: Normal speech, Normal tone, Normal affect Lymphatics: No axilla or inguinal lymphadenopathy - Studies Laboratory Data (last 24 hrs) 05/27/24 05/27/24 04:11 04:11 WBC 5.50 Hgb 12.1 Hct 36.5 Plt Count 170 Sodium 144 Potassium 3.7 BUN 8 Creatinine 0.66 Glucose 121 H Phosphorus 2.5 Magnesium 2.1 Medications List Reviewed: Yes Assessment And Plan - Current Problems (Diagnosis) (1) Syncope Current Visit: Yes Status: Acute Plan: Patient syncope looks like vagal vs neurocardiogenic, Tele shows AF, rate c ontrolled with occasional RVR, also i can see some occasional sinus rhythm beats with questionable block, I think patient will benefit from transfer to tertiary center with EP service to rule out sick sinus syndrome and possible need for pacemaker implantation. discussed in details with patient and agree on transfer. continue patient current medications continue to monitor on tele (2) Atrial fibrillation Current Visit: Yes Status: Acute Plan: continue Sotalol continue Dilatzem continue Eliquis
--- NOTE | 2024-05-27 14:04 | P.DS ---
Admission Date: 05/27/24 Discharge Date: 05/27/24 Disposition: ROUTINE DISCHARGE Discharge Condition: GOOD Reason for Admission: Weakness, fall Brief History of Present Illness: Diagnosis Syncope Paroxysmal A-fib; hx of cardiac ablation UTI (POA) NIDDM2 Hypothyroidism Hypertension GERD HPI 05/25/24 Nickolas Grimes is a 74 year old female with PMhx atrial fibrillation, GERD, diabetes mellitusNIDDM,who presented to the ED s/p syncopal episode at home this morning of which she woke up after falling. She reports having diarrhea then took her medications and was cooking breakfast when she didn't feel well and fainted. She reports not having an episode like this in the past. She has a distant history of seizures but has stopped medications when she was 38 and was diagnosed with Afib when she was 51 and has been compliant with her medications. Laboratory evaluation significant for potassium 3.3, serum glucose 159, BNP 3081, GFR 68 Chest x-ray reports "The lungs appear clear of acute infiltrate. Lungs are mildly hyperaerated. No significant pleural effusion noted. The heart is mildly enlarged." CT head and cervical spine reports "No acute intracranial abnormality noted. A cervical fracture is not seen." Nickolas will be admitted to hospitalist service for weakness and fall. Hospital Course: Patient was admitted and treated for the following diagnosis Syncope Generalized weakness Paroxysmal Atrial fibrillation s/p cardiac ablation -Chest x-ray reports "The lungs appear clear of acute infiltrate. Lungs are mildly hyperaerated. No significant pleural effusion noted. The heart is mildly enlarged." -CT head and cervical spine reports "No acute intracranial abnormality noted. A cervical fracture is not seen." -Orthostatic vitals -Echo -Physical therapy- Evaluated and found to be independent with some balance problems -Continuous telemetry -Continue home medication UTI (POA) -Rocephin -follow urine culture Diabetes mellitus- NIDDM -continued Farxiga -Accu-Chek Hypothyroidism Hypertension GERD -Continued home medication On 05/27/24, Nickolas was seen on morning rounds, she was recommended for transfer for continued evaluation of Sick Sinus Syndrome and 2nd degree heart block. Family and patient decided against transfer as Dr. Burgos called and asked that they do not move forward with the transfer or pacemaker. Education concerning the chance of the patient fainting again based on what has been seen on telemetry was provided. Risk of was also discussed. Family would like to pursue with Dr. Burgos at the next appointment June 09. Recommendation for an appointment as soon as possible will be better. General: Alert and oriented x3, NAD HEENT: Atraumatic, Normocephalic Respiratory: Clear to auscultation bilaterally, Normal air movement, on RA Cardiovascular: Normal pulses, afib, Normal S1 S2 Capillary refill: <2 Seconds Gastrointestinal: Normal bowel sounds, Soft and benign on palpation Vital Signs/Physical Exam: Temp Pulse Resp BP Pulse Ox 98.0 F 109 H 13 127/66 97 05/27/24 12:28 05/27/24 13:34 05/27/24 12:28 05/27/24 13:34 05/27/24 12:28 Laboratory Data at Discharge: WBC 5.50 thou/uL (4.3-10.9) 05/27/24 04:11 Hgb 12.1 g/dL (12.0-15.0) 05/27/24 04:11 Hct 36.5 % (36.0-45.0) 05/27/24 04:11 Plt Count 170 thou/uL (152-406) 05/27/24 04:11 PT 21.4 SECONDS (10.0-13.0) H 05/25/24 12:10 INR 1.94 05/25/24 12:10 Sodium 144 mEq/L (136-145) 05/27/24 04:11 Potassium 3.7 mEq/L (3.5-5.1) 05/27/24 04:11 BUN 8 mg/dL (7-18) 05/27/24 04:11 Creatinine 0.66 mg/dL (0.55-1.02) 05/27/24 04:11 Glucose 121 mg/dL (74-106) H 05/27/24 04:11 Phosphorus 2.5 mg/dL (2.5-4.9) 05/27/24 04:11 Magnesium 2.1 mg/dL (1.6-2.4) 05/27/24 04:11 Total Bilirubin 0.8 mg/dL (0.2-1.0) 05/25/24 12:10 AST 16 U/L (15-37) 05/25/24 12:10 ALT 20 U/L (13-56) 05/25/24 12:10 Alkaline Phosphatase 81 U/L (45-117) 05/25/24 12:10 Triglycerides 81 mg/dL (<150) 05/26/24 04:13 Cholesterol 100 mg/dL (<200) 05/26/24 04:13 HDL Cholesterol 35 mg/dL (40-60) L 05/26/24 04:13 Cholesterol/HDL Ratio 2.86 05/26/24 04:13 Lipase 18 U/L (13-75) 05/25/24 12:10 Home Medications: Apixaban [Eliquis] 5 mg PO BID 03/16/19 Aspirin 81 mg PO DAILY 03/16/19 Fluticasone Propionate [Flonase Allergy Relief] 1 spray IH DAILY 03/16/19 Levothyroxine [Synthroid*] 75 mcg PO FEVDC0CM 03/16/19 Montelukast Sodium [Singulair] 10 mg PO DAILY 03/16/19 Sotalol HCl [Sotalol] 120 mg PO BID 03/16/19 dilTIAZem HCL [Diltiazem 12Hr ER] 60 mg PO TID 03/16/19 Cephalexin [Keflex*] 500 mg PO Q6HR #28 cap 03/17/19 Doxycycline Hyclate 100 mg PO BID #14 tablet 03/17/19 Guaifen W/Codeine Syrup [ROBITUSSIN A-C Syrup*] 5 ml PO Q6H #1 bottle 03/17/19 Ciprofloxacin HCl [Cipro] 500 mg PO BID 5 Days #10 tab 05/27/24 Physician Discharge Instructions: 1. Please call and schedule a follow-up appointment with your PCP in 3-5 days - Please follow-up with your PCP for medication refills/adjustments 2. Please call and schedule a follow-up appointment with Dr. Burgos as soon as possible -Evaluation electrophysiology for Sick sinus syndrome/2nd degree heart block is recommended -Telemetry showed NSR then 2nd degree heart block and Afib. -Syncopal (fainting) episode with evidence on the telemetry indicates a serious heart condition -Request to discharge vs being transferred for further evaluation is not recommended, please see Dr. Burgos 3. Continue heart healthy diet 4. activity restrictions fall precautions 5. Return to the ED if symptoms worsen Diet: AHA Activity: Fall precautions Followup: Azeem Avina, DO [Primary Care Provider] -
--- NOTE | 2024-05-29 16:54 | EKG ---
Test Date: 2024-05-27 Test Time: 12:01:37 [employer]: NAUKL MEASUREMENT RESULTS: Intervals: Rate: 64 NM: 206 QRSD: 96 QT: 432 QTc: 445 [place]: P: 97 NM: 206 QRS: -61 T: 70 INTERPRETIVE STATEMENTS: Sinus rhythm with marked sinus arrhythmia with junctional escape complexes Pulmonary disease pattern Left anterior fascicular block Nonspecific T wave abnormality Abnormal ECG Compared to ECG 05/26/2024 21:35:58 Junctional escape complex(es) now present Left anterior fascicular block now present Sinus bradycardia no longer present Left-axis deviation no longer present Incomplete right bundle-branch block no longer present T-wave abnormality still present Electronically Signed On 05-29-24 16:46:42 SERVICE LEARNING COORDINATOR by Dorian Phillips
--- NOTE | 2024-05-29 16:56 | EKG ---
Test Date: 2024-05-26 Test Time: 21:35:58 Radiology Special Procedure Tech: TORRES MEASUREMENT RESULTS: Intervals: Rate: 58 ME: 174 QRSD: 106 QT: 468 QTc: 459 [place]: P: 41 ME: 174 QRS: -37 T: 8 INTERPRETIVE STATEMENTS: Sinus bradycardia Left axis deviation Incomplete right bundle branch block Nonspecific T wave abnormality Abnormal ECG Compared to ECG 05/25/2024 12:03:00 Incomplete right bundle-branch block now present T-wave abnormality still present Electronically Signed On 05-29-24 16:47:30 [employer]OWNFIELD REDEVELOPMENT SITE MANAGER by Dorian Phillips
== END 2024-05-27 15:00 | disposition home or self-care (01) | DRG 309 ==
LOC: ER 11:50 → ERHOLD 14:00 → 2ND 18:52 → OBSVTOIN 05-27 08:29
PROVIDERS: ADMIT Internal Medicine; ATTEND Hospitalist
DX: I48.0 Paroxysmal atrial fibrillation (principal); N39.0 Urinary tract infection, site not specified; I49.5 Sick sinus syndrome; I44.1 Atrioventricular block, second degree; E11.9 Type 2 diabetes mellitus without complications; I10 Essential (primary) hypertension; E87.6 Hypokalemia; K21.9 Gastro-esophageal reflux disease without esophagitis; Z88.1 Allergy status to other antibiotic agents; Z90.49 Acquired absence of other specified parts of digestive tract; Z79.899 Other long term (current) drug therapy; S93.409A Sprain of unspecified ligament of unspecified ankle, initial encounter; W18.30XA Fall on same level, unspecified, initial encounter; Y93.9 Activity, unspecified; Y92.009 Unspecified place in unspecified non-institutional (private) residence as the place of occurrence of the external cause; Y99.9 Unspecified external cause status; Z79.890 Hormone replacement therapy; Z79.01 Long term (current) use of anticoagulants; Z79.82 Long term (current) use of aspirin
CPT/HCPCS: 36415; 70450; 71045; 71260; 72125; 74177; 80048; 80061; 80076; 81001; 83690; 83735; 83880; 84100; 84439; 84443; 84484; 85025; 85610; 87077; 87086; 87088; 87186; 93005; 93306; 96361; 96374; 96375; 97161; 99285; G0378; J0360; J0696; J2405; J3475; J7030; J7050; Q9967

== ENCOUNTER 2024-06-13 18:14 | Inpatient (IN) | payer OTHER ==
[2024-06-13 19:36] LABS: Absolute Eosinophils 0.3 K/uL (0-0.5); Absolute Lymphocytes (CBC) 2.5 K/uL (0.7-4.9); Absolute Monocytes 1.2 K/uL (0.1-1.3); Absolute Neutrophil 9.3 K/uL (1.8-8.0); Basophils % 0.3 % (0-1.3); Hematocrit 41.7 % (36.0-45.0); Hemoglobin 14.2 g/dL (12.0-15.0); Lymphocytes % 19.1 % (15.3-44.8); MCH 30.2 pg (27.0-35.0); MCHC 34.1 g/dL (32.0-36.0); MCV 88.5 fL (80-100); MPV 7.8 fL (7.6-11.3); Neutrophils % 69.6 % (41.7-73.7); Platelets 286 thou/uL (152-406); RBC Red Blood Cell Count 4.71 M/uL (3.86-4.86)
[2024-06-13 19:44] LABS: PT Prothrombin Time 22.8 SECONDS (10-13.0); PTT, Activated Partial Thromb 36.5 SECONDS (27.2-37.4); Protime INR 2.07
[2024-06-13 19:54] LABS: Albumin 3.4 g/dL (3.4-5.0); Anion Gap 8.3 mEq/L (5.0-15.0); Bilirubin Direct 0.2 mg/dL (0-0.2); Bilirubin Indirect, Calculated 0.5 mg/dL (0.2-0.8); Bilirubin Total 0.7 mg/dL (0.2-1.0); Globulin 3.3 g/dL (2.3-3.5); Magnesium 2.2 mg/dL (1.6-2.4); Potassium 3.3 mEq/L (3.5-5.1); Protein, Total 6.7 g/dL (6.4-8.2); Troponin High Sensitivity 17.5 pg/mL (<58.9)
--- NOTE | 2024-06-13 19:59 | RAD REPORT ---
EXAMINATION: ONE VIEW CHEST XR CLINICAL INDICATION: Female, 74 years old.,DYSPNEA TECHNIQUE: Frontal chest projection is submitted. Examination is limited by patient positioning and t echnique. COMPARISON: 05/25/2024 FINDINGS: Developing right basilar small patchy airspace opacity. Left lung is clear. Battery pack projecting o mg the left lower hemithorax limits evaluation. No pneumothorax or sizable effusion. The heart is normal in size. Mediastinal contours are unremarkable. IMPRESSION: Developing right basilar small patchy airspace opacity, concerning for pneumonia.
--- NOTE | 2024-06-13 20:06 | EDPHYS ---
Physician Documentation [facility] Name: Nickolas Grimes Age: 74 yrs Sex: Female : 1950 Arrival Date: 06/13/2024 Time: 18:14 Bed 3 Private MD: ED Physician Jay Sanchez HPI: 06/13 18:55 This 74 yrs old Female presents to ER via Ambulatory with complaints of Cough, chills, rn afib. 18:55 The patient or guardian reports cough, difficulty breathing, flu symptoms. rn 18:55 Onset: The symptoms/episode began/occurred 2 week(s) ago. Severity of symptoms: At rn their worst the symptoms were moderate, in the emergency department the symptoms are unchanged. Modifying factors: The symptoms are alleviated by nothing, the symptoms are aggravated by nothing. The patient has not experienced similar symptoms in the past. The patient has been recently seen by a physician:. Patient reports admitted for A-fib and hospitalized 3 weeks ago. Discharged with antibiotics for possible sinus infection at that time. Denies improvement. Saw PCP and got prescribed another antibiotic. Family reports appears very weak, dehydrated, malaise, weight loss, and seems to be having mild shortness of breath with exertion. No hemoptysis. No vomiting or diarrhea. No abdominal pain. No chest pain.. Historical: - Allergies: 18:41 Azithromycin; ld1 - Home Meds: 18:41 Eliquis 5 mg Oral tab 1 tab daily [Active]; ld1 - PMHx: 18:41 Atrial Fib; diabetes mellitus; Hypertension; ld1 - Immunization history:: Adult Immunizations up to date. - Infectious Disease History:: Denies. - Social history:: Smoking status: Patient denies any tobacco usage or history of. - Family history:: not pertinent. - Hospitalizations: : The patient was [facility]. ROS: 18:55 Constitutional: Negative for fever, chills, and weight loss, Cardiovascular: Negative rn for chest pain, palpitations, and edema, Respiratory: Positive for cough and shortness of breath Abdomen/GI: Negative for abdominal pain, positive for anorexia and decreased intake MS/Extremity: Negative for injury and deformity, Skin: Negative for injury, rash, and discoloration, Neuro: Positive for generalized weakness and malaise Exam: 18:55 Constitutional: This is a well developed, well nourished patient who is awake, alert, rn and in no acute distress. Cardiovascular: Regular rate and rhythm . No pulse deficits. Respiratory: Mild tachypnea, no retractions Abdomen/GI: Soft, non-tender MS/ Extremity: Pulses equal, no cyanosis. Neuro: Awake and alert, GCS 15 Vital Signs: 18:41 BP 104 / 61; Pulse 69; Resp 18; Temp 97.9(O); Pulse Ox 92% on R/A; Weight 65.32 kg; ld1 Height 5 ft. 7 in. ; Pain 0/10; 21:23 BP 112 / 81; Pulse 61; Resp 18; Temp 97.9; Pulse Ox 95% ; Pain 0/10; bm8 22:30 BP 154 / 98; Pulse 70; Resp 18; Temp 97.8; Pulse Ox 97% ; Pain 0/10; bm8 18:41 Body Mass Index 22.55 (65.32 kg, 170.18 cm) ld1 18:41 Pain Scale: Adult ld1 21:23 Pain Scale: Adult bm8 22:30 Pain Scale: Adult bm8 [place] Coma Score: 19:27 Eye Response: spontaneous(4). Motor Response: obeys commands(6). Verbal Response: bm8 oriented(5). Total: 15. 21:23 Eye Response: spontaneous(4). Motor Response: obeys commands(6). Verbal Response: bm8 oriented(5). Total: 15. 22:30 Eye Response: spontaneous(4). Motor Response: obeys commands(6). Verbal Response: bm8 oriented(5). Total: 15. MDM: 18:45 Medical Screening Exam initiated rn 20:05 Differential Diagnosis: Bronchitis Viral Syndrome Pneumonia. Data reviewed: vital rn signs, nurses notes, lab test result(s), radiologic studies, plain films, and as a result, I will admit patient. Consideration of Admission/Observation Patient was admitted/placed on observation. Escalation of care including admission/observation considered. Counseling: I had a detailed discussion with the patient and/or guardian regarding the historical points, exam findings, and any diagnostic results supporting the discharge/admit diagnosis, lab results, radiology results, the need for further work-up and treatment in the hospital. Response to treatment: the patient's symptoms have mildly improved after treatment, and as a result, I will admit patient. ED course: Chest x-ray images show pneumonia per my interpretation. Has oxygen saturation of 92%. Elevated WBC. Normal lactic acid. Will admit for antibiotics and further care.. 06/13 18:50 Order name: BMP; Complete Time: 19:56 [facility] 06/13 18:50 Order name: Blood Culture Adult (2) [facility] 06/13 18:50 Order name: CBC with Diff; Complete Time: 19:41 [facility] 06/13 18:50 Order name: Hepatic Function; Complete Time: 19:56 06/13 18:50 Order name: Lipase; Complete Time: 19:56 [facility] 06/13 18:50 Order name: Magnesium; Complete Time: 19:56 06/13 18:50 Order name: NT PRO-BNP; Complete Time: 19:56 06/13 18:50 Order name: PT-INR; Complete Time: 19:56 [facility] 06/13 18:50 Order name: Ptt, Activated; Complete Time: 19:56 [facility] 06/13 18:50 Order name: Troponin HS; Complete Time: 19:56 [facility] 06/13 19:21 Order name: Lactate w/ 2H reflex if indic.; Complete Time: 19:56 lg3 06/13 21:56 Order name: COVID-19 Ag + Flu A+B Ag [facility] 06/13 22:01 Order name: Urinalysis w/ reflexes [facility] 06/13 22:01 Order name: Basic Metabolic Panel [facility] 06/13 22:01 Order name: Basic Metabolic Panel [facility] 06/13 22:01 Order name: Comprehensive Metabolic Panel [facility] 06/13 22:01 Order name: Comprehensive Metabolic Panel [facility] 06/13 18:50 Order name: XRAY CXR (1 view); Complete Time: 20:00 [facility] 06/13 18:50 Order name: EKG; Complete Time: 18:51 06/13 18:50 Order name: Cardiac monitoring; Complete Time: 19:17 06/13 18:50 Order name: EKG - Nurse/Tech; Complete Time: 19:17 06/13 18:50 Order name: IV Saline Lock; Complete Time: 19:35 06/13 18:50 Order name: Labs collected and sent; Complete Time: 19:35 1 06/13 18:50 Order name: O2 Per Protocol; Complete Time: 19:35 ld1 06/13 18:50 Order name: O2 Sat Monitoring; Complete Time: 19:35 ld1 Administered Medications: 20:22 Drug: Piperacillin-Tazobactam IVPB 3.375 grams IVPB once over 60 mins; (mix in NS 100 bm8 mL) Route: IVPB; Infused Over: 60 mins; Site: left antecubital; 21:23 Follow up: Response: No adverse reaction; IV Status: Completed infusion bm8 Disposition Summary: 06/13/24 20:06 Hospitalization Ordered Notes: Hospitalization Status: Inpatient Admission rn Provider: Daryn Olivas rn Location: Telemetry/MedSurg (Inpatient) rn Condition: Stable rn Problem: new rn Symptoms: have improved rn Bed/Room Type: Standard rn Room Assignment: 415(06/13/24 21:38) cg Diagnosis - Pneumonia, unspecified organism rn - Hypoxemia rn Forms: - Medication Reconciliation Form rn - SBAR form rn - Leadership Thank You Letter rn Signatures: Dispatcher [employer] Jay Vela MD MD rn Garcia, Cindy RN RN cg Niharika Arias RN RN ld1 Blair Nieves RN RN bm8 Corrections: (The following items were deleted from the chart) 21:38 20:06 rn cg
--- NOTE | 2024-06-13 20:06 | ER ---
Nurse's Notes [facility] Name: Nickolas Grimes Age: 74 yrs Sex: Female : 1950 Arrival Date: 06/13/2024 Time: 18:14 Bed 3 Private MD: Diagnosis: Pneumonia, unspecified organism;Hypoxemia Presentation: 06/13 18:40 Coronavirus screen: At this time, the client does not indicate any symptoms associated ld1 with coronavirus-19. Ebola Screen: No symptoms or risks identified at this time. Risk Assessment: Do you want to hurt yourself or someone else? Patient reports no desire to harm self or others. Onset of symptoms was June 13, 2024. 18:40 Method Of Arrival: Ambulatory ld1 18:40 Acuity: [place] 3 ld1 18:41 Chief complaint: Patient states: Recently sick with upper respiratory infection - not ld1 feeling well ever since. Pt reports feeling wobbly on feet and fatigue since being sick. Initial Sepsis Screen: Does the patient meet any 2 criteria? No. Patient's initial sepsis screen is negative. Does the patient have a suspected source of infection? No. Patient's initial sepsis screen is negative. Triage Assessment: 18:41 General: Appears in no apparent distress. comfortable, Behavior is calm, cooperative, ld1 appropriate for age. Pain: Denies pain. EENT: No signs and/or symptoms were reported regarding the EENT system. Neuro: Level of Consciousness is awake, alert, obeys commands, Oriented to person, place, time, situation. Cardiovascular: Capillary refill < 3 seconds Patient's skin is warm and dry. Respiratory: Airway is patent Respiratory effort is even, unlabored. GI: Abdomen is round non-distended. : No signs and/or symptoms were reported regarding the genitourinary system. Derm: No signs and/or symptoms reported regarding the dermatologic system. Musculoskeletal: No signs and/or symptoms reported regarding the musculoskeletal system. Historical: - Allergies: 18:41 Azithromycin; ld1 - Home Meds: 18:41 Eliquis 5 mg Oral tab 1 tab daily [Active]; ld1 - PMHx: 18:41 Atrial Fib; diabetes mellitus; Hypertension; ld1 - Immunization history:: Adult Immunizations up to date. - Infectious Disease History:: Denies. - Social history:: Smoking status: Patient denies any tobacco usage or history of. - Family history:: not pertinent. - Hospitalizations: : The patient was recently seen at [facility]. Screenin:27 [facility] ED Fall Risk Assessment (Adult) History of falling in the last 3 months, bm8 including since admission No falls in past 3 months (0 pts) Confusion or Disorientation No (0 pts) Intoxicated or Sedated No (0 pts) Impaired Gait No (0 pts) Mobility Assist Device Used No (0 pt) Altered Elimination No (0 pt) Score/Fall Risk Level 0 - 2 = Low Risk Oriented to surroundings, Maintained a safe environment, Educated pt \T\ family on fall prevention, incl call for assistance when getting out of bed, Assessed \T\ reinforced patient's understanding of fall precautions, Hourly rounding (assess needs \T\ fall precautionary measures) done, Used ambulatory aids as needed (educated on \T\ assisted with), Used gait belt as appropriate. Abuse screen: Denies threats or abuse. Nutritional screening: No deficits noted. Tuberculosis screening: No symptoms or risk factors identified. Assessment: 19:27 Reassessment: Patient appears in no apparent distress at this time. Patient and/or bm8 family updated on plan of care and expected duration. Pain level reassessed. Patient is alert, oriented x 3, equal unlabored respirations, skin warm/dry/pink. General: Appears in no apparent distress. comfortable, Behavior is calm, cooperative, appropriate for age. Pain: Complains of pain in chest Pain currently is 3 out of 10 on a pain scale. Quality of pain is described as sore from coughing. Neuro: No deficits noted. Level of Consciousness is awake, alert, obeys commands, Oriented to person, place, time, situation, Appropriate for age. Cardiovascular: Reports chest pain, Heart tones S1 S2 present Capillary refill < 3 seconds in bilateral fingers Patient's skin is warm and dry. Respiratory: Airway is patent Trachea midline Respiratory effort is even, unlabored, Respiratory pattern is regular, symmetrical, Breath sounds with crackles bilaterally. GI: No signs and/or symptoms were reported involving the gastrointestinal system. : No signs and/or symptoms were reported regarding the genitourinary system. EENT: No signs and/or symptoms were reported regarding the EENT system. Derm: No signs and/or symptoms reported regarding the dermatologic system. Musculoskeletal: No signs and/or symptoms reported regarding the musculoskeletal system. 21:23 Reassessment: Patient appears in no apparent distress at this time. Patient and/or bm8 family updated on plan of care and expected duration. Pain level reassessed. Patient is alert, oriented x 3, equal unlabored respirations, skin warm/dry/pink. Patient denies pain at this time. Patient states feeling better. Patient states symptoms have improved. 22:30 Reassessment: Patient appears in no apparent distress at this time. Patient and/or bm8 family updated on plan of care and expected duration. Pain level reassessed. Patient is alert, oriented x 3, equal unlabored respirations, skin warm/dry/pink. Patient denies pain at this time. Patient states feeling better. Patient states symptoms have improved. Vital Signs: 18:41 BP 104 / 61; Pulse 69; Resp 18; Temp 97.9(O); Pulse Ox 92% on R/A; Weight 65.32 kg; ld1 Height 5 ft. 7 in. ; Pain 0/10; 21:23 BP 112 / 81; Pulse 61; Resp 18; Temp 97.9; Pulse Ox 95% ; Pain 0/10; bm8 22:30 BP 154 / 98; Pulse 70; Resp 18; Temp 97.8; Pulse Ox 97% ; Pain 0/10; bm8 18:41 Body Mass Index 22.55 (65.32 kg, 170.18 cm) ld1 18:41 Pain Scale: Adult ld1 21:23 Pain Scale: Adult bm8 22:30 Pain Scale: Adult bm8 [place] Coma Score: 19:27 Eye Response: spontaneous(4). Motor Response: obeys commands(6). Verbal Response: bm8 oriented(5). Total: 15. 21:23 Eye Response: spontaneous(4). Motor Response: obeys commands(6). Verbal Response: bm8 oriented(5). Total: 15. 22:30 Eye Response: spontaneous(4). Motor Response: obeys commands(6). Verbal Response: bm8 oriented(5). Total: 15. ED Course: 18:17 Patient arrived in ED. al6 18:41 Triage completed. ld1 18:41 Arm band placed on right wrist. ld1 18:45 Jay Sanchez MD is Attending Physician. rn 19:18 EKG done, by ED staff. vk 19:20 No provider procedures requiring assistance completed. bm8 19:20 Initial lab(s) drawn, by me, sent to lab. First set of blood cultures drawn by me. bm8 Inserted saline lock: 20 gauge in left antecubital area, using aseptic technique. Blood collected. Flushed with 10 mL NS. Patient maintains SpO2 saturation greater than 95% on room air. 19:27 Blair Nieves, RN is Primary Nurse. bm8 19:27 Patient has correct armband on for positive identification. Placed in gown. Bed in low bm8 position. Side rails up X2. Adult w/ patient. Client placed on continuous cardiac and pulse oximetry monitoring. NIBP monitoring applied. psychiatric arnp on. Pulse ox on. NIBP on. Door closed. Noise minimized. Warm blanket given. Pillow given. Verbal reassurance given. Head of bed elevated. 19:56 XRAY CXR (1 view) In Process Unspecified. EDMS 20:06 Daryn Olivas MD is Hospitalizing Provider. rn 22:30 Provided Education on: need for admission. bm8 22:30 Patient admitted, IV remains in place. bm8 Administered Medications: 20:22 Drug: Piperacillin-Tazobactam IVPB 3.375 grams IVPB once over 60 mins; (mix in NS 100 bm8 mL) Route: IVPB; Infused Over: 60 mins; Site: left antecubital; 21:23 Follow up: Response: No adverse reaction; IV Status: Completed infusion bm8 Medication: 19:27 VIS not applicable for this client. bm8 Outcome: 20:06 Decision to Hospitalize by Provider. rn 22:30 Admitted to Tele accompanied by tech, via wheelchair, room 415, with chart, bm8 22:30 Condition: stable 22:30 Instructed on the need for admit, Demonstrated understanding of instructions, follow-up care, 22:36 Patient left the ED. bm8 Signatures: Dispatcher [employer] EDMS Jay Sanchez MD MD rn Sims, Lauren RN RN anna1 [place] Griffin Brad, RN RN bm8 Freda [email or web address]
[2024-06-13] MEDS ORDERED: PIPERACIL/TAZO 3.375 GM VIAL IV ONE (20:15)
[2024-06-13] MEDS ORDERED: NA CHLORIDE 0.9% 100 ML ONE (20:15)
--- NOTE | 2024-06-13 21:28 | P.HP ---
Certification for Inpatient Patient admitted to: Inpatient With expected LOS: >2 Midnights Practitioner: I am a practitioner with admitting privileges, knowledge of patient current condition, hospital course, and medical plan of care. Services: Services provided to patient in accordance with Admission requirements found in Title 42 Section 412.3 of the Code of Federal Regulations Patient History Date of Service: 06/13/24 Reason for admission: Shortness of breath History of Present Illness: 74-year-old female with past medical history of hypertension, hyperlipidemia, diabetes ,atrial fibrillation, who was brought to ER with cough, difficulty in breathing and flulike symptoms. Patient states that she started having symptoms 2 weeks ago and has been progressively getting worse. Patient was recently been admitted to the hospital for syncope and paroxysmal A-fib and was discharged with antibiotic for sinusitis without much improvement. And was seen by the PCP and was prescribed another antibiotic. Patient has been having loss of appetite and has some generalized weakness and dehydrated. Associated with shortness of breath with even with minimal exertion. Denies any hemoptysis. Denies any chest pain. No sick contacts. . Patient was assessed in the ER was admitted for further management Allergies azithromycin Allergy (Verified 03/16/19 13:00) Rash Home medications list reviewed: Yes Home Medications: Apixaban [Eliquis] 5 mg PO BID 03/16/19 Aspirin 81 mg PO DAILY 03/16/19 Fluticasone Propionate [Flonase Allergy Relief] 1 spray IH DAILY 03/16/19 Levothyroxine [Synthroid*] 75 mcg PO [id number] 03/16/19 Montelukast Sodium [Singulair] 10 mg PO DAILY 03/16/19 Sotalol HCl [Sotalol] 120 mg PO BID 03/16/19 dilTIAZem HCL [Diltiazem 12Hr ER] 60 mg PO TID 03/16/19 Cephalexin [Keflex*] 500 mg PO Q6HR #28 cap 03/17/19 Doxycycline Hyclate 100 mg PO BID #14 tablet 03/17/19 Guaifen W/Codeine Syrup [ROBITUSSIN A-C Syrup*] 5 ml PO Q6H #1 bottle 03/17/19 Ciprofloxacin HCl [Cipro] 500 mg PO BID 5 Days #10 tab 05/27/24 - Past Medical/Surgical History Past Medical History: Reviewed- Non-Contributory -: Hypertension -: Afib -: Diabetes -: GERD Past Surgical History: Reviewed- Non-Contributory -: Tonisllectomy -: Chlecystectomy -: Adenoidectomy -: Cardiac ablation - Family History Mother -: Heart disease Notes: afib Sister -: Heart disease Notes: afib Father -: Hypertension, Other (see notes) Notes: arthritis - Social History Smoking Status: Never smoker Alcohol use: No Caffeine use: No Review of Systems 10-point ROS is otherwise unremarkable Physical Examination - Vital Signs Temperature: 97.8 F Blood Pressure: 138/68 Pulse: 74 Respirations: 18 Pulse Ox (%): 94 - Physical Exam General: Alert, Oriented x3, Moderate distress HEENT: Atraumatic, Normocephalic Neck: Supple, No LAD Respiratory: Clear to auscultation bilaterally, Crackles/rales Cardiovascular: Regular rate/rhythm, Normal S1 S2 Capillary refill: <2 Seconds Gastrointestinal: Soft and benign, W/out hepatosplenomegaly Musculoskeletal: No clubbing, No swelling Integumentary: No rashes Neurological: Normal speech, Normal strength at 5/5 x4 extr, Normal reflexes 2+ Lymphatics: No axilla or inguinal lymphadenopathy - Studies Laboratory Data (last 24 hrs) 06/13/24 06/13/24 06/13/24 19:20 19:20 19:20 WBC 13.30 H Hgb 14.2 Hct 41.7 Plt Count 286 PT 22.8 H INR 2.07 APTT 36.5 Sodium 140 Potassium 3.3 L BUN 18 Creatinine 0.84 Glucose 144 H Magnesium 2.2 Total Bilirubin 0.7 AST 16 ALT 25 Alkaline Phosphatase 91 Lipase 18 Assessment and Plan - Plan Right lower lobe pneumonia Monitor closely on telemetry Started on IV antibiotic Supportive measures Antitussives X-ray findings noted Oxygen supplementation Will try to wean down oxygen requirement Will get a COVID test and flu test Hypertension Antihypertensives titrated Continue home medications and titrate as needed Hyperlipidemia Continue statin Diabetes Insulin sliding scale Accu-Chek before every meal and at bedtime Atrial fibrillation Continue home medications and titrate as needed GI/DVT prophylaxis Advanced directive full code Discharge Plan: Home Plan to discharge in: 48 Hours - Advance Directives Does patient have a Living Will: No Does patient have a Durable POA for Healthcare: No - Code Status/Comfort Care Code Status: Full Code Time Spent Managing Pts Care (In Minutes): 54
[2024-06-13] MEDS ORDERED: ACETAMINOPHEN 325 MG TABLET PO PRN (21:56)
[2024-06-13] MEDS ORDERED: IPRATROPIUM BROM 0.5MG/2.5ML NEB PRN (21:56)
[2024-06-13] MEDS ORDERED: ONDANSETRON 4 MG/2 ML VIAL IV PRN (21:56)
[2024-06-13] MEDS ORDERED: ALBUTEROL 2.5 MG/3 ML NEB SOL NEB PRN (21:56)
[2024-06-13] MEDS: Levofloxacin 750mg IV 750 MG/150 ML BAG IV ONE (23:00)
[2024-06-13 23:16] VITALS: BMI 23.5
[2024-06-14] MEDS: SOTALOL HCL 80 MG TAB PO ONE (00:05)
[2024-06-14 01:12] LABS: Influenza A Ag Negative; Influenza B Ag Negative; SARS-CoV-2 Antigen Rapid Res Negative (Negative)
[2024-06-14 06:46] LABS: Albumin 2.7 g/dL (3.4-5.0); Anion Gap 5.1 mEq/L (5.0-15.0); Bilirubin Total 0.6 mg/dL (0.2-1.0); Globulin 2.8 g/dL (2.3-3.5); Potassium 3.1 mEq/L (3.5-5.1); Protein, Total 5.5 g/dL (6.4-8.2)
[2024-06-14] MEDS: DOXYCYCLINE 100 MG CAP PO SCH (08:02)
[2024-06-14] MEDS: CEFTRIAXONE 1,000 MG in NA CHLORIDE 0.9% 50 ML IVPB SCH (08:02)
[2024-06-14] MEDS: POTASSIUM CL SA 10 MEQ TAB PO ONE (08:02)
--- NOTE | 2024-06-14 08:51 | P.PN ---
Date of Service: 06/14/24 Subjective: feeling much better this morning compared to yesterday Borderline oxygen saturations at room air at rest Continues with cough Denies any fever at home, no increased swelling/fluid retention ROS: 10 point ROS as noted above, otherwise negative Physical Exam: GEN: Alert, oriented, NAD CV: Regular rate and rhythm, no edema Pulm: Nonlabored respirations on room air, diminished at bases bilaterally ABD: soft, nontender, nondistended Neuro: Normal speech, normal affect Problem List: Dyspnea, Cough Possible Pneumonia Paroxysmal A-fib, on eliquis Hypertension Hyperlipidemia Hypothyroidism GERD NIDDM2 Feeling better this morning compared to last night Mild opacities at the right base, read as possible pneumonia Patient does state that her grandson had a respiratory infection recently She has been feeling under the weather, with cough, general malaise, weakness Procalcitonin normal, mild elevation in her CRP Most likely viral, however since recently in the hospital recently given her risk factors, and already being on antibiotics started in the ER, will continue for now She received antibiotics for UTI and discharged on Cipro Subsequently completed a course of Augmentin ~10days outpatient as well Essentially has been on an antibiotic since discharge Restart home sotalol, Eliquis, Synthroid and other medications once confirmed/appropriate VTE: Home Eliquis Code: Full Dispo: Home, 24 to 48 hours Time Spent Managing Pts Care (In Minutes): 55
[2024-06-14] MEDS ORDERED: ENOXAPARIN 40 MG/0.4 ML SQ SCH (09:00)
[2024-06-14] MEDS: BENZONATATE 100 MG CAP PO PRN (10:44)
[2024-06-14] MEDS ORDERED: FLU (Fluarix Triv) TS24-25(6MOS UP)/PF 45 MCG/0.5 ML Syringe IM ONE (12:00)
[2024-06-14 14:00] LABS: Specific Gravity > 1.030 (1.005-1.030); Urine Bilirubin NEGATIVE (Negative); Urine Blood Negative (Negative); Urine Clarity Clear (Clear); Urine Color Light-Yellow (Yellow); Urine Glucose 4+ (Over) (Negative); Urine Ketones NEGATIVE (Negative); Urine Microscopic Reflex YN NO UMIC; Urine Nitrite NEGATIVE (Negative); Urine Protein NEGATIVE (Negative); Urine Urobilinogen Normal (Normal)
[2024-06-14] MEDS: SOTALOL HCL 80 MG TAB PO SCH (17:05)
[2024-06-14] MEDS: ATORVASTATIN 40 MG TAB PO SCH (20:46)
[2024-06-14] MEDS: MEMANTINE HCL 10 MG TABLET PO SCH (20:46)
[2024-06-14] MEDS: APIXABAN 5 MG TABLET PO SCH (20:47)
[2024-06-14] MEDS ORDERED: Levofloxacin 750mg IV 750 MG/150 ML BAG IV SCH (22:00)
[2024-06-15] MEDS: LEVOTHYROXINE SOD 0.075 MG TAB PO SCH (05:39)
[2024-06-15 07:00] LABS: Absolute Eosinophils 0.2 K/uL (0-0.5); Absolute Lymphocytes (CBC) 2.1 K/uL (0.7-4.9); Absolute Monocytes 0.8 K/uL (0.1-1.3); Absolute Neutrophil 4.8 K/uL (1.8-8.0); Basophils % 0.5 % (0-1.3); Eosinophils % 2.7 % (0-4.4); Hematocrit 38.2 % (36.0-45.0); Hemoglobin 12.7 g/dL (12.0-15.0); Lymphocytes % 26.1 % (15.3-44.8); MCH 29.8 pg (27.0-35.0); MCHC 33.2 g/dL (32.0-36.0); MCV 89.6 fL (80-100); MPV 7.5 fL (7.6-11.3); Monocytes % 9.9 % (3.3-12.3); Neutrophils % 60.8 % (41.7-73.7); Platelets 260 thou/uL (152-406); RBC Red Blood Cell Count 4.26 M/uL (3.86-4.86); Red Cell Distribution Width 13.8 % (12.1-15.2)
[2024-06-15 07:16] LABS: Anion Gap 6.8 mEq/L (5.0-15.0); Magnesium 2.1 mg/dL (1.6-2.4); Potassium 3.8 mEq/L (3.5-5.1)
[2024-06-15] MEDS: DONEPEZIL HCL 5 MG TAB PO SCH (09:32)
[2024-06-15] MEDS: POTASSIUM CL SA 10 MEQ TAB PO ONE (09:33)
[2024-06-15] MEDS: ASPIRIN 81 MG CHEWABLE TABLET PO SCH (09:33)
--- NOTE | 2024-06-15 09:59 | RAD REPORT ---
EXAMINATION: ONE VIEW CHEST XR CLINICAL INDICATION: Female, 74 years old.,f/u opacities, pulm edema vs pna TECHNIQUE: Frontal chest projection is submitted. Examination is limited by patient positioning and t echnique. COMPARISON: Abnormality of the right common iliac output is FINDINGS: The lungs are well inflated. Stable right basilar patchy opacity. No pneumothorax or sizable effusio n. The heart is normal in size. Mediastinal contours are unremarkable. IMPRESSION: Stable right basilar patchy opacity.
--- NOTE | 2024-06-15 11:42 | P.PN ---
Date of Service: 06/15/24 Subjective: feeling much better this morning compared to yesterday Borderline oxygen saturations at room air at rest Continues with cough Denies any fever at home, no increased swelling/fluid retention ROS: 10 point ROS as noted above, otherwise negative Physical Exam: GEN: Alert, oriented, NAD CV: Regular rate and rhythm, no edema Pulm: Nonlabored respirations on room air, diminished at bases bilaterally ABD: soft, nontender, nondistended Neuro: Normal speech, normal affect Problem List: Dyspnea, Cough Possible Pneumonia Paroxysmal A-fib, on eliquis Hypertension Hyperlipidemia Hypothyroidism GERD NIDDM2 Dyspnea, Cough Possible Pneumonia On admission, presents with worsening cough, shortness of breath, flulike symptoms. CXR (06/13): Mild opacities at the right base, read as possible pneumonia Patient does state that her grandson had a respiratory infection recently and she has been feeling under the weather, with cough, general malaise, weakness Procalcitonin normal, mild elevation in her CRP Most likely viral, however since recently in the hospital recently given her risk factors, and already being on antibiotics started in the ER, will continue for now She received antibiotics for UTI and discharged on Cipro Subsequently completed a course of Augmentin ~10days outpatient as well Essentially has been on an antibiotic since discharge 06/14 - continue Rocephin / Doxy (06/14-) Follow blood cultures Josiah stout 06/15 - Repeat CXR stable. Leukocytosis resolved, remains afebrile. Repeat labs in am Paroxysmal A-fib, on eliquis Hypertension Hyperlipidemia Hypothyroidism GERD NIDDM2 accu-cheks, SSI 06/14 - home sotalol, eliquis, statin, memantine resumed. 06/15 - home synthroid, donepezil, asa 81 mg resumed. VTE: Home Eliquis Code: Full Dispo: Home, 24 to 48 hours Time Spent Managing Pts Care (In Minutes): 55
[2024-06-15 12:04] VITALS: BP 137/78; TEMP 98
[2024-06-15 12:06] VITALS: O2SAT 96
[2024-06-15] MEDS: FLU (Fluarix Triv) TS24-25(6MOS UP)/PF 45 MCG/0.5 ML Syringe IM ONE (13:05)
--- NOTE | 2024-06-15 16:19 | P.DS ---
Admission Date: 06/13/24 Discharge Date: 06/15/24 Disposition: ROUTINE DISCHARGE Discharge Condition: GOOD Reason for Admission: Shortness of breath Brief History of Present Illness: 74yo F, PMH: hypertension, hyperlipidemia, diabetes ,atrial fibrillation, Patient brought to ER with cough, difficulty in breathing and flulike symptoms. Patient states that she started having symptoms 2 weeks ago and has been progressively getting worse. Patient was recently been admitted to the hospital for syncope and paroxysmal A-fib and was discharged with antibiotic for sinusitis without much improvement. And was seen by the PCP and was prescribed another antibiotic. Patient has been having loss of appetite and has some generalized weakness and dehydrated. Associated with shortness of breath with even with minimal exertion. Denies any hemoptysis. Denies any chest pain. No sick contacts. Patient was assessed in the ER was admitted for further management Hospital Course: Problem List: Dyspnea secondary to viral upper respiratory infection Paroxysmal A-fib, on eliquis Hypertension Hyperlipidemia Hypothyroidism GERD NIDDM2 Physician discharge instructions: Patient presented with worsening cough, shortness of breath, flulike symptoms, likely secondary to viral upper respiratory infection. Patient does state that her grandson had a respiratory infection recently and she has been feeling under the weather, with cough, general malaise, weakness. Of note, she has been on multiple antibiotics over the last 3 weeks. She received antibiotics for UTI and discharged on Cipro 05/27, Subsequently completed a course of Augmentin ~10days as outpatient. Chest xray on admission noted Mild opacities at the right base, read as possible pneumonia. She was noted to have a mild leukocytosis of 13.3 on admission in addition to mildly elevated CRP (18.4) and normal Procalcitonin. She was started on empiric antibiotics given her recent hospitalization, risk fa ctors. Blood cultures have been without growth since 06/14. Flu/COVID screen were negative. Repeat chest xray with stable findings. Leukocytosis resolved 06/15. Patient was feeling better, afebrile throughout hospitalization, and leukocytosis resolved, breathing more comfortably on room air and was deemed stable for discharge. Discussed more likely to be secondary to viral respiratory infection. However, given her recent hospitalization, risk, and improvement while on antibiotics, will continue antibiotics for 7 days. Medications: augment and doxycycline x 7 days Follow up: PCP 3-5 days Please call to schedule / confirm appointments Physical Exam: GEN: Alert, oriented, NAD CV: Regular rate and rhythm, no edema Pulm: Nonlabored respirations on room air, clear bilaterally ABD: soft, nontender, nondistended Neuro: Normal speech, normal affect Vital Signs/Physical Exam: Temp Pulse Resp BP Pulse Ox 98.0 F 66 20 137/78 96 06/15/24 12:00 06/15/24 12:00 06/15/24 12:00 06/15/24 12:00 06/15/24 12:00 Laboratory Data at Discharge: WBC 7.90 thou/uL (4.3-10.9) 06/15/24 06:05 Hgb 12.7 g/dL (12.0-15.0) 06/15/24 06:05 Hct 38.2 % (36.0-45.0) 06/15/24 06:05 Plt Count 260 thou/uL (152-406) 06/15/24 06:05 PT 22.8 SECONDS (10-13.0) H 06/13/24 19:20 INR 2.07 06/13/24 19:20 APTT 36.5 SECONDS (27.2-37.4) 06/13/24 19:20 Sodium 141 mEq/L (136-145) 06/15/24 06:05 Potassium 3.8 mEq/L (3.5-5.1) 06/15/24 06:05 BUN 19 mg/dL (7-18) H 06/15/24 06:05 Creatinine 0.68 mg/dL (0.55-1.02) 06/15/24 06:05 Glucose 111 mg/dL (74-106) H 06/15/24 06:05 Magnesium 2.1 mg/dL (1.6-2.4) 06/15/24 06:05 Total Bilirubin 0.6 mg/dL (0.2-1.0) 06/14/24 05:30 AST 11 U/L (15-37) L 06/14/24 05:30 ALT 17 U/L (13-56) 06/14/24 05:30 Alkaline Phosphatase 70 U/L (45-117) D 06/14/24 05:30 Lipase 18 U/L (13-75) 06/13/24 19:20 Home Medications: Apixaban [Eliquis] 1 tab PO BID 06/14/24 Aspirin 1 tab PO DAILY 06/14/24 Atorvastatin Calcium 40 mg PO BEDTIME 06/14/24 Dapagliflozin Propanediol [Farxiga] 5 mg PO DAILY 06/14/24 Donepezil [Aricept*] 10 mg PO DAILY 06/14/24 Levothyroxine Sodium 75 mcg PO [id number] 06/14/24 Memantine HCl [Namenda*] 10 mg PO BID 06/14/24 Omeprazole 20 mg PO DAILY 06/14/24 Sotalol HCl [Betapace*] 80 mg PO BID 06/14/24 Amox/Clavulanate [Augmentin 875-125 Tab] 1 tab PO BID 7 Days #14 tab 06/15/24 Benzonatate [Tessalon Perle*] 100 mg PO Q8H PRN #20 cap 06/15/24 Doxycycline Monohydrate 100 mg PO BID 7 Days #14 cap 06/15/24 New Medications: Amox/Clavulanate [Augmentin 875-125 Tab] 1 tab PO BID 7 Days #14 tab Doxycycline Monohydrate 100 mg PO BID 7 Days #14 cap Benzonatate [Tessalon Perle*] 100 mg PO Q8H PRN #20 cap PRN Reason: Cough Physician Discharge Instructions: Physician discharge instructions: Patient presented with worsening cough, shortness of breath, flulike symptoms, likely secondary to viral upper respiratory infection. Patient does state that her grandson had a respiratory infection recently and she has been feeling under the weather, with cough, general malaise, weakness. Of note, she has been on multiple antibiotics over the last 3 weeks. She received antibiotics for UTI and discharged on Cipro 05/27, Subsequently completed a course of Augmentin ~10days as outpatient. Chest xray on admission noted Mild opacities at the right base, read as possible pneumonia. She was noted to have a mild leukocytosis of 13.3 on admission in addition to mildly elevated CRP (18.4) and normal Procalcitonin. She was started on empiric antibiotics given her recent hospitalization, risk factors. Blood cultures have been without growth since 06/14. Flu/COVID screen were negative. Repeat chest xray with stable findings. Leukocytosis resolved 06/15. Patient was feeling better, afebrile throughout hospitalization, and leukocytosis resolved, breathing more comfortably on room air and was deemed stable for discharge. Discussed more likely to be secondary to viral respiratory infection. However, given her recent hospitalization, risk, and improvement while on antibiotics, will continue antibiotics for 7 days. Medications: augment and doxycycline x 7 days Follow up: PCP 3-5 days Please call to schedule / confirm appointments Followup: Génesis vAina MD [Primary Care Provider] - Time spent managing pt's care (in minutes): 45
--- NOTE | 2024-06-18 12:49 | EKG ---
Test Date: 2024-06-13 Test Time: 19:13:43 [employer]: CRYSTAL MEASUREMENT RESULTS: Intervals: Rate: 70 IA: 242 QRSD: 98 QT: 354 QTc: 382 [place]: P: 88 IA: 242 QRS: -74 T: 84 INTERPRETIVE STATEMENTS: Sinus rhythm with 1st degree AV block with premature supraventricular complexes Possible Left atrial enlargement Pulmonary disease pattern Incomplete right bundle branch block Left anterior fascicular block Septal infarct, age undetermined Abnormal ECG Compared to ECG 05/27/2024 12:01:37 Atrial premature complex(es) now present First degree AV block now present Incomplete right bundle-branch block now present Electronically Signed On 06-18-24 12:32:54 CDT by Dorian Phillips
== END 2024-06-15 13:36 | disposition home or self-care (01) | DRG 195 ==
LOC: ER 18:14 → 4TH 21:56
PROVIDERS: ADMIT Family Medicine; ATTEND Hospitalist
DX: J18.9 Pneumonia, unspecified organism (principal); E86.0 Dehydration; I10 Essential (primary) hypertension; E78.5 Hyperlipidemia, unspecified; I48.0 Paroxysmal atrial fibrillation; E11.9 Type 2 diabetes mellitus without complications; K21.9 Gastro-esophageal reflux disease without esophagitis; Z88.1 Allergy status to other antibiotic agents; Z11.52 Encounter for screening for COVID-19; Z79.82 Long term (current) use of aspirin; Z90.49 Acquired absence of other specified parts of digestive tract; Z79.890 Hormone replacement therapy; Z79.899 Other long term (current) drug therapy
CPT/HCPCS: 36415; 71045; 80048; 80053; 80076; 81003; 82947; 83605; 83690; 83735; 83880; 84132; 84145; 84484; 85025; 85610; 85730; 86140; 87040; 87428; 93005; 96365; 99285; J0696; J2543